=== PATIENT | male | born 1960 | race Caucasian/White ===

== ENCOUNTER 2023-05-10 07:42 | Outpatient (OUT) | payer MEDICARE, SELFPAY ==
--- NOTE | 2023-05-10 07:52 | ECG_ITS ---
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
--- NOTE | 2023-05-10 08:33 | PM.PRESUREVA ---
History of Present Illness History of Present Illness Chief complaint: bph Narrative: Patient presents for preadmission testing. The patient states he has had frequency with urination, incomplete bladder emptying, and nocturia years, symptoms are worsening. The patient states for the past three days he has had congestion and a dry cough. Denies Shortness of breath, fever, dysuria, hematuria, abdominal pain, nausea, vomiting, or any other complaints. Review of Systems ROS Narrative REVIEW OF SYSTEMS: Negative except as stated in HPI, ten or more systems reviewed. Constitutional: No fever , chills, weakness ENT: No sore throat or epistaxis Cardiovascular: No edema, chest pain, palpitations, or activity intolerance Respiratory: No shortness of breath or wheezing; Dry cough ?3 days Musculoskeletal: No joint pain or swelling Gastrointestinal: No abdominal pain, constipation, diarrhea, or vomiting Genitourinary: No dysuria or hematuria Neurological: No numbness, tingling, weakness, or headache Psychiatric: No mood changes PFSH PFSH Medical History (Updated 05/10/23 @ 08:37 by Courtney Almonte NP) Abnormal EKG (~2021) ?R94.31 - Abnormal electrocardiogram [ECG] [EKG] (ICD-10) Benign prostatic hyperplasia with urinary obstruction and other lower urinary tract symptoms ?N40.1 - Benign prostatic hyperplasia with lower urinary tract symptoms (ICD-10) ?N13.8 - Other obstructive and reflux uropathy (ICD-10) Elevated PSA ?R97.20 - Elevated prostate specific antigen [PSA] (ICD-10) BPH (benign prostatic hyperplasia) ?N40.0 - Benign prostatic hyperplasia without lower urinary tract symptoms (ICD-10) Heartburn ?R12 - Heartburn (ICD-10) Surgical History (Updated 05/10/23 @ 08:16 by Courtney Almonte NP) S/P cystoscopy ?Z98.890 - Other specified postprocedural states (ICD-10) Hx of prostate biopsy ?Z98.890 - Other specified postprocedural states (ICD-10) History of hernia repair ?Z98.890 - Other specified postprocedural states (ICD-10) ?Z87.19 - Personal history of other diseases of the digestive system (ICD-10) Family History (Updated 05/10/23 @ 08:16 by Courtney Almonte, ONCOLOGY PATIENT NAVIGATOR) Other Family history of hypertension Family history of lung cancer Social History (Updated 05/10/23 @ 08:12 by Courtney Almonte NP) Within the past year, how often did you have a drink containing alcohol: never Score interpretation: A score less than 4 is consistent with normal alcohol consumption. Smoking status: Never smoker Non-prescribed substance use: denies use Previous occupational history: Retired Highest level of school completed/degree received: high school graduate Meds Home Medications and Allergies Home Medications Medication Instructions Recorded Confirmed Type dutasteride 0.5 mg capsule 0.5 mg PO DAILY 05/10/23 05/10/23 History Allergies Allergy/AdvReac Type Severity Reaction Status Date / Time No Known Drug Allergies Allergy Verified 05/10/23 08:10 Exam Narrative Exam Narrative: Constitutional: Awake, alert, comfortable, well-appearing, nontoxic, interactive, vital signs as charted Head: Normocephalic, atraumatic Eyes: Conjunctiva and lids normal to inspection, pupils normal ENT: Tympanic membranes pearly arreola, nonerythematous, noninjected, naris patent, posterior oropharynx clear, oral mucosa moist Neck: Supple, normal appearance, normal range of motion, no meningeal signs, no lymphadenopathy Respiratory: No respiratory distress, breath sounds clear, Dry cough noted Cardiovascular: Regular rate and rhythm, strong and regular heart tones Abdomen: Nontender, normal bowel sounds, soft, no CVA tenderness Musculoskeletal: Normal gait, no swelling or edema Skin: No rashes or induration, no lesions, only visible skin inspected Neuro: No neurological deficits, normal sensation Psychiatric: Oriented ?3, normal affect Assessment and Plan Assessment and Plan (1) Benign prostatic hyperplasia with urinary obstruction and other lower urinary tract symptoms: (2) Elevated PSA: Plan Cystoscopy/transurethral resection of the prostate scheduled with Dr. Azul 05/24/2023.
[2023-05-10 08:46] LABS: Basophils Percent Auto 0.4 % (0.2-2.0); Eosinophils Absolute Auto 0.1 10^3/uL (0.0-0.7); Eosinophils Percent Auto 2.3 % (0.9-7.0); Hematocrit 44.4 % (42.0-54.0); Immature Granulocytes Abs Auto 0.01 10^3/uL (0.00-0.03); Immature Granulocytes Pct Auto 0.2 % (0.0-0.5); Lymphocytes Absolute Auto 1.3 10^3/uL (1.2-3.8); Lymphocytes Percent Auto 27.8 % (20.5-60.0); Mean Corpuscular HGB Conc 33.8 g/dL (29.9-35.2); Mean Corpuscular Volume 88.8 fL (80.0-94.0); Mean Platelet Volume 9.1 fL (9.5-13.5); Monocytes Absolute Auto 0.8 10^3/uL (0.3-0.8); Neutrophils Absolute Auto 2.5 10^3/uL (1.4-6.5); Neutrophils Percent Auto 53.3 % (43.0-75.0); Platelet Count 150 10^3/uL (150-450); Red Cell Distribution Width 12.2 % (11.0-15.0); White Blood Count 4.7 10^3/uL (4.0-11.0)
[2023-05-10 09:01] LABS: BUN Creatinine Ratio 14.1; Calcium 9.3 mg/dL (8.5-10.1); Chloride 105 mmol/L (98-107); Estimated GFR (African America >60 (>=60); Estimated GFR (Non-African Ame >60 (>=60); Glucose 130 mg/dL (74-106); Sodium 141 mmol/L (136-145)
[2023-05-10 09:13] LABS: SARS-CoV-2 Ag POSITIVE (NEGATIVE)
[2023-05-10 09:40] LABS: Partial Thromboplastin Time 27.9 sec (22.3-36.2); Prothrombin Time 9.8 sec (9.0-11.6)
[2023-05-10 09:59] LABS: INR <0.93
== END 2023-05-10 07:43 | disposition home or self-care (01) ==
PROVIDERS: PCP Family Medicine; Visit Provider Urology
DX: Z01.810 Encounter for preprocedural cardiovascular examination (principal); Z01.812 Encounter for preprocedural laboratory examination; Z01.818 Encounter for other preprocedural examination; N40.1 Benign prostatic hyperplasia with lower urinary tract symptoms; N13.8 Other obstructive and reflux uropathy; R97.20 Elevated prostate specific antigen [PSA]; Z20.822 Contact with and (suspected) exposure to COVID-19
CPT/HCPCS: 80048; 85025; 85610; 85730; 87811; 93005; G0463

== ENCOUNTER 2023-06-08 11:34 | Outpatient (OUT) | payer MEDICARE, SELFPAY ==
--- OUTSIDE RECORDS SUMMARY | 2023-06-08 11:37 | XMS_ITS | CCD ---
Author Name Unknown Address [address] [place] [address] Organization [facility] Care Team Providers Care Senior Quality Analyst Name Role Phone Nahid Junior Primary Care Physician VERNON, DR DEJESUS Primary Care Unavailable MADHURI ., HIRAL PALACIOS Consulting Unavailabl e BRIANNA, SHAIKH Godfrey Admitting Unavailable FAWBRITNI, SHAIKH Godfrey Attending Unavailable BRANDON, JT Consulting Unavailable FAWBRITNI, SHAIKH Godfrey Consulting Unavailable VERNON, DR DEJESUS Admitting Unavailable HOUSE, DR DEJESUS Attending Unavailable VERNON, DR DEJESUS Primary Care Unavailable VERNON, DR DEJESUS Consulting Unavailable MISC, DR JANE Admitting Unavailable MISC, DR JANE Attending Unavailable HOUSE, DR DEJESUS Primary Care Unavailable MISC, DR JANE Consulting Unavailable AZUL, Rolly Bautista Attending Unavailable AZUL, Rolly Bautista Attending Unavailable AZUL, Rolly Bautista Referring Unavailable AZUL, Rolly Bautista Admitting Unavailable AZUL, Rolly Bautista Attending Unavailable AZUL, Rolly Bautista Attending Unavailable AZUL, Rolly Bautista Attending Unavailable AZUL, Rolly Bautista Attending Unavailable Vernon, Nahid Mary Primary Care Physician [phone] Allergies Allergy Classification Reported Allergen(s) Allergy Type Date of Onset Reaction(s) Facility (1 source) No Known Medication Allergies; Translations: [No Known Medication Allergies] Propensity to adverse reactions (disorder) [facility] Repository Medications Current Medications Medication Drug Class(es) Dates Sig (Normalized) Sig (Original) aspirin 81 mg oral tablet (2 sources) Platelet Aggregation Inhibitor, Nonsteroidal Anti-inflammatory Drug Start: 03-05-2019 aspirin 81 mg oral tablet 81 mg = 1 tab(s), Oral, WedFri, Refills(s) 0 Start Date: 03/05/19 Status: Ordered dutasteride 0.5 mg oral capsule (3 sources) 5-alpha Reductase Inhibitor Start: 02-26-2023 take 1 capsule by mouth once daily dutasteride 0.5 mg Cap 0.5 mg = 1 cap(s), Oral, Daily, # 30 cap(s), Refills(s) 11, Pharmacy: [facility]/pharmacy #[id number], 170, cm, 02/26/23 13:09:00 EDT, Height/Length Dosing, 97.7, kg, 02/26/23 13:09:00 EDT, Weight Dosing Start Date: 02/26/23 Status: Ordered losartan potassium 25 mg oral tablet (1 source) Angiotensin 2 Receptor Maryann Start: 02-17-2022 take 1 tablet by mouth once daily losartan 25 mg Tab 25 mg = 1 tab(s), Oral, Daily, # 30 tab(s), Refills(s) 5, [id number], cm, 02/17/22 9:35:00 EDT, Height/Length Dosing, 96, kg, 02/17/22 9:35:00 EDT, Weight Dosing Start Date: 02/17/22 Status: Ordered meloxicam 15 mg oral tablet (2 sources) Nonsteroidal Anti-inflammatory Drug Start: 07-06-2020 take 1 tablet by mouth once daily meloxicam 15 mg oral tablet 15 mg = 1 tab(s), Oral, Daily, # 30 tab(s), Refills(s) 0 Start Date: 07/06/20 Status: Ordered tamsulosin hydrochloride 0.4 mg oral capsule (7 sources) alpha-Adrenergic Maryann Start: 11-15-2021 take 1 capsule by mouth once daily tamsulosin 0.4 mg Cap 0.4 mg = 1 cap(s), Oral, Daily, Refills(s) 0, Urinary discomfort Start Date: 11/15/21 Status: Ordered terazosin 5 mg oral capsule (2 sources) alpha-Adrenergic Maryann Start: 08-30-2021 take 1 capsule by mouth once daily at bedtime terazosin 5 mg Cap 5 mg = 1 cap(s), Oral, Once a day (at bedtime), # 30 cap(s), Refills(s) 1, Pharmacy: [facility]/pharmacy #[id number], 170, cm, 08/30/21 9:37:00 EDT, Height/Length Dosing, 101.9, kg, 08/30/21 9:37:00 EDT, Weight Dosing Start Date: 08/30/21 Status: Ordered Completed/Discontinued Medications Medication Drug Class(es) Dates Sig (Normalized) Sig (Original) cephalexin 500 mg oral capsule (1 source) Cephalosporin Antibacterial Start: 02-26-2023 End: 02-28-2023 take 1 tablet by mouth once daily Keflex 500 mg Cap 500 mg = 1 cap(s), Oral, Daily, take one tab day before procedure, take one tab day of procedure after procedure, X 2 day(s), # 2 cap(s), Refills(s) 0, Pharmacy: [facility]/pharmacy #[id number], 170, cm, 02/26/23 13:09:00 EDT, Height/Length Dosing, 97.7, kg, 02/26/23 13:09:00 EDT, Weight Dosing Start Date: 02/26/23 Stop Date: 02/28/23 Status: Ordered ciprofloxacin 500 mg oral tablet (2 sources) Quinolone Antimicrobial Start: 08-30-2021 take 1 tablet by mouth once daily Cipro 500 mg Tab 500 mg = 1 tab(s), Oral, Daily, take 1 day prior to procedure and 1 tab after procedure, # 2 tab(s), Refills(s) 0, Pharmacy: [facility]/pharmacy #[id number], 170, cm, 08/30/21 9:37:00 EDT, Height/Length Dosing, 101.9, kg, 08/30/21 9:37:00 EDT, Weight Dosing Start Date: 08/30/21 Status: Ordered Problems Active Problems Problem Classification Problem Date Documented Date Episodic/Chronic Essential hypertension (1 source) Essential hypertension; Translations: [Essential (primary) hypertension] Onset: 02-17-2022 Chronic Genitourinary symptoms and ill-defined conditions (20 sources) Nocturia; Translations: [Nocturia] Onset: 08-30-2021 Episodic Hyperplasia of prostate (20 sources) Benign prostatic hypertrophy with outflow obstruction; Translations: [Benign prostatic hyperplasia with lower urinary tract symptoms] Onset: 08-30-2021 Chronic Other diseases of kidney and ureters (2 sources) Urinary tract obstruction; Translations: [Other obstructive and reflux uropathy] Onset: 09-19-2021 Episodic Other male genital disorders (2 sources) Prostatic intraepithelial neoplasia; Translations: [Prostatic intraepithelial neoplasia] Onset: 08-30-2021 Episodic Other screening for suspected conditions (not mental disorders or infectious disease) (17 sources) Raised prostate specific antigen; Translations: [Elevated prostate specific antigen [PSA]] Onset: 08-30-2021 Episodic Unclassified (12 sources) Drug therapy finding 05-28-2019 Unclassified (12 sources) Prostatic intraepithelial neoplasia high grade 03-05-2019 Past or Other Problems Problem Classification Problem Date Documented Da te Episodic/Chronic Acute and unspecified renal failure (1 source) Acute kidney failure, unspecified; Translations: [ACUTE KIDNEY FAILURE UNSPECIFIED] Onset: 11-01-2021 Episodic Fluid and electrolyte disorders (1 source) Acidosis; Translations: [ACIDOSIS] Onset: 11-01-2021 Episodic Inflammatory conditions of male genital organs (2 sources) Abscess of prostate; Translations: [Inflammatory disease of prostate, unspecified] Onset: 11-01-2021 Episodic Septicemia (except in labor) (4 sources) Sepsis, unspecified organism; Translations: [Sepsis due to Escherichia coli [E. coli]] Onset: 10-22-2021 Episodic Urinary tract infections (1 source) Urinary tract infection, site not specified; Translations: [UTI SITE NOT SPECIFIED] Onset: 11-01-2021 Episodic Results Test Name Value Interpretation Reference Range Facility ECG 12-[facility] 05-11-2023 ECG 12-Lead [id number]#1.0 [facility] Lab Reports [id number]#1.0 0[facility] Consent for Procedure/Surger yon 03-21-2023 Consent for Procedure/Surgery [id number] 0TIFF [facility] Consent for Procedure/Surger yon 03-20-2023 Consent for Procedure/Surgery [id number] [facility] for Treatmenton Consent for Treatment [id number] [facility] IntraOperative Documentson 1 05-20-2022 IntraOperative Documents [id number] 0TIFF [facility] IntraOperative Documents [id number] 0TIFF [facility] Main OR Intraoperative Recor don 03-20-2023 Main OR Intraoperative Record IntraOp Document Type FTURO Summary Primary Physician: Rolly AZUL MD Finalized Date/Time: 03/20/23 14:41:00 Pt. Name: DAWN RODRIGUEZ/Sex: 1960 Male Med Rec #: [id number] Physician: Rolly AZUL MD Financial #: [id number] Pt. Type: O Room/Bed: / Admit/Disch: 03/20/23 12:40:30 - Institution: Case Times FTURO Entry 1 Patient Times In Room 03/20/23 14:25:00 Out Room 03/20/23 14:38:00 Procedure Times Start 03/20/23 14:30:00 Stop 03/20/23 14:33:00 Anesthesia Times Last Modified By: Danni Gallagher RN 03/20/23 14:40:49 Case Attendance FTURO Entry 1 Entry 2 Entry 3 Case Attendee Rolly AZUL MD [employer] PROFESSOR, Danni Gallagher RN, Danni Banuelos Role Performed Surgeon - Primary Scrub - Primary Marketing Officer - Primary Time In 03/20/23 14:25:00 03/20/23 14:25:00 03/20/23 14:25:00 Time Out 03/20/23 14:38:00 03/20/23 14:38:00 03/20/23 14:38:00 Procedure CYSTOSCOPY LOCAL(.) CYSTOSCOPY LOCAL(.) CYSTOSCOPY LOCAL(.) Comments Last Modified By: Aileen DELGADO, Danni Gallagher RN, Danni Rodriguez RN 03/20/23 14:40:50 03/20/23 14:40:50 03/20/23 14:40:50 Surgical Procedures FTURO Entry 1 Procedure Description Procedure CYSTOSCOPY LOCAL Modifiers . Surgeon Description CYSTOSCOPY LOCAL Primary Procedure Yes Primary Surgeon Rolly AZUL MD Start 03/20/23 14:30:00 Stop 03/20/23 14:33:00 Anesthesia Type Local Surgical Service Urology Wound Class 2 - Clean-Contaminated Last Modified By: Danni Gallagher RN 03/20/23 14:33:40 General Case Data FTURO Pre-Care Text: Classifies surgical wound, implements aseptic technique, initiates traffic control Entry 1 Case Information OR URO 1 FT Case Level None Wound Class 2 - Clean-Contaminated Specialty Urology Preop Diagnosis BPH WITH OBSTRUCTION, Postop Same As Preop Yes INCOMPLETE EMPTYING Postop Diagnosis BPH WITH OBSTRUCTION, Outcomes Met? Yes INCOMPLETE EMPTYING Last Modified By: Danni Gallagher RN 03/20/23 14:08:22 Post-Care Text: The patient is free from signs and symptoms of infection EU IntraOp - FTURO Pre-Care Text: Implements protective measures prior to operative or invasive procedure, confirms identity before the operative or invasive procedure, verifies operative procedure, surgical site, and laterality Entry 1 EU Perioperative Protocols Procedure(s) CYSTOSCOPY LOCAL(.) Patient Identity Birthday, ID Band Verified (select at Check, Patient least 2): Participation Consents / H and P HandP, Surgery/Procedure Operative Site N/A Verified Consent Marking Verified Surgical Site Yes Laterality Verified Yes Verified Procedure Verified Yes Correct Patient Yes Position Verified Availability Equipment, Medication Time Out Rolly AZUL MD, Verified (If Participants Danni Maldonado CST Applicable) Aileen Dejesus RN, Kimberly Y Time Out Complete 03/20/23 14:26:00 Allergies Reviewed? Yes Allergies Reviewed Self/Patient With Body Position Supine Prep Area PENIS Prep Agents Betadine Solution Skin. Condition Dry, Warm, Unable to Description UNABLE TO VISUALIZE DUE Visualize TO PATIENT PARTIALLY CLOTHED Additional None Specimens Collected Vitals - EU Blood Pressure 171/80 Pulse 65 bpm Respirations 20 br/min SPO2 96 % EBL 0 IandO - EU Total Intake 0 mL Total Output 0 mL Outcomes Met? Yes Last Modified By: Danni Gallagher RN 03/20/23 14:27:00 Post-Care Text: The patient is free from signs and symptoms of injury caused by extraneous objects Sign Out FTURO Entry 1 Before Patient Leaves OR Nurse verbally Yes Nurse verbally Yes confirms with the confirms with the team the name of team that the procedure(s) instrument, sponge, recorded and needle counts are correct (or N/A) Nurse verbally n/a Nurse verbally Yes confirms with the confirms with the team how the team whether there specimen is labeled are any equipment (including patient problems to be name), if applicable addressed Sign Out Complete 03/20/23 14:33:00 Last Modified By: Danni Gallagher RN 03/20/23 14:33:39 Case Comments Finalized By: Danni Gallagher RN Document Signatures Signed By: Danni Gallagher RN 03/20/23 14:41 [facility] Main OR Preoperative Recordo n 03-20-2023 Main OR Preoperative Record Holding Area Document Type FTURO Summary Primary Physician: Rolly AZUL MD Finalized Date/Time: 03/20/23 14:07:31 Pt. Name: DAWN RODRIGUEZ/Sex: 1960 Male Med Rec #: [id number] Physician: Rolly AZUL MD Financial #: [id number] Pt. Type: O Room/Bed: / Admit/Disch: 03/20/23 12:40:30 - Institution: Case Times Holding FTURO Pre-Care Text: Verifies consent for planned procedure, identifies individual values and wishes concerning care, includes family members in perioperative teaching Secures patient's records' belongings, and valuables, maintains patient's dignity and privacy, and maintains patient confidentiality Entry 1 In Holding 03/20/23 13:42:00 Outcomes Met? Yes Last Modified By: Ailin Luna LPN 03/20/23 13:42:12 Post-Care Text: The patient participates in decisions affecting his or her perioperative plan of care The patient's right to privacy is maintained Surgery Checklist FTURO Entry 1 Patient Birthday, ID Band Procedure History and Physical, Identification: Check, Patient Verification: Surgical Consent, With Participation Patient NPO after Midnight: n/a Date/Time: 03/20/23 13:42:00 Personal Items: Contact Lenses Personal Items contacts Comment: Limitations: up ad maco Complaints of Pain: No Skin Integrity Intact, [place], Warm, & Dry Vitals - EU Blood Pressure 171/80 Pulse 65 bpm Respirations 20 br/min SPO2 96 % RN Reviewed Yes Last Modified By: Danni Gallagher RN 03/20/23 14:07:30 General Comments: Temp 36.7 Finalized By: Danni Gallagher RN Document Signatures Signed By: Ailin Luna LPN 03/20/23 13:49 Ailin Luna LPN 03/20/23 13:49 Danni Gallagher RN 03/20/23 14:07 [facility] Operative Reporton Operative Report Patient: LEVAR RODRIGUEZ Age: 63 years Sex: Male : 1960 Associated Diagnoses: None Author: Rolly AZUL MD Procedure Operative Information Details: Date/ Time: 03/20/2023 14:38:00. Pre-Op Dx: BPH w/ LUTS - N40.1, Frequency - R35.0, Urgency - R39.15, Nocturia - R35.1, Incomplete Bladder Emptying - R39.14. Post-Op Dx: Same. Anesthesia Type: Local. Procedure: Local Cystoscopy. Complications: None. Risks/Benefits/Informe d Consent: Surgical risks, benefits, details of the procedure have been explained to the patient, Full informed consent has been obtained. Intraoperative Information Prepped: Patient is brought back to the endoscopy suite, Patient is placed in supine position, Patient prepped in the usual fashion with Betadine solution, 2% Xylocaine Jelly is placed per Urethra, After waiting several minutes the Cystoscope is introduced. The Urethra is: Normal. The Prostatic Urethra is: Obstructed, Median Lobe, Trilobar obstruction. Moderate friability., Median lobe protrudes into bladder some. The Bladder is: Trabeculated (Moderate (2), No bladder tumors.). The ureteral orifices: Show efflux of clear urine. Devices Implanted: None. Removal: Cystoscope is removed, The patient tolerated it well. Postoperative Information Discharge: Patient is discharged home with antibiotic coverage, Follow up arranged. He is obstructed urodynamically and endoscopically. He needs a TURP. He wishes to think about it at this time.. [facility] Comment on above: Result Comment: Elec tronically Signed By: Rolly AZUL MD\.br\Date and Time Signed: 03/20/23 14:40 EST Outpatient Surgery Discharge Instructionon 03-20-2023 Outpatient Surgery Discharge Instruction [id number] 0TIFF [facility] Lab Reportson 02-27-2023 Lab Reports [id number] 0TIFF [facility] Ambulatory Visit Summaryon 1 Ambulatory Visit Summary JENNIFERDAWN Michele :1960 Visit Date:02/26/2023 Ambulatory Visit Instructions Your Diagnosis BPH with obstruction/lower urinary tract symptoms Elevated PSA Other obstructive and reflux uropathy Your Care Team Attending Physician - Rolly AZUL MD Primary Care Physician - Nahid Junior DO Procedures Performed Cystoscopy (09/19/2021), Transrectal biopsy of prostate using ultrasound (US) guidance (02/19/2019), Umbilical hernia. Discharge Vitals Heart Rate (Peripheral) 89 Respiratory Rate 16 Blood Pressure 133/88 Height 170 cm Height 67 in Weight 97.7 kg Weight 214.94 lb BMI 33.81 What to do next You Need to Schedule the Following Appointments Follow Up with Rolly AZUL MD, LINDENL When: Comments: Sched Cysto and Bladder Function Test Where: [facility] [address] [place] [address]- Allergies No Known Medication Allergies Problems Ongoing - Any problem that you are currently receiving treatment for. Anticoagulated BPH with obstruction/lower urinary tract symptoms Elevated PSA High grade prostatic intraepithelial neoplasia Incomplete bladder emptying Nocturia Urinary urgency Urine frequency Weak urinary stream [employer] Benign Prostatic Hyperplasia Benign prostatic hyperplasia (BPH) is an enlarged prostate gland that is caused by the normal aging process. The prostate may get bigger as a man gets older. The condition is not caused by cancer. The prostate is a walnut-sized gland that is involved in the production of semen. It is located in front of the rectum and below the bladder. The bladder stores urine. The urethra carries stored urine out of the body. An enlarged prostate can press on the urethra. This can make it harder to pass urine. The buildup of urine in the bladder can cause infection. Back pressure and infection may progress to bladder damage and kidney (renal) failure. What are the causes? This condition is part of the normal aging process. However, not all men develop problems from this condition. If the prostate enlarges away from the urethra, urine flow will not be blocked. If it enlarges toward the urethra and compresses it, there will be problems passing urine. What increases the risk? This condition is more likely to develop in men older than 50 years. What are the signs or symptoms? Symptoms of this condition include: ? Getting up often during the night to urinate. ? Needing to urinate frequently during the day. ? Difficulty starting urine flow. ? Decrease in size and strength of your urine stream. ? Leaking (dribbling) after urinating. ? Inability to pass urine. This needs immediate treatment. ? Inability to completely empty your bladder. ? Pain when you pass urine. This is more common if there is also an infection. ? Urinary tract infection (UTI). How is this diagnosed? This condition is diagnosed based on your medical history, a physical exam, and your symptoms. Tests will also be done, such as: ? A post-void bladder scan. This measures any amount of urine that may remain in your bladder after you finish urinating. ? A digital rectal exam. In a rectal exam, your health care provider checks your prostate by putting a lubricated, gloved finger into your rectum to feel the back of your prostate gland. This exam detects the size of your gland and any abnormal lumps or growths. ? An exam of your urine (urinalysis). ? A prostate specific antigen (PSA) screening. This is a blood test used to screen for prostate cancer. ? An ultrasound. This test uses sound waves to electronically produce a picture of your prostate gland. Your health care provider may refer you to a specialist in kidney and prostate diseases (urologist). How is this treated? Once symptoms begin, your health care provider will monitor your condition (active surveillance or watchful waiting). Treatment for this condition will depend on the severity of your condition. Treatment may include: ? Observation and yearly exams. This may be the only treatment needed if your condition and symptoms are mild. ? Medicines to relieve your symptoms, including: ? Medicines to shrink the prostate. ? Medicines to relax the muscle of the prostate. ? Surgery in severe cases. Surgery may include: ? Prostatectomy. In this procedure, the prostate tissue is removed completely through an open incision or with a laparoscope or robotics. ? Transurethral resection of the prostate (TURP). In this procedure, a tool is inserted through the opening at the tip of the penis (urethra). It is used to cut away tissue of the inner core of the prostate. The pieces are removed through the same opening of the penis. This removes the blockage. ? Transurethral incision (TUIP). In this procedure, small cuts are made in the prostate. This lessens the prostate's pres (more content not included)... [facility] Patient Educationon 02-27-20 Patient Education Urology Benign Prostatic Hyperplasia Benign prostatic hyperplasia (BPH) is an enlarged prostate gland that is caused by the normal aging process. The prostate may get bigger as a man gets older. The condition is not caused by cancer. The prostate is a walnut-sized gland that is involved in the production of semen. It is located in front of the rectum and below the bladder. The bladder stores urine. The urethra carries stored urine out of the body. An enlarged prostate can press on the urethra. This can make it harder to pass urine. The buildup of urine in the bladder can cause infection. Back pressure and infection may progress to bladder damage and kidney (renal) failure. What are the causes? This condition is part of the normal aging process. However, not all men develop problems from this condition. If the prostate enlarges away from the urethra, urine flow will not be blocked. If it enlarges toward the urethra and compresses it, there will be problems passing urine. What increases the risk? This condition is more likely to develop in men older than 50 years. What are the signs or symptoms? Symptoms of this condition include: ? Getting up often during the night to urinate. ? Needing to urinate frequently during the day. ? Difficulty starting urine flow. ? Decrease in size and strength of your urine stream. ? Leaking (dribbling) after urinating. ? Inability to pass urine. This needs immediate treatment. ? Inability to completely empty your bladder. ? Pain when you pass urine. This is more common if there is also an infection. ? Urinary tract infection (UTI). How is this diagnosed? This condition is diagnosed based on your medical history, a physical exam, and your symptoms. Tests will also be done, such as: ? A post-void bladder scan. This measures any amount of urine that may remain in your bladder after you finish urinating. ? A digital rectal exam. In a rectal exam, your health care provider checks your prostate by putting a lubricated, gloved finger into your rectum to feel the back of your prostate gland. This exam detects the size of your gland and any abnormal lumps or growths. ? An exam of your urine (urinalysis). ? A prostate specific antigen (PSA) screening. This is a blood test used to screen for prostate cancer. ? An ultrasound. This test uses sound waves to electronically produce a picture of your prostate gland. Your health care provider may refer you to a specialist in kidney and prostate diseases (urologist). How is this treated? Once symptoms begin, your health care provider will monitor your condition (active surveillance or watchful waiting). Treatment for this condition will depend on the severity of your condition. Treatment may include: ? Observation and yearly exams. This may be the only treatment needed if your condition and symptoms are mild. ? Medicines to relieve your symptoms, including: ? Medicines to shrink the prostate. ? Medicines to relax the muscle of the prostate. ? Surgery in severe cases. Surgery may include: ? Prostatectomy. In this procedure, the prostate tissue is removed completely through an open incision or with a laparoscope or robotics. ? Transurethral resection of the prostate (TURP). In this procedure, a tool is inserted through the opening at the tip of the penis (urethra). It is used to cut away tissue of the inner core of the prostate. The pieces are removed through the same opening of the penis. This removes the blockage. ? Transurethral incision (TUIP). In this procedure, small cuts are made in the prostate. This lessens the prostate's pressure on the urethra. ? Transurethral microwave thermotherapy (TUMT). This procedure uses microwaves to create heat. The heat destroys and removes a small amount of prostate tissue. ? Transurethral needle ablation (TUNA). This procedure uses radio frequencies to destroy and remove a small amount of prostate tissue. ? Interstitial laser coagulation (ILC). This procedure uses a laser to destroy and remove a small amount of prostate tissue. ? Transurethral electrovaporization (TUVP). This procedure uses electrodes to destroy and remove a small amount of prostate tissue. ? Prostatic urethral lift. This procedure inserts an implant to push the lobes of the prostate away from the urethra. Follow these instructions at home: ? Take [id number]-[id number] and prescription medicines only as told by your health care provider. ? Monitor your symptoms for any changes. Contact your health care provider with any changes. ? Avoid drinking large amounts of liquid before going to bed or out in public. ? Avoid or reduce how much caffeine or alcohol you drink. ? Give yourself time when you urinate. ? Keep all follow-up visits. This is important. Contact a health care provider if: ? You have unexplained back pain. ? Your symptoms do not get better with treatment. ? You develop side effects from the medicine (more content not included)... Normal [facility] Office/Clinic Noteon 02-26-2023 Urology Office/Clinic Note Chief Complaint Follow up HPI Staff Former DLS pt. 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 Pt was then scheduled for Urolift. Urolift attempted 10/20/21. However procedure was terminated due to intolerance from pt. Pt then got an infection, sent to [facility] (No pest control technician Urologist in [place]) Pt was then scheduled for TURP. Abnormal EKG. Surgery was then cancelled, awaiting cardiac clearance. Pt [place] [facility] [place]. Here today for follow up. Last PSA 08/28/22- 2.85 Getting up 3-5x/night. [id number] in the morning with coffee intake. [id number] the rest of the day. Weak stream. Recently started dripping st the end of voiding. Has tried Tamsulosin & Terazosin in the past. Only slight improvement with each. Is still open to prostate procedure. History of Present Illness Tests reviewed: reviewed UA and PSA. I have reviewed the previous health record information and history for this patient from . I have reviewed and verified the staff HPI to be accurate for this encounter. There have been no associated fever, chills, flank pain, or blood in the urine. Denies any urinary infections since last encounter. Review of Systems PHQ Score Initial Depression Screen Score: 0 ROS - Provider Constitutional: denies weight loss, denies hot flashes. Eyes: denies eye problems. Gastrointestinal: denies nausea, denies vomiting. Cardiovascular: denies chest pain or angina. Integumentary: no dryness Musculoskeletal: denies musculoskeletal symptoms. ENMT: denies otolaryngeal symptoms. Respiratory: no shortness of breath. Heme/Lymph: denies easy bleeding tendency, denies easy bruising tendency. Psychiatric: no confusion, no anxiety. Genitourinary: See HPI. Physical Exam Vitals & Measurements HR: 89(Peripheral) RR: 16 BP: 133/88 HT: 67 in HT: 170 cm WT: 97.7 kg WT: 214.94 lb BMI: 33.81 General Appearance: alert, no distress, well nourished, well developed male. Assessment/Plan 1. BPH with obstruction/lower urinary tract symptoms (N40.1: Benign prostatic hyperplasia with lower urinary tract symptoms) S/p Cysto 09/19/21 Pt was then scheduled for Urolift. Urolift attempted 10/20/21. However procedure was terminated due to intolerance from pt. Pt then got an infection, sent to [facility] (No pest control technician Urologist in [place]) CT 10/21/21 showed no hydronephrosis, enlarged prostate gland. Pt was seen in [place] for infection after procedure was terminated. Pt took Cefdinir for 4 days for infection. Pt states he was admitted to [facility] because of an infection on 10/21/2021. Pt stayed one night at [facility] and then was sent to [facility] since we did not have a Urologist pest control technician. Pt states that he was having problems voiding at first but was eventually able to pass his urine on his own and did not need a cath. [place] took pt off Terazosin and put him on Flomax. Pt was then scheduled for TURP. Abnormal EKG. Surgery was then cancelled, awaiting cardiac clearance. Pt cleared by [facility] [place]. No UA given today. Getting up 3-5x/night, [id number] in the morning with coffee intake, [id number] the rest of the day. Weak stream. Feels like he is not emptying completely. Recently started dripping st the end of voiding. Has tried Tamsulosin & Terazosin in the past. Only slight improvement with each. Is still open to prostate procedure. Denies any infections or visible blood in his urine. Discussed prostate procedures and tests needed with pt. Pt will need to have a bladder function test and cysto done to determine which procedure is best for him. Discussed starting a med to help sxs. Pt states he would be willing to try this. Will schedule cysto w/Bladder Function Test. The risks and benefits for cystoscopy have been discussed. The risks include bleeding, infection, and irritation of the bladder and urinary channel, among others. The patient, after being informed of procedural details and after questions have been answered, wishes to proceed. Full informed consent has been obtained. Will order Local anesthesia. -Will start Dutasteride 0.5mg QD. Discussed the medication side effects, and the patient will monitor closely for these, as well as for symptom improvement. If severe side effects occur, the medication should be stopped and the office notified. -Will send Keflex 500mg to pharm on file. 2. 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 Most recent PSA done on 08/28/22 was 2.85. Previous PSA done 08/28/21 - 3.39. Pt has a hx of fluctuating PSA. Will continue to monitor. Follow-up With When Contact Information DANIELLA HURLEY, Rolly Bautista, [facility] [address], [place] [address]- Additional Instructions: Sched Cysto and Bladder Function Test Patient Education Benign Prostatic Hyperplasia I, Sheryl Temple , personally scribed for Dr. Azul on 02/26/2023 14: (more content not included)... Normal [facility] Comment on above: Result Comment: Elec tronically Signed By: Marina Gross\.br\Date and Time Signed: 02/26/23 14:18 EDT CBC AUTO DIFFon 08-28-2022 BASO # 0.0 103/ul Normal 0.0-0.1 [facility] Comment on above: Performed By: #### C BC #### [facility] [address] [address] [address] Yamini Gomez Basophils/100 WBC (Bld) 0.5 % Normal 0.2-2.0 [facility] Comment on above: Performed By: #### C BC #### [facility] [address] [place] [address] Dr. Yamini Gomez EO # 0.1 103/ul Normal 0.0-0.7 [facility] Comment on above: Performed By: #### C BC #### [facility] [address] [place] [address] Dr. Yamini Gomez Eosinophils/100 WBC (Bld) 2.1 % Normal 0.9-7.0 [facility] Comment on above: Performed By: #### C BC #### [facility] [address] [place] [address] Dr. Yamini Gomez Erythrocyte distribution width (RBC) [Ratio] 12.3 % Normal 11.0-15.0 [facility] Comment on above: Performed By: #### C BC #### [facility] [address] [place] [address] Dr. Yamini Gomez Hematocrit (Bld) [Volume fraction] 44.7 % Normal 42.0-54.0 [facility] Comment on above: Performed By: #### C BC #### [facility] [address] [place] [address] Dr. Yamini Gomez Hemoglobin (Bld) [Mass/Vol] 15.9 g/dL Normal 14.0-18.0 [facility] Comment on above: Performed By: #### C BC #### [facility] [address] [place] [address] Dr. Yamini Gomez IG # 0.01 10e3/ul Normal 0.00-0.03 [facility] Comment on above: Performed By: #### C BC #### [facility] [address] [place] [address] Dr. Yamini Gomez IG % 0.3 % Normal 0.0-0.5 [facility] Comment on above: Performed By: #### C BC #### [facility] [address] [place] [address] Dr. Yamini Gomez LYMPH # 1.5 103/ul Normal 1.2-3.8 [facility] Comment on above: Performed By: #### C BC #### [facility] [address] [place] [address] Dr. Yamini Gomez Lymphocytes/100 WBC (Bld) 38.5 % Normal 20.5-60.0 [facility] Comment on above: Performed By: #### C BC #### [facility] [address] [place] [address] Dr. Yamini Gomez MANUAL DIFF REQ NO Normal [facility] Comment on above: Performed By: #### C BC #### [facility] [address] [place] [address] Dr. Yamini Gomez MCH (RBC) [Entitic mass] 30.5 pg Normal 25.9-34.0 [facility] Comment on above: Performed By: #### C BC #### [facility] [address] [place] [address] Dr. Yamini Gomez MCHC (RBC) [Mass/Vol] 35.6 g/dL Critically high 29.9-35.2 [facility] Comment on above: Performed By: #### C BC #### [facility] [address] [place] [address] Dr. Yamini Gomez MCV (RBC) [Entitic vol] 85.8 fL Normal 80.0-94.0 [facility] Comment on above: Performed By: #### C BC #### [facility] [address] [place] [address] Dr. Yamini Gomez MONO # 0.4 103/ul Normal 0.3-0.8 [facility] Comment on above: Performed By: #### C BC #### [facility] [address] [place] [address] Dr. Yamini Gomez Monocytes/100 WBC (Bld) 9.8 % Normal 1.7-12.0 [facility] Comment on above: Performed By: #### C BC #### [facility] [address] [place] [address] Dr. Yamini Gomez NEUT # 1.9 103/ul Normal 1.4-6.5 [facility] Comment on above: Performed By: #### C BC #### [facility] [address] [address] [address] Yamini Gomez Neutrophils/100 WBC (Bld) 48.8 % Normal 43.0-75.0 [facility] Comment on above: Performed By: #### C BC #### [facility] [address] [address] [address] Yamini Gomez Platelet mean volume (Bld) [Entitic vol] 9.0 fL Critically low 9.5-13.5 [facility] Comment on above: Performed By: #### C BC #### [facility] [address] [address] [address] Yamini Gomez PLT 168 103/ul Normal 150-450 [facility] Comment on above: Performed By: #### C BC #### [facility] [address] [place] [address] Dr. Yamini Gomez RBC 5.21 106/ul Normal 4.70-6.10 [facility] Comment on above: Performed By: #### C BC #### [facility] [address] [address] [address] Yamini Gomez WBC 3.8 103/ul Critically low 4.0-11.0 [facility] Comment on above: Performed By: #### C BC #### [facility] [address] [place] [address] Dr. Yamini Gomez PROF 14(COMP METB)on 023 Albumin [Mass/Vol] 4.0 g/dL Normal 3.4-5.0 [facility] Comment on above: Performed By: #### T 4, TSH, CMP #### [facility] [address] [place] [address] Dr. Yamini Gomez Albumin/Globulin [Mass ratio] 1.0 {ratio} Normal [facility] Comment on above: Performed By: #### T 4, TSH, CMP #### [facility] [address] [place] [address] Dr. Yamini Gomez ALP [Catalytic activity/Vol] 69 U/L Normal 46-116 [facility] Comment on above: Performed By: #### T 4, TSH, CMP #### [facility] [address] [address] [address] Yamini Gomez ALT [Catalytic activity/Vol] 57 U/L Normal 16-63 [facility] Comment on above: Performed By: #### T 4, TSH, CMP #### [facility] [address] [address] [address] Yamini Gomez Anion gap [Moles/Vol] 10.0 mmol/L Normal [facility] Comment on above: Performed By: #### T 4, TSH, CMP #### [facility] [address] [place] [address] Dr. Yamini Gomez AST [Catalytic activity/Vol] 26 U/L Normal 15-37 [facility] Comment on above: Performed By: #### T 4, TSH, CMP #### [facility] [address] [place] [address] Dr. Yamini Gomez Bilirubin [Mass/Vol] 1.0 mg/dL Normal 0.2-1.0 [facility] Comment on above: Performed By: #### T 4, TSH, CMP #### [facility] [address] [place] [address] Dr. Yamini Gomez Calcium [Mass/Vol] 9.4 mg/dL Normal 8.5-10.1 [facility] Comment on above: Performed By: #### T 4, TSH, CMP #### [facility] [address] [place] [address] Dr. Yamini Gomez Chloride [Moles/Vol] 106 mmol/L Normal 98-107 [facility] Comment on above: Performed By: #### T 4, TSH, CMP #### [facility] [address] [place] [address] Dr. Yamini Gomez CO2 [Moles/Vol] 28.5 mmol/L Normal 21.0-32.0 [facility] Comment on above: Performed By: #### T 4, TSH, CMP #### [facility] [address] [place] [address] Dr. Yamini Gomez Creatinine [Mass/Vol] 1.06 mg/dL Normal 0.70-1.30 [facility] Comment on above: Performed By: #### T 4, TSH, CMP #### [facility] [address] [address] [address] Yamini Gomez EGFR-AF ALGERIAN >60 Normal >=60 [facility] Comment on above: Performed By: #### T 4, TSH, CMP #### [facility] [address] [address] [address] Yamini Gomez EGFR-NON AF ALGERIAN >60 Normal >=60 [facility] Comment on above: Performed By: #### T 4, TSH, CMP #### [facility] [address] [address] [address] Yamini Gomez Globulin (S) [Mass/Vol] 4.0 g/dL Normal [facility] Comment on above: Performed By: #### T 4, TSH, CMP #### [facility] [address] [address] [address] Yamini Gomez Glucose [Mass/Vol] 119 mg/dL Critically high 74-106 [facility] Comment on above: Performed By: #### T 4, TSH, CMP #### [facility] [address] [address] [address] Yamini Gomez Potassium [Moles/Vol] 4.5 mmol/L Normal 3.5-5.1 [facility] Comment on above: Performed By: #### T 4, TSH, CMP #### [facility] [address] [address] [address] Yamini Gomez Protein [Mass/Vol] 8.0 g/dL Normal 6.4-8.2 [facility] Comment on above: Performed By: #### T 4, TSH, CMP #### [facility] [address] [address] [address] Yamini Gomez Sodium [Moles/Vol] 140 mmol/L Normal 136-145 [facility] Comment on above: Performed By: #### T 4, TSH, CMP #### [facility] [address] [address] [address] Yamini Gomez Urea nitrogen [Mass/Vol] 14.0 mg/dL Normal 7.0-18.0 [facility] Comment on above: Performed By: #### T 4, TSH, CMP #### [facility] [address] [place] [address] Dr. Yamini Gomez Urea nitrogen/Creatinine [Mass ratio] 13.2 mg/mg Normal [facility] Comment on above: Performed By: #### T 4, TSH, CMP #### [facility] [address] [place] [address] Dr. Yamini Gomez T4on 08-28-2022 T4 [Mass/Vol] 7.60 ug/dL Normal 4.50-12.10 [facility] Comment on above: Performed By: #### T 4, TSH, CMP #### [facility] [address] [place] [address] Dr. Yamini Gomez TSHon 08-28-2022 TSH 4.413 uIU/mL Critically high 0.358-3.740 [facility] Comment on above: Performed By: #### T 4, TSH, CMP #### [facility] [address] [place] [address] Dr. Yamini Gomez PROF CHEM 8 (BAS METB)on Anion gap [Moles/Vol] 10.5 mmol/L Normal [facility] Comment on above: Performed By: #### C MP #### [facility] [address] [place] [address] Dr. Yamini Gomez Calcium [Mass/Vol] 9.4 mg/dL Normal 8.5-10.1 [facility] Comment on above: Performed By: #### C MP #### [facility] [address] [place] [address] Dr. Yamini Gomez Chloride [Moles/Vol] 104 mmol/L Normal 98-107 [facility] Comment on above: Performed By: #### C MP #### [facility] [address] [place] [address] Dr. Yamini Gomez CO2 [Moles/Vol] 28.4 mmol/L Normal 21.0-32.0 [facility] Comment on above: Performed By: #### C MP #### [facility] [address] [address] [address] Yamini Gomez Creatinine [Mass/Vol] 1.03 mg/dL Normal 0.70-1.30 [facility] Comment on above: Performed By: #### C MP #### [facility] [address] [address] [address] Yamini Gomez EGFR-AF ALGERIAN >60 Normal >=60 [facility] Comment on above: Performed By: #### C MP #### [facility] [address] [place] [address] Dr. Yamini Gomez EGFR-NON AF ALGERIAN >60 Normal >=60 [facility] Comment on above: Performed By: #### C MP #### [facility] [address] [place] [address] Dr. Yamini Gomez Glucose [Mass/Vol] 112 mg/dL Critically high 74-106 [facility] Comment on above: Performed By: #### C MP #### [facility] [address] [address] [address] Yamini Gomez Potassium [Moles/Vol] 3.9 mmol/L Normal 3.5-5.1 [facility] Comment on above: Performed By: #### C MP #### [facility] [address] [place] [address] Dr. Yamini Gomez Sodium [Moles/Vol] 139 mmol/L Normal 136-145 [facility] Comment on above: Performed By: #### C MP #### [facility] [address] [place] [address] Dr. Yamini Gomez Urea nitrogen [Mass/Vol] 17.0 mg/dL Normal 7.0-18.0 [facility] Comment on above: Performed By: #### C MP #### [facility] [address] [place] [address] Dr. Yamini Gomez Urea nitrogen/Creatinine [Mass ratio] 16.5 mg/mg Normal [facility] Comment on above: Performed By: #### C MP #### [facility] [address] [place] [address] Dr. Yamini Gomez CHEMISTRYOrdered By: SYSTEM SYSTEM on 11-24-2021 Anion gap [Moles/Vol] 12 mmol/L Normal 6 - 16 mEq/L [facility] Calcium [Mass/Vol] 9.4 mg/dL Normal 8.9 - 11. 1 mg/dL [facility] Chloride [Moles/Vol] 105 mmol/L Normal 101 - 1 11 mmol/L [facility] CO2 [Moles/Vol] 25 mmol/L Normal 21 - 31 mmol/L [facility] Creatinine [Mass/Vol] 1.0 mg/dL Normal 0.5 - 1.3 mg/dL [facility] GFR/1.73 sq M.predicted among blacks MDRD (S/P/Bld) [Vol rate/Area] mL/min/1.73 m2 Normal >=59mL/min/1 .73 m2 [facility] Chem S GFR/1.73 sq M.predicted among non-blacks MDRD (S/P/Bld) [Vol rate/Area] mL/min/1.73 m2 Normal >=59mL/min/1 .73 m2 [facility] Chem S Glucose [Mass/Vol] 101 mg/dL Normal 55 - 199 mg/dL [facility] Potassium [Moles/Vol] 4.0 mmol/L Normal 3.5 - 5.3 mmol/L [facility] Remisol Sodium [Moles/Vol] 138 mmol/L Normal 135 - 145 mmol/L [facility] Urea nitrogen [Mass/Vol] 20 mg/dL Normal 5 - 21 mg/dL [facility] Urea nitrogen/Creatinine [Mass ratio] 20 mg/mg Normal 10 - 20 [facility] Remisol COAGULATIONOrdered By: Silvia Jones on 11-24-2021 aPTT Coag (PPP) [Time] 31.8 s Normal 25.1 - 36.5 second(s) [facility] Auto Coag INR Coag (PPP) [Relative time] 1.0 {INR} Invalid Interpretation Code [facility] Auto Coag PT Coag (PPP) [Time] 11.9 s Normal 10.2 - 12.9 second(s) [facility] Auto Coag HEMATOLOGYOrdered By: SYSTEM SYSTEM on 11-24-2021 Basophils/100 WBC (Bld) 0.5 % Normal 0.0 - 2.0 % [facility] HemeAutoSS Basophils/Leukocytes Auto (Bld) [Pure # fraction] 0.0 E9/L Normal 0.0 - 0.2 E9/L [facility] HemeAutoSS Eosinophils/100 WBC (Bld) 2.3 % Normal 0.0 - 8.0 % [facility] HemeAutoSS Eosinophils/Leukocyte s Auto (Bld) [Pure # fraction] 0.1 E9/L Normal 0.0 - 0.5 E9/L [facility] HemeAutoSS Lymphocytes/100 WBC (Bld) 35.2 % Normal 14.0 - 50.0 % [facility] HemeAutoSS Lymphocytes/Leukocyte s Auto (Bld) [Pure # fraction] 1.5 E9/L Normal 1.0 - 4.0 E9/L [facility] HemeAutoSS Monocytes/100 WBC (Bld) 8.6 % Normal 4.0 - 14.0 % [facility] HemeAutoSS Monocytes/Leukocytes Auto (Bld) [Pure # fraction] 0.4 E9/L Normal 0.2 - 1.0 E9/L [facility] HemeAutoSS Neutrophils/100 WBC (Bld) 53.4 % Normal 36.0 - 75.0 % [facility] HemeAutoSS Neutrophils/Leukocyte s Auto (Bld) [Pure # fraction] 2.3 E9/L Normal 2.0 - 7.5 E9/L [facility] HemeAutoSS HEMATOLOGYOrdered By: Aileen Jerez on 11-24-2021 Erythrocyte distribution width (RBC) [Ratio] 13.2 % Normal 10.9 - 14.2 % [facility]eAutoSS Hematocrit (Bld) [Volume fraction] 43.6 % Normal 37.7 - 49.0 % [facility]eAutoSS Hemoglobin (Bld) [Mass/Vol] 14.9 g/dL Normal 13.5 - 17.5 gm/dL [facility] MCH (RBC) [Entitic mass] 29.6 pg Normal 27.0 - 34.0 pg [facility]eAuto[facility] MCHC (RBC) [Mass/Vol] 34.1 g/dL Normal 31.4 - 36.0 gm/dL [facility]eAutoSS MCV (RBC) [Entitic vol] 86.6 fL Normal 80.0 - 100.0 fL [facility]eAutoSS Platelet mean volume (Bld) [Entitic vol] 7.7 fL Normal 6.4 - 10.8 fL [facility]eAutoSS Platelets (Bld) [#/Vol] 156.0 E9/L Normal 150.0 - 500.0 E9/L [facility]eAuto[facility] RBC (Bld) [#/Vol] 5.0 E12/L Normal 4.3 - 5.9 E12/L [facility] WBC corrected for nucl RBC Auto (Bld) [#/Vol] 4.3 E9/L Normal 4.0 - 11.0 E9/L [facility] URINALYSISOrdered By: Silvia lyles on 11-24-2021 Bilirubin Ql (U) Negative (11/24/21 2:50 PM) Normal Negative [facility] UA Auto SS Clarity (U) Clear (11/24/21 2:50 PM) Normal Clear [facility] UA Auto SS Color (U) Yellow (11/24/21 2:50 PM) Normal Yellow [facility] UA Auto SS Epithelial cells.squamous LM.HPF (Urine sed) [#/Area] 0-2 /HPF Normal 0-2/HPF [facility] UA Aut o SS Glucose Test strip (U) [Mass/Vol] Negative (11/24/21 2:50 PM) Normal Negative [facility] UA Auto SS Hemoglobin Ql (U) Negative (11/24/21 2:50 PM) Normal Negative [facility] UA Auto SS Ketones (U) [Mass/Vol] Negative (11/24/21 2:50 PM) Normal Negative [facility] UA Auto SS [place].plasma/Lith[place] m.RBC (Bld) [Mass ratio] 0-3 /HPF Normal 0-3/HPF [facility] UA Auto SS Nitrite Ql (U) Negative (11/24/21 2:50 PM) Normal Negative [facility] UA Auto SS pH (U) 6.0 *NA* (11/24/21 2:50 PM) Invalid Interpretation Code 5.0 - 9.0 [facility] UA Auto SS Protein (U) [Mass/Vol] Negative (11/24/21 2:50 PM) Normal Negative [facility] UA Auto SS Specific gravity (U) [Rel density] 1.020 *NA* (11/24/21 2:50 PM) Invalid Interpretation Code 1.005 - 1.030 [facility] UA Auto SS UA Spec Desc Clean Catch (11/24/21 2:50 PM) Normal [facility] UA Auto SS Urobilinogen Qn (U) [id number] {Erendira'U}/dL Normal 0.0 - 1.0 EU/dL [facility] UA Auto SS WBC Auto Ql (U) Negative (11/24/21 2:50 PM) Normal Negative [facility] UA Auto SS WBC LM.HPF (Urine sed) [#/Area] 0-5 /HPF Normal 0-5/HPF [facility] UA Auto SS CULTURE URINEon 10-24-2021 CULTURE URINE Isolate 1 Escherichia coli >100,000 cfu/ml of ORGANISM 1 Escherichia coli ANTIBIOTIC M.I.C RX STATUS Ampicillin >=32 R F Ampicillin/Sulbactam >=32 R F Piperacillin/Tazobacta m <=4 S F Cefazolin <=4 S F Ceftazidime <=1 S F Ceftriaxone <=1 S F Ertapenem <=0.5 S F Imipenem <=0.25 S F Amikacin <=2 S F Gentamicin <=1 S F Tobramycin <=1 S F Ciprofloxacin >=4 R F Levofloxacin >=8 R F Nitrofurantoin <=16 S F Trimethoprim/Sulfameth oxazole <=20 S F Normal [facility] Comment on above: Performed By: #### C MP #### [facility] [address] [place] [address] Dr. Yamini Gomez CBC AUTO DIFFon 10-22-2021 BASO # 0.0 103/ul Normal 0.0-0.1 [facility] Comment on above: Performed By: #### C BC #### [facility] [address] [place] [address] Dr. Yamini Gomez Basophils/100 WBC (Bld) 0.1 % Critically low 0.2-2.0 [facility] Comment on above: Performed By: #### C BC #### [facility] [address] [place] [address] Dr. Yamini Gomez EO # 0.0 103/ul Normal 0.0-0.7 [facility] Comment on above: Performed By: #### C BC #### [facility] [address] [place] [address] Dr. Yamini Gomez Eosinophils/100 WBC (Bld) 0.0 % Critically low 0.9-7.0 [facility] Comment on above: Performed By: #### C BC #### [facility] [address] [place] [address] Dr. Yamini Gomez Erythrocyte distribution width (RBC) [Ratio] 12.3 % Normal 11.0-15.0 [facility] Comment on above: Performed By: #### C BC #### [facility] [address] [place] [address] Dr. Yamini Gomez Hematocrit (Bld) [Volume fraction] 43.7 % Normal 42.0-54.0 [facility] Comment on above: Performed By: #### C BC #### [facility] [address] [place] [address] Dr. Yamini Gomez Hemoglobin (Bld) [Mass/Vol] 14.8 g/dL Normal 14.0-18.0 [facility] Comment on above: Performed By: #### C BC #### [facility] [address] [place] [address] Dr. Yamini Gomez IG # 0.06 10e3/ul Critically high 0.00-0.03 [facility] Comment on above: Performed By: #### C BC #### [facility] [address] [place] [address] Dr. Yamini Gomez IG % 0.4 % Normal 0.0-0.5 [facility] Comment on above: Performed By: #### C BC #### [facility] [address] [place] [address] Dr. Yamini Gomez LYMPH # 0.9 103/ul Critically low 1.2-3.8 [facility] Comment on above: Performed By: #### C BC #### [facility] [address] [place] [address] Dr. Yamini Gomez Lymphocytes/100 WBC (Bld) 5.7 % Critically low 20.5-60.0 [facility] Comment on above: Performed By: #### C BC #### [facility] [address] [place] [address] Dr. Yamini Gomez MANUAL DIFF REQ NO Normal [facility] Comment on above: Performed By: #### C BC #### [facility] [address] [address] [address] Yamini Gomez MCH (RBC) [Entitic mass] 29.8 pg Normal 25.9-34.0 [facility] Comment on above: Performed By: #### C BC #### [facility] [address] [address] [address] Yamini Gomez MCHC (RBC) [Mass/Vol] 33.9 g/dL Normal 29.9-35.2 [facility] Comment on above: Performed By: #### C BC #### [facility] [address] [address] [address] Yamini Gomez MCV (RBC) [Entitic vol] 88.1 fL Normal 80.0-94.0 [facility] Comment on above: Performed By: #### C BC #### [facility] [address] [place] [address] Dr. Yamini Gomez MONO # 1.1 103/ul Critically high 0.3-0.8 [facility] Comment on above: Performed By: #### C BC #### [facility] [address] [address] [address] Yamini Gomez Monocytes/100 WBC (Bld) 6.9 % Normal 1.7-12.0 [facility] Comment on above: Performed By: #### C BC #### [facility] [address] [address] [address] Yamini Gomez NEUT # 13.8 103/ul Critically high 1.4-6.5 [facility] Comment on above: Performed By: #### C BC #### [facility] [address] [address] [address] Yamini Gomez Neutrophils/100 WBC (Bld) 86.9 % Critically high 43.0-75.0 [facility] Comment on above: Performed By: #### C BC #### [facility] [address] [place] [address] Dr. Yamini Gomez Platelet mean volume (Bld) [Entitic vol] 9.3 fL Critically low 9.5-13.5 [facility] Comment on above: Performed By: #### C BC #### [facility] [address] [place], [place] [address] Dr. Yamini Gomez PLT 150 103/ul Normal 150-450 [facility] Comment on above: Performed By: #### C BC #### [facility] [address] [place], [place] [address] Dr. Yamini Gomez RBC 4.96 106/ul Normal 4.70-6.10 [facility] Comment on above: Performed By: #### C BC #### [facility] [address] [place], [place] [address] Dr. Yamini Gomez WBC 15.9 103/ul Critically high 4.0-11.0 [facility] Comment on above: Performed By: #### C BC #### [facility] [address] [place] [id number] ABD/PELV W CONon 10-23-19 CT ABD/PELV W CON EXAM: CT ABD/PELV W CON REASON FOR EXAM: Male, 61 years, GENERALIZED ABDOMINAL PAIN. TECHNIQUE: Computed tomography of the abdomen and pelvis is performed in the axial projection from the lung bases to the pubic symphysis. Sagittal and coronal reconstructed images are performed. Dose reduction techniques were achieved by using automated exposure control and/or adjustment of mA and/or KVP according to patient size and/or use of iterative reconstruction technique. A total of 100 mL Omnipaque 300 IV contrast was given. Study was performed without oral contrast. COMPARISON: None. FINDINGS: Lung bases: The lung bases are clear. There is no pleural effusion. The visualized portions of the heart are unremarkable. Liver: There are multiple small low-attenuation regions within the liver, the largest in the left lobe measuring 2.6 cm. These likely represent cysts. Gallbladder: The gallbladder is normal. Spleen: The spleen is normal. Pancreas: The pancreas is normal. Adrenal glands: The adrenal glands are normal bilaterally. Right kidney: The kidney is normal in size. There is no renal calculus or hydronephrosis. Left kidney: The kidney is normal in size. There is no renal calculus or hydronephrosis. Stomach: The stomach is normal. Small bowel: The small bowel is normal. Large bowel: The colon is normal. Appendix: The appendix is visualized, and is normal. Aorta: There are mild atherosclerotic calcifications of the abdominal aorta. IVC: The IVC is normal. Retroperitoneum: Normal retroperitoneum. Bladder: The bladder is minimally distended at the time of scanning. Pelvic organs: The prostate gland is enlarged and heterogeneous. There is a low-attenuation region noted posteriorly measuring approximately 1.4 x 0.9 cm. Abdominal wall: Normal abdominal wall. Osseous structures: Normal bony structures. IMPRESSION: Enlarged heterogeneous prostate gland. Oval low-attenuation region posteriorly within the prostate gland may represent postoperative changes. Developing abscess is not excluded. Please clinically correlate with urinalysis. The urinary bladder is nearly empty at the time of scanning. No bowel obstruction or acute renal pathology. Electronically authenticated by: JT TAYLOR Date: 2021-10-21 22:05 Normal [facility] Covid-19 PCR ([facility])on 10-12 SARS-CoV-2 (COVID-19) RNA DAVID+probe Ql (Unsp spec) Not detected Normal NOT DETECTED [facility] Comment on above: Result Comment: When diagnostic testing is negative, the possibility of a false negative should be considered in the context of a patient's recent exposures and the presence of clinical signs and symptoms consistent with SARS-CoV-2. This test is not yet approved or cleared by the [place] FDA. When there are no FDA-approved or cleared tests available, and other criteria are met, FDA can make tests available under an emergency access mechanism called an Emergency Use Authorization (EUA). The EUA for this test is supported by the [place] of Health and Human Service's declaration that circumstances exist to justify the emergency use of in vitro diagnostics for the detection and/or diagnosis of the virus that causes COVID-19. This EUA will remain in effect for the duration of the COVID-19 declaration justifying emergency of IVDs, unless it is terminated or revoked by the FDA (after which the test may no longer be used). Performed By: #### [facility] #### [facility] [address] [place] [address] Dr. Yamini Gomez LACTATE/LACTIC ACIDon 2021 Lactate [Moles/Vol] 1.4 mmol/L Normal 0.4-1.9 [facility] Comment on above: Performed By: #### L ACT #### [facility] [address] [address] [address] Yamini Gomez PROF CHEM 8 (BAS METB)on Anion gap [Moles/Vol] 13.0 mmol/L Normal [facility] Comment on above: Performed By: #### B MP #### [facility] [address] [address] [address] Yamini Gomez Calcium [Mass/Vol] 8.6 mg/dL Normal 8.5-10.1 [facility] Comment on above: Performed By: #### B MP #### [facility] [address] [place] [address] Dr. Yamini Gomez Chloride [Moles/Vol] 105 mmol/L Normal 98-107 [facility] Comment on above: Performed By: #### B MP #### [facility] [address] [place] [address] Dr. Yamini Gomez CO2 [Moles/Vol] 23.7 mmol/L Normal 21.0-32.0 [facility] Comment on above: Performed By: #### B MP #### [facility] [address] [place] [address] Dr. Yamini Gomez Creatinine [Mass/Vol] 1.09 mg/dL Normal 0.70-1.30 [facility] Comment on above: Performed By: #### B MP #### [facility] [address] [place] [address] Dr. Yamini Gomez EGFR-AF ALGERIAN >60 Normal >=60 [facility] Comment on above: Performed By: #### B MP #### [facility] [address] [address] [address] Yamini Gomez EGFR-NON AF ALGERIAN >60 Normal >=60 [facility] Comment on above: Performed By: #### B MP #### [facility] [address] [place] [address] Dr. Yamini Gomez Glucose [Mass/Vol] 140 mg/dL Critically high 74-106 [facility] Comment on above: Performed By: #### B MP #### [facility] [address] [address] [address] Yamini Gomez Potassium [Moles/Vol] 3.7 mmol/L Normal 3.5-5.1 [facility] Comment on above: Performed By: #### B MP #### [facility] [address] [place] [address] Dr. Yamini Gomez Sodium [Moles/Vol] 138 mmol/L Normal 136-145 [facility] Comment on above: Performed By: #### B MP #### [facility] [address] [place] [address] Dr. Yamini Gomez Urea nitrogen [Mass/Vol] 12.0 mg/dL Normal 7.0-18.0 [facility] Comment on above: Performed By: #### B MP #### [facility] [address] [place] [address] Dr. Yamini Gomez Urea nitrogen/Creatinine [Mass ratio] 11.0 mg/mg Normal [facility] Comment on above: Performed By: #### B MP #### [facility] [address] [place] [address] Dr. Yamini Gomez CBC AUTO DIFFon 10-21-2021 BASO # 0.0 103/ul Normal 0.0-0.1 [facility] Comment on above: Performed By: #### C MP #### [facility] [address] [place] [address] Dr. Yamini Gomez Basophils/100 WBC (Bld) 0.2 % Normal 0.2-2.0 [facility] Comment on above: Performed By: #### C MP #### [facility] [address] [place] [address] Dr. Yamini Gomez EO # 0.0 103/ul Normal 0.0-0.7 [facility] Comment on above: Performed By: #### C MP #### [facility] [address] [place] [address] Dr. Yamini Gomez Eosinophils/100 WBC (Bld) 0.3 % Critically low 0.9-7.0 [facility] Comment on above: Performed By: #### C MP #### [facility] [address] [address] [address] Yamini Gomez Erythrocyte distribution width (RBC) [Ratio] 12.0 % Normal 11.0-15.0 [facility] Comment on above: Performed By: #### C MP #### [facility] [address] [address] [address] Yamini Gomez Hematocrit (Bld) [Volume fraction] 46.3 % Normal 42.0-54.0 [facility] Comment on above: Performed By: #### C MP #### [facility] [address] [address] [address] Yamini Gomez Hemoglobin (Bld) [Mass/Vol] 16.0 g/dL Normal 14.0-18.0 [facility] Comment on above: Performed By: #### C MP #### [facility] [address] [place] [address] Dr. Yamini Gomez IG # 0.21 10e3/ul Critically high 0.00-0.03 [facility] Comment on above: Performed By: #### C MP #### [facility] [address] [address] [address] Yamini Gomez IG % 2.0 % Critically high 0.0-0.5 [facility] Comment on above: Performed By: #### C MP #### [facility] [address] [place] [address] Dr. Yamini Gomez LYMPH # 0.7 103/ul Critically low 1.2-3.8 [facility] Comment on above: Performed By: #### C MP #### [facility] [address] [address] [address] Yamini Gomez Lymphocytes/100 WBC (Bld) 6.7 % Critically low 20.5-60.0 [facility] Comment on above: Performed By: #### C MP #### [facility] [address] [place] [address] Dr. Yamini Gomez MANUAL DIFF REQ NO Normal [facility] Comment on above: Performed By: #### C MP #### [facility] [address] [address] [address] Yamini Gomez MCH (RBC) [Entitic mass] 30.1 pg Normal 25.9-34.0 [facility] Comment on above: Performed By: #### C MP #### [facility] [address] [address] [address] Yamini Gomez MCHC (RBC) [Mass/Vol] 34.6 g/dL Normal 29.9-35.2 [facility] Comment on above: Performed By: #### C MP #### [facility] [address] [address] [address] Yamini Gomez MCV (RBC) [Entitic vol] 87.0 fL Normal 80.0-94.0 [facility] Comment on above: Performed By: #### C MP #### [facility] [address] [place] [address] Dr. Yamini Gomez MONO # 0.2 103/ul Critically low 0.3-0.8 [facility] Comment on above: Performed By: #### C MP #### [facility] [address] [place] [address] Dr. Yamini Gomez Monocytes/100 WBC (Bld) 1.7 % Normal 1.7-12.0 [facility] Comment on above: Performed By: #### C MP #### [facility] [address] [place] [address] Dr. Yamini Gomez NEUT # 9.5 103/ul Critically high 1.4-6.5 [facility] Comment on above: Performed By: #### C MP #### [facility] [address] [place] [address] Dr. Yamini Gomez Neutrophils/100 WBC (Bld) 89.1 % Critically high 43.0-75.0 [facility] Comment on above: Performed By: #### C MP #### [facility] [address] [place] [address] Dr. Yamini Gomez Platelet mean volume (Bld) [Entitic vol] 9.3 fL Critically low 9.5-13.5 [facility] Comment on above: Performed By: #### C MP #### [facility] [address] [place] [address] Dr. Yamini Gomez PLT 149 103/ul Critically low 150-450 [facility] Comment on above: Performed By: #### C MP #### [facility] [address] [place] [address] Dr. Yamini Gomez RBC 5.32 106/ul Normal 4.70-6.10 [facility] Comment on above: Performed By: #### C MP #### [facility] [address] [place] [address] Dr. Yamini Gomez WBC 10.6 103/ul Normal 4.0-11.0 [facility] Comment on above: Performed By: #### C MP #### [facility] [address] [place] [address] Dr. Yamini Gomez CULTURE BLOODon 10-21-2021 Microscopic examination of blood, culture Culture Observations: No growth at 5 days. Normal [facility] Comment on above: Performed By: #### C MP #### [facility] [address] [place] [address] Dr. Yamini Gomez Microscopic examination of blood, culture Culture Observations: No growth at 5 days. Normal [facility] Comment on above: Performed By: #### C MP #### [facility] [address] [place] [address] Dr. Yamini Gomez ER URINE PROFILEon 2 Bilirubin Ql (U) Negative Normal NEGATIVE [facility] Comment on above: Performed By: #### U MICRO, ERUR #### [facility] [address] [place] [address] Dr. Yamini Gomez Clarity (U) CLEAR Normal CLEAR [facility] Comment on above: Performed By: #### U MICRO, ERUR #### [facility] [address] [place] [address] Dr. Yamini Gomez Color (U) LT. YELLOW Normal YELLOW [facility] Comment on above: Performed By: #### U MICRO, ERUR #### [facility] [address] [place] [address] Dr. Yamini RESENDIZ A micrscopic examination will be performed if indicated. Normal [facility] Comment on above: Performed By: #### U MICRO, ERUR #### [facility] [address] [address] [address] Yamini Gomez Glucose Ql (U) Negative Normal NEGATIVE The [facility] Comment on above: Performed By: #### U MICRO, ERUR #### [facility] [address] [address] [address] Yamini Gomez Hemoglobin Ql (U) MODERATE Abnormal NEGATIVE [facility] Comment on above: Performed By: #### U MICRO, ERUR #### [facility] [address] [address] [address] Yamini Gomez Ketones Ql (U) Negative Normal NEGATIVE The [facility] Comment on above: Performed By: #### U MICRO, ERUR #### [facility] [address] [place] [address] Dr. Yamini Gomez LEUKOCYTES MODERATE Abnormal NEGATIVE [facility] Comment on above: Performed By: #### U MICRO, ERUR #### [facility] [address] [place] [address] Dr. Yamini Gomez Nitrite Ql (U) Negative Normal NEGATIVE The [facility] Comment on above: Performed By: #### U MICRO, ERUR #### [facility] [address] [place] [address] Dr. Yamini Gomez pH (U) 7.0 [pH] Normal 5-9 [facility] Comment on above: Performed By: #### U MICRO, ERUR #### [facility] [address] [address] [address] Yamini Gomez SPEC GRAVITY 1.010 Normal 1.005-<=1.02 5 [facility] Comment on above: Performed By: #### U MICRO, ERUR #### [facility] [address] [place] [address] Dr. Yamini Gomez UA PROTEIN Negative Normal NEGATIVE/ TRACE [facility] Comment on above: Performed By: #### U MICRO, ERUR #### [facility] [address] [address] [address] Yamini Gomez UR MICRO IND INDICATED Normal [facility] Comment on above: Performed By: #### U MICRO, ERUR #### [facility] [address] [place] [address] Dr. Yamini Gomez Urobilinogen Qn (U) 0.2 {Erendira'U}/dL Normal 0.2 - 1. 0 [facility] Comment on above: Performed By: #### U MICRO, ERUR #### [facility] [address] [place] [address] Dr. Yamini Gomez LACTATE/LACTIC ACIDon 2021 Lactate [Moles/Vol] 2.9 mmol/L Critically high 0.4-1.9 [facility] Comment on above: Performed By: #### C MP #### [facility] [address] [place] [address] Dr. Yamini Gomez PROF 14(COMP METB)on 022 Albumin [Mass/Vol] 4.1 g/dL Normal 3.4-5.0 [facility] Comment on above: Performed By: #### C MP #### [facility] [address] [place] [address] Dr. Yamini Gomez Albumin/Globulin [Mass ratio] 1.1 {ratio} Normal [facility] Comment on above: Performed By: #### C MP #### [facility] [address] [place] [address] Dr. Yamini Gomez ALP [Catalytic activity/Vol] 77 U/L Normal 46-116 [facility] Comment on above: Performed By: #### C MP #### [facility] [address] [place] [address] Dr. Yamini Gomez ALT [Catalytic activity/Vol] 54 U/L Normal 16-63 [facility] Comment on above: Performed By: #### C MP #### [facility] [address] [place] [address] Dr. Yamini Gomez Anion gap [Moles/Vol] 16.5 mmol/L Normal [facility] Comment on above: Performed By: #### C MP #### [facility] [address] [address] [address] Yamini Gomez AST [Catalytic activity/Vol] 28 U/L Normal 15-37 [facility] Comment on above: Performed By: #### C MP #### [facility] [address] [address] [address] Yamini Gomez Bilirubin [Mass/Vol] 1.2 mg/dL Critically high 0.2-1.0 [facility] Comment on above: Performed By: #### C MP #### [facility] [address] [address] [address] Yamini Gomez Calcium [Mass/Vol] 9.0 mg/dL Normal 8.5-10.1 [facility] Comment on above: Performed By: #### C MP #### [facility] [address] [address] [address] Yamini Gomez Chloride [Moles/Vol] 101 mmol/L Normal 98-107 [facility] Comment on above: Performed By: #### C MP #### [facility] [address] [address] [address] Yamini Gomez CO2 [Moles/Vol] 21.5 mmol/L Normal 21.0-32.0 [facility] Comment on above: Performed By: #### C MP #### [facility] [address] [address] [address] Yamini Gomez Creatinine [Mass/Vol] 1.31 mg/dL Critically high 0.70-1.30 [facility] Comment on above: Performed By: #### C MP #### [facility] [facility] [address] [address] [address] Yamini Gomez EGFR-AF ALGERIAN >60 Normal >=60 [facility] Comment on above: Performed By: #### C MP #### [facility] [address] [address] [address] Yamini Gomez EGFR-NON AF ALGERIAN 55 mL/min/1.73m2 Critically low >=60 [facility] Comment on above: Performed By: #### C MP #### [facility] [address] [address] [address] Yamini Gomez Globulin (S) [Mass/Vol] 3.7 g/dL Normal [facility] Comment on above: Performed By: #### C MP #### [facility] [address] [place] [address] Dr. Yamini Gomez Glucose [Mass/Vol] 161 mg/dL Critically high 74-106 T [facility] Comment on above: Performed By: #### C MP #### [facility] [address] [place] [address] Dr. Yamini Gomez Potassium [Moles/Vol] 4.0 mmol/L Normal 3.5-5.1 [facility] Comment on above: Performed By: #### C MP #### [facility] [address] [place] [address] Dr. Yamini Gomez Protein [Mass/Vol] 7.8 g/dL Normal 6.4-8.2 [facility] Comment on above: Performed By: #### C MP #### [facility] [address] [place] [address] Dr. Yamini Gomez Sodium [Moles/Vol] 135 mmol/L Critically low 136-145 Th [facility] Comment on above: Performed By: #### C MP #### [facility] [address] [place] [address] Dr. Yamini Gomez Urea nitrogen [Mass/Vol] 14.0 mg/dL Normal 7.0-18.0 [facility] Comment on above: Performed By: #### C MP #### [facility] [address] [place] [address] Dr. Yamini Gomez Urea nitrogen/Creatinine [Mass ratio] 10.7 mg/mg Normal [facility] Comment on above: Performed By: #### C MP #### [facility] [address] [place] [address] Dr. Yamini Gomez URINE MICROSCOPIC ONLYon BACTERIA TRACE Abnormal NONE SEEN [facility] Comment on above: Performed By: #### C MP #### [facility] [address] [place] [address] Dr. Yamini Gomez Bacteria identified Cx Nom (U) INDICATED Normal [facility] Comment on above: Performed By: #### C MP #### [facility] [address] [place] [address] Dr. Yamini Gomez CAST NONE SEEN Normal NONE SEEN [facility] Comment on above: Performed By: #### C MP #### [facility] [address] [place] [address] Dr. Yamini Gomez Crystals LM Nom (Urine sed) NONE SEEN Normal NONE SEEN [facility] Comment on above: Performed By: #### C MP #### [facility] [address] [place] [address] Dr. Yamini Gomez Epithelial cells LM Ql (Urine sed) NONE SEEN Normal NONE SEEN /RARE [facility] Comment on above: Performed By: #### C MP #### [facility] [address] [place] [address] Dr. Yamini Gomez MUCOUS NONE SEEN Normal NONE SEEN [facility] Comment on above: Performed By: #### C MP #### [facility] [address] [place] [address] Dr. Yamini Gomez RBC 0-2 Normal 0-2 [facility] Comment on above: Performed By: #### C MP #### [facility] [address] [place] [address] Dr. Yamini Gomez WBC 50-75 Abnormal NONE SEEN [facility] Comment on above: Performed By: #### C MP #### [facility] [address] [place] [address] Dr. Yamini Gomez Vital Signs Date Time Vital Sign Value Performing Clinician Cassidy nelson 05-29-2023 15:08-0500 Blood Pressure Location Brennan Gillis [facility] 05-29-2023 15:08-0500 Diastolic blood pressure 94 mm[Hg] Brennan Gillis [facility] 05-29-2023 15:08-0500 Heart rate 65 /min Brennan Gillis [facility] 05-29-2023 15:08-0500 SaO2% (BldA) [Mass fraction] 96 % Brennan Gillis [facility] 05-29-2023 15:08-0500 Systolic blood pressure 162 mm[Hg] Brennan Gillis [facility] 05-29-2023 15:00-0500 Diastolic blood pressure 88 mm[Hg] Brennan Gillis [facility] 05-29-2023 15:00-0500 Mean blood pressure 102 mm[Hg] Brennan Gillis [facility] 05-29-2023 15:00-0500 Systolic blood pressure 130 mm[Hg] Brennan Gillis [facility] 02-26-2023 13:07-0400 Blood Pressure Location Rolly AZUL [facility] 02-26-2023 13:07-0400 Diastolic blood pressure 88 mm[Hg] Rolly AZUL [facility] 02-26-2023 13:07-0400 Heart rate 89 /min Rolly AZUL [facility] 02-26-2023 13:07-0400 Respiratory rate 16 /min Rolly AZUL [facility] 02-26-2023 13:07-0400 Systolic blood pressure 133 mm[Hg] Rolly AZUL [facility] 02-17-2022 09:34-0400 Blood Pressure Location Shirley WESLEY [facility] 02-17-2022 09:34-0400 Diastolic blood pressure 76 mm[Hg] Shirley WESLEY [facility] 02-17-2022 09:34-0400 Heart rate 53 /min Shirley WESLEY [facility] 02-17-2022 09:34-0400 Respiratory rate 18 /min Shirley WESLEY [facility] 02-17-2022 09:34-0400 SaO2% (BldA) [Mass fraction] 100 % Shirley WESLEY [facility] 02-17-2022 09:34-0400 Systolic blood pressure 140 mm[Hg] Shirley WESLEY [facility] 12-28-2021 13:50-0400 Diastolic blood pressure 85 mm[Hg] Brennan Christofferson [facility] 12-28-2021 13:50-0400 Mean blood pressure 105 mm[Hg] Brennan Christofferson [facility] 12-28-2021 13:50-0400 Systolic blood pressure 146 mm[Hg] Brennan Christofferson [facility] 12-28-2021 13:31-0400 Blood Pressure Location Brennan Christofferson [facility] 12-28-2021 13:31-0400 Diastolic blood pressure 88 mm[Hg] Brennan Christofferson [facility] 12-28-2021 13:31-0400 Heart rate 60 /min Brennan Christofferson [facility] 12-28-2021 13:31-0400 SaO2% (BldA) [Mass fraction] 98 % Brennan Christofferson [facility] 12-28-2021 13:31-0400 Systolic blood pressure 152 mm[Hg] Brennan Christofferson [facility] 11-24-2021 14:52-0400 Diastolic blood pressure 89 mm[Hg] Lauro Eubanks Jr. [facility] 11-24-2021 14:52-0400 Heart rate 54 /min Lauro Eubanks Jr. [facility] 11-24-2021 14:52-0400 Mean blood pressure 109 mm[Hg] Laurokirti Eubanks Jr. [facility] 11-24-2021 14:52-0400 Systolic blood pressure 150 mm[Hg] Lauro Eubanks Jr. [facility] 11-24-2021 14:51-0400 Diastolic blood pressure 76 mm[Hg] Lauro Eubanks Jr. [facility] 11-24-2021 14:51-0400 Heart rate 55 /min Lauro Eubanks Jr. [facility] 11-24-2021 14:51-0400 Mean blood pressure 97 mm[Hg] Lauro Eubanks Jr. [facility] 11-24-2021 14:51-0400 Systolic blood pressure 140 mm[Hg] Lauro Eubanks Jr. [facility] 11-24-2021 14:29-0400 Blood Pressure Location Lauro Eubanks Jr. [facility] 11-24-2021 14:29-0400 Body temperature 98.24 [degF] Lauro Eubanks Jr. [facility] 11-24-2021 14:29-0400 Diastolic blood pressure 85 mm[Hg] Lauro Eubanks Jr. [facility] 11-24-2021 14:29-0400 Heart rate 65 /min Lauro Eubanks Jr. [facility] 11-24-2021 14:29-0400 Mean blood pressure 111 mm[Hg] Lauro Eubanks Jr. [facility] 11-24-2021 14:29-0400 Systolic blood pressure 162 mm[Hg] Lauro Eubanks Jr. [facility] 11-24-2021 14:28-0400 Blood Pressure Location Lauro Eubanks Jr. [facility] 11-24-2021 14:28-0400 BP/Pulse Patient Position Lauro Eubanks Jr. [facility] 11-24-2021 14:28-0400 Respiratory rate 18 /min Lauro Eubanks Jr. [facility] 11-24-2021 14:28-0400 SaO2% (BldA) [Mass fraction] 97 % Lauro Eubanks Jr. [facility] 11-15-2021 10:26-0400 Diastolic blood pressure 81 mm[Hg] Lauro Eubanks Jr. [facility] 11-15-2021 10:26-0400 Mean blood pressure 94 mm[Hg] Lauro Eubanks Jr. [facility] 11-15-2021 10:26-0400 Systolic blood pressure 119 mm[Hg] Lauro Eubanks Jr. [facility] 11-15-2021 10:14-0400 Blood Pressure Location Lauro Eubanks Jr. [facility] 11-15-2021 10:14-0400 Diastolic blood pressure 90 mm[Hg] Lauro Eubanks Jr. [facility] 11-15-2021 10:14-0400 Heart rate 59 /min Lauro Eubanks Jr. [facility] 11-15-2021 10:14-0400 Systolic blood pressure 147 mm[Hg] Lauro Eubanks Jr. [facility] 09-19-2021 12:59-0400 Blood Pressure Location Lauro Eubanks Jr. [facility] 09-19-2021 12:59-0400 Diastolic blood pressure 100 mm[Hg] Lauro Eubanks Jr. [facility] 09-19-2021 12:59-0400 Heart rate 64 /min Lauro Eubanks Jr. [facility] 09-19-2021 12:59-0400 Systolic blood pressure 151 mm[Hg] Lauro Eubanks Jr. [facility] 08-30-2021 09:19-0400 Blood Pressure Location Lauro Eubanks Jr. [facility] 08-30-2021 09:19-0400 Diastolic blood pressure 86 mm[Hg] Lauro Eubanks Jr. [facility] 08-30-2021 09:19-0400 Heart rate 55 /min Lauro Eubanks Jr. [facility] 08-30-2021 09:19-0400 Respiratory rate 16 /min Lauro Eubanks Jr. [facility] 08-30-2021 09:19-0400 Systolic blood pressure 144 mm[Hg] Lauro Eubanks Jr. [facility] Encounters Encounter Date Encounter Type Care Provider Facility Start: 07-09-2023 ambulatory Rolly AZUL [facility] Start: 06-25-2023 ambulatory Rolly R AZUL Facili ty:[facility] [place] Start: 06-21-2023 ambulatory Rollyalfonso AZUL Facili ty:[id number] Start: 05-29-2023 End: 05-29-2023 Patient encounter procedure Brennan Gillis [facility] Start: 05-28-2023 ambulatory Rollyalfonso AZUL Facili ty:[facility] Start: 03-20-2023 End: 03-21-2023 ambulatory Rolly R AZUL [place] [place]: 03-20-2023 End: 03-20-2023 Patient encounter procedure Rolly R DANIELLA [facility] Start: 02-26-2023 End: 02-27-2023 ambulatory Rolly R AZUL Facility:[facility] Start: 02-26-2023 End: 02-26-2023 Patient encounter procedure Rolly R AZUL [facility] Start: 08-31-2022 Encounter for genera l adult medical examination without abnormal findings DR NAHID JUNIOR [facility] Start: 08-28-2022 End: 08-29-[address] NAHID JUNIOR Facility: Start: 08-28-2022 End: 08-29-2022 Encounter for general adult medical examination without abnormal findings DR NAHID JUNIOR Facility:[facility] Start: 03-08-2022 End: 03-09-[address] DOCTOR HENDRICKS Facility:[facility] Start: 02-17-2022 End: 02-17-2022 Patient encounter procedure Shirley WESLEY [facility] Start: 02-17-2022 End: 02-17-2022 Preprocedural examination done Shirley WESLEY [facility] Start: 02-08-2022 End: 02-08-2022 Patient encounter procedure Brennan Gillis [facility] Start: 01-18-2022 End: 01-18-2022 Patient encounter procedure Brennan Gillis [facility] Start: 12-28-2021 End: 12-28-2021 Patient encounter procedure Brennan Gillis [facility] Start: 11-24-2021 ambulatory Facility:[id number] Start: 11-24-2021 End: 11-24-2021 Patient encounter procedure Lauro Eubanks Jr. [facility] Start: 11-17-2021 End: 12-09-2021 Pre-admission assessment Lauro Eubanks Jr. [facility] Start: 11-15-2021 End: 11-15-2021 Patient encounter procedure Lauro Eubanks Jr. [facility] Start: 10-22-2021 End: 10-22-2021 Evaluation and management of inpatient DR NAHID JUNIOR Facility:[facility] Start: 09-19-2021 End: 09-19-2021 Patient encounter procedure Lauro Eubanks Jr. [facility] Start: 08-30-2021 End: 08-30-2021 Patient encounter procedure Lauro Eubanks Jr. [facility] Procedures Date Procedure Procedure Detail Performing Clinician Start: 08-28-[address] MERA JUNIOR Comment on above: Performed By: #### C MP #### [facility] [address] [place] [address] Dr. Yamini Gomez Start: 09-19-2021 Cystoscopy Lauro price Jr. Start: 02-19-2019 Transrectal biopsy o f prostate using ultrasound guidance Lauro Eubanks Jr. Umbilical hernia (disorder) Lauro Eubanks Jr. Immunizations Immunization Date Immunization Notes Care Provider Fa [facility] 02-13-2023 influenza virus vaccine, unspecified formulation Rolly AZUL [facility] 12-18-2022 zoster vaccine recombinant Rolly AZUL [facility] 03-08-2022 influenza virus vaccine, unspecified formulation Rolly AZUL [facility] 03-08-2022 SARS-CoV-2 mRNA (tozinameran 5y-11y) vaccine Rolly AZUL [facility] 03-04-2021 influenza virus vaccine, unspecified formulation Rolly AZUL [facility] 03-04-2021 SARS-CoV-2 (COVID-19 ) mRNA BNT-162b2 vax Rolly AZUL [facility] Comment on above: Result Comment: 2022: [id number] 02-11-2021 SARS-CoV-2 (COVID-19 ) mRNA BNT-162b2 vax Lauro Eubanks Jr. [facility] 07-16-2020 SARS-CoV-2 (COVID-19 ) mRNA BNT-162b2 vax Rolly AZUL [facility] 06-25-2020 SARS-CoV-2 (COVID-19 ) mRNA BNT-162b2 vax Rolly AZUL [facility] 06-14-2020 SARS-CoV-2 (COVID-19 ) mRNA BNT-162b2 vax Lauro Eubanks Jr. [facility] 06-14-2020 SARS-CoV-2 (COVID-19 ) mRNA-1273 vaccine Lauro Eubanks Jr. [facility] 05-14-2020 SARS-CoV-2 (COVID-19 ) mRNA BNT-162b2 vax Lauro Eubanks Jr. [facility] 02-15-2020 influenza virus vaccine, unspecified formulation Rolly AZUL [facility] 01-13-2020 influenza virus vaccine, unspecified formulation Lauro Eubanks Jr. [facility] 03-12-2019 influenza virus vaccine, unspecified formulation Rolly AZUL [facility] 02-06-2018 influenza virus vaccine, unspecified formulation Rolly AZUL [facility] 03-30-2017 influenza virus vaccine, unspecified formulation Rolly AZUL [facility] 03-12-2015 influenza virus vaccine, unspecified formulation Rolly AZUL [facility] 12-29-2011 tetanus toxoid, redu briseyda diphtheria toxoid, and acellular pertussis vaccine, adsorbed Rollyalfonso AZUL [facility] 07-08-2000 Hep A, unspecified formulation Rolly AZUL [facility] 10-25-1999 Hep A, unspecified formulation Rolly AZUL [facility] Payers Date Payer Category Payer Medicare [id number] 2022 Unknown [id number] 1961 Unknown [id number] 1961 Unknown [id number] 1958 Unknown [id number] 1958 Unknown [id number] 2.16.84 [id number] 1958 Unknown [id number] 2.16.84 [id number] 1958 Unknown [id number] 2.16.84 [id number] 1958 Unknown [id number] 2.16.8 [id number] 1958 Unknown [id number] 2.16.8 [id number] 1958 Unknown [id number] 2.16.8 [id number] 1958 Unknown [id number] 2.16.8 [id number] 1958 Unknown [id number] 2.16.8 [id number] Private Health Insurance [id number] Social History Date Type Detail Facility Start: 08-30-2021 End: 02-26-2023 Tobacco smoking status Never smoked tobacco (finding) [facility] Sex Assigned At Male [facility] Tobacco smoking status Never [facility] Functional Status Date Assessment Result Facility 05-29-2023 Functional Status No [facility] 03-20-2023 Functional Status N/A [facility] 02-26-2023 Functional Status N/A [facility] 02-17-2022 Functional Status N/A [facility] 12-28-2021 Functional Status No [facility] 11-24-2021 Functional Status No [facility] 11-15-2021 Functional Status N/A [facility] Clinical Notes 08-30-2021 to 03-20-2023 RadiologyLaboratoryLaboratory Note Date & Type Note Facility 03-20-2023 Hospital Discharge instructions Patient Education 03/20/2023 14:50:39 Transurethral Resection of the Prostate Transurethral Resection of the Prostate Transurethral resection of the prostate (TURP) is the removal, or resection, of part of the prostate tissue. This procedure is done to treat an enlarged prostate gland (benign prostatic hyperplasia). The goal of TURP is to remove enough prostate tissue to allow for a normal flow of urine. The procedure will allow you to empty your bladder more completely when you urinate so that you can urinate less often. In a transurethral resection, a thin telescope with a light, a camera, and an electric cutting edge (resectoscope) is passed through the urethra and into the prostate. The opening of the urethra is at the end of the penis. Tell a health care provider about: Any allergies you have. All medicines you are taking, including vitamins, herbs, eye drops, creams, and bcdg-ath-ubxxdmr medicines. Any problems you or family members have had with anesthetic medicines. Any bleeding problems you have. Any surgeries you have had. Any medical conditions you have. Any prostate infections you have had. What are the risks? Generally, this is a safe procedure. However, problems may occur, including: Infection. Bleeding. Allergic reactions to medicines. Blood in the urine (hematuria). Damage to nearby structures or organs. Other problems may occur, but they are rare. They include: Dry ejaculation, or having no semen come out during orgasm. Erectile dysfunction, or being unable to have or keep an erection. Scarring that leads to narrowing of the urethra. This narrowing may block the flow of urine. Inability to control when you urinate (incontinence). Deep vein thrombosis. This is a blood clot that can develop in your leg. TURP syndrome. This can happen when you lose too much sodium during or after the procedure. Some signs and symptoms of this condition include: ?Weakness. ?Headaches. ?Nausea or vomiting. ?Muscle cramping. What happens before the procedure? When to stop eating and drinking Follow instructions from your health care provider about what you may eat and drink before your procedure. These may include: 8 hours before your procedure ?Stop eating most foods. Do not eat meat, fried foods, or fatty foods. ?Eat only light foods, such as toast or crackers. ?All liquids are okay except energy drinks and alcohol. 6 hours before your procedure ?Stop eating. ?Drink only clear liquids, such as water, clear fruit juice, black coffee, plain tea, and sports drinks. ?Do not drink energy drinks or alcohol. 2 hours before your procedure ?Stop drinking all liquids. ?You may be allowed to take medicines with small sips of water. If you do not follow your health care provider's instructions, your procedure may be delayed or canceled. Medicines Ask your health care provider about: Changing or stopping your regular medicines. This is especially important if you are taking diabetes medicines or blood thinners. Taking medicines such as aspirin and ibuprofen. These medicines can thin your blood. Do not take these medicines unless your health care provider tells you to take them. Taking vmdq-qpy-vnwyxsl medicines, vitamins, herbs, and supplements. Surgery safety Ask your health care provider what steps will be taken to help prevent infection. These steps may include: Removing hair at the surgery site. Washing skin with a germ-killing soap. Taking antibiotic medicine. General instructions Do not use any products that contain nicotine or tobacco for at least 4 weeks before the procedure. These products include cigarettes, chewing tobacco, and vaping devices, such as e-cigarettes. If you need help quitting, ask your health care provider. If you will be going home right after the procedure, plan to have a responsible adult: ?Take you home from the hospital or clinic. You will not be allowed to drive. ?Care for you for the time you are told. What happens during the procedure? An IV will be inserted into one of your veins. You will be given one or more of the following: ?A medicine to help you relax (sedative). ?A medicine to make you fall asleep (general anesthetic). ?A medicine that is injected into your spine to numb the area below and slightly above the injection site (spinal anesthetic). Your legs will be placed in foot rests (stirrups) so that your legs are apart and your knees are bent. The resectoscope will be passed through your urethra to your prostate. Parts of your prostate will be resected using the cutting edge of the resectoscope. Fluid will be passed to rinse out the cut tissues (irrigation). The resectoscope will be removed. A small, thin tube (catheter) will be passed through your urethra and into your bladder. The catheter will drain urine into a bag outside of your body. The procedure may vary among health care providers and hospitals. What happens after the procedure? Your blood pressure, heart rate, breathing rate, and blood oxygen level will be monitored until you leave the hospital or clinic. You will be given fluids through the IV. The IV will be removed when you start eating and drinking normally. You may have some pain. Pain medicine will be available to help you. You will have a catheter draining your urine. ?You may have blood in your urine. Your catheter may be kept in until your urine is clear. ?Your urinary drainage will be monitored. If necessary, your bladder may be rinsed out (irrigated) through your catheter. You will be encouraged to walk around as soon as possible. You may have to wear compression stockings. These stockings help to prevent blood clots and reduce swelling in your legs. If you were given a sedative during the procedure, it can affect you for several hours. Do not drive or operate machinery until your health care provider says that it is safe. Summary Transurethral resection of the prostate (TURP) is the removal (resection) of part of the prostate tissue. The goal of this procedure is to remove enough prostate tissue to allow for a normal flow of urine. Follow instructions from your health care provider about taking medicines and about eating and drinking before the procedure. This information is not intended to replace advice given to you by your health care provider. Make sure you discuss any questions you have with your health care provider. Document Revised: 01/24/2022 Document Reviewed: 01/24/2022 [employer] Patient Education 2022 [employer]. 03/20/2023 14:37:26 EU - Cystoscopy Discharge Instructions (CUSTOM) Cystoscopy Voiding after the procedure: there may be some pain, burning, urgency, frequency and blood tinged urine following the procedure. These symptoms usually resolve within 2-5 days. Drink the amount of fluid it takes to keep the urine pink to yellow or clear in color. Drinking enough water and fluids will help to ease any discomfort after your procedure. If you are having problems that seem out of the ordinary, please call. If unable to contact your physician and you feel it is an emergency, go to the nearest emergency room or call 911 Diet you may resume your normal diet. Activity you may resume your normal activities Call if you have a fever over 100 degrees. Follow Up Care 02/26/2023 14:26:25 With:Rolly AZUL Address: [facility] [address] [place] [address]- Business (1) When: Unknown Comments:Office will call to schedule follow up [facility] 03-20-2023 Note Cystoscopy ? Voiding after the procedure: there may be some pain, burning, urgency, frequency and blood tinged urine following the procedure. These symptoms usually resolve within 2-5 days. Drink the amount of fluid it takes to keep the urine pink to yellow or clear in color. Drinking enough water and fluids will help to ease any discomfort after your procedure. ? If you are having problems that seem out of the ordinary, please call. ? If unable to contact your physician and you feel it is an emergency, go to the nearest emergency room or call 911 ? Diet ? you may resume your normal diet. ? Activity ? you may resume your normal activities ? Call if you have a fever over 100 degrees. Urology Transurethral Resection of the Prostate Transurethral resection of the prostate (TURP) is the removal, or resection, of part of the prostate tissue. This procedure is done to treat an enlarged prostate gland (benign prostatic hyperplasia). The goal of TURP is to remove enough prostate tissue to allow for a normal flow of urine. The procedure will allow you to empty your bladder more completely when you urinate so that you can urinate less often. In a transurethral resection, a thin telescope with a light, a camera, and an electric cutting edge (resectoscope) is passed through the urethra and into the prostate. The opening of the urethra is at the end of the penis. Tell a health care provider about: ? Any allergies you have. ? All medicines you are taking, including vitamins, herbs, eye drops, creams, and gvxq-olw-ktiujjo medicines. ? Any problems you or family members have had with anesthetic medicines. ? Any bleeding problems you have. ? Any surgeries you have had. ? Any medical conditions you have. ? Any prostate infections you have had. What are the risks? Generally, this is a safe procedure. However, problems may occur, including: ? Infection. ? Bleeding. ? Allergic reactions to medicines. ? Blood in the urine (hematuria). ? Damage to nearby structures or organs. Other problems may occur, but they are rare. They include: ? Dry ejaculation, or having no semen come out during orgasm. ? Erectile dysfunction, or being unable to have or keep an erection. ? Scarring that leads to narrowing of the urethra. This narrowing may block the flow of urine. ? Inability to control when you urinate (incontinence). ? Deep vein thrombosis. This is a blood clot that can develop in your leg. ? TURP syndrome. This can happen when you lose too much sodium during or after the procedure. Some signs and symptoms of this condition include: ? Weakness. ? Headaches. ? Nausea or vomiting. ? Muscle cramping. What happens before the procedure? When to stop eating and drinking Follow instructions from your health care provider about what you may eat and drink before your procedure. These may include: ? 8 hours before your procedure ? Stop eating most foods. Do not eat meat, fried foods, or fatty foods. ? Eat only light foods, such as toast or crackers. ? All liquids are okay except energy drinks and alcohol. ? 6 hours before your procedure ? Stop eating. ? Drink only clear liquids, such as water, clear fruit juice, black coffee, plain tea, and sports drinks. ? Do not drink energy drinks or alcohol. ? 2 hours before your procedure ? Stop drinking all liquids. ? You may be allowed to take medicines with small sips of water. If you do not follow your health care provider's instructions, your procedure may be delayed or canceled. Medicines Ask your health care provider about: ? Changing or stopping your regular medicines. This is especially important if you are taking diabetes medicines or blood thinners. ? Taking medicines such as aspirin and ibuprofen. These medicines can thin your blood. Do not take these medicines unless your health care provider tells you to take them. ? Taking xcay-ypp-vsqtzmn medicines, vitamins, herbs, and supplements. Surgery safety Ask your health care provider what steps will be taken to help prevent infection. These steps may include: ? Removing hair at the surgery site. ? Washing skin with a germ-killing soap. ? Taking antibiotic medicine. General instructions ? Do not use any products that contain nicotine or tobacco for at least 4 weeks before the procedure. These products include cigarettes, chewing tobacco, and vaping devices, such as e-cigarettes. If you need help quitting, ask your health care provider. ? If you will be going home right after the procedure, plan to have a responsible adult: ? Take you home from the hospital or clinic. You will not be allowed to drive. ? Care for you for the time you are told. What happens during the procedure? ? An IV will be inserted into one of your veins. ? You will be given one or more of the following: ? A medicine to help you relax (sedative). ? A medicine to make you fall asleep (general anesthetic) (more content not included)... [facility] 03-20-2023 Note [id number] [facility] 02-26-2023 Hospital Discharge instructions Patient Education 02/26/2023 14:05:52 Benign Prostatic Hyperplasia Benign Prostatic Hyperplasia Benign prostatic hyperplasia (BPH) is an enlarged prostate gland that is caused by the normal aging process. The prostate may get bigger as a man gets older. The condition is not caused by cancer. The prostate is a walnut-sized gland that is involved in the production of semen. It is located in front of the rectum and below the bladder. The bladder stores urine. The urethra carries stored urine out of the body. An enlarged prostate can press on the urethra. This can make it harder to pass urine. The buildup of urine in the bladder can cause infection. Back pressure and infection may progress to bladder damage and kidney (renal) failure. What are the causes? This condition is part of the normal aging process. However, not all men develop problems from this condition. If the prostate enlarges away from the urethra, urine flow will not be blocked. If it enlarges toward the urethra and compresses it, there will be problems passing urine. What increases the risk? This condition is more likely to develop in men older than 50 years. What are the signs or symptoms? Symptoms of this condition include: Getting up often during the night to urinate. Needing to urinate frequently during the day. Difficulty starting urine flow. Decrease in size and strength of your urine stream. Leaking (dribbling) after urinating. Inability to pass urine. This needs immediate treatment. Inability to completely empty your bladder. Pain when you pass urine. This is more common if there is also an infection. Urinary tract infection (UTI). How is this diagnosed? This condition is diagnosed based on your medical history, a physical exam, and your symptoms. Tests will also be done, such as: A post-void bladder scan. This measures any amount of urine that may remain in your bladder after you finish urinating. A digital rectal exam. In a rectal exam, your health care provider checks your prostate by putting a lubricated, gloved finger into your rectum to feel the back of your prostate gland. This exam detects the size of your gland and any abnormal lumps or growths. An exam of your urine (urinalysis). A prostate specific antigen (PSA) screening. This is a blood test used to screen for prostate cancer. An ultrasound. This test uses sound waves to electronically produce a picture of your prostate gland. Your health care provider may refer you to a specialist in kidney and prostate diseases (urologist). How is this treated? Once symptoms begin, your health care provider will monitor your condition (active surveillance or watchful waiting). Treatment for this condition will depend on the severity of your condition. Treatment may include: Observation and yearly exams. This may be the only treatment needed if your condition and symptoms are mild. Medicines to relieve your symptoms, including: ?Medicines to shrink the prostate. ?Medicines to relax the muscle of the prostate. Surgery in severe cases. Surgery may include: ?Prostatectomy. In this procedure, the prostate tissue is removed completely through an open incision or with a laparoscope or robotics. ?Transurethral resection of the prostate (TURP). In this procedure, a tool is inserted through the opening at the tip of the penis (urethra). It is used to cut away tissue of the inner core of the prostate. The pieces are removed through the same opening of the penis. This removes the blockage. ?Transurethral incision (TUIP). In this procedure, small cuts are made in the prostate. This lessens the prostate's pressure on the urethra. ?Transurethral microwave thermotherapy (TUMT). This procedure uses microwaves to create heat. The heat destroys and removes a small amount of prostate tissue. ?Transurethral needle ablation (TUNA). This procedure uses radio frequencies to destroy and remove a small amount of prostate tissue. ?Interstitial laser coagulation (ILC). This procedure uses a laser to destroy and remove a small amount of prostate tissue. ?Transurethral electrovaporization (TUVP). This procedure uses electrodes to destroy and remove a small amount of prostate tissue. ?Prostatic urethral lift. This procedure inserts an implant to push the lobes of the prostate away from the urethra. Follow these instructions at home: Take pkgw-bgq-uqlewsx and prescription medicines only as told by your health care provider. Monitor your symptoms for any changes. Contact your health care provider with any changes. Avoid drinking large amounts of liquid before going to bed or out in public. Avoid or reduce how much caffeine or alcohol you drink. Give yourself time when you urinate. Keep all follow-up visits. This is important. Contact a health care provider if: You have unexplained back pain. Your symptoms do not get better with treatment. You develop side effects from the medicine you are taking. Your urine becomes very dark or has a bad smell. Your lower abdomen becomes distended and you have trouble passing urine. Get help right away if: You have a fever or chills. You suddenly cannot urinate. You feel light-headed or very dizzy, or you faint. There are large amounts of blood or clots in your urine. Your urinary problems become hard to manage. You develop moderate to severe low back or flank pain. The flank is the side of your body between the ribs and the hip. These symptoms may be an emergency. Get help right away. Call 911. Do not wait to see if the symptoms will go away. Do not drive yourself to the hospital. Summary Benign prostatic hyperplasia (BPH) is an enlarged prostate that is caused by the normal aging process. It is not caused by cancer. An enlarged prostate can press on the urethra. This can make it hard to pass urine. This condition is more likely to develop in men older than 50 years. Get help right away if you suddenly cannot urinate. This information is not intended to replace advice given to you by your health care provider. Make sure you discuss any questions you have with your health care provider. Document Revised: 11/16/2021 Document Reviewed: 11/16/2021 [employer] Patient Education 2022 [employer]. Follow Up Care 12/18/2022 10:51:11 With:DANIELLA HURLEY, Rolly Bautista, URL Address: [facility] [address] [place] [address]- When: Unknown Comments:Sched Cysto and Bladder Function Test [facility] 02-16-2022 Hospital Discharge instructions Follow Up Care 02/16/2022 11:04:35 With:Elis HURLEY, Brennan Moreno Address: [address] [place] [phone] When: only if needed [facility] 11-15-2021 Hospital Discharge instructions Patient Education 11/15/2021 11:26:08 Transurethral Resection of the Prostate Transurethral Resection of the Prostate Transurethral resection of the prostate (TURP) is the removal (resection) of part of the gland that produces semen (prostate gland). This procedure is done to treat benign prostatic hyperplasia (BPH). BPH is an abnormal, noncancerous (benign) increase in the number of cells that make up the prostate tissue. BPH causes the prostate to get bigger. The enlarged prostate can push against or block the tube that drains urine from the bladder out of the body (urethra). BPH can affect normal urine flow by causing bladder infections, difficulty controlling bladder function, and difficulty emptying the bladder. The goal of TURP is to remove enough prostate tissue to allow for a normal flow of urine. The procedure will allow you to empty your bladder more completely when you urinate so that you can urinate less often. In a transurethral resection, a thin telescope with a light, a tiny camera, and an electric cutting edge (resectoscope) is passed through the urethra and into the prostate. The opening of the urethra is at the end of the penis. Tell a health care provider about: Any allergies you have. All medicines you are taking, including vitamins, herbs, eye drops, creams, and qhyi-eps-okryhte medicines. Any problems you or family members have had with anesthetic medicines. Any blood disorders you have. Any surgeries you have had. Any medical conditions you have. Any prostate infections you have had. What are the risks? Generally, this is a safe procedure. However, problems may occur, including: Infection. Bleeding. Allergic reactions to medicines. Damage to other structures or organs, such as: ?The urethra. ?The bladder. ?Muscles that surround the prostate. Difficulty getting an erection. Inability to control when you urinate (incontinence). Scarring, which may cause problems with urine flow. What happens before the procedure? Medicines Ask your health care provider about: Changing or stopping your regular medicines. This is especially important if you are taking diabetes medicines or blood thinners. Taking medicines such as aspirin and ibuprofen. These medicines can thin your blood. Do not take these medicines unless your health care provider tells you to take them. Taking lczr-pmz-rumruhk medicines, vitamins, herbs, and supplements. Eating and drinking Follow instructions from your health care provider about eating and drinking, which may include: 8 hours before the procedure stop eating heavy meals or foods, such as meat, fried foods, or fatty foods. 6 hours before the procedure stop eating light meals or foods, such as toast or cereal. 6 hours before the procedure stop drinking milk or drinks that contain milk. 2 hours before the procedure stop drinking clear liquids. Staying hydrated Follow instructions from your health care provider about hydration, which may include: Up to 2 hours before the procedure you may continue to drink clear liquids, such as water, clear fruit juice, black coffee, and plain tea. General instructions You may have a physical exam. You may have a blood or urine sample taken. Ask your health care provider what steps will be taken to help prevent infection. These may include: ?Washing skin with a germ-killing soap. ?Taking antibiotic medicine. Plan to have someone take you home from the hospital or clinic. You may not be able to drive for up to 10 days after your procedure. Plan to have a responsible adult care for you for at least 24 hours after you leave the hospital or clinic. This is important. What happens during the procedure? An IV will be inserted into one of your veins. You will be given one or more of the following: ?A medicine to help you relax (sedative). ?A medicine to make you fall asleep (general anesthetic). ?A medicine that is injected into your spine to numb the area below and slightly above the injection site (spinal anesthetic). Your legs will be placed in foot rests (stirrups) so that your legs are apart and your knees are bent. The resectoscope will be passed through your urethra to your prostate. Parts of your prostate will be resected using the cutting edge of the resectoscope. The resectoscope will be removed. A small, thin tube (catheter) will be passed through your urethra and into your bladder. The catheter will drain urine into a bag outside of your body. ?Fluid may be passed through the catheter to keep the catheter open. The procedure may vary among health care providers and hospitals. What happens after the procedure? Your blood pressure, heart rate, breathing rate, and blood oxygen level will be monitored until you leave the hospital or clinic. You may continue to receive fluids and medicines through an IV. You may have some pain. Pain medicine will be available to help you. You will have a catheter draining your urine. ?You may have blood in your urine. Your catheter may be kept in until your urine is clear. ?Your urinary drainage will be monitored. If necessary, your bladder may be rinsed out (irrigated) through your catheter. You will be encouraged to walk around as soon as possible. You may have to wear compression stockings. These stockings help prevent blood clots and reduce swelling in your legs. Do not drive for 24 hours if you were given a sedative during your procedure. Summary Transurethral resection of the prostate (TURP) is the removal (resection) of part of the gland that produces semen (prostate gland). The goal of this procedure is to remove enough prostate tissue to allow for a normal flow of urine. Follow instructions from your health care provider about taking medicines and about eating and drinking before the procedure. This information is not intended to replace advice given to you by your health care provider. Make sure you discuss any questions you have with your health care provider. Document Released: 04/30/2006 Document Revised: 08/20/2019 Document Reviewed: 01/29/2019 [employer] Patient Education 2020 [employer] Follow Up Care 10/20/2021 08:45:04 With:Raimundo Ortiz MD, Lauro Madison, URO Address: [facility] [address] [place] [address]- [phone] When: Unknown [facility] 09-19-2021 Hospital Discharge instructions Patient Education 09/19/2021 13:24:12 Benign Prostatic Hyperplasia Benign Prostatic Hyperplasia Benign prostatic hyperplasia (BPH) is an enlarged prostate gland that is caused by the normal aging process and not by cancer. The prostate is a walnut-sized gland that is involved in the production of semen. It is located in front of the rectum and below the bladder. The bladder stores urine and the urethra is the tube that carries the urine out of the body. The prostate may get bigger as a man gets older. An enlarged prostate can press on the urethra. This can make it harder to pass urine. The build-up of urine in the bladder can cause infection. Back pressure and infection may progress to bladder damage and kidney (renal) failure. What are the causes? This condition is part of a normal aging process. However, not all men develop problems from this condition. If the prostate enlarges away from the urethra, urine flow will not be blocked. If it enlarges toward the urethra and compresses it, there will be problems passing urine. What increases the risk? This condition is more likely to develop in men over the age of 50 years. What are the signs or symptoms? Symptoms of this condition include: Getting up often during the night to urinate. Needing to urinate frequently during the day. Difficulty starting urine flow. Decrease in size and strength of your urine stream. Leaking (dribbling) after urinating. Inability to pass urine. This needs immediate treatment. Inability to completely empty your bladder. Pain when you pass urine. This is more common if there is also an infection. Urinary tract infection (UTI). How is this diagnosed? This condition is diagnosed based on your medical history, a physical exam, and your symptoms. Tests will also be done, such as: A post-void bladder scan. This measures any amount of urine that may remain in your bladder after you finish urinating. A digital rectal exam. In a rectal exam, your health care provider checks your prostate by putting a lubricated, gloved finger into your rectum to feel the back of your prostate gland. This exam detects the size of your gland and any abnormal lumps or growths. An exam of your urine (urinalysis). A prostate specific antigen (PSA) screening. This is a blood test used to screen for prostate cancer. An ultrasound. This test uses sound waves to electronically produce a picture of your prostate gland. Your health care provider may refer you to a specialist in kidney and prostate diseases (urologist). How is this treated? Once symptoms begin, your health care provider will monitor your condition (active surveillance or watchful waiting). Treatment for this condition will depend on the severity of your condition. Treatment may include: Observation and yearly exams. This may be the only treatment needed if your condition and symptoms are mild. Medicines to relieve your symptoms, including: ?Medicines to shrink the prostate. ?Medicines to relax the muscle of the prostate. Surgery in severe cases. Surgery may include: ?Prostatectomy. In this procedure, the prostate tissue is removed completely through an open incision or with a laparoscope or robotics. ?Transurethral resection of the prostate (TURP). In this procedure, a tool is inserted through the opening at the tip of the penis (urethra). It is used to cut away tissue of the inner core of the prostate. The pieces are removed through the same opening of the penis. This removes the blockage. ?Transurethral incision (TUIP). In this procedure, small cuts are made in the prostate. This lessens the prostate's pressure on the urethra. ?Transurethral microwave thermotherapy (TUMT). This procedure uses microwaves to create heat. The heat destroys and removes a small amount of prostate tissue. ?Transurethral needle ablation (TUNA). This procedure uses radio frequencies to destroy and remove a small amount of prostate tissue. ?Interstitial laser coagulation (ILC). This procedure uses a laser to destroy and remove a small amount of prostate tissue. ?Transurethral electrovaporization (TUVP). This procedure uses electrodes to destroy and remove a small amount of prostate tissue. ?Prostatic urethral lift. This procedure inserts an implant to push the lobes of the prostate away from the urethra. Follow these instructions at home: Take fiml-jmg-kyncxvs and prescription medicines only as told by your health care provider. Monitor your symptoms for any changes. Contact your health care provider with any changes. Avoid drinking large amounts of liquid before going to bed or out in public. Avoid or reduce how much caffeine or alcohol you drink. Give yourself time when you urinate. Keep all follow-up visits as told by your health care provider. This is important. Contact a health care provider if: You have unexplained back pain. Your symptoms do not get better with treatment. You develop side effects from the medicine you are taking. Your urine becomes very dark or has a bad smell. Your lower abdomen becomes distended and you have trouble passing your urine. Get help right away if: You have a fever or chills. You suddenly cannot urinate. You feel lightheaded, or very dizzy, or you faint. There are large amounts of blood or clots in the urine. Your urinary problems become hard to manage. You develop moderate to severe low back or flank pain. The flank is the side of your body between the ribs and the hip. These symptoms may represent a serious problem that is an emergency. Do not wait to see if the symptoms will go away. Get medical help right away. Call your local emergency services (911 in the [place] Do not drive yourself to the hospital. Summary Benign prostatic hyperplasia (BPH) is an enlarged prostate that is caused by the normal aging process and not by cancer. An enlarged prostate can press on the urethra. This can make it hard to pass urine. This condition is part of a normal aging process and is more likely to develop in men over the age of 50 years. Get help right away if you suddenly cannot urinate. This information is not intended to replace advice given to you by your health care provider. Make sure you discuss any questions you have with your health care provider. Document Released: 04/30/2006 Document Revised: 03/25/2019 Document Reviewed: 06/04/2017 [employer] Patient Education 2020 [employer]. Follow Up Care 08/30/2021 15:35:27 With:Raimundo Ortiz MD, Lauro Madison, URO Address: [facility] [address], [place] [address]- When: Unknown Comments:will follow up after a urolift [facility] 08-30-2021 Hospital Discharge instructions Patient Education 08/30/2021 10:14:22 Transurethral Resection of the Prostate Transurethral Resection of the Prostate Transurethral resection of the prostate (TURP) is the removal (resection) of part of the gland that produces semen (prostate gland). This procedure is done to treat benign prostatic hyperplasia (BPH). BPH is an abnormal, noncancerous (benign) increase in the number of cells that make up the prostate tissue. BPH causes the prostate to get bigger. The enlarged prostate can push against or block the tube that drains urine from the bladder out of the body (urethra). BPH can affect normal urine flow by causing bladder infections, difficulty controlling bladder function, and difficulty emptying the bladder. The goal of TURP is to remove enough prostate tissue to allow for a normal flow of urine. The procedure will allow you to empty your bladder more completely when you urinate so that you can urinate less often. In a transurethral resection, a thin telescope with a light, a tiny camera, and an electric cutting edge (resectoscope) is passed through the urethra and into the prostate. The opening of the urethra is at the end of the penis. Tell a health care provider about: Any allergies you have. All medicines you are taking, including vitamins, herbs, eye drops, creams, and miwn-dop-gocuvft medicines. Any problems you or family members have had with anesthetic medicines. Any blood disorders you have. Any surgeries you have had. Any medical conditions you have. Any prostate infections you have had. What are the risks? Generally, this is a safe procedure. However, problems may occur, including: Infection. Bleeding. Allergic reactions to medicines. Damage to other structures or organs, such as: ?The urethra. ?The bladder. ?Muscles that surround the prostate. Difficulty getting an erection. Inability to control when you urinate (incontinence). Scarring, which may cause problems with urine flow. What happens before the procedure? Medicines Ask your health care provider about: Changing or stopping your regular medicines. This is especially important if you are taking diabetes medicines or blood thinners. Taking medicines such as aspirin and ibuprofen. These medicines can thin your blood. Do not take these medicines unless your health care provider tells you to take them. Taking zijg-hgy-azkqdvp medicines, vitamins, herbs, and supplements. Eating and drinking Follow instructions from your health care provider about eating and drinking, which may include: 8 hours before the procedure stop eating heavy meals or foods, such as meat, fried foods, or fatty foods. 6 hours before the procedure stop eating light meals or foods, such as toast or cereal. 6 hours before the procedure stop drinking milk or drinks that contain milk. 2 hours before the procedure stop drinking clear liquids. Staying hydrated Follow instructions from your health care provider about hydration, which may include: Up to 2 hours before the procedure you may continue to drink clear liquids, such as water, clear fruit juice, black coffee, and plain tea. General instructions You may have a physical exam. You may have a blood or urine sample taken. Ask your health care provider what steps will be taken to help prevent infection. These may include: ?Washing skin with a germ-killing soap. ?Taking antibiotic medicine. Plan to have someone take you home from the hospital or clinic. You may not be able to drive for up to 10 days after your procedure. Plan to have a responsible adult care for you for at least 24 hours after you leave the hospital or clinic. This is important. What happens during the procedure? An IV will be inserted into one of your veins. You will be given one or more of the following: ?A medicine to help you relax (sedative). ?A medicine to make you fall asleep (general anesthetic). ?A medicine that is injected into your spine to numb the area below and slightly above the injection site (spinal anesthetic). Your legs will be placed in foot rests (stirrups) so that your legs are apart and your knees are bent. The resectoscope will be passed through your urethra to your prostate. Parts of your prostate will be resected using the cutting edge of the resectoscope. The resectoscope will be removed. A small, thin tube (catheter) will be passed through your urethra and into your bladder. The catheter will drain urine into a bag outside of your body. ?Fluid may be passed through the catheter to keep the catheter open. The procedure may vary among health care providers and hospitals. What happens after the procedure? Your blood pressure, heart rate, breathing rate, and blood oxygen level will be monitored until you leave the hospital or clinic. You may continue to receive fluids and medicines through an IV. You may have some pain. Pain medicine will be available to help you. You will have a catheter draining your urine. ?You may have blood in your urine. Your catheter may be kept in until your urine is clear. ?Your urinary drainage will be monitored. If necessary, your bladder may be rinsed out (irrigated) through your catheter. You will be encouraged to walk around as soon as possible. You may have to wear compression stockings. These stockings help prevent blood clots and reduce swelling in your legs. Do not drive for 24 hours if you were given a sedative during your procedure. Summary Transurethral resection of the prostate (TURP) is the removal (resection) of part of the gland that produces semen (prostate gland). The goal of this procedure is to remove enough prostate tissue to allow for a normal flow of urine. Follow instructions from your health care provider about taking medicines and about eating and drinking before the procedure. This information is not intended to replace advice given to you by your health care provider. Make sure you discuss any questions you have with your health care provider. Document Released: 04/30/2006 Document Revised: 08/20/2019 Document Reviewed: 01/29/2019 [employer] Patient Education 2020 [employer]. Follow Up Care 07/27/2020 10:36:44 With:Raimundo Ortiz MD, Lauro Madison, URO Address: [facility] [address] , [place] [address]- [phone] When: Unknown [facility] Evaluation + Plan note Future Appointments Appointment Date:09/19/2021 01:15:00 PM Scheduled Provider:Lauro Eubanks Jr., MD Location:[facility] Appointment Type:URO Procedure 15 min [facility] Evaluation + Plan note Future Appointments Appointment Date:12/08/2021 09:00:00 AM Scheduled Provider: Location:[facility] Appointment Type:Surgery FT [facility] Evaluation + Plan note Future Appointments Appointment Date:12/15/2021 01:30:00 PM Scheduled Provider:Brennan Gillis MD [facility]ment Type:Cardiology New Patient (FT) [facility] Evaluation + Plan note Future Appointments Appointment Date:02/08/2022 08:00:00 AM Scheduled Provider: [facility] Appointment Type:NM Myocard Spect Multi Rest/Stress-Res Appointment Date:02/08/2022 09:00:00 AM Scheduled Provider: [facility] Appointment Type:NM Myocard Spect Multi Rest/Stress - R Appointment Date:02/08/2022 09:30:00 AM Scheduled Provider: [facility] Appointment Type:NM Myocard Spect Multi Rest/Stress-Str Appointment Date:02/08/2022 10:30:00 AM Scheduled Provider: [facility] Appointment Type:NM Myocar Spect Multi Rest/Stress - St Future Scheduled TestsNM Myocardial Spect Rest/Stress 1 Day 02/08/22 [facility] Evaluation + Plan note Future Scheduled TestsBasic Metabolic Panel 03/03/22 [facility] Evaluation + Plan note Future Appointments Appointment Date:03/13/2023 01:15:00 PM Scheduled Provider: Location:[facility] Services Appointment Type:Urology CALL PAT FT Appointment Date:03/20/2023 01:00:00 PM Scheduled Provider: Location:[facility] Appointment Type:Urology FT Appointment Date:03/20/2023 02:15:00 PM Scheduled Provider: Location:[facility] Appointment Type:Urology FT Future Scheduled TestsBasic Metabolic Panel 03/03/22 [facility] Evaluation + Plan note Future Appointments Appointment Date:05/28/2023 09:00:00 AM Scheduled Provider: Location:[facility] Appointment Type:URO Nurse Visit Appointment Date:06/11/2023 09:15:00 AM Scheduled Provider:Rolly AZUL MD Location:[facility] Appointment Type:URO Office Visit [facility] Evaluation + Plan note Future Appointments Appointment Date:06/25/2023 09:00:00 AM Scheduled Provider: Location:[facility] Appointment Type:URO Nurse Visit Appointment Date:07/09/2023 09:30:00 AM Scheduled Provider:Rolly AZUL MD Location:[facility] Appointment Type:URO Office Visit [facility] Hospital course Narrative No data available for this section [facility] Hospital Discharge instructions No data available for this section [facility] Progress note No data available for this section [facility] Summary Purpose Family History No Family History Records FoundNo Family History Records Found No data available for this section No data available for this section No Family History Records Found No data available for this section Advance Directives No Advanced Directives Records FoundNo Advanced Directives Records FoundNo Advanced Directives Records Found Additional Source Comments Care Team (unrecognized sect ion and content) Personnel Name: Vernon Nahid Tyra Address: [address] [place] [address] Personnel Name: Nahid Junior DO Address: [address] [place] [id number] Personnel Name: Nahid Junior DO Address: [address] [place] [id number] Personnel Name: Vernon TURK Nahid Tyra Address: [address] [place] [id number] Personnel Name: Nahid Junior DO Address: [address] [place] [address] Personnel Name: Nahid Junior DO Address: [address] Personnel Name: Nahid Junior DO Address: Address: [address] [place] [address] Personnel Name: Nahid Junior DO Address: Address: [address] [place] [address] Personnel Name: Nahid Junior DO Address: Address: [address] [place] [address] Personnel Name: Nahid Junior DO Address: Address: [address] [place] [address] (unrecognized sect ion and content) No Status Records FoundNo Status Records FoundNo Status Records Found INFORMATION SOURCE (unrecogn ized section and content) DATE CREATED AUTHOR 02/22/2022 [facility] DATE CREATED AUTHOR AUTHOR'S ORGANIZ ATION 09/07/2022 Samuel Ornelas [facility] DATE CREATED AUTHOR AUTHOR'S ORGANIZ ATION 05/12/2023 [facility] FOR RECORDS PERTAINING TO PATIENTS WHO ARE OR HAVE BEEN ENROLLED IN A CHEMICAL DEPENDENCY/SUBSTANCEABUSE PROGRAM, SOME INFORMATION MAY BE OMITTED. This clinical summary was aggregated from multiple sources. Caution should be exercised in using it in the provision of clinical care. This summary normalizes information from multiple sources, and as a consequence, information in this document may materially change the coding, format and clinical context of patient data. In addition, data may be omitted in some cases. CLINICAL DECISIONS SHOULD BE BASED ON THE PRIMARY CLINICAL RECORDS. [facility] [employer] [facility]. provides no warranty or guarantee of the accuracy or completeness of information in this document.
== END 2023-06-08 11:35 | disposition home or self-care (01) ==
LOC: PST 11:34
PROVIDERS: PCP Family Medicine; Visit Provider Urology
DX: Z01.818 Encounter for other preprocedural examination (principal); N20.1 Calculus of ureter; R97.20 Elevated prostate specific antigen [PSA]; I25.2 Old myocardial infarction; I10 Essential (primary) hypertension; Z79.01 Long term (current) use of anticoagulants

== ENCOUNTER 2023-06-21 11:48 | Day surgery (SDC) | payer MEDICARE, SELFPAY ==
[2023-05-10 08:30] VITALS: BP 152/89; PULSE 59; RESP 18; TEMP 36.2; O2SAT 96; BMI 34.6
--- NOTE | 2023-06-08 11:26 | PC.NURSE ---
06/08/23- Reviewed plan of care and procedure with patient via telephone. All questions answered and patient verbalized a understanding. Patient denied any symptoms of COVID.
[2023-06-21] VITALS (10 sets, daily range): BP systolic 110–182; BP diastolic 71–80; PULSE 49–67; RESP 11–20; TEMP 36.1–36.6; O2SAT 93–99; BMI 33.6
--- OUTSIDE RECORDS SUMMARY | 2023-06-21 11:53 | XMS_ITS | CCD ---
Author Name Unknown Address [address] [place] [address] Organization [facility] Care Team Providers Care Municipal Engineer Name Role Phone Nahid Junior Primary Care Physician [phone] VERNON, DR DEJESUS Primary Care Unavailable MADHURI [...] Attending Unavailable AZUL, Rolly Bautista Attending Unavailable AUZL, Rolly Bautista Attending Unavailable Vernon, Nahid Mary Primary Care Physician Allergies Allergy Classification Reported Allergen(s) Allergy Type Date of Onset Reaction(s) Facility (1 source) No Known Medication Allergies; Translations: [No Known Medication Allergies] Propensity to adverse reactions (disorder) [facility] Repository Medications Current Medications Medication Drug Class(es) [...] Daily, # 30 cap(s), Refills(s) 11, Pharmacy: [facility]/pharmacy #[id number], 170, cm, 02/26/23 13:09:00 EDT, Height/Length Dosing, 97.7, kg, 02/26/23 13:09:00 EDT, Weight Dosing Start Date: 02/26/23 Status: Ordered losartan potassium 25 mg oral tablet (1 source) Angiotensin 2 Receptor Maryann Start: 02-17-2022 take 1 tablet by mouth once daily losartan 25 mg Tab 25 mg = 1 tab(s), Oral, Daily, # 30 tab(s), Refills(s) 5, [id number], cm, 02/17/22 9:35:00 EDT, Height/Length [...] bedtime), # 30 cap(s), Refills(s) 1, Pharmacy: [facility]/pharmacy #[id number], 170, cm, 08/30/21 9:37:00 EDT, [...] day(s), # 2 cap(s), Refills(s) 0, Pharmacy: [facility]/pharmacy #[id number], 170, cm, 02/26/23 13:09:00 EDT, [...] procedure, # 2 tab(s), Refills(s) 0, Pharmacy: [facility]/pharmacy #[id number], 170, cm, 08/30/21 9:37:00 EDT, [...] Range Facility ECG 12-Leadon 05-11-2023 ECG 12-Lead [id number]#1.0 [facility]23 Lab Reports [id number]#1.0 0[facility] Consent for Procedure/Surger yon 03-21-2023 Consent for Procedure/Surgery [id number]#1.0 0[facility]FF [facility] Consent for Procedure/Surger yon 03-20-2023 Consent for Procedure/Surgery [id number]#1.0 [facility] for Treatment[facility] Consent for Treatment [id number]#1.0 [facility] IntraOperative Documentson 1 05-20-2022 IntraOperative Documents [id number] 0TIFF Normal [facility] IntraOperative Documents [id number]#1.0 0TIFF Normal [facility] Main OR Intraoperative Recor don 03-20-2023 Main OR Intraoperative Record IntraOp Document Type FTURO Summary Primary Physician: Rolly AZUL MD Finalized Date/Time: 03/20/23 14:41:00 Pt. Name: DAWN RODRIGUEZ/Sex: 1960 Male Med Rec #: [id number] Physician: Rolly AZUL MD Financial #: [id number] Pt. Type: O Room/Bed: / Admit/Disch: 03/20/23 12:40:30 - Institution: Case Times FTURO Entry 1 Patient Times In Room 03/20/23 14:25:00 Out Room 03/20/23 14:38:00 Procedure Times Start 03/20/23 14:30:00 Stop 03/20/23 14:33:00 Anesthesia Times Last Modified By: Danni Gallagher RN 03/20/23 14:40:49 Case Attendance FTURO Entry 1 Entry 2 Entry 3 Case Attendee Rolly AZUL MD ROLL FORGER, Danni Gallagher RN, Danni Banuelos Role Performed Surgeon - Primary Scrub - Primary Agricultural Produce Washer - Primary Time In 03/20/23 14:25:00 03/20/23 [...] By: Danni Gallagher RN 03/20/23 14:41 Normal [facility] Main OR Preoperative Recordo n 03-20-2023 Main OR Preoperative Record Holding Area Document Type FTURO Summary Primary Physician: Rolly AZUL MD Finalized Date/Time: 03/20/23 14:07:31 Pt. Name: DAWN RODRIGUEZ/Sex: 1960 Male Med Rec #: [id number] Physician: Rolly AZUL MD Financial #: [id number] Pt. Type: O Room/Bed: / Admit/Disch: 03/20/23 [...] Complaints of Pain: No Skin Integrity Intact, [place], Warm, & Dry Vitals - EU Blood Pressure 171/80 Pulse 65 bpm Respirations 20 br/min SPO2 96 % RN Reviewed Yes Last Modified By: Danni Gallagher RN 03/20/23 14:07:30 General Comments: Temp 36.7 Finalized By: Danni Gallagher RN Document Signatures Signed By: Ailin Luna LPN 03/20/23 13:49 Ailin Luna LPN 03/20/23 13:49 Danni Gallagher RN 03/20/23 14:07 Normal [facility] Operative Reporton Operative Report Patient: LEVAR RODRIGUEZ [...] think about it at this time.. Normal [facility] Comment on above: Result Comment: Elec tronically Signed By: Rolly AZUL MD\.br\Date and Time Signed: 03/20/23 14:40 EST Outpatient Surgery Discharge Instructionon 03-20-2023 Outpatient Surgery Discharge Instruction [id number]#1.0 0TIFF Normal [facility] Lab Reportson 02-27-2023 Lab Reports [id number]#1.0 0TIFF Normal [facility] Ambulatory Visit Summaryon 1 Ambulatory Visit Summary [...] Where: [facility] [address] [place] [address]- Allergies No Known Medication Allergies Problems Ongoing [...] prostate's pres (more content not included)... Normal [facility] Patient Educationon 02-27-20 Patient Education Urology Benign [...] Follow these instructions at home: ? Take [id number] and prescription medicines only as told by [...] the medicine (more content not included)... Normal [facility] Urology Office/Clinic Noteon 02-26-2023 Urology Office/Clinic Note Chief Complaint Follow up HPI Staff Former DLS pt. 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 Pt was then scheduled for Urolift. Urolift attempted 10/20/21. However procedure was terminated due to intolerance from pt. Pt then got an infection, sent to [facility] (No bulk station operator Urologist in [place]) Pt was then scheduled for TURP. Abnormal EKG. Surgery was then cancelled, awaiting cardiac clearance. Pt cleared by [facility] Cardiac 02/17/22. Here today for follow up. Last PSA 08/28/22- 2.85 Getting up 3-5x/night. [id number] in the morning with coffee intake. [id number] the rest of the day. Weak stream. [...] Pt then got an infection, sent to [facility] (No bulk station operator Urologist in [place]) CT 10/21/21 showed no hydronephrosis, enlarged prostate gland. Pt was seen in [place] for infection after procedure was terminated. Pt took Cefdinir for 4 days for infection. Pt states he was admitted to [facility] because of an infection on 10/21/2021. Pt stayed one night at [facility] and then was sent to [facility] since we did not have a Urologist bulk station operator. Pt states that he was having problems voiding at first but was eventually able to pass his urine on his own and did not need a cath. [place] took pt off Terazosin and put him on Flomax. Pt was then scheduled for TURP. Abnormal EKG. Surgery was then cancelled, awaiting cardiac clearance. Pt cleared by [facility] Cardiac 02/17/22. No UA given today. Getting up 3-5x/night, [id number] in the morning with coffee intake, [id number] the rest of the day. Weak stream. [...] [facility] [address] [place] [address]- Additional Instructions: Sched Cysto and Bladder Function Test Patient Education Benign Prostatic Hyperplasia I, Sheryl Temple , personally scribed for Dr. Azul on 02/26/2023 14: (more content not included)... Normal [facility] Comment on above: Result Comment: Elec tronically Signed By: Marina Gross\.br\Date and Time Signed: 02/26/23 14:18 EDT CBC AUTO DIFFon 08-28-2022 BASO # 0.0 103/ul Normal 0.0-0.1 [facility] Comment on above: Performed By: #### C BC #### [facility] [address] [address] [address] Yamini Gomez Basophils/100 WBC (Bld) 0.5 % Normal 0.2-2.0 [facility] Comment on above: Performed By: #### C BC #### [facility] [address] [place] [address] Dr. Yamini Gomez EO # 0.1 103/ul Normal 0.0-0.7 [facility] Comment on above: Performed By: #### C BC #### [facility] [address] [place] [address] Dr. Yamini Gomez Eosinophils/100 WBC (Bld) 2.1 % Normal 0.9-7.0 [facility] Comment on above: Performed By: #### C BC #### [facility] [address] [place] [address] Dr. Yamini Gomez Erythrocyte distribution width (RBC) [Ratio] 12.3 % Normal 11.0-15.0 [facility] Comment on above: Performed By: #### C BC #### [facility] [address] [place] [address] Dr. Yamini Gomez Hematocrit (Bld) [Volume fraction] 44.7 % Normal 42.0-54.0 [facility] Comment on above: Performed By: #### C BC #### [facility] [address] [place] [address] Dr. Yamini Gomez Hemoglobin (Bld) [Mass/Vol] 15.9 g/dL Normal 14.0-18.0 [facility] Comment on above: Performed By: #### C BC #### [facility] [address] [place] [address] Dr. Yamini Gomez IG # 0.01 10e3/ul Normal 0.00-0.03 [facility] Comment on above: Performed By: #### C BC #### [facility] [address] [place] [address] Dr. Yamini Gomez IG % 0.3 % Normal 0.0-0.5 [facility] Comment on above: Performed By: #### C BC #### [facility] [address] [place] [address] Dr. Yamini Gomez LYMPH # 1.5 103/ul Normal 1.2-3.8 [facility] Comment on above: Performed By: #### C BC #### [facility] [address] [place] [address] Dr. Yamini Gomez Lymphocytes/100 WBC (Bld) 38.5 % Normal 20.5-60.0 [facility] Comment on above: Performed By: #### C BC #### [facility] [address] [place] [address] Dr. Yamini Gomez MANUAL DIFF REQ NO Normal [facility] Comment on above: Performed By: #### C BC #### [facility] [address] [place] [address] Dr. Yamini Gomez MCH (RBC) [Entitic mass] 30.5 pg Normal 25.9-34.0 [facility] Comment on above: Performed By: #### C BC #### [facility] [address] [place] [address] Dr. Yamini Gomez MCHC (RBC) [Mass/Vol] 35.6 g/dL Critically high 29.9-35.2 [facility] Comment on above: Performed By: #### C BC #### [facility] [address] [place] [address] Dr. Yamini Gomez MCV (RBC) [Entitic vol] 85.8 fL Normal 80.0-94.0 [facility] Comment on above: Performed By: #### C BC #### [facility] [address] [place] [address] Dr. Yamini Gomez MONO # 0.4 103/ul Normal 0.3-0.8 [facility] Comment on above: Performed By: #### C BC #### [facility] [address] [place] [address] Dr. Yamini Gomez Monocytes/100 WBC (Bld) 9.8 % Normal 1.7-12.0 [facility] Comment on above: Performed By: #### C BC #### [facility] [address] [place] [address] Dr. Yamini Gomez NEUT # 1.9 103/ul Normal 1.4-6.5 [facility] Comment on above: Performed By: #### C BC #### [facility] [address] [address] [address] Yamini Gomez Neutrophils/100 WBC (Bld) 48.8 % Normal 43.0-75.0 [facility] Comment on above: Performed By: #### C BC #### [facility] [address] [address] [address] Yamini Gomez Platelet mean volume (Bld) [Entitic vol] 9.0 fL Critically low 9.5-13.5 [facility] Comment on above: Performed By: #### C BC #### [facility] [address] [address] [address] Yamini Gomez PLT 168 103/ul Normal 150-450 [facility] Comment on above: Performed By: #### C BC #### [facility] [address] [place] [address] Dr. Yamini Gomez RBC 5.21 106/ul Normal 4.70-6.10 [facility] Comment on above: Performed By: #### C BC #### [facility] [address] [address] [address] Yamini Gomez WBC 3.8 103/ul Critically low 4.0-11.0 [facility] Comment on above: Performed By: #### C BC #### [facility] [address] [place] [address] Dr. Yamini Gomez PROF 14(COMP METB)on 023 Albumin [Mass/Vol] 4.0 g/dL Normal 3.4-5.0 [facility] Comment on above: Performed By: #### T 4, TSH, CMP #### [facility] [address] [place] [address] Dr. Yamini Gomez Albumin/Globulin [Mass ratio] 1.0 {ratio} Normal [facility] Comment on above: Performed By: #### T 4, TSH, CMP #### [facility] [address] [place] [address] Dr. Yamini Gomez ALP [Catalytic activity/Vol] 69 U/L Normal 46-116 [facility] Comment on above: Performed By: #### T 4, TSH, CMP #### [facility] [address] [address] [address] Yamini Gomez ALT [Catalytic activity/Vol] 57 U/L Normal 16-63 [facility] Comment on above: Performed By: #### T 4, TSH, CMP #### [facility] [address] [address] [address] Yamini Gomez Anion gap [Moles/Vol] 10.0 mmol/L Normal [facility] Comment on above: Performed By: #### T 4, TSH, CMP #### [facility] [address] [place] [address] Dr. Yamini Gomez AST [Catalytic activity/Vol] 26 U/L Normal 15-37 [facility] Comment on above: Performed By: #### T 4, TSH, CMP #### [facility] [address] [place] [address] Dr. Yamini Gomez Bilirubin [Mass/Vol] 1.0 mg/dL Normal 0.2-1.0 [facility] Comment on above: Performed By: #### T 4, TSH, CMP #### [facility] [address] [place] [address] Dr. Yamini Gomez Calcium [Mass/Vol] 9.4 mg/dL Normal 8.5-10.1 [facility] Comment on above: Performed By: #### T 4, TSH, CMP #### [facility] [address] [place] [address] Dr. Yamini Gomez Chloride [Moles/Vol] 106 mmol/L Normal 98-107 [facility] Comment on above: Performed By: #### T 4, TSH, CMP #### [facility] [address] [place] [address] Dr. Yamini Gomez CO2 [Moles/Vol] 28.5 mmol/L Normal 21.0-32.0 [facility] Comment on above: Performed By: #### T 4, TSH, CMP #### [facility] [address] [place] [address] Dr. Yamini Gomez Creatinine [Mass/Vol] 1.06 mg/dL Normal 0.70-1.30 [facility] Comment on above: Performed By: #### T 4, TSH, CMP #### [facility] [address] [address] [address] Yamini Gomez EGFR-AF PERUVIAN >60 Normal >=60 [facility] Comment on above: Performed By: #### T 4, TSH, CMP #### [facility] [address] [address] [address] Yamini Gomez EGFR-NON AF PERUVIAN >60 Normal >=60 [facility] Comment on above: Performed By: #### T 4, TSH, CMP #### [facility] [address] [address] [address] Yamini Gomez Globulin (S) [Mass/Vol] 4.0 g/dL Normal [facility] Comment on above: Performed By: #### T 4, TSH, CMP #### [facility] [address] [address] [address] Yamini Gomez Glucose [Mass/Vol] 119 mg/dL Critically high 74-106 [facility] Comment on above: Performed By: #### T 4, TSH, CMP #### [facility] [address] [address] [address] Yamini Gomez Potassium [Moles/Vol] 4.5 mmol/L Normal 3.5-5.1 [facility] Comment on above: Performed By: #### T 4, TSH, CMP #### [facility] [address] [address] [address] Yamini Gomez Protein [Mass/Vol] 8.0 g/dL Normal 6.4-8.2 [facility] Comment on above: Performed By: #### T 4, TSH, CMP #### [facility] [address] [address] [address] Yamini Gomez Sodium [Moles/Vol] 140 mmol/L Normal 136-145 [facility] Comment on above: Performed By: #### T 4, TSH, CMP #### [facility] [address] [address] [address] Yamini Gomez Urea nitrogen [Mass/Vol] 14.0 mg/dL Normal 7.0-18.0 [facility] Comment on above: Performed By: #### T 4, TSH, CMP #### [facility] [address] [place] [address] Dr. Yamini Gomez Urea nitrogen/Creatinine [Mass ratio] 13.2 mg/mg Normal [facility] Comment on above: Performed By: #### T 4, TSH, CMP #### [facility] [address] [place] [address] Dr. Yamini Gomez T4on 08-28-2022 T4 [Mass/Vol] 7.60 ug/dL Normal 4.50-12.[address] [facility] Comment on above: Performed By: #### T 4, TSH, CMP #### [facility] [address] [place] [address] Dr. Yamini Gomez TSHon 08-28-2022 TSH 4.413 uIU/mL Critically high 0.358-3.740 [facility] Comment on above: Performed By: #### T 4, TSH, CMP #### [facility] [address] [place] [address] Dr. Yamini Gomez PROF CHEM 8 (BAS METB)on Anion gap [Moles/Vol] 10.5 mmol/L Normal [facility] Comment on above: Performed By: #### C MP #### [facility] [address] [place] [address] Dr. Yamini Gomez Calcium [Mass/Vol] 9.4 mg/dL Normal 8.5-10.1 [facility] Comment on above: Performed By: #### C MP #### [facility] [address] [place] [address] Dr. Yamini Gomez Chloride [Moles/Vol] 104 mmol/L Normal 98-107 [facility] Comment on above: Performed By: #### C MP #### [facility] [address] [place] [address] Dr. Yamini Gomez CO2 [Moles/Vol] 28.4 mmol/L Normal 21.0-32.0 [facility] Comment on above: Performed By: #### C MP #### [facility] [address] [address] [address] Yamini Gomez Creatinine [Mass/Vol] 1.03 mg/dL Normal 0.70-1.30 [facility] Comment on above: Performed By: #### C MP #### [facility] [address] [address] [address] Yamini Gomez EGFR-AF PERUVIAN >60 Normal >=60 [facility] Comment on above: Performed By: #### C MP #### [facility] [address] [place] [address] Dr. Yamini Gomez EGFR-NON AF PERUVIAN >60 Normal >=60 [facility] Comment on above: Performed By: #### C MP #### [facility] [address] [place] [address] Dr. Yamini Gomez Glucose [Mass/Vol] 112 mg/dL Critically high 74-106 [facility] Comment on above: Performed By: #### C MP #### [facility] [address] [address] [address] Yamini Gomez Potassium [Moles/Vol] 3.9 mmol/L Normal 3.5-5.1 [facility] Comment on above: Performed By: #### C MP #### [facility] [address] [place] [address] Dr. Yamini Gomez Sodium [Moles/Vol] 139 mmol/L Normal 136-145 [facility] Comment on above: Performed By: #### C MP #### [facility] [address] [place] [address] Dr. Yamini Gomez Urea nitrogen [Mass/Vol] 17.0 mg/dL Normal 7.0-18.0 [facility] Comment on above: Performed By: #### C MP #### [facility] [address] [place] [address] Dr. Yamini Gomez Urea nitrogen/Creatinine [Mass ratio] 16.5 mg/mg Normal [facility] Comment on above: Performed By: #### C MP #### [facility] [address] [place] [address] Dr. Yamini Gomez CHEMISTRYOrdered By: SYSTEM SYSTEM [...] rate/Area] mL/min/1.73 m2 Normal >=59mL/min/1 .73 m2 [facility] Chem S Glucose [Mass/Vol] 101 mg/dL Normal [...] PM) Normal Negative [facility] UA Auto SS [place].plasma/Lithiu m.RBC (Bld) [Mass ratio] 0-3 /HPF Normal [...] [facility] UA Auto SS Urobilinogen Qn (U) 0.8080259 {Erendira'U}/dL Normal 0.0 - 1.0 EU/dL [facility] UA Auto SS WBC Auto Ql (U) Negative (11/24/21 2:50 PM) Normal Negative [facility] UA Auto SS WBC LM.HPF (Urine sed) [#/Area] 0-5 /HPF Normal 0-5/HPF [facility] UA Auto SS CULTURE URINEon 10-24-2021 CULTURE [...] Trimethoprim/Sulfameth oxazole <=20 S F Normal [facility] Comment on above: Performed By: #### C MP #### [facility] [address] [place] [address] Dr. Yamini Gomez CBC AUTO DIFFon 10-22-2021 BASO # 0.0 103/ul Normal 0.0-0.1 [facility] Comment on above: Performed By: #### C BC #### [facility] [address] [place] [address] Dr. Yamini Gomez Basophils/100 WBC (Bld) 0.1 % Critically low 0.2-2.0 [facility] Comment on above: Performed By: #### C BC #### [facility] [address] [place] [address] Dr. Yamini Gomez EO # 0.0 103/ul Normal 0.0-0.7 [facility] Comment on above: Performed By: #### C BC #### [facility] [address] [place] [address] Dr. Yamini Gomez Eosinophils/100 WBC (Bld) 0.0 % Critically low 0.9-7.0 [facility] Comment on above: Performed By: #### C BC #### [facility] [address] [place] [address] Dr. Yamini Gomez Erythrocyte distribution width (RBC) [Ratio] 12.3 % Normal 11.0-15.0 [facility] Comment on above: Performed By: #### C BC #### [facility] [address] [place] [address] Dr. Yamini Gomez Hematocrit (Bld) [Volume fraction] 43.7 % Normal 42.0-54.0 [facility] Comment on above: Performed By: #### C BC #### [facility] [address] [place] [address] Dr. Yamini Gomez Hemoglobin (Bld) [Mass/Vol] 14.8 g/dL Normal 14.0-18.0 [facility] Comment on above: Performed By: #### C BC #### [facility] [address] [place] [address] Dr. Yamini Gomez IG # 0.06 10e3/ul Critically high 0.00-0.03 [facility] Comment on above: Performed By: #### C BC #### [facility] [address] [place] [address] Dr. Yamini Gomez IG % 0.4 % Normal 0.0-0.5 [facility] Comment on above: Performed By: #### C BC #### [facility] [address] [place] [address] Dr. Yamini Gomez LYMPH # 0.9 103/ul Critically low 1.2-3.8 [facility] Comment on above: Performed By: #### C BC #### [facility] [address] [place] [address] Dr. Yamini Gomez Lymphocytes/100 WBC (Bld) 5.7 % Critically low 20.5-60.0 [facility] Comment on above: Performed By: #### C BC #### [facility] [address] [place] [address] Dr. Yamini Gomez MANUAL DIFF REQ NO Normal [facility] Comment on above: Performed By: #### C BC #### [facility] [address] [address] [address] Yamini Gomez MCH (RBC) [Entitic mass] 29.8 pg Normal 25.9-34.0 [facility] Comment on above: Performed By: #### C BC #### [facility] [address] [address] [address] Yamini Gomez MCHC (RBC) [Mass/Vol] 33.9 g/dL Normal 29.9-35.2 [facility] Comment on above: Performed By: #### C BC #### [facility] [address] [address] [address] Yamini Gomez MCV (RBC) [Entitic vol] 88.1 fL Normal 80.0-94.0 [facility] Comment on above: Performed By: #### C BC #### [facility] [address] [place] [address] Dr. Yamini Gomez MONO # 1.1 103/ul Critically high 0.3-0.8 [facility] Comment on above: Performed By: #### C BC #### [facility] [address] [address] [address] Yamini Gomez Monocytes/100 WBC (Bld) 6.9 % Normal 1.7-12.0 [facility] Comment on above: Performed By: #### C BC #### [facility] [address] [address] [address] Yamini Gomez NEUT # 13.8 103/ul Critically high 1.4-6.5 [facility] Comment on above: Performed By: #### C BC #### [facility] [address] [address] [address] Yamini Goemz Neutrophils/100 WBC (Bld) 86.9 % Critically high 43.0-75.0 [facility] Comment on above: Performed By: #### C BC #### [facility] [address] [place] [address] Dr. Yamini Gomez Platelet mean volume (Bld) [Entitic vol] 9.3 fL Critically low 9.5-13.5 [facility] Comment on above: Performed By: #### C BC #### [facility] [address] [place], [place] [address] Dr. Yamini Gomez PLT 150 103/ul Normal 150-450 [facility] Comment on above: Performed By: #### C BC #### [facility] [address] [place], [place] [address] Dr. Yamini Gomez RBC 4.96 106/ul Normal 4.70-6.10 [facility] Comment on above: Performed By: #### C BC #### [facility] [address] [place], [place] [address] Dr. Yamini Gomez WBC 15.9 103/ul Critically high 4.0-11.0 [facility] Comment on above: Performed By: #### C BC #### [facility] [address] [place] [id number] ABD/PELV W CONon [...] JT TAYLOR Date: 2021-10-21 22:05 Normal [facility] Covid-19 PCR ([facility])on 10-12 SARS-CoV-2 (COVID-19) RNA DAVID+probe Ql (Unsp spec) Not detected Normal NOT DETECTED [facility] Comment on above: Result Comment: [...] for this test is supported by the [place] of Health and Human Service's declaration that [...] longer be used). Performed By: #### [facility] #### [facility] [address] [place] [address] Dr. Yamini Gomez LACTATE/LACTIC ACIDon 2021 Lactate [Moles/Vol] 1.4 mmol/L Normal 0.4-1.9 [facility] Comment on above: Performed By: #### L ACT #### [facility] [address] [address] [address] Yamini Gomez PROF CHEM 8 (BAS METB)on Anion gap [Moles/Vol] 13.0 mmol/L Normal [facility] Comment on above: Performed By: #### B MP #### [facility] [address] [address] [address] Yamini Gomez Calcium [Mass/Vol] 8.6 mg/dL Normal 8.5-10.1 [facility] Comment on above: Performed By: #### B MP #### [facility] [address] [place] [address] Dr. Yamini Gomez Chloride [Moles/Vol] 105 mmol/L Normal 98-107 [facility] Comment on above: Performed By: #### B MP #### [facility] [address] [place] [address] Dr. Yamini Gomez CO2 [Moles/Vol] 23.7 mmol/L Normal 21.0-32.0 [facility] Comment on above: Performed By: #### B MP #### [facility] [address] [place] [address] Dr. Yamini Gomez Creatinine [Mass/Vol] 1.09 mg/dL Normal 0.70-1.30 [facility] Comment on above: Performed By: #### B MP #### [facility] [address] [place] [address] Dr. Yamini Gomez EGFR-AF PERUVIAN >60 Normal >=60 [facility] Comment on above: Performed By: #### B MP #### [facility] [address] [address] [address] Yamini Gomez EGFR-NON AF PERUVIAN >60 Normal >=60 [facility] Comment on above: Performed By: #### B MP #### [facility] [address] [place] [address] Dr. Yamini Gomez Glucose [Mass/Vol] 140 mg/dL Critically high 74-106 [facility] Comment on above: Performed By: #### B MP #### [facility] [address] [address] [address] Yamini Gomez Potassium [Moles/Vol] 3.7 mmol/L Normal 3.5-5.1 [facility] Comment on above: Performed By: #### B MP #### [facility] [address] [place] [address] Dr. Yamini Gomez Sodium [Moles/Vol] 138 mmol/L Normal 136-145 [facility] Comment on above: Performed By: #### B MP #### [facility] [address] [place] [address] Dr. Yamini Gomez Urea nitrogen [Mass/Vol] 12.0 mg/dL Normal 7.0-18.0 [facility] Comment on above: Performed By: #### B MP #### [facility] [address] [place] [address] Dr. Yamini Gomez Urea nitrogen/Creatinine [Mass ratio] 11.0 mg/mg Normal [facility] Comment on above: Performed By: #### B MP #### [facility] [address] [place] [address] Dr. Yamini Gomez CBC AUTO DIFFon 10-21-2021 BASO # 0.0 103/ul Normal 0.0-0.1 [facility] Comment on above: Performed By: #### C MP #### [facility] [address] [place] [address] Dr. Yamini Gomez Basophils/100 WBC (Bld) 0.2 % Normal 0.2-2.0 [facility] Comment on above: Performed By: #### C MP #### [facility] [address] [place] [address] Dr. Yamini Gomez EO # 0.0 103/ul Normal 0.0-0.7 [facility] Comment on above: Performed By: #### C MP #### [facility] [address] [place] [address] Dr. Yamini Gomez Eosinophils/100 WBC (Bld) 0.3 % Critically low 0.9-7.0 [facility] Comment on above: Performed By: #### C MP #### [facility] [address] [address] [address] Yamini Gomez Erythrocyte distribution width (RBC) [Ratio] 12.0 % Normal 11.0-15.0 [facility] Comment on above: Performed By: #### C MP #### [facility] [address] [address] [address] Yamini Gomez Hematocrit (Bld) [Volume fraction] 46.3 % Normal 42.0-54.0 [facility] Comment on above: Performed By: #### C MP #### [facility] [address] [address] [address] Yamini Gomez Hemoglobin (Bld) [Mass/Vol] 16.0 g/dL Normal 14.0-18.0 [facility] Comment on above: Performed By: #### C MP #### [facility] [address] [place] [address] Dr. Yamini Gomez IG # 0.21 10e3/ul Critically high 0.00-0.03 [facility] Comment on above: Performed By: #### C MP #### [facility] [address] [address] [address] Yamini Gomez IG % 2.0 % Critically high 0.0-0.5 [facility] Comment on above: Performed By: #### C MP #### [facility] [address] [place] [address] Dr. Yamini Gomez LYMPH # 0.7 103/ul Critically low 1.2-3.8 [facility] Comment on above: Performed By: #### C MP #### [facility] [address] [address] [address] Yamini Gomez Lymphocytes/100 WBC (Bld) 6.7 % Critically low 20.5-60.0 [facility] Comment on above: Performed By: #### C MP #### [facility] [address] [place] [address] Dr. Yamini Gomez MANUAL DIFF REQ NO Normal [facility] Comment on above: Performed By: #### C MP #### [facility] [address] [address] [address] Yamini Gomez MCH (RBC) [Entitic mass] 30.1 pg Normal 25.9-34.0 [facility] Comment on above: Performed By: #### C MP #### [facility] [address] [address] [address] Yamini Gomez MCHC (RBC) [Mass/Vol] 34.6 g/dL Normal 29.9-35.2 [facility] Comment on above: Performed By: #### C MP #### [facility] [address] [address] [address] Yamini Gomez MCV (RBC) [Entitic vol] 87.0 fL Normal 80.0-94.0 [facility] Comment on above: Performed By: #### C MP #### [facility] [address] [place] [address] Dr. Yamini Gomez MONO # 0.2 103/ul Critically low 0.3-0.8 [facility] Comment on above: Performed By: #### C MP #### [facility] [address] [place] [address] Dr. Yamini Gomez Monocytes/100 WBC (Bld) 1.7 % Normal 1.7-12.0 [facility] Comment on above: Performed By: #### C MP #### [facility] [address] [place] [address] Dr. Yamini Gomez NEUT # 9.5 103/ul Critically high 1.4-6.5 [facility] Comment on above: Performed By: #### C MP #### [facility] [address] [place] [address] Dr. Yamini Gomez Neutrophils/100 WBC (Bld) 89.1 % Critically high 43.0-75.0 [facility] Comment on above: Performed By: #### C MP #### [facility] [address] [place] [address] Dr. Yamini Gomez Platelet mean volume (Bld) [Entitic vol] 9.3 fL Critically low 9.5-13.5 [facility] Comment on above: Performed By: #### C MP #### [facility] [address] [place] [address] Dr. Yamini Gomez PLT 149 103/ul Critically low 150-450 [facility] Comment on above: Performed By: #### C MP #### [facility] [address] [place] [address] Dr. Yamini Gomez RBC 5.32 106/ul Normal 4.70-6.10 [facility] Comment on above: Performed By: #### C MP #### [facility] [address] [place] [address] Dr. Yamini Gomez WBC 10.6 103/ul Normal 4.0-11.0 [facility] Comment on above: Performed By: #### C MP #### [facility] [address] [place] [address] Dr. Yamini Gomez CULTURE BLOODon 10-21-2021 Microscopic examination of blood, culture Culture Observations: No growth at 5 days. Normal [facility] Comment on above: Performed By: #### C MP #### [facility] [address] [place] [address] Dr. Yamini Gomez Microscopic examination of blood, culture Culture Observations: No growth at 5 days. Normal [facility] Comment on above: Performed By: #### C MP #### [facility] [address] [place] [address] Dr. Yamini Gomez ER URINE PROFILEon 2 Bilirubin Ql (U) Negative Normal NEGATIVE [facility] Comment on above: Performed By: #### U MICRO, ERUR #### [facility] [address] [place] [address] Dr. Yamini Gomez Clarity (U) CLEAR Normal CLEAR [facility] Comment on above: Performed By: #### U MICRO, ERUR #### [facility] [address] [place] [address] Dr. Yamini Gomez Color (U) LT. YELLOW Normal YELLOW [facility] Comment on above: Performed By: #### U MICRO, ERUR #### [facility] [address] [place] [address] Dr. Yamini RESENDIZ A micrscopic examination will be performed if indicated. Normal [facility] Comment on above: Performed By: #### U MICRO, ERUR #### [facility] [address] [address] [address] Yamini Gomez Glucose Ql (U) Negative Normal NEGATIVE [facility] Comment on above: Performed By: #### U MICRO, ERUR #### [facility] [address] [address] [address] Yamini Gomez Hemoglobin Ql (U) MODERATE Abnormal NEGATIVE [facility] Comment on above: Performed By: #### U MICRO, ERUR #### [facility] [address] [address] [address] Yamini Gomez Ketones Ql (U) Negative Normal NEGATIVE [facility] Comment on above: Performed By: #### U MICRO, ERUR #### [facility] [address] [place] [address] Dr. Yamini Gomez LEUKOCYTES MODERATE Abnormal NEGATIVE [facility] Comment on above: Performed By: #### U MICRO, ERUR #### [facility] [address] [place] [address] Dr. Yamini Gomez Nitrite Ql (U) Negative Normal NEGATIVE [facility] Comment on above: Performed By: #### U MICRO, ERUR #### [facility] [address] [place] [address] Dr. Yamini Gomez pH (U) 7.0 [pH] Normal 5-9 [facility] Comment on above: Performed By: #### U MICRO, ERUR #### [facility] [address] [address] [address] Yamini Gomez SPEC GRAVITY 1.010 Normal 1.005-<=1.02 5 [facility] Comment on above: Performed By: #### U MICRO, ERUR #### [facility] [address] [place] [address] Dr. Yamini Gomez UA PROTEIN Negative Normal NEGATIVE/ TRACE [facility] Comment on above: Performed By: #### U MICRO, ERUR #### [facility] [address] [address] [address] Yamini Gomez UR MICRO IND INDICATED Normal [facility] Comment on above: Performed By: #### U MICRO, ERUR #### [facility] [address] [place] [address] Dr. Yamini Gomez Urobilinogen Qn (U) 0.2 {Erendira'U}/dL Normal 0.2 - 1. 0 [facility] Comment on above: Performed By: #### U MICRO, ERUR #### [facility] [address] [place] [address] Dr. Yamini Gomez LACTATE/LACTIC ACIDon 2021 Lactate [Moles/Vol] 2.9 mmol/L Critically high 0.4-1.9 [facility] Comment on above: Performed By: #### C MP #### [facility] [address] [place] [address] Dr. Yamini Gomez PROF 14(COMP METB)on 022 Albumin [Mass/Vol] 4.1 g/dL Normal 3.4-5.0 [facility] Comment on above: Performed By: #### C MP #### [facility] [address] [place] [address] Dr. Yamini Gomez Albumin/Globulin [Mass ratio] 1.1 {ratio} Normal [facility] Comment on above: Performed By: #### C MP #### [facility] [address] [place] [address] Dr. Yamini Gomez ALP [Catalytic activity/Vol] 77 U/L Normal 46-116 [facility] Comment on above: Performed By: #### C MP #### [facility] [address] [place] [address] Dr. Yamini Gomez ALT [Catalytic activity/Vol] 54 U/L Normal 16-63 [facility] Comment on above: Performed By: #### C MP #### [facility] [address] [place] [address] Dr. Yamini Gomez Anion gap [Moles/Vol] 16.5 mmol/L Normal [facility] Comment on above: Performed By: #### C MP #### [facility] [address] [address] [address] Yamini Gomez AST [Catalytic activity/Vol] 28 U/L Normal 15-37 [facility] Comment on above: Performed By: #### C MP #### [facility] [address] [address] [address] Yamini Gomez Bilirubin [Mass/Vol] 1.2 mg/dL Critically high 0.2-1.0 [facility] Comment on above: Performed By: #### C MP #### [facility] [address] [address] [address] Yamini Gomez Calcium [Mass/Vol] 9.0 mg/dL Normal 8.5-10.1 [facility] Comment on above: Performed By: #### C MP #### [facility] [address] [address] [address] Yamini Gomez Chloride [Moles/Vol] 101 mmol/L Normal 98-107 [facility] Comment on above: Performed By: #### C MP #### [facility] [address] [address] [address] Yamini Gomez CO2 [Moles/Vol] 21.5 mmol/L Normal 21.0-32.0 [facility] Comment on above: Performed By: #### C MP #### [facility] [address] [address] [address] Yamini Gomez Creatinine [Mass/Vol] 1.31 mg/dL Critically high 0.70-1.30 [facility] Comment on above: Performed By: #### C MP #### [facility] [address] [address] [address] Yamini Gomez EGFR-AF PERUVIAN >60 Normal >=60 [facility] Comment on above: Performed By: #### C MP #### [facility] [address] [address] [address] Yamini Gomez EGFR-NON AF PERUVIAN 55 mL/min/1.73m2 Critically low >=60 [facility] Comment on above: Performed By: #### C MP #### [facility] [address] [address] [address] Yamini Gomez Globulin (S) [Mass/Vol] 3.7 g/dL Normal [facility] Comment on above: Performed By: #### C MP #### [facility] [address] [place] [address] Dr. Yamini Gomez Glucose [Mass/Vol] 161 mg/dL Critically high 74-106 [facility] Comment on above: Performed By: #### C MP #### [facility] [address] [place] [address] Dr. Yamini Gomez Potassium [Moles/Vol] 4.0 mmol/L Normal 3.5-5.1 [facility] Comment on above: Performed By: #### C MP #### [facility] [address] [place] [address] Dr. Yamini Gomez Protein [Mass/Vol] 7.8 g/dL Normal 6.4-8.2 [facility] Comment on above: Performed By: #### C MP #### [facility] [address] [place] [address] Dr. Yamini Gomez Sodium [Moles/Vol] 135 mmol/L Critically low 136-145 [facility] Comment on above: Performed By: #### C MP #### [facility] [address] [place] [address] Dr. Yamini Gomez Urea nitrogen [Mass/Vol] 14.0 mg/dL Normal 7.0-18.0 [facility] Comment on above: Performed By: #### C MP #### [facility] [address] [place] [address] Dr. Yamini Gomez Urea nitrogen/Creatinine [Mass ratio] 10.7 mg/mg Normal [facility] Comment on above: Performed By: #### C MP #### [facility] [address] [place] [address] Dr. Yamini Gomez URINE MICROSCOPIC ONLYon BACTERIA TRACE Abnormal NONE SEEN [facility] Comment on above: Performed By: #### C MP #### [facility] [address] [place] [address] Dr. Yamini Gomez Bacteria identified Cx Nom (U) INDICATED Normal [facility] Comment on above: Performed By: #### C MP #### [facility] [address] [place] [address] Dr. Yamini Gomez CAST NONE SEEN Normal NONE SEEN [facility] Comment on above: Performed By: #### C MP #### [facility] [address] [place] [address] Dr. Yamini Gomez Crystals LM Nom (Urine sed) NONE SEEN Normal NONE SEEN [facility] Comment on above: Performed By: #### C MP #### [facility] [address] [place] [address] Dr. Yamini Gomez Epithelial cells LM Ql (Urine sed) NONE SEEN Normal NONE SEEN /RARE [facility] Comment on above: Performed By: #### C MP #### [facility] [address] [place] [address] Dr. Yamini Gomez MUCOUS NONE SEEN Normal NONE SEEN [facility] Comment on above: Performed By: #### C MP #### [facility] [address] [place] [address] Dr. Yamini Gomez RBC 0-2 Normal 0-2 [facility] Comment on above: Performed By: #### C MP #### [facility] [address] [place] [address] Dr. Yamini Gomez WBC 50-75 Abnormal NONE SEEN [facility] Comment on above: Performed By: #### C MP #### [facility] [address] [place] [address] Dr. Yamini Gomez Vital Signs Date Time Vital Sign Value Performing Clinician Cassidy nelson 05-29-2023 15:08-0500 Blood Pressure Location Brennan Gillis [facility] 05-29-2023 15:08-0500 Diastolic blood pressure 94 mm[Hg] Brennan Gillis [facility] 05-29-2023 15:08-0500 Heart rate 65 /min Brennan Gillis [facility] 05-29-2023 15:08-0500 SaO2% (BldA) [Mass fraction] 96 % Brennan Gillis [facility] 05-29-2023 15:08-0500 Systolic blood pressure 162 mm[Hg] Brennan Gillis [facility] 05-29-2023 15:00-0500 Diastolic blood pressure 88 mm[Hg] rBennan Gillis [facility] 05-29-2023 15:00-0500 Mean blood pressure 102 mm[Hg] Brennan Gillis [facility] 05-29-2023 15:00-0500 Systolic blood pressure 130 mm[Hg] Brennan Gillis [facility] 02-26-2023 13:07-0400 Blood Pressure Location Rolly AZUL [facility] 02-26-2023 13:07-0400 Diastolic blood pressure 88 mm[Hg] Rolly AZUL [facility] 02-26-2023 13:07-0400 Heart rate 89 /min Rolly AZUL [facility] 02-26-2023 13:07-0400 Respiratory rate 16 /min Rolly AZUL [facility] 02-26-2023 13:07-0400 Systolic blood pressure 133 mm[Hg] Rolly AZUL [facility] 02-17-2022 09:34-0400 Blood Pressure Location Shirley WESLEY [facility] 02-17-2022 09:34-0400 Diastolic blood pressure 76 mm[Hg] Shirley WESLEY [facility] 02-17-2022 09:34-0400 Heart rate 53 /min Shirley WESLEY [facility] 02-17-2022 09:34-0400 Respiratory rate 18 /min Shirley WESLEY [facility] 02-17-2022 09:34-0400 SaO2% (BldA) [Mass fraction] 100 % Shirley WESLEY [facility] 02-17-2022 09:34-0400 Systolic blood pressure 140 mm[Hg] Shirley WESLEY [facility] 12-28-2021 13:50-0400 Diastolic blood pressure 85 mm[Hg] Brennan Christofferson [facility] 12-28-2021 13:50-0400 Mean blood pressure 105 mm[Hg] Brennan Christofferson [facility] 12-28-2021 13:50-0400 Systolic blood pressure 146 mm[Hg] Brennan Christofferson [facility] 12-28-2021 13:31-0400 Blood Pressure Location Brennan Christofferson [facility] 12-28-2021 13:31-0400 Diastolic blood pressure 88 mm[Hg] Brennan Christofferson [facility] 12-28-2021 13:31-0400 Heart rate 60 /min Brennan Christofferson [facility] 12-28-2021 13:31-0400 SaO2% (BldA) [Mass fraction] 98 % Brennan Christofferson [facility] 12-28-2021 13:31-0400 Systolic blood pressure 152 mm[Hg] Brennan Christofferson [facility] 11-24-2021 14:52-0400 Diastolic blood pressure 89 mm[Hg] Lauro Eubanks Jr. [facility] 11-24-2021 14:52-0400 Heart rate 54 /min Lauro Eubanks Jr. [facility] 11-24-2021 14:52-0400 Mean blood pressure 109 mm[Hg] Laurokirti Eubanks Jr. [facility] 11-24-2021 14:52-0400 Systolic blood pressure 150 mm[Hg] Lauro Eubanks Jr. [facility] 11-24-2021 14:51-0400 Diastolic blood pressure 76 mm[Hg] Lauro Eubanks Jr. [facility] 11-24-2021 14:51-0400 Heart rate 55 /min Lauro Eubanks Jr. [facility] 11-24-2021 14:51-0400 Mean blood pressure 97 mm[Hg] Lauro Eubanks Jr. [facility] 11-24-2021 14:51-0400 Systolic blood pressure 140 mm[Hg] Lauro Eubanks Jr. [facility] 11-24-2021 14:29-0400 Blood Pressure Location Lauro Eubanks Jr. [facility] 11-24-2021 14:29-0400 Body temperature 98.24 [degF] Lauro Eubanks Jr. [facility] 11-24-2021 14:29-0400 Diastolic blood pressure 85 mm[Hg] Lauro Eubanks Jr. [facility] 11-24-2021 14:29-0400 Heart rate 65 /min Lauro Eubanks Jr. [facility] 11-24-2021 14:29-0400 Mean blood pressure 111 mm[Hg] Lauro Eubanks Jr. [facility] 11-24-2021 14:29-0400 Systolic blood pressure 162 mm[Hg] Lauro Eubanks Jr. [facility] 11-24-2021 14:28-0400 Blood Pressure Location Lauro Eubanks Jr. [facility] 11-24-2021 14:28-0400 BP/Pulse Patient Position Lauro Eubanks Jr. [facility] 11-24-2021 14:28-0400 Respiratory rate 18 /min Lauro Eubanks Jr. [facility] 11-24-2021 14:28-0400 SaO2% (BldA) [Mass fraction] 97 % Lauro Eubanks Jr. [facility] 11-15-2021 10:26-0400 Diastolic blood pressure 81 mm[Hg] Lauro Eubanks Jr. [facility] 11-15-2021 10:26-0400 Mean blood pressure 94 mm[Hg] Lauro Eubanks Jr. [facility] 11-15-2021 10:26-0400 Systolic blood pressure 119 mm[Hg] Lauro Eubanks Jr. [facility] 11-15-2021 10:14-0400 Blood Pressure Location Lauro Eubanks Jr. [facility] 11-15-2021 10:14-0400 Diastolic blood pressure 90 mm[Hg] Lauro Eubanks Jr. [facility] 11-15-2021 10:14-0400 Heart rate 59 /min Lauro Eubanks Jr. [facility] 11-15-2021 10:14-0400 Systolic blood pressure 147 mm[Hg] Lauro Eubanks Jr. [facility] 09-19-2021 12:59-0400 Blood Pressure Location Lauro Eubanks Jr. [facility] 09-19-2021 12:59-0400 Diastolic blood pressure 100 mm[Hg] Lauro Eubanks Jr. [facility] 09-19-2021 12:59-0400 Heart rate 64 /min Lauro Eubanks Jr. [facility] 09-19-2021 12:59-0400 Systolic blood pressure 151 mm[Hg] Lauro Eubanks Jr. [facility] 08-30-2021 09:19-0400 Blood Pressure Location Lauro Eubanks Jr. [facility] 08-30-2021 09:19-0400 Diastolic blood pressure 86 mm[Hg] Lauro Eubanks Jr. [facility] 08-30-2021 09:19-0400 Heart rate 55 /min Lauro Eubanks Jr. [facility] 08-30-2021 09:19-0400 Respiratory rate 16 /min Lauro Eubanks Jr. [facility] 08-30-2021 09:19-0400 Systolic blood pressure 144 mm[Hg] Lauro Eubanks Jr. [facility] Encounters Encounter Date Encounter Type Care Provider Facility Start: 07-09-2023 ambulatory Rolly AZUL Facili ty:[facility] [place] Start: 06-25-2023 ambulatory Rolly R AZUL Facili ty:[facility] [place] Start: 06-21-2023 ambulatory Rollyalfonso AZUL Facili ty:[id number] Start: 05-29-2023 End: 05-29-2023 Patient encounter procedure Brennan Gillis [facility] Start: 05-28-2023 ambulatory Rollyalfonso AZUL Facili ty:[facility] [place] Start: 03-20-2023 End: 03-21-2023 ambulatory Rolly R AZUL Facility:[facility] Start: 03-20-2023 End: 03-20-2023 Patient encounter procedure Rolly R DANIELLA [facility] Start: 02-26-2023 End: 02-27-2023 ambulatory Rolly R AZUL Facility:[facility] Start: 02-26-2023 End: 02-26-2023 Patient encounter procedure Rolly R AZUL [facility] Start: 08-31-2022 Encounter for genera l adult medical examination without abnormal findings DR NAHID JUNIOR [facility] Start: 08-28-2022 End: 08-29-[address] NAHID JUNIOR Facility: Start: 08-28-2022 End: 08-29-2022 Encounter for general adult medical examination without abnormal findings DR NAHID JUNIOR Facility:[facility] Start: 03-08-2022 End: 03-09-[address] DOCTOR HENDIRCKS Facility:[facility] Start: 02-17-2022 End: 02-17-2022 Patient encounter procedure Shirley WESLEY [facility] Start: 02-17-2022 End: 02-17-2022 Preprocedural examination done Shirley WESLEY [facility] Start: 02-08-2022 End: 02-08-2022 Patient encounter procedure Brennan Gillis [facility] Start: 01-18-2022 End: 01-18-2022 Patient encounter procedure Brennan Gillis [facility] Start: 12-28-2021 End: 12-28-2021 Patient encounter procedure Brennan Gillis [facility] Start: 11-24-2021 ambulatory Facility:[id number] Start: 11-24-2021 End: 11-24-2021 Patient encounter procedure Lauro Eubanks Jr. [facility] Start: 11-17-2021 End: 12-09-2021 Pre-admission assessment Lauro Eubanks Jr. [facility] Start: 11-15-2021 End: 11-15-2021 Patient encounter procedure Lauro Eubanks Jr. [facility] Start: 10-22-2021 End: 10-22-2021 Evaluation and management of inpatient DR NAHID JUNIOR Facility:[facility] Start: 09-19-2021 End: 09-19-2021 Patient encounter procedure Lauro Eubanks Jr. [facility] Start: 08-30-2021 End: 08-30-2021 Patient encounter procedure Lauro Eubanks Jr. [facility] Procedures Date Procedure Procedure Detail Performing Clinician Start: 08-28-[address] MREA JUNIOR Comment on above: Performed By: #### C MP #### [facility] [address] [place] [address] Dr. Yamini Gomez Start: 09-19-2021 Cystoscopy Lauro price Jr. Start: 02-19-2019 Transrectal biopsy o f prostate using ultrasound guidance Lauro Eubanks Jr. Umbilical hernia (disorder) Lauro Eubanks Jr. Immunizations Immunization Date Immunization Notes Care Provider [facility] 02-13-2023 influenza virus vaccine, unspecified formulation Rolly AZUL [facility] 12-18-2022 zoster vaccine recombinant Rolly AZUL [facility] 03-08-2022 influenza virus vaccine, unspecified formulation Rolly AZUL [facility] 03-08-2022 SARS-CoV-2 mRNA (tozinameran 5y-11y) vaccine Rolly AZUL [facility] 03-04-2021 influenza virus vaccine, unspecified formulation Rolly AZUL [facility] 03-04-2021 SARS-CoV-2 (COVID-19 ) mRNA BNT-162b2 vax Rolly AZUL [facility] Comment on above: Result Comment: 2022: [id number] 02-11-2021 SARS-CoV-2 (COVID-19 ) mRNA BNT-162b2 vax Lauro Eubanks Jr. [facility] 07-16-2020 SARS-CoV-2 (COVID-19 ) mRNA BNT-162b2 vax Rolly AZUL [facility] 06-25-2020 SARS-CoV-2 (COVID-19 ) mRNA BNT-162b2 vax Rolly AZUL [facility] 06-14-2020 SARS-CoV-2 (COVID-19 ) mRNA BNT-162b2 vax Lauro Eubanks Jr. [facility] 06-14-2020 SARS-CoV-2 (COVID-19 ) mRNA-1273 vaccine Lauro Eubanks Jr. [facility] 05-14-2020 SARS-CoV-2 (COVID-19 ) mRNA BNT-162b2 vax Lauro Eubanks Jr. [facility] 02-15-2020 influenza virus vaccine, unspecified formulation Rolly AZUL [facility] 01-13-2020 influenza virus vaccine, unspecified formulation Lauro Eubanks Jr. [facility] 03-12-2019 influenza virus vaccine, unspecified formulation Rolly AZUL [facility] 02-06-2018 influenza virus vaccine, unspecified formulation Rolly AZUL [facility] 03-30-2017 influenza virus vaccine, unspecified formulation Rolly AZUL [facility] 03-12-2015 influenza virus vaccine, unspecified formulation Rolly AZUL [facility] 12-29-2011 tetanus toxoid, redu briseyda diphtheria toxoid, and acellular pertussis vaccine, adsorbed Rollyalfonso AZUL [facility] 07-08-2000 Hep A, unspecified formulation Rolly AZUL [facility] 10-25-1999 Hep A, unspecified formulation Rolly AZUL [facility] Payers Date Payer Category Payer Medicare [id number] 2022 Unknown [id number] 1961 Unknown [id number] 1961 Unknown [id number] 1960 Unknown [id number] 2.16. [id number] 1958 Unknown [id number] 2.16.84 [id number] 1958 Unknown [id number] 2.16.84 [id number] 1958 Unknown [id number] 2.16.84 [id number] 1958 Unknown [id number] 2.16.8 [id number] 1958 Unknown [id number] 2.16.8 [id number] 1958 Unknown [id number] 2.16.8 [id number] 1958 Unknown [id number] 2.16.8 [id number] 1958 Unknown [id number] 2.16.8 [id number] Private Health Insurance [id number] Social History Date Type Detail Facility Start: 08-30-2021 End: 02-26-2023 Tobacco smoking status Never smoked tobacco (finding) [facility] [employer] Sex Assigned At Male [facility] Tobacco smoking status Never [facility] Functional Status Date Assessment Result Facility 05-29-2023 Functional Status No [facility] 03-20-2023 Functional Status N/A [facility] 02-26-2023 Functional Status N/A [facility] 02-17-2022 Functional Status N/A [facility] 12-28-2021 Functional Status No [facility] 11-24-2021 Functional Status No [facility] 11-15-2021 Functional Status N/A [facility] [employer] Clinical Notes 08-30-2021 to 03-20-2023 RadiologyLaboratoryLaboratory Note [...] including vitamins, herbs, eye drops, creams, and hyfb-svv-eggtzad medicines. Any problems you or family members [...] provider tells you to take them. Taking iobr-eqx-rnlyjqw medicines, vitamins, herbs, and supplements. Surgery safety [...] provider. Document Revised: 01/24/2022 Document Reviewed: 01/24/2022 [employer] Patient Education 2022 [employer]. 03/20/2023 14:37:26 [facility] - Cystoscopy Discharge Instructions [...] Address: [facility] [address] [place] [address]- Business (1) When: Unknown Comments:Office will call to schedule follow up [facility] 03-20-2023 Note Cystoscopy ? Voiding after [...] including vitamins, herbs, eye drops, creams, and lsjv-krz-twmthrw medicines. ? Any problems you or family [...] tells you to take them. ? Taking vois-tnk-drzqzll medicines, vitamins, herbs, and supplements. Surgery safety [...] asleep (general anesthetic) (more content not included)... [facility] 03-20-2023 Note [id number] [facility] 02-26-2023 Hospital Discharge instructions Patient Education 02/26/2023 [...] urethra. Follow these instructions at home: Take ksxd-ibg-pmmxsnn and prescription medicines only as told by [...] provider. Document Revised: 11/16/2021 Document Reviewed: 11/16/2021 [employer] Patient Education 2022 [employer]fly. Follow Up Care 12/18/2022 10:51:11 With:DANIELLA HURLEY, Rolly Bautista, URL Address: [facility] [address] , [place] [address]- When: Unknown Comments:Sched Cysto and Bladder Function Test [facility] 02-16-2022 Hospital Discharge instructions Follow Up Care 02/16/2022 11:04:35 With:Elis HURLEY, Brennan Moreno Address: [address] [place] [address]- When: only if needed [facility] 11-15-2021 Hospital Discharge instructions Patient Education [...] including vitamins, herbs, eye drops, creams, and lxyq-gvz-hlogvjj medicines. Any problems you or family members [...] provider tells you to take them. Taking tqhy-kwy-weeucnb medicines, vitamins, herbs, and supplements. Eating and [...] 04/30/2006 Document Revised: 08/20/2019 Document Reviewed: 01/29/2019 [employer] Patient Education 2020 [employer] Follow Up Care 10/20/2021 08:45:04 With:Raimundo Ortiz MD, Lauro Madison, URO Address: [facility] [address] [place] [address]- [phone] When: Unknown [facility] 09-19-2021 Hospital Discharge instructions Patient Education [...] urethra. Follow these instructions at home: Take tcyq-ueo-csdlgih and prescription medicines only as told by [...] 04/30/2006 Document Revised: 03/25/2019 Document Reviewed: 06/04/2017 [employer] Patient Education 2020 Surfly. Follow Up Care 08/30/2021 15:35:27 With:Raimundo Ortiz MD, Lauro Madison, URO Address: [facility] [address], [place] [address]- When: Unknown Comments:will follow up after a urolift [facility] 08-30-2021 Hospital Discharge instructions Patient Education [...] including vitamins, herbs, eye drops, creams, and qbok-bvc-ltreyta medicines. Any problems you or family members [...] provider tells you to take them. Taking hjnm-acr-tawyjdr medicines, vitamins, herbs, and supplements. Eating and [...] 04/30/2006 Document Revised: 08/20/2019 Document Reviewed: 01/29/2019 [employer] Patient Education 2020 Surfly. Follow Up Care 07/27/2020 10:36:44 With:Raimundo Ortiz MD, Lauro Madison, URO Address: [facility] [address] , [place] [address]- [phone] When: Unknown [facility] Evaluation + Plan note Future Appointments Appointment Date:09/19/2021 01:15:00 PM Scheduled Provider:Lauro Eubanks Jr., MD Location:[facility] Appointment Type:URO Procedure 15 min [facility] Evaluation + Plan note Future Appointments Appointment Date:12/08/2021 09:00:00 AM Scheduled Provider: Location:[facility] Appointment Type:Surgery FT [facility] Evaluation + Plan note Future Appointments Appointment Date:12/15/2021 01:30:00 PM Scheduled Provider:[facility]iology New Patient (FT) [facility] Evaluation + Plan note Future Appointments Appointment Date:02/08/2022 08:00:00 AM Scheduled Provider: [facility] Type:NM Myocard Spect Multi Rest/Stress-Res Appointment Date:02/08/2022 09:00:00 AM Scheduled Provider: [facility] Appointment Type:NM Myocard Spect Multi Rest/Stress - R Appointment Date:02/08/2022 09:30:00 AM Scheduled Provider: [facility] Appointment Type:NM Myocard Spect Multi Rest/Stress-Str Appointment Date:02/08/2022 10:30:00 AM Scheduled Provider: [facility] Appointment Type:NM Myocar Spect Multi Rest/Stress - St Future Scheduled TestsNM Myocardial Spect Rest/Stress 1 Day 02/08/22 [facility] Evaluation + Plan note Future Scheduled TestsBasic Metabolic Panel 03/03/22 [facility] Evaluation + Plan note Future Appointments Appointment Date:03/13/2023 01:15:00 PM Scheduled Provider: Location:[facility] Appointment Type:Urology CALL PAT FT Appointment Date:03/20/2023 01:00:00 PM Scheduled Provider: Location:[facility] Appointment Type:Urology FT Appointment Date:03/20/2023 02:15:00 PM Scheduled Provider: Location:[facility] Appointment Type:Urology FT Future Scheduled TestsBasic Metabolic Panel 03/03/22 [facility] Evaluation + Plan note Future Appointments Appointment Date:05/28/2023 09:00:00 AM Scheduled Provider: Location:[facility] Appointment Type:URO Nurse Visit Appointment Date:06/11/2023 09:15:00 AM Scheduled Provider:Rolly AZUL MD Location:[facility] Appointment Type:URO Office Visit [facility] Evaluation + Plan note Future Appointments Appointment Date:06/25/2023 09:00:00 AM Scheduled Provider: Location:[facility] Appointment Type:URO Nurse Visit Appointment Date:07/09/2023 09:30:00 AM Scheduled Provider:Rolly AZUL MD Location:[facility] Appointment Type:URO Office Visit [facility] Hospital course Narrative No data available for this section [facility] Hospital Discharge instructions No data available for this section [facility] Progress note No data available for this section [facility] Summary Purpose Family History No Family [...] content) Personnel Name: Vernon Nahid Tyra Address: [address] [place] [address] Personnel Name: Nahid Junior DO Address: [address] [place] [id number] Personnel Name: Nahid Junior DO Address: [address] [place] [id number] Personnel Name: Vernon TURK Nahid Tyra Address: [address] [place] [id number] Personnel Name: Nahid Junior DO Address: [address] [place] [address] Personnel Name: Nahid Junior DO Address: [address] Personnel Name: Nahid Junior DO Address: Address: [address] [place] [address] Personnel Name: Nahid Junior DO Address: Address: [address] [place] [address] Personnel Name: Nahid Junior DO Address: Address: [address] [place] [address] Personnel Name: Nahid Junior DO Address: Address: [address] [place] [address] (unrecognized sect ion and content) No Status Records FoundNo Status Records FoundNo Status Records Found INFORMATION SOURCE (unrecogn ized section and content) DATE CREATED AUTHOR 02/22/2022 [facility] [place] DATE CREATED AUTHOR AUTHOR'S ORGANIZ ATION 09/07/2022 [facility] DATE CREATED AUTHOR AUTHOR'S ORGANIZ ATION 05/12/2023 [facility] FOR RECORDS PERTAINING TO PATIENTS WHO ARE [...] BE BASED ON THE PRIMARY CLINICAL RECORDS. [facility] [employer] [facility]. provides no warranty or guarantee of the accuracy or completeness of information in this document.
[2023-06-21] MEDS: LACTATED RINGER'S SOLUTION 1,000 ML 50 ML IV (12:20)
[2023-06-21] MEDS: LEVOFLOXACIN IN DEXTROSE 5 % 500 MG/100 ML PIGGYBACK 100 MG IV (15:25)
--- NOTE | 2023-06-21 17:09 | PM.URSON ---
Urology Surgery Operative Note Operative Note Procedure Date: 06/21/23 Time Out Performed: yes Pre-op Diagnosis: BPH with LUTS refractory to medications Post-op Diagnosis: same as pre-op Procedures performed: 1. Cystoscopy. 2. Urethral dilation with Isra sounds to 28 Bangladeshi. 3. Transurethral resection of the prostate. Anesthesia: GETA Primary Surgeon: Rolly Azul Complications: None Estimated blood loss (mL): 20 Findings: Trilobar obstruction of the prostate. Friable prostate. Specimens: Prostate tissue Drains: 22 Bangladeshi three-way coud? Lentz catheter to the bladder and traction and CBI Indications for Procedures: This gentleman has a long history of bladder outlet obstructive symptoms. He was unable to tolerate the UroLift under local. He has been on alpha blockers and he is currently on dutasteride but he is still very symptomatic. He is endoscopically obstructed in a trilobar fashion. Urodynamically he is obstructed with very high pressure and low flow. He is strongly desirous for TURP. He has signed an informed consent after all risks were explained. Some of these include bleeding, infection, anesthesia, retrograde ejaculation, urinary incontinence both temporary and permanent, erectile dysfunction, possible need for further Procedures: And persistent difficulty with urination to name a few. Detailed description of Procedure: The patient was brought to the operating room and placed on the operating room table in the supine position. SCDs were placed on the lower extremities and turned on and functioning during the entire case. Timeout was done by all parties in the room. We all agreed upon the patient's identification and the planned procedures for this patient. Genn. anesthesia was then administered. The patient was then repositioned into the modified dorsal lithotomy position. All pressure points were satisfactorily padded. Genitalia were sterilely prepped and draped in usual fashion. I started by attempting to pass a 26 Bangladeshi Olympus resectoscope with a standard bipolar loop electrode but was unable due to urethral meatal stenosis. I had to use Isra sounds and dilated him from 24 Bangladeshi up to 28 Bangladeshi. I then was able to pass the resectoscope into the bladder. The ureteral orifices were identified and marked with the loop electrode. I then started on the high median lobe and uniformly resected this down to the bladder neck level. I then resected posteriorly from the bladder neck to the Veru. I then resected the left lateral lobe from the bladder neck to the Veru. The right lateral lobe and the anterior tissue were then similarly taken down. Purulence was expressed from the right lateral lobe. The apex was then opened up. There were tightly coapting apical lobes protruding distal to the Veru. The bladder neck was opened up at the 5 and 7:00 positions. The Ilich evacuator was used to get all the prostate chips out of the bladder and these were sent for permanent sections. The resection bed was fulgurated with the loop electrode. Upon completion, with the scope at the apex, the prostatic urethra and bladder neck were now wide open. There was no bleeding and there were no chips remaining in the bladder. The scope was then removed. I then placed a 22 Bangladeshi three-way coud? Lentz catheter in the bladder. This was manually irrigated with a Janna syringe verifying accurate placement. 30 cc of fluid was placed in the balloon. It was then taped to traction and CBI was started. It irrigated to clear to pink color. The anesthetic was then reversed. He was then transferred to a [facility] and wheeled to PACU in stable condition.
[2023-06-21] MEDS: SOLIFENACIN SUCCINATE 10 MG TABLET PO (17:32)
[2023-06-21] MEDS: PHENAZOPYRIDINE 100 MG TABLET 200 MG PO (17:33)
[2023-06-21] MEDS: 0.9 % SODIUM CHLORIDE 1,000 ML 80 ML IV (18:12)
[2023-06-21] MEDS: SODIUM CHLORIDE IRRIG SOLUTION 3,000 ML 3000 ML IRR ×3 (18:35→22:17)
[2023-06-21] MEDS: CEFAZOLIN SODIUM/DEXTROSE,ISO 1 GM/50 ML IV.SOLN IV (20:42)
--- NOTE | 2023-06-21 23:16 | PC.NURSE ---
light watermelon color
[2023-06-22] MEDS: CEFAZOLIN SODIUM/DEXTROSE,ISO 1 GM/50 ML IV.SOLN IV (01:06)
[2023-06-22] MEDS: SODIUM CHLORIDE IRRIG SOLUTION 3,000 ML 3000 ML IRR ×3 (01:10→04:15)
[2023-06-22 04:00] VITALS: BP 155/89; PULSE 63; RESP 18; TEMP 36.7; O2SAT 93
[2023-06-22 07:23] VITALS: BP 149/80; PULSE 80; RESP 20; TEMP 36.6; O2SAT 95
[2023-06-22] MEDS: DUTASTERIDE 0.5 MG CAPSULE PO (09:10)
[2023-06-22] MEDS: SOLIFENACIN SUCCINATE 10 MG TABLET PO (09:10)
== END 2023-06-22 09:38 | disposition home or self-care (01) ==
LOC: SURGOUT 17:05 → MS 18:00
PROVIDERS: PCP Family Medicine; Visit Provider Urology
PROC: (CPT 52601; principal; 2023-06-21 13:10)
DX: N40.1 Benign prostatic hyperplasia with lower urinary tract symptoms (principal); N13.8 Other obstructive and reflux uropathy; N35.919 Unspecified urethral stricture, male, unspecified site; R35.0 Frequency of micturition; R33.9 Retention of urine, unspecified; R35.1 Nocturia; Z79.899 Other long term (current) drug therapy; Z98.890 Other specified postprocedural states
CPT/HCPCS: 52601; 53605; 36415; 88305; J0131; J0330; J0690; J2001; J2405; J2704; J2710; J3010

== ENCOUNTER 2023-11-01 08:54 | Outpatient (OUT) | payer MEDICARE, SELFPAY ==
--- NOTE | 2023-11-01 09:09 | CT_ITS ---
The [address] [address] Patient Name: DAWN RODRIGUEZ MRN: [id number] date: 1960 Sex: M Assigned Patient Location: LAB Current Patient Location: Accession/Order Number: [id number] Exam Date: 11/01/2023 10:18 Report Date: 11/02/2023 04:20 At the request of: CHIP CAMARA Procedure: CT pelvis w con EXAMINATION: CT pelvis w con HISTORY: Abnormal Ultrasound, Lesion ; left groin mass COMPARISON: Ultrasound extremity nonvascular 10/15/2023, CT abdomen pelvis 10/21/2021 TECHNIQUE: Axial, Coronal, and Sagittal images were obtained without and/or with IV contrast as indicated by examination type. Dose reduction techniques were achieved by using automated exposure control and/or adjustment of mA and/or kV according to patient size and/or use of iterative reconstruction technique FINDINGS: BOWEL: No abnormality of the visible bowl. LYMPH NODES: No adenopathy. URINARY BLADDER: No visible focal wall thickening, lesion, or calculus. PELVIC ORGANS: No visible mass. Pelvic organs appropriate for patient age. ANTERIOR WALL: Small fat filled right inguinal hernia without strangulation. BONES: No bone lesion or fracture. OTHER: Irregular soft tissue structure within the subcutaneous fat of the medial left groin region, 3.6 x 3.4 x 1.8 cm. This corresponds to the overlying skin surface marker localizing the patient's palpable lump. CT/CT pelvis w con IMPRESSION: 1. Nonspecific soft tissue mass versus abnormal lymph node(s) within medial left groin subcutaneous fat corresponding to patient's palpable lump. Given the history of enlarging lump ultrasound-guided soft tissue sampling should be considered. 2. No abnormal intrapelvic lymphadenopathy or mass. 3. Small fat filled RIGHT inguinal hernia without strangulation. Electronically authenticated by: JOSHUA MCDERMOTT Date: 11/02/2023 04:20
--- OUTSIDE RECORDS SUMMARY | 2023-11-01 09:10 | XMS_ITS | CCD ---
Author Organization [facility] Care Team Providers Care Gore Seamer Name Role Phone Nahid Junior Primary Care Physician [phone] VERNON, DR DEJESUS Primary Care Unavailable MADHURI ., HIRAL PALACIOS Consulting Unavaildeniz e SHAIKH Godfrey REED Admitting Unavailable CLIFF REEDIKGodfrey Donahue Attending Unavailable JT TAYLOR Consulting Unavailable SHAIKH Godfrey REED Consulting Unavailable VERNON, DR DEJESUS Admitting Unavailable VERNON, DR DEJESUS Attending Unavailable VERNON, DR DEJESUS Primary Care Unavailable VERNON, DR DEJESUS Consulting Unavailable [facility], DR JANE Admitting Unavailable [facility], DR JANE Attending Unavailable HOLDEN, DR DEJESUS Primary Care Unavailable [facility], DR JANE Consulting Unavailable Nahid Junior Primary Care Physician [phone] NHAID JUNIOR Primary Care Physician Cesar Calles Primary Care Physician Rolly AZUL Attending Unavailable Rolly AZUL Attending Unavailable NONE, XXXX Referring Unavailable Brennan Gillis Attending Unavaila Rolly Victoria Attending Unavailable Rolly AZUL Referring Unavailable Rolly AZUL Admitting Unavailable MD Cesar Calles Admitting Unavailable MD Cesar Calles Attending Unavailable MD Cesar Calles Referring Unavailable Rolly AZUL Attending Unavailable MD Cesar Calles Attending Unavailable MD Cesar Calles Attending Unavailable Rolly AZUL Attending Unavailable Rolly AZUL Attending Unavailable Rolly AZUL Attending Unavailable Allergies Allergy Classification Reported Allergen(s) Allergy Type Date of Onset Reaction(s) Facility (1 source) No Known Medication Allergies; Translations: [No Known Medication Allergies] Propensity to adverse reactions (disorder) [facility] Repository Medications Current Medications Medication Drug Class(es) Dates Sig (Normalized) Sig (Original) aspirin 81 mg oral tablet (2 sources) Platelet Aggregation Inhibitor, Nonsteroidal Anti-inflammatory Drug Start: 03-05-2019 aspirin 81 mg oral tablet 81 mg = 1 tab(s), Oral, WedFri, Refills(s) 0 Start Date: 03/05/19 Status: Ordered dutasteride 0.5 mg oral capsule (5 sources) 5-alpha Reductase Inhibitor Start: 02-26-2023 take 1 capsule by mouth once daily dutasteride 0.5 mg Cap 0.5 mg = 1 cap(s), Oral, Daily, # 30 cap(s), Refills(s) 11, Pharmacy: [facility]/pharmacy #[id number], 170, cm, 02/26/23 13:09:00 EDT, Height/Length Dosing, 97.7, kg, 02/26/23 13:09:00 EDT, Weight Dosing Start Date: 02/26/23 Status: Ordered losartan potassium 50 mg oral tablet (2 sources) Angiotensin 2 Receptor Maryann Start: 10-02-2023 take 1 tablet by mouth once daily losartan 50 mg Tab 50 mg = 1 tab(s), Oral, Daily, # 90 tab(s), Refills(s) 0, Pharmacy: [facility]/pharmacy #[id number], 170, cm, 10/02/23 8:33:00 EDT, Height/Length Dosing, 101, kg, 10/02/23 8:33:00 EDT, Weight Dosing Start Date: 10/02/23 Status: Ordered Start: 02-17-2022 take 1 tablet by linda once daily losartan 25 mg Tab 25 mg = 1 tab(s), Oral, Daily, # 30 tab(s), Refills(s) 5, Pharmacy: [facility]/pharmacy #[id number], 170, cm, 02/17/22 9:35:00 EDT, Height/Length [...] bedtime), # 30 cap(s), Refills(s) 1, Pharmacy: [facility]/pharmacy #[id number], 170, cm, 08/30/21 9:37:00 EDT, Height/Length [...] day(s), # 2 cap(s), Refills(s) 0, Pharmacy: [facility]/pharmacy #[id number], 170, cm, 02/26/23 13:09:00 EDT, Height/Length [...] procedure, # 2 tab(s), Refills(s) 0, Pharmacy: [facility]/pharmacy #[id number], 170, cm, 08/30/21 9:37:00 EDT, Height/Length Dosing, 101.9, kg, 08/30/21 9:37:00 EDT, Weight Dosing Start Date: 08/30/21 Status: Ordered Problems Active Problems Problem Classification Problem Date Documented Date Episodic/Chronic Essential hypertension (2 sources) Essential hypertension; Translations: [Essential (primary) hypertension] Onset: 02-17-2022 Chronic Genitourinary symptoms and ill-defined conditions (20 sources) Nocturia; Translations: [Nocturia] Onset: 08-30-2021 Episodic Hyperplasia of prostate (20 sources) Benign prostatic hypertrophy with outflow obstruction; Translations: [Benign prostatic hyperplasia with lower urinary tract symptoms] Onset: 08-30-2021 Chronic Lymphadenitis (1 source) Inguinal lymphadenopathy 10-02-2023 Episodic Other diseases of kidney and ureters (2 sources) Urinary tract obstruction; Translations: [Other obstructive and reflux uropathy] Onset: 09-19-2021 Episodic Other male genital disorders (2 sources) Prostatic intraepithelial neoplasia; Translations: [Prostatic intraepithelial neoplasia] Onset: 08-30-2021 Episodic Other nutritional; endocrine; and metabolic disorders (1 source) Body mass index 30+ - obesity 10-02-2023 Chronic Other nutritional; endocrine; and metabolic disorders (1 source) Morbid obesity 10-02-2023 Chronic Other screening for suspected conditions (not mental disorders or infectious disease) (19 sources) Raised prostate specific antigen; Translations: [Elevated prostate specific antigen [PSA]] Onset: 08-30-2021 Episodic Other upper respiratory disease (1 source) Seasonal allergy 10-02-2023 Chronic Unclassified (14 sources) Drug therapy finding 05-28-2019 Unclassified (14 sources) Prostatic intraepithelial neoplasia high grade 03-05-2019 [...] Results Test Name Value Interpretation Reference Range Facil ity US Extremity Non-Vascular Li mited Lefton 10-18-2023 US Extremity Non-Vascular Limited Left Exam Date/Time: 10/15/2023 13:24 EDT Reason for Exam: [id number];Lymph Node Report IMPRESSION: NONSPECIFIC REPORTED BY 4.5 X 1 20 CM LESION WITHIN THE LEFT INGUINAL SOFT TISSUES MAY REPRESENT AN ENLARGED LYMPH NODE OR SOFT TISSUE MASS. CT OF THE PELVIS WITH CONTRAST IS RECOMMENDED TO FURTHER EVALUATE. EXAMINATION: US Extremity Non-Vascular Limited Left HISTORY: Lymph node COMPARISON: None available TECHNIQUE: Ultrasound evaluation was performed of the soft tissues of the left inguinal region FINDINGS: There is a heterogenous ovoid structure measuring approximately 3.8 x 4.5 x 1.2 cm with internal blood flow located within left inguinal soft tissues that is nonspecific. Inferior to this structure there is a second ovoid structure demonstrating echogenicity similar to that of fat that measures approximately 2.5 x 1.4 x 0.7 cm that most likely represents a lipoma. Ordering Provider: Cesar Calles FINAL REPORT Dictated: 10/18/2023 12:32 pm Romeo Reynolds DO Signed (Electronic Signature): 10/18/2023 12:32 pm Signed by: Romeo Reynolds DO Transcribed by: JOSSELINE Technologist: SABINO [facility] Consent for Treatmenton Consent for Treatment [id number] .00TIFF [facility] Transfer Inon 10-11-2023 Transfer In [id number]. 00TIFF [facility] Ambulatory Visit Summaryon 0 10-02-2023 Ambulatory Visit Summary DAWN ROCK :1960 Visit Date:10/02/2023 Ambulatory Visit Instructions Your Diagnosis Elevated PSA HTN (hypertension) LAD (lymphadenopathy), inguinal BMI 34.0-34.9,adult Morbidly obese Your Care Team Attending Physician - Cesar Calles MD Primary Care Physician - Ross MD, Cesar E. This Is Your Medications List dutasteride (dutasteride 0.5 mg Cap) Procedures Performed Cystourethroscopy with dilation of urethral stricture (06/21/2023), TURP - Transurethral resection of prostate (06/21/2023), Cystoscopy (03/20/2023), Cystoscopy (09/19/2021), Transrectal biopsy of prostate using ultrasound (US) guidance (02/19/2019), Colonoscopy, Umbilical hernia. Discharge Vitals Heart Rate (Peripheral) 61 Blood Pressure 170/100 Height 67 in Height 170.0 cm Weight 222.2 lb Weight 101.0 kg BMI 34.95 What to do next Scheduled Follow-Up Appointments Sunday 9:30 AM EDT With: Where: [facility] Invalid Interpretation Code [address] [place] [address]- \.br\ Sunday 9:45 AM EDT \.br\ With: DANIELLA HURLEY, Rolly Bautista\.br\ Where: [facility] Family Medicine Office/Clini c Noteon 10-02-2023 Family Medicine Office/Clinic Note Chief Complaint establish care HPI Staff Dawn is a 63 year old male presenting to establish care Establish Care: History: BPH, Any previous diagnosis: BPH History of seeing any specialist: Dr. Azul When was your last doctors visit: Last Aptil Last provider: [facility] Any recent labs: last August [facility] Health Maintenance UTD: Colonoscopy: yes, most recent was Cologuard 2 years ago per patient. PSA: yes by Dr. Azul Acute: Current issues/complaints: Swollen lymph node left groin-2 years. Was not evaluated previously. no pain. History of Present Illness Here to establish care - Had a turp years ago - Urolift years ago - Sees urology for these things - Has an enlarged lymph node in the groin. Was check by Dr. Junior. - Has grown. Dr. Junior did not have an issue with it. - Bp has been elevated - Retired from [employer]. Review of Systems PHQ Score Initial Depression Screen Score: 0 SCORE Physical Exam Vitals & Measurements HR: 61(Peripheral) BP: 170/100 SpO2: 97% HT: 67 in HT: 170.0 cm WT: 101.0 kg WT: 222.2 lb BMI: 34.95 General: alert, no acute distress ENMT: oral mucosa moist, Cardiovascular: regular rate and rhythm, normal peripheral perfusion Respiratory: Lungs CTA, respirations non labored Extremities: no deformity, no trauma, 2 cm lymph node on the L groin. NTTP. Neurological: oriented x 4, LOC appropriate for age, CN II-XII intact, motor strength equal & normal bilaterally, speech normal Abdomen: Soft, Nontender, Non-distended, + BS Assessment/Plan 1. Elevated PSA (R97.20: Elevated prostate specific antigen [PSA]) - Sees Urology for this. - Will monitor with them. - Follow up is set for the next two months Ordered: Body Mass Index (BMI) documented 3008F Current tobacco non-user 1036F Depression Screening Negative 3352F Influenza immunization status assessed 1030F Medication list documented in medical record 1159F Patient screen for fall risk: no falls in last year or 1 fall with no injury in last year 1101F 2. HTN (hypertension) (I10: Essential (primary) hypertension) - Bps have gone up and down for years. - Will start low dose losartan to help. - Follow up in 1 month 3. LAD (lymphadenopathy), inguinal (R59.0: Localized enlarged lymph nodes) - U/S of the area 4. BMI 34.0-34.9,adult (Z68.34: Body mass index [BMI] 34.0-34.9, adult) - BMI education uploaded to the portal. 5. Morbidly obese (E66.01: Morbid (severe) obesity due to excess calories) - Diet and exercise advised. Orders: losartan, 50 mg = 1 tab(s), Oral, Daily, # 90 tab(s), Refills(s) 0, Pharmacy: [facility]/pharmacy #[id number], 170, cm, 10/02/23 8:33:00 EDT, Height/Length Dosing, 101, kg, 10/02/23 8:33:00 EDT, Weight Dosing Follow-up No qualifying data available Patient Education BMI for Adults Problem List/Past Medical History Ongoing Anticoagulated BMI 34.0-34.9,adult BPH with obstruction/lower urinary tract symptoms Elevated PSA High grade prostatic intraepithelial neoplasia HTN (hypertension) Incomplete bladder emptying LAD (lymphadenopathy), inguinal Morbidly obese Nocturia Seasonal allergies Urinary urgency Urine frequency Weak urinary stream Historical No qualifying data Procedure/Surgical History Cystourethroscopy with dilation of urethral stricture (06/21/2023), TURP - Transurethral resection of prostate (06/21/2023), Cystoscopy (03/20/2023), Cystoscopy (09/19/2021), Transrectal biopsy of prostate using ultrasound (US) guidance (02/19/2019), Colonoscopy, Umbilical hernia. Medications dutasteride 0.5 mg Cap, 0.5 mg= 1 cap(s), Oral, Daily, 11 refills losartan 50 mg Tab, 50 mg= 1 tab(s), Oral, Daily Allergies No Known Medication Allergies Social History Alcohol - Denies Alcohol Use, 03/05/2019 Substance Abuse - Denies Substance Abuse, 10/02/2023 Tobacco - Denies Tobacco Use, 03/05/2019 Never (less than 100 in lifetime) Tobacco Use:. Never Smokeless Tobacco Use:. Household tobacco concerns: No. Yes, 10/02/2023 Family History Dementia: Mother. Immunizations Vaccine Date Status Comments zoster vaccine, inactivated 02/26/2023 Recorded influenza virus vaccine, inactivated 02/13/2023 Recorded zoster vaccine, inactivated 12/18/2022 Recorded influenza virus vaccine, inactivated 03/08/2022 Recorded SARS-CoV-2 mRNA (tozinameran 5y-11y) vac 03/08/2022 Recorded influenza virus vaccine, inactivated 03/04/2021 Recorded SARS-CoV-2 (COVID-19) mRNA BNT-162b2 vax 03/04/2021 Recorded 2023-02-26: [id number] SARS-CoV-2 (COVID-19) mRNA BNT-162b2 vax 02/2021 Recorded SARS-CoV-2 (COVID-19) mRNA BNT-162b2 vax 07/16/2020 Recorded SARS-CoV-2 (COVID-19) mRNA BNT-162b2 vax 06/25/2020 Recorded SARS-CoV-2 (COVID-19) mRNA BNT-162b2 vax 06/2020 Recorded SARS-CoV-2 (COVID-19) mRNA-1273 vaccine 06/2020 Recorded SARS-CoV-2 (COVID-19) mRNA BNT-162b2 vax 05/2020 Recorded influenza virus vaccine, inactivated 02/15/2020 Recorded influenza virus vac (more content not included)... Normal [facility] Comment on above: Result Comment: Elec tronically Signed By: Stevan HURLEY, Cesar Gallego.br\Date and Time Signed: 10/02/23 09:13 EDT Formson 10-02-2023 Forms [id number] 1.00TIFF Normal [facility] Patient Educationon 10-02-19 Patient Education Nutrition BMI for Adults What is BMI? Body mass index (BMI) is a number that is calculated from a person's weight and height. BMI can help estimate how much of a person's weight is composed of fat. BMI does not measure body fat directly. Rather, it is an alternative to procedures that directly measure body fat, which can be difficult and expensive. BMI can help identify people who may be at higher risk for certain medical problems. What are BMI measurements used for? BMI is used as a screening tool to identify possible weight problems. It helps determine whether a person is obese, overweight, a healthy weight, or underweight. BMI is useful for: ? Identifying a weight problem that may be related to a medical condition or may increase the risk for medical problems. ? Promoting changes, such as changes in diet and exercise, to help reach a healthy weight. BMI screening can be repeated to see if these changes are working. How is BMI calculated? BMI involves measuring your weight in relation to your height. Both height and weight are measured, and the BMI is calculated from those numbers. This can be done either in [place] or metric measurements. Note that charts and online BMI calculators are available to help you find your BMI quickly and easily without having to do these calculations yourself. To calculate your BMI in [place] measurements: 1. Measure your weight in pounds (lb). 2. Multiply the number of pounds by 703. ? For example, for a person who weighs 180 lb, multiply that number by 703, which equals 126,540. 3. Measure your height in inches. Then multiply that number by itself to get a measurement called inches squared. ? For example, for a person who is 70 inches tall, the inches squared measurement is 70 inches x 70 inches, which equals 4,900 inches squared. 4. Divide the total from step 2 (number of lb x 703) by the total from step 3 (inches squared): 126,540 ? 4,900 = 25.8. This is your BMI. To calculate your BMI in metric measurements: 1. Measure your weight in kilograms (kg). 2. Measure your height in meters (m). Then multiply that number by itself to get a measurement called meters squared. ? For example, for a person who is 1.75 m tall, the meters squared measurement is 1.75 m x 1.75 m, which is equal to 3.1 meters squared. 3. Divide the number of kilograms (your weight) by the meters squared number. In this example: 70 ? 3.1 = 22.6. This is your BMI. What do the results mean? BMI charts are used to identify whether you are underweight, normal weight, overweight, or obese. The following guidelines will be used: ? Underweight: BMI less than 18.5. ? Normal weight: BMI between 18.5 and 24.9. ? Overweight: BMI between 25 and 29.9. ? Obese: BMI of 30 or above. Keep these notes in mind: ? Weight includes both fat and muscle, so someone with a muscular build, such as an athlete, may have a BMI that is higher than 24.9. In cases like these, BMI is not an accurate measure of body fat. ? To determine if excess body fat is the cause of a BMI of 25 or higher, further assessments may need to be done by a health care provider. ? BMI is usually interpreted in the same way for men and women. Where to find more information For more information about BMI, including tools to quickly calculate your BMI, go to these websites: ? Centers for Disease Control and Prevention: www.cdc.gov ? [place] [employer]: www.heart.org ? National Heart, Lung, and Blood [place]: www.nhlbi.nih.gov Summary ? Body mass index (BMI) is a number that is calculated from a person's weight and height. ? BMI may help estimate how much of a person's weight is composed of fat. BMI can help identify those who may be at higher risk for certain medical problems. ? BMI can be measured using [place] measurements or metric measurements. ? BMI charts are used to identify whether you are underweight, normal weight, overweight, or obese. This information is not intended to replace advice given to you by your health care provider. Make sure you discuss any questions you have with your health care provider. Document Revised: 01/21/2020 Document Reviewed: 11/28/2019 [employer] Patient Education ? 2022 edulio. [facility] Auth for Release of Medical Recordson 09-24-2023 Auth for Release of Medical Records [id number]. 00TIFF [facility] Ambulatory Visit Summaryon 0 07-09-2023 Ambulatory Visit Summary DAWN ROCK :1960 Visit Date:07/09/2023 Ambulatory Visit Instructions Your Diagnosis BPH with obstruction/lower urinary tract symptoms Elevated PSA Your Care Team Attending Physician - Rolly AZUL MD Primary Care Physician - NAHID JUNIOR DO This Is Your Medications List dutasteride (dutasteride 0.5 mg Cap) Procedures Performed Cystourethroscopy with dilation of urethral stricture (06/21/2023), TURP - Transurethral resection of prostate (06/21/2023), Cystoscopy (03/20/2023), Cystoscopy (09/19/2021), Transrectal biopsy of prostate using ultrasound (US) guidance (02/19/2019), Umbilical hernia. Discharge Vitals Height 170 cm Height 67 in Weight 97.7 kg Weight 214.94 lb BMI 33.81 What to do next You Need to Schedule the Following Appointments Follow Up with DANIELLA HURLEY, Rolly Bautista, URL When: Comments: 3 mos w/ UA Where: [facility] [address] , [place] [address]- [phone] Medications What How Much When Instructions Unchanged dutasteride (dutasteride 0.5 mg Cap) 1 Capsules By Mouth Every day Allergies No Known Medication Allergies Problems Ongoing - Any problem that you are currently receiving treatment for. Anticoagulated BPH with obstruction/lower urinary tract symptoms Elevated PSA High grade prostatic intraepithelial neoplasia Incomplete bladder emptying Nocturia Urinary urgency Urine frequency Weak urinary stream Patient Survey You may receive a survey via text or e-mail asking about your office visit. Please share your experience with us by completing your survey. We appreciate your feedback and thank you for choosing us for your care. Education Materials Transurethral Resection of the Prostate, Care After The following information offers guidance on how to care for yourself after your procedure. Your health care provider may also give you more specific instructions. If you have problems or questions, contact your health care provider. What can I expect after the procedure? After the procedure, it is common to have: ? Mild pain in your lower abdomen. ? Soreness or mild discomfort in your penis or when you urinate. This is from having the catheter inserted during the procedure. ? A sudden urge to urinate (urgency). ? A need to urinate often. ? A small amount of blood in your urine. You may notice some small blood clots in your urine. These are normal. Follow these instructions at home: Medicines ? Take nkzz-tnj-cycxsiu and prescription medicines only as told by your health care provider. ? If you were prescribed an antibiotic medicine, take it as told by your health care provider. Do not stop taking the antibiotic even if you start to feel better. Activity ? Rest as told by your health care provider. ? Avoid sitting for a long time without moving. Get up to take short walks every 1?2 hours. This is important to improve blood flow and breathing. Ask for help if you feel weak or unsteady. You may increase your physical activity gradually as you start to feel better. ? Do not drive or operate machinery until your health care provider says that it is safe. ? Do not ride in a car for long periods of time, or as told by your health care provider. ? Avoid intense physical activity for as long as told by your health care provider. ? Do not lift anything that is heavier than 10 lb (4.5 kg), or the limit that you are told, until your health care provider says that it is safe. ? Do not have sex until your health care provider approves. ? Return to your normal activities as told by your health care provider. Ask your health care provider what activities are safe for you. Preventing constipation You may need to take these actions to prevent or treat constipation: ? Drink enough fluid to keep your urine pale yellow. ? Take xtsy-omx-auuvolq or prescription medicines. ? Eat foods that are high in fiber, such as beans, whole grains, and fresh fruits and vegetables. ? Limit foods that are high in fat and processed sugars, such as fried or sweet foods. General instructions ? Do not strain when you have a bowel movement. Straining may lead to bleeding from the prostate. This may cause blood clots and trouble urinating. ? Do not use any products that contain nicotine or tobacco. These products include cigarettes, chewing tobacco, and vaping devices, such as e-cigarettes. If you need help quitting, ask your health care provider. ? If you go home with a tube draining your urine (urinary catheter), care for the catheter as told by your health care provider. ? Wear compression stockings as told by your health care provider. These stockings help to prevent blood clots and reduce swelling in your legs. ? Keep all follow-up visits. This is important. Contact a health care provider if: ? You have signs of (more content not included)... Normal [facility] Patient Educationon 07-09-19 Patient Education Urology Transurethral Resection of the Prostate, Care After The following information offers guidance on how to care for yourself after your procedure. Your health care provider may also give you more specific instructions. If you have problems or questions, contact your health care provider. What can I expect after the procedure? After the procedure, it is common to have: ? Mild pain in your lower abdomen. ? Soreness or mild discomfort in your penis or when you urinate. This is from having the catheter inserted during the procedure. ? A sudden urge to urinate (urgency). ? A need to urinate often. ? A small amount of blood in your urine. You may notice some small blood clots in your urine. These are normal. Follow these instructions at home: Medicines ? Take leyh-adn-gogdhlq and prescription medicines only as told by your health care provider. ? If you were prescribed an antibiotic medicine, take it as told by your health care provider. Do not stop taking the antibiotic even if you start to feel better. Activity ? Rest as told by your health care provider. ? Avoid sitting for a long time without moving. Get up to take short walks every 1?2 hours. This is important to improve blood flow and breathing. Ask for help if you feel weak or unsteady. You may increase your physical activity gradually as you start to feel better. ? Do not drive or operate machinery until your health care provider says that it is safe. ? Do not ride in a car for long periods of time, or as told by your health care provider. ? Avoid intense physical activity for as long as told by your health care provider. ? Do not lift anything that is heavier than 10 lb (4.5 kg), or the limit that you are told, until your health care provider says that it is safe. ? Do not have sex until your health care provider approves. ? Return to your normal activities as told by your health care provider. Ask your health care provider what activities are safe for you. Preventing constipation You may need to take these actions to prevent or treat constipation: ? Drink enough fluid to keep your urine pale yellow. ? Take htiu-kxd-syroesz or prescription medicines. ? Eat foods that are high in fiber, such as beans, whole grains, and fresh fruits and vegetables. ? Limit foods that are high in fat and processed sugars, such as fried or sweet foods. General instructions ? Do not strain when you have a bowel movement. Straining may lead to bleeding from the prostate. This may cause blood clots and trouble urinating. ? Do not use any products that contain nicotine or tobacco. These products include cigarettes, chewing tobacco, and vaping devices, such as e-cigarettes. If you need help quitting, ask your health care provider. ? If you go home with a tube draining your urine (urinary catheter), care for the catheter as told by your health care provider. ? Wear compression stockings as told by your health care provider. These stockings help to prevent blood clots and reduce swelling in your legs. ? Keep all follow-up visits. This is important. Contact a health care provider if: ? You have signs of infection, such as: ? Fever or chills. ? Urine that smells very bad. ? Swelling around your urethra that is getting worse. ? Swelling in your penis or testicles. ? You have difficulty urinating. ? You have pain that gets worse or does not improve with medicine. ? You have blood in your urine that does not go away after 1 week of resting and drinking more fluids. ? You have trouble having a bowel movement. ? You have trouble having or keeping an erection. ? No semen comes out during orgasm (dry ejaculation). ? You have a urinary catheter in place, and you have: ? Spasms or pain. ? Problems with your catheter or your catheter is blocked. Get help right away if: ? You are unable to urinate. ? You are having more blood clots in your urine instead of fewer. ? You have: ? Large blood clots. ? A lot of blood in your urine. ? Pain in your back or lower abdomen. ? You have difficulty breathing or shortness of breath. ? You develop swelling or pain in your leg. These symptoms may be an emergency. Get help right away. Call 911. ? Do not wait to see if the symptoms will go away. ? Do not drive yourself to the hospital. Summary ? After the procedure, it is common to have a small amount of blood in your urine. ? Follow restrictions about lifting and sexual activity as told by your health care provider. Ask what activities are safe for you. ? Keep all follow-up visits. This is important. This information is not intended to replace advice given to you by your health care provider. Make sure you discuss any questions you have with your health care provider. Document Revised: 01/24/2022 Document Reviewed: 01/24/2022 [employer] Patient Education ? 2022 edulio. Benign Prostatic Hyperpla (more content not included)... Normal [facility] Urology Office/Clinic Noteon 07-09-2023 Urology Office/Clinic Note Chief Complaint S/P TURP HPI Staff F/u to review pathology from TURP 06/21/23. Also S/P Cysto & Uro's 03/20/23 Dx: BPH with urinary obstruction and elevated PSA. *Dutasteride 0.5mg QD- pt wondering if he needs to continue medication Did have visible blood in urine the first couple days post op. Last noticed this morning. Mild pain and burning when voiding, is gradually improving. Frequency and urgency have improved. Now getting up 2-3x/night (vs 3-5x prior to procedure) Stronger stream since procedure. History of Present Illness Tests reviewed: reviewed path report I have reviewed the previous health record information and history for this patient from Dr. Azul. I have reviewed and verified the staff HPI to be accurate for this encounter. Review of Systems PHQ Score Initial Depression Screen Score: 0 SCORE ROS - Provider Constitutional: denies weight loss, denies hot flashes. Eyes: denies eye problems. Gastrointestinal: denies nausea, denies vomiting. Cardiovascular: denies chest pain or angina. Integumentary: no dryness Musculoskeletal: denies musculoskeletal symptoms. ENMT: denies otolaryngeal symptoms. Respiratory: no shortness of breath. Heme/Lymph: denies easy bleeding tendency, denies easy bruising tendency. Psychiatric: no confusion, no anxiety. Genitourinary: See HPI. Physical Exam Vitals & Measurements HT: 67 in HT: 170 cm WT: 97.7 kg WT: 214.94 lb BMI: 33.81 General Appearance: alert, no distress, well nourished, well developed male. Genitourinary: normal scrotum, normal testes, normal urethra, normal epididymis, normal vas deferens/spermatic cord. Flank Pain: none. Bladder: nonpalpable. Assessment/Plan 1. BPH with obstruction/lower urinary tract symptoms (N40.1: Benign prostatic hyperplasia with lower urinary tract symptoms) S/p Cysto 09/19/21 Pt was then scheduled for Urolift. Urolift attempted 10/20/21. However procedure was terminated due to intolerance from pt. Pt then got an infection, sent to [facility] (No application integrator Urologist in [place]) CT 10/21/21 showed no hydronephrosis, enlarged prostate gland. Pt was seen in [place] for infection after procedure was terminated. Pt took Cefdinir for 4 days for infection. Pt states he was admitted to [facility] because of an infection on 10/21/2021. Pt stayed one night at [facility] and then was sent to [facility] since we did not have a Urologist application integrator. Pt states that he was having problems voiding at first but was eventually able to pass his urine on his own and did not need a cath. [place] took pt off Terazosin and put him on Flomax. Pt was then scheduled for TURP. Abnormal EKG. Surgery was then cancelled, awaiting cardiac clearance. Pt cleared by [facility] 02/17[place]. [1] Has tried Tamsulosin & Terazosin in the past. Only slight improvement with each. Started on Dutasteride 0.5mg qd at prior OV. S/p Cysto/Urodynamics 03/20/23. S/p TURP 06/21/23. 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 Has some blood in his urine still but continues improving since procedure. Also has improvement in burning with urination and flow. No longer having as much urgency. Advised pt urinary sxs will continue improve over the next few months and he should continue to monitor sxs. The pathology report was reviewed with the patient in detail today. There is no evidence of malignancy and no further evaluation of the tissue removed is planned. All questions were answered and the report discussed in terms that the patient could understand. -Cont Dutasteride daily -Increase fluid intake -Restart normal ADLs but limit if experiencing blood in his urine -F/u in 3 mos w/ UA 2. 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 PSA 08/28/21 - 3.3 08/28/22 - 2.85 Pt has a hx of fluctuating PSA. Will continue to monitor. Follow-up With When Contact Information DANIELLA HURLEY, Rolly Bautista, URL [facility] [address], [place] [address]- [phone] Additional Instructions: 3 mos w/ UA Patient Education Transurethral Resection of the Prostate, Care After Benign Prostatic Hyperplasia Neema Batista, personally scribed for Dr. Azul on 07/09/2023 10:51:57. . Documentation recorded by the scribe, Neema Acuna, accurately reflects the services(s) I performed and decisions made by me. Authenticated by Dr. Azul on 07/09/2023 10:53:50. Problem List/Past Medical History Ongoing Anticoagulated BPH with obstruction/lower urinary tract symptoms Elevated PSA High grade prostatic intraepithelial neoplasia Incomplete bladder emptying Nocturia Urinary urgency Urine frequency Weak urinary stream Historical No qualifying data Procedure/Surgical History Cystourethroscopy with dilation of urethral stricture (06/21/2023), TURP - Transurethral resection of prostate (06/21/2023), Cystoscopy (03/20/2023), Cystos (more content not included)... Normal [facility] Comment on above: Result Comment: Elec tronically Signed By: Rolly AZUL MD.br\Date and Time Signed: 07/09/23 10:53 EST\.br\Electronically Co-Signed By: Neema Acuna.br\Date and Time Co-Signed: 07/09/23 10:52 EST Pathology Noteon 06-28-2023 Pathology Note [id number] .00TIFF Normal [facility] Pathology Noteon 06-26-2023 Pathology Note [id number] .00TIFF Normal [facility] Operative Reporton Operative Report [id number] .00TIFF Normal [facility] Heart and Vascular Office/Cl inic Noteon 06-05-2023 Heart and Vascular Office/Clinic Note Chief Complaint Cardiac Clearance History of Present Illness Dawn Rock is a 63-year-old male who presents today for a cardiac clearance. He was previously seen for a UroLift procedure; however, it was delayed due to an infection. Subsequently, Dr. Eubanks, the attending physician, suffered a stroke, leading to a change in doctors. He has been trying to get his prostate fixed for 4 years; however, he had delayed addressing it. He mentions occasional chest pressure, specifically when lying down, resembling a finger press. He wants to undergo surgery. He experiences frequent nighttime urination, difficulty falling asleep, and late-night eating. He underwent a treadmill stress test, which was normal. He continues to use the treadmill for 30 minutes per day and lifts weights daily. 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 Review of Systems PHQ Score Initial Depression Screen Score: 0 SCORE Review of Systems Constitutional: no fever, no sweats, no weakness Skin: no rash, no lesions, no bruising/petechiae ENMT: no sore throat, no congestion, no hoarseness Respiratory: no shortness of breath, no cough, no orthopnea, no wheezing Cardiovascular: no chest pain, no palpitations, no edema Gastrointestinal: no nausea, no vomiting, no diarrhea, no GI bleeding Genitourinary: no anuria/oliguria no hematuria Musculoskeletal: no back pain, no trauma, positive for chest pressure that described as finger press. Neurologic: no headache, no dizziness, no numbness, no weakness Psychiatric: no sleeping problems, no irritability, no anxiety/depression. Heme/Lymph: no bleeding tendency, no bruising tendency Allergy/Immunologic: no recurrent infections, no impaired immunity Additional ROS info: Except as noted in the above Review of Systems and in the History of Present Illness all other systems have been reviewed and are negative or noncontributory Physical Exam Vitals & Measurements HR: 65(Peripheral) BP: 162/94 SpO2: 96% HT: 67 in HT: 170 cm WT: 100.5 kg WT: 221.1 lb BMI: 34.78 General: alert, no acute distress Skin: warm, dry intact Head: atraumatic, normocephalic Neck: trachea midline, no JVD, no bruit Eye: normal conjunctiva, sclera clear ENMT: oral mucosa moist Cardiovascular: regular rate and rhythm, no murmur, normal peripheral perfusion Respiratory: lungs CTA, respirations non labored Chest wall: no deformity. Gastrointestinal: soft, non-distended, no tenderness, no guarding. Back: no tenderness, normal ROM, normal alignment. Extremities: no edema, no deformity, no trauma Neurological: oriented x 4, LOC appropriate for age, sensation equal & normal bilaterally, speech normal Psychiatric: cooperative, affect appropriate for age, normal judgement, normal psychiatric thoughts. Assessment/Plan 1. Preoperative clearance. Patient is acceptable for upcoming surgery without further cardiac testing. The patient is doing well. ATTESTATION: Portions of this record may have been created with voice recognition artificial intelligence software, specifically [employer] and or [employer]. Substitutions may have occurred with voice recognition and artificial intelligence software.. Documentation services were performed after patient or guardian consented to allow [employer] to record this visit. JAZ security incident response specialist and provider reviewed before signing. JAZ: Young Varghese. Follow-up No qualifying data available Problem List/Past Medical History Ongoing Anticoagulated BPH with obstruction/lower urinary tract symptoms Elevated PSA High grade prostatic intraepithelial neoplasia Incomplete bladder emptying Nocturia Urinary urgency Urine frequency Weak urinary stream Historical No qualifying data Procedure/Surgical History Cystoscopy (09/19/2021), Transrectal biopsy of prostate using ultrasound (US) guidance (02/19/2019), Umbilical hernia. Medications dutasteride 0.5 mg Cap, 0.5 mg= 1 cap(s), Oral, Daily, 11 refills Allergies No Known Medication Allergies Social History Alcohol - Denies Alcohol Use, 03/05/2019 Tobacco - Denies Tobacco Use, 03/05/2019 Never (less than 100 in lifetime) Tobacco Use:. Never Smokeless Tobacco Use:. Household tobacco concerns: No. Yes, 02/26/2023 Family History Dementia: Mother. Immunizations Vaccine Date Status Comments influenza virus vaccine, inactivated 02/13/2023 Recorded zoster vaccine, inactivated 12/18/2022 Recorded influenza virus vaccine, inactivated 03/08/2022 Recorded SARS-CoV-2 mRNA (tozinameran 5y-11y) vac 03/08/2022 Recorded influenza virus vaccine, inactivated 03/04/2021 Recorded SARS-CoV-2 (COVID-19) mRNA BNT-162b2 vax 03/04/2021 Recorded 2023-02-26: TPV60 SARS-CoV-2 (COVID-19) mRNA BNT-162b2 vax 02/2021 Recorded SARS-CoV-2 (COVID-19) mRNA BNT-162b2 vax 07/16/2020 Recorded SARS-CoV-2 (COVID-19) mRNA BNT-162b2 vax 06/25/2020 Recorded SARS-CoV-2 (COVID-19) mRNA BNT-162b2 v (more content not included)... Normal [facility] Comment on above: Result Comment: Elec tronically Signed By: Brennan Gillis MD\.br\Date and Time Signed: 06/05/23 11:55 EST\.br\Electronically Co-Signed By: Young Varghese\.br\Date and Time Co-Signed: 05/30/23 10:34 EST Ambulatory Visit Summaryon 0 05-29-2023 Ambulatory Visit Summary DAWN ROCK :1960 Visit Date:05/29/2023 Ambulatory Visit Instructions Your Care Team Attending Physician - Brennan Gillis MD Primary Care Physician - Nahid Junior DO Referring Physician - NONE, XXXX This Is Your Medications List dutasteride (dutasteride 0.5 mg Cap) Procedures Performed Cystoscopy (09/19/2021), Transrectal biopsy of prostate using ultrasound (US) guidance (02/19/2019), Umbilical hernia. What to do next Scheduled Follow-Up Appointments Sunday 9:00 AM EST With: Where: [facility] Ceasar Gardner [address] [place] [address] [place] [address]- \.br\ Medications\.br\ What How Much When Instructions\.br\ Unchanged dutasteride (dutasteride 0.5 mg Cap) 1 Capsules By Mouth Every day\.br\ Allergies\.br\ No Known Medication Allergies\.br\ Problems\.br\ Ongoing - Any problem that you are currently receiving treatment for.\.br\ Anticoagulated\.b r\ BPH with obstruction/lower urinary tract symptoms\.br\ Elevated PSA\.br\ High grade prostatic intraepithelial neoplasia\.br\ Incomplete bladder emptying\.br\ Nocturia\.br\ Urinary urgency\.br\ Urine frequency\.br\ Weak urinary stream\.br\ Patient Survey\.br\ You may receive a survey via text or e-mail asking about your office visit. Please share your experience with us by completing your survey. We appreciate your feedback and thank you for choosing us for your care.\.br\ \.br\ [facility] Consent for Treatmenton 05-14 Consent for Treatment [id number] .00TIFF [facility] Formson 05-29-2023 Forms cardiac risk clearance, copy given to patient. [id number] .00TIFF [facility] Physician Orderon 05-29-2023 Physician Order [id number]#1 .00TIFF [facility] ECG 12-Leadon 05-11-2023 ECG 12-Lead [id number]#1 .00TIFF [facility] Lab Reportson 05-10-2023 Lab Reports [id number]#1 .00TIFF Normal [facility] Consent for Procedure/Surger yon 03-21-2023 Consent for Procedure/Surgery [id number] .00TIFF Normal [facility] Consent for Procedure/Surger yon 03-20-2023 Consent for Procedure/Surgery [id number] .00TIFF Normal [facility] Consent for Treatmenton Consent for Treatment [id number] .00TIFF Normal [facility] IntraOperative Documentson 1 05-20-2022 IntraOperative Documents [id number] .00TIFF [facility] IntraOperative Documents [id number] .00TIFF Normal [facility] Main OR Intraoperative Recor don 03-20-2023 Main OR Intraoperative Record IntraOp Document Type FTURO Summary Primary Physician: Rolly AZUL MD Finalized Date/Time: 03/20/23 14:41:00 Pt. Name: DAWN ROCK/Sex: 1960 Male Med Rec #: [id number] Physician: Rolly AZUL MD Financial #: [id number] Pt. Type: O Room/Bed: / Admit/Disch: 03/20/23 12:40:30 - Institution: Case Times FTURO Entry 1 Patient Times In Room 03/20/23 14:25:00 Out Room 03/20/23 14:38:00 Procedure Times Start 03/20/23 14:30:00 Stop 03/20/23 14:33:00 Anesthesia Times Last Modified By: Aileen DELGADO, Danni Banuelos 03/20/23 14:40:49 Case Attendance FTURO Entry 1 Entry 2 Entry 3 Case Attendee DANIELLA HURLEY, Rolly R Maldonado Danni LAKE RN, Kimberly Y Role Performed Surgeon - Primary Scrub - Primary Roller Coaster Operator - Primary Time In 03/20/23 14:25:00 03/20/23 14:25:00 03/20/23 14:25:00 Time Out 03/20/23 14:38:00 03/20/23 14:38:00 03/20/23 14:38:00 Procedure CYSTOSCOPY LOCAL(.) CYSTOSCOPY LOCAL(.) CYSTOSCOPY LOCAL(.) Comments Last Modified By: Danni Gallagher RN, RN, Danni Rodriguez RN 03/20/23 14:40:50 03/20/23 [...] AZUL MD, Verified (If Participants Danni Maldonado CST) Aileen Dejesus RN, Kimberly Y Time Out [...] By: Danni Gallagher RN 03/20/23 14:41 Normal [facility] Main OR Preoperative Recordo n 03-20-2023 Main OR Preoperative Record Holding Area Document Type FTURO Summary Primary Physician: Rolly AZUL MD Finalized Date/Time: 03/20/23 14:07:31 Pt. Name: DAWN ROCK/Sex: 1960 Male Med Rec #: [id number] Physician: Rolly AZUL MD Financial #: [id number] Pt. Type: O Room/Bed: / Admit/Disch: 03/20/23 [...] Complaints of Pain: No Skin Integrity Intact, [place], Warm, & Dry Vitals - EU Blood Pressure 171/80 Pulse 65 bpm Respirations 20 br/min SPO2 96 % RN Reviewed Yes Last Modified By: Danni Gallagher RN 03/20/23 14:07:30 General Comments: Temp 36.7 Finalized By: Danni Gallagher RN Document Signatures Signed By: Ailin Luna LPN 03/20/23 13:49 Ailin Luna LPN 03/20/23 13:49 Danni Gallagher RN 03/20/23 14:07 Normal [facility] Operative Reporton 3 Operative Report Patient: DAWN ROCK Age: 63 years Sex: Male : 1960 Associated Diagnoses: None Author: Rolly AZUL MD Procedure Operative Information Details: Date/ Time: 03/20/2023 14:38:00. Pre-Op Dx: BPH w/ LUTS - N40.1, Frequency - R35.0, Urgency - R39.15, Nocturia - R35.1, Incomplete Bladder Emptying - R39.14. Post-Op Dx: Same. Anesthesia Type: Local. Procedure: Local Cystoscopy. Complications: None. Risks/Benefits/Inform ed Consent: Surgical risks, benefits, details of the [...] to think about it at this time.. [facility] Comment on above: Result Comment: Elec tronically Signed By: DANIELLA HURLEY, Rolly Bautista\.br\Date and Time Signed: 03/20/23 14:40 EST Outpatient Surgery Discharge Instructionon 03-20-2023 Outpatient Surgery Discharge Instruction [id number] .00TIFF [facility] Ambulatory Visit Summaryon 1 Ambulatory Visit Summary DAWN ROCK :1960 Visit Date:02/26/2023 Ambulatory Visit Instructions Your [...] Appointments Follow Up with Rolly AZUL MD, URL When: Comments: Sched Cysto and Bladder Function Test Where: [facility] [address] [place] [address]- Allergies No Known Medication Allergies Problems Ongoing [...] prostate's pres (more content not included)... Normal [facility] Patient Educationon 02-27-20 23 Patient Education Urology Benign Prostatic Hyperplasia Benign [...] Follow these instructions at home: ? Take iwxr-csm-gflekjc and prescription medicines only as told by [...] the medicine (more content not included)... 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 Pt was then scheduled for Urolift. Urolift attempted 10/20/21. However procedure was terminated due to intolerance from pt. Pt then got an infection, sent to [facility] (No application integrator Urologist in [place]) Pt was then scheduled for TURP. Abnormal EKG. Surgery was then cancelled, awaiting cardiac clearance. Pt cleared by [facility] 02/17[place]. Here today for follow up. Last PSA 08/28/22- 2.85 Getting up 3-5x/night. [id number] in the morning with coffee intake. [id number] the rest of the day. Weak stream. [...] Pt then got an infection, sent to [facility] (No application integrator Urologist in [place]) CT 10/21/21 showed no hydronephrosis, enlarged prostate gland. Pt was seen in [place] for infection after procedure was terminated. Pt took Cefdinir for 4 days for infection. Pt states he was admitted to [facility] because of an infection on 10/21/2021. Pt stayed one night at [facility] and then was sent to [facility] since we did not have a Urologist application integrator. Pt states that he was having problems voiding at first but was eventually able to pass his urine on his own and did not need a cath. [place] took pt off Terazosin and put him on Flomax. Pt was then scheduled for TURP. Abnormal EKG. Surgery was then cancelled, awaiting cardiac clearance. Pt cleared by [facility] 02/17/22. No UA given today. Getting up 3-5x/night, [id number] in the morning with coffee intake, [id number] the rest of the day. Weak stream. [...] URL [facility] [address], [place] [address]- Additional Instructions: Sched Cysto and Bladder Function Test Patient Education Benign Prostatic Hyperplasia I, Sheryl Temple , personally scribed for Dr. Azul on 02/26/2023 14: (more content not included)... Normal [facility] Comment on above: Result Comment: Elec tronically Signed By: Marina Gross\Date and Time Signed: 02/26/23 14:18 EDT CBC AUTO DIFFon 08-28-2022 BASO # 0.0 103/ul Normal 0.0-0.1 [facility] Comment on above: Performed By: #### C BC #### [facility] [address] [address] [address] Yamini Gomez Basophils/100 WBC (Bld) 0.5 % Normal 0.2-2.0 [facility] Comment on above: Performed By: #### C BC #### [facility] [address] [address] [address] Yamini Gomez EO # 0.1 103/ul Normal 0.0-0.7 [facility] Comment on above: Performed By: #### C BC #### [facility] [address] [address] [address] Yamini Gomez Eosinophils/100 WBC (Bld) 2.1 % Normal 0.9-7.0 [facility] Comment on above: Performed By: #### C BC #### [facility] [address] [address] [address] Yamini Gomez Erythrocyte distribution width (RBC) [Ratio] 12.3 % Normal 11.0-15.0 [facility] Comment on above: Performed By: #### C BC #### [facility] [address] [address] [address] Yamini Gomez Hematocrit (Bld) [Volume fraction] 44.7 % Normal 42.0-54.0 [facility] [facility] Comment on above: Performed By: #### C BC #### [facility] [address] [address] [address] Yamini Gomez Hemoglobin (Bld) [Mass/Vol] 15.9 g/dL Normal 14.0-18.0 [facility] Comment on above: Performed By: #### C BC #### [facility] [address] [address] [address] Yamini Gomez IG # 0.01 10e3/ul Normal 0.00-0.03 [facility] Comment on above: Performed By: #### C BC #### [facility] [address] [place] [address] Dr. Yamini Gomez IG % 0.3 % Normal 0.0-0.5 [facility] Comment on above: Performed By: #### C BC #### [facility] [address] [place] [address] Dr. Yamini Gomez LYMPH # 1.5 103/ul Normal 1.2-3.8 [facility] Comment on above: Performed By: #### C BC #### [facility] [address] [place] [address] Dr. Yamini Gomez Lymphocytes/100 WBC (Bld) 38.5 % Normal 20.5-60.0 [facility] Comment on above: Performed By: #### C BC #### [facility] [address] [place] [address] Dr. Yamini Gomez MANUAL DIFF REQ NO Normal [facility] Comment on above: Performed By: #### C BC #### [facility] [address] [place] [address] Dr. Yamini Gomez MCH (RBC) [Entitic mass] 30.5 pg Normal 25.9-34.0 [facility] Comment on above: Performed By: #### C BC #### [facility] [address] [place] [address] Dr. Yamini Gomez MCHC (RBC) [Mass/Vol] 35.6 g/dL Critically high 29.9-35.2 [facility] Comment on above: Performed By: #### C BC #### [facility] [address] [place] [address] Dr. Yamini Gomez MCV (RBC) [Entitic vol] 85.8 fL Normal 80.0-94.0 [facility] Comment on above: Performed By: #### C BC #### [facility] [address] [place] [address] Dr. Yamini Gomez MONO # 0.4 103/ul Normal 0.3-0.8 [facility] Comment on above: Performed By: #### C BC #### [facility] [address] [place] [address] Dr. Yamini Gomez Monocytes/100 WBC (Bld) 9.8 % Normal 1.7-12.0 [facility] Comment on above: Performed By: #### C BC #### [facility] [address] [place] [address] Dr. Yamini Gomez NEUT # 1.9 103/ul Normal 1.4-6.5 [facility] Comment on above: Performed By: #### C BC #### [facility] [address] [place] [address] Dr. Yamini Gomez Neutrophils/100 WBC (Bld) 48.8 % Normal 43.0-75.0 [facility] Comment on above: Performed By: #### C BC #### [facility] [address] [place] [address] Dr. Yamini Gomez Platelet mean volume (Bld) [Entitic vol] 9.0 fL Critically low 9.5-13.5 [facility] Comment on above: Performed By: #### C BC #### [facility] [address] [place] [address] Dr. Yamini Gomez PLT 168 103/ul Normal 150-450 [facility] Comment on above: Performed By: #### C BC #### [facility] [address] [place] [address] Dr. Yamini Gomez RBC 5.21 106/ul Normal 4.70-6.10 [facility] Comment on above: Performed By: #### C BC #### [facility] [address] [place] [address] Dr. Yamini Gomez WBC 3.8 103/ul Critically low 4.0-11.0 [facility] Comment on above: Performed By: #### C BC #### [facility] [address] [place] [address] Dr. Yamini Gomez PROF 14(COMP METB)on 023 Albumin [Mass/Vol] 4.0 g/dL Normal 3.4-5.0 [facility] Comment on above: Performed By: #### T 4, TSH, CMP #### [facility] [address] [address] [address] Yamnii Gomez Albumin/Globulin [Mass ratio] 1.0 {ratio} Normal [facility] Comment on above: Performed By: #### T 4, TSH, CMP #### [facility] [address] [address] [address] Yamini Gomez ALP [Catalytic activity/Vol] 69 U/L Normal 46-116 [facility] Comment on above: Performed By: #### T 4, TSH, CMP #### [facility] [address] [address] [address] Yamini Gomez ALT [Catalytic activity/Vol] 57 U/L Normal 16-63 [facility] Comment on above: Performed By: #### T 4, TSH, CMP #### [facility] [address] [address] [address] Yamini Gomez Anion gap [Moles/Vol] 10.0 mmol/L Normal [facility] Comment on above: Performed By: #### T 4, TSH, CMP #### [facility] [address] [address] [address] Yamini Gomez AST [Catalytic activity/Vol] 26 U/L Normal 15-37 [facility] Comment on above: Performed By: #### T 4, TSH, CMP #### [facility] [address] [address] [address] Yamini Gomez Bilirubin [Mass/Vol] 1.0 mg/dL Normal 0.2-1.0 [facility] Comment on above: Performed By: #### T 4, TSH, CMP #### [facility] [address] [address] [address] Yamini Gomez Calcium [Mass/Vol] 9.4 mg/dL Normal 8.5-10.1 [facility] Comment on above: Performed By: #### T 4, TSH, CMP #### [facility] [address] [address] [address] Yamini Gomez Chloride [Moles/Vol] 106 mmol/L Normal 98-107 [facility] Comment on above: Performed By: #### T 4, TSH, CMP #### [facility] [address] [address] [address] Yamini Gomez CO2 [Moles/Vol] 28.5 mmol/L Normal 21.0-32.0 [facility] Comment on above: Performed By: #### T 4, TSH, CMP #### [facility] [address] [address] [address] Yamini Gomez Creatinine [Mass/Vol] 1.06 mg/dL Normal 0.70-1.30 [facility] Comment on above: Performed By: #### T 4, TSH, CMP #### [facility] [address] [address] [address] Yamini Gomez EGFR-AF BAHAMIAN >60 Normal >=60 [facility] Comment on above: Performed By: #### T 4, TSH, CMP #### [facility] [address] [place] [address] Dr. Yamini Gomez EGFR-NON AF BAHAMIAN >60 Normal >=60 [facility] Comment on above: Performed By: #### T 4, TSH, CMP #### [facility] [address] [address] [address] Yamini Gomez Globulin (S) [Mass/Vol] 4.0 g/dL Normal [facility] Comment on above: Performed By: #### T 4, TSH, CMP #### [facility] [address] [address] [address] Yamini Gomez Glucose [Mass/Vol] 119 mg/dL Critically high 74-106 [facility] Comment on above: Performed By: #### T 4, TSH, CMP #### [facility] [address] [address] [address] Yamini Gomez Potassium [Moles/Vol] 4.5 mmol/L Normal 3.5-5.1 [facility] Comment on above: Performed By: #### T 4, TSH, CMP #### [facility] [address] [address] [address] Yamini Gomez Protein [Mass/Vol] 8.0 g/dL Normal 6.4-8.2 [facility] Comment on above: Performed By: #### T 4, TSH, CMP #### [facility] [address] [place] [address] Dr. Yamini Gomez Sodium [Moles/Vol] 140 mmol/L Normal 136-145 [facility] Comment on above: Performed By: #### T 4, TSH, CMP #### [facility] [address] [place] [address] Dr. Yamini Gomez Urea nitrogen [Mass/Vol] 14.0 mg/dL Normal 7.0-18.0 [facility] Comment on above: Performed By: #### T 4, TSH, CMP #### [facility] [address] [place] [address] Dr. Yamini Gomez Urea nitrogen/Creatinine [Mass ratio] 13.2 mg/mg Normal [facility] Comment on above: Performed By: #### T 4, TSH, CMP #### [facility] [address] [place] [address] Dr. Yamini Gomez T4on 08-28-2022 T4 [Mass/Vol] 7.60 ug/dL Normal 4.50-12.10 [facility] Comment on above: Performed By: #### T 4, TSH, CMP #### [facility] [address] [place] [address] Dr. Yamini Gomez TSHon 08-28-2022 TSH 4.413 uIU/mL Critically high 0.358-3.740 [facility] Comment on above: Performed By: #### T 4, TSH, CMP #### [facility] [address] [place] [address] Dr. Yamini Gomez PROF CHEM 8 (BAS METB)on Anion gap [Moles/Vol] 10.5 mmol/L Normal [facility] Comment on above: Performed By: #### C MP #### [facility] [address] [place] [address] Dr. Yamini Gomez Calcium [Mass/Vol] 9.4 mg/dL Normal 8.5-10.1 [facility] Comment on above: Performed By: #### C MP #### [facility] [address] [address] [address] Yamini Gomez Chloride [Moles/Vol] 104 mmol/L Normal 98-107 [facility] Comment on above: Performed By: #### C MP #### [facility] [address] [address] [address] Yamini Gomez CO2 [Moles/Vol] 28.4 mmol/L Normal 21.0-32.0 [facility] Comment on above: Performed By: #### C MP #### [facility] [address] [address] [address] Yaimni Gomez Creatinine [Mass/Vol] 1.03 mg/dL Normal 0.70-1.30 [facility] Comment on above: Performed By: #### C MP #### [facility] [address] [place] [address] Dr. Yamini Gomez EGFR-AF BAHAMIAN >60 Normal >=60 [facility] Comment on above: Performed By: #### C MP #### [facility] [address] [place] [address] Dr. Yamini Gomez EGFR-NON AF BAHAMIAN >60 Normal >=60 [facility] Comment on above: Performed By: #### C MP #### [facility] [address] [address] [address] Yamini Gomez Glucose [Mass/Vol] 112 mg/dL Critically high 74-106 [facility] Comment on above: Performed By: #### C MP #### [facility] [address] [address] [address] Yamini Gomez Potassium [Moles/Vol] 3.9 mmol/L Normal 3.5-5.1 [facility] Comment on above: Performed By: #### C MP #### [facility] [address] [place] [address] Dr. Yamini Gomez Sodium [Moles/Vol] 139 mmol/L Normal 136-145 [facility] Comment on above: Performed By: #### C MP #### [facility] [address] [address] [address] Yamini Gomez Urea nitrogen [Mass/Vol] 17.0 mg/dL Normal 7.0-18.0 [facility] Comment on above: Performed By: #### C MP #### [facility] [address] [address] [address] Yamini Gomez Urea nitrogen/Creatinine [Mass ratio] 16.5 mg/mg Normal [facility] Comment on above: Performed By: #### C MP #### [facility] [address] [address] [address] Yamini Gomez CHEMISTRYOrdered By: SYSTEM SYSTEM on 11-24-2021 Anion gap [Moles/Vol] 12 mmol/L Normal 6 - 16 mEq/L [facility] Calcium [Mass/Vol] 9.4 mg/dL Normal 8.9 - 11.1 mg/dL [facility] Chloride [Moles/Vol] 105 mmol/L Normal 101 - 111 mmol/ L [facility] CO2 [Moles/Vol] 25 mmol/L Normal 21 - 31 mmol/L [facility] Creatinine [Mass/Vol] 1.0 mg/dL Normal 0.5 - 1.3 mg/dL [facility] Remisol GFR/1.73 sq M.predicted among blacks MDRD (S/P/Bld) [Vol rate/Area] mL/min/1.73 m2 Normal >=59mL/min/1.73 m2 [facility] Chem S GFR/1.73 sq M.predicted among non-blacks MDRD (S/P/Bld) [Vol rate/Area] mL/min/1.73 m2 Normal >=59mL/min/1.73 m2 [facility] Chem S Glucose [Mass/Vol] 101 mg/dL Normal 55 - 199 mg/dL [facility] Potassium [Moles/Vol] 4.0 mmol/L Normal 3.5 - 5.3 mmol/L [facility] Sodium [Moles/Vol] 138 mmol/L Normal 135 - 145 mmol/L [facility] Urea nitrogen [Mass/Vol] 20 mg/dL Normal 5 - 21 mg/dL [facility] Urea nitrogen/Creatinine [Mass ratio] 20 mg/mg Normal 10 - 20 [facility] COAGULATIONOrdered By: Silvia Jones on 11-24-2021 [...] Normal 0.0 - 8.0 % [facility] HemeAutoSS Eosinophils/Leukocyt es Auto (Bld) [Pure # fraction] 0.1 E9/L Normal 0.0 - 0.5 E9/L [facility]eAuto[facility] Lymphocytes/100 WBC (Bld) 35.2 % Normal 14.0 - 50.0 % [facility]eAutoSS Lymphocytes/Leukocyt es Auto (Bld) [Pure # fraction] 1.5 E9/L Normal 1.0 - 4.0 E9/L [facility]eAutoSS Monocytes/100 WBC (Bld) 8.6 % Normal 4.0 - 14.0 % [facility]eAutoSS Monocytes/Leukocytes Auto (Bld) [Pure # fraction] 0.4 E9/L Normal 0.2 - 1.0 E9/L [facility] Neutrophils/100 WBC (Bld) 53.4 % Normal 36.0 - 75.0 % [facility]eAuto[facility] Neutrophils/Leukocyt es Auto (Bld) [Pure # fraction] 2.3 E9/L [...] 5.0 E12/L Normal 4.3 - 5.9 E12/L [facility]eAutoSS WBC corrected for nucl RBC Auto [...] [#/Area] 0-2 /HPF Normal 0-2/HPF [facility] UA Auto SS Glucose Test strip (U) [Mass/Vol] Negative (11/24/21 2:50 PM) Normal Negative [facility] UA Auto SS Hemoglobin Ql (U) Negative (11/24/21 2:50 PM) Normal Negative [facility] UA Auto SS Ketones (U) [Mass/Vol] Negative (11/24/21 2:50 PM) Normal Negative [facility] UA Auto SS [place].plasma/[place] um.RBC (Bld) [Mass ratio] 0-3 /HPF Normal 0-3/HPF [facility] UA Auto SS Nitrite Ql (U) Negative (11/24/21 2:50 PM) Normal Negative [facility] UA Auto SS pH (U) 6.0 *NA* (11/24/21 2:50 PM) Invalid Interpretation Code 5.0 - 9.0 [facility]A Auto SS Protein (U) [Mass/Vol] Negative (11/24/21 2:50 PM) Normal Negative [facility] Auto SS Specific gravity (U) [Rel density] 1.020 *NA* (11/24/21 2:50 PM) Invalid Interpretation Code 1.005 - 1.030 [facility] UA Auto SS UA Spec Desc Clean Catch (11/24/21 2:50 PM) Normal [facility] UA Auto SS Urobilinogen Qn (U) [id number] {Erendira'U}/dL Normal 0.0 - 1.0 EU/dL [facility] Auto SS WBC Auto Ql (U) Negative (11/24/21 2:50 PM) Normal Negative [facility] UA Auto SS WBC LM.HPF (Urine sed) [#/Area] 0-5 /HPF Normal 0-5/HPF [facility] UA Auto SS CULTURE URINEon 10-24-2021 CULTURE URINE Isolate 1 Escherichia coli >100,000 cfu/ml of ORGANISM 1 Escherichia coli ANTIBIOTIC M.I.C RX STATUS Ampicillin >=32 R F Ampicillin/Sulbactam >=32 R F Piperacillin/Tazobact am <=4 S F Cefazolin <=4 S F Ceftazidime <=1 S F Ceftriaxone <=1 S F Ertapenem <=0.5 S F Imipenem <=0.25 S F Amikacin <=2 S F Gentamicin <=1 S F Tobramycin <=1 S F Ciprofloxacin >=4 R F Levofloxacin >=8 R F Nitrofurantoin <=16 S F Trimethoprim/Sulfamet hoxazole <=20 S F Normal [facility] Comment on above: Performed By: #### C MP #### [facility] [address] [place] [address] Dr. Yamini Gomez CBC AUTO DIFFon 10-22-2021 BASO # 0.0 103/ul Normal 0.0-0.1 [facility] Comment on above: Performed By: #### C BC #### [facility] [address] [place] [address] Dr. Yamini Gomez Basophils/100 WBC (Bld) 0.1 % Critically low 0.2-2.0 [facility] Comment on above: Performed By: #### C BC #### [facility] [address] [address] [address] Yamini Gomez EO # 0.0 103/ul Normal 0.0-0.7 [facility] Comment on above: Performed By: #### C BC #### [facility] [address] [place] [address] Dr. Yamini Gomez Eosinophils/100 WBC (Bld) 0.0 % Critically low 0.9-7.0 [facility] Comment on above: Performed By: #### C BC #### [facility] [address] [place] [address] Dr. Yamini Gomez Erythrocyte distribution width (RBC) [Ratio] 12.3 % Normal 11.0-15.0 [facility] Comment on above: Performed By: #### C BC #### [facility] [address] [place] [address] Dr. Yamini Gomez Hematocrit (Bld) [Volume fraction] 43.7 % Normal 42.0-54.0 [facility] Comment on above: Performed By: #### C BC #### [facility] [address] [place] [address] Dr. Yamini Gomez Hemoglobin (Bld) [Mass/Vol] 14.8 g/dL Normal 14.0-18.0 [facility] Comment on above: Performed By: #### C BC #### [facility] [address] [place] [address] Dr. Yamini Gomez IG # 0.06 10e3/ul Critically high 0.00-0.03 [facility] Comment on above: Performed By: #### C BC #### [facility] [address] [place] [address] Dr. Yamini Gomez IG % 0.4 % Normal 0.0-0.5 [facility] Comment on above: Performed By: #### C BC #### [facility] [address] [place] [address] Dr. Yamini Gomez LYMPH # 0.9 103/ul Critically low 1.2-3.8 [facility] Comment on above: Performed By: #### C BC #### [facility] [address] [place] [address] Dr. Yamini Gomez Lymphocytes/100 WBC (Bld) 5.7 % Critically low 20.5-60.0 [facility] Comment on above: Performed By: #### C BC #### [facility] [address] [place] [address] Dr. Yamini Gomez MANUAL DIFF REQ NO Normal [facility] Comment on above: Performed By: #### C BC #### [facility] [address] [place] [address] Dr. Yamini Gomez MCH (RBC) [Entitic mass] 29.8 pg Normal 25.9-34.0 [facility] Comment on above: Performed By: #### C BC #### [facility] [address] [place] [address] Dr. Yamini Gomez MCHC (RBC) [Mass/Vol] 33.9 g/dL Normal 29.9-35.2 [facility] Comment on above: Performed By: #### C BC #### [facility] [address] [place] [address] Dr. Yamini Gomez MCV (RBC) [Entitic vol] 88.1 fL Normal 80.0-94.0 [facility] Comment on above: Performed By: #### C BC #### [facility] [address] [place] [address] Dr. Yamini Gomez MONO # 1.1 103/ul Critically high 0.3-0.8 [facility] Comment on above: Performed By: #### C BC #### [facility] [address] [place] [address] Dr. Yamini Gomez Monocytes/100 WBC (Bld) 6.9 % Normal 1.7-12.0 [facility] Comment on above: Performed By: #### C BC #### [facility] [address] [place] [address] Dr. Yamini Gomez NEUT # 13.8 103/ul Critically high 1.4-6.5 [facility] Comment on above: Performed By: #### C BC #### [facility] [address] [place] [address] Dr. Yamini Gomez Neutrophils/100 WBC (Bld) 86.9 % Critically high 43.0-75.0 [facility] Comment on above: Performed By: #### C BC #### [facility] [address] [place] [address] Dr. Yamini Gomez Platelet mean volume (Bld) [Entitic vol] 9.3 fL Critically low 9.5-13.5 [facility] Comment on above: Performed By: #### C BC #### [facility] [address] [place] [address] Dr. Yamini Gomez PLT 150 103/ul Normal 150-450 [facility] Comment on above: Performed By: #### C BC #### [facility] [address] [place] [address] Dr. Yamini Gomez RBC 4.96 106/ul Normal 4.70-6.10 [facility] Comment on above: Performed By: #### C BC #### [facility] [address] [place] [address] Dr. Yamini Gomez WBC 15.9 103/ul Critically high 4.0-11.0 [facility] Comment on above: Performed By: #### C BC #### [facility] [address] [place] [address] ABD/PELV W CONon [...] JT TAYLOR Date: 2021-10-21 22:05 Normal [facility] Covid-19 PCR (CVDTB)on 10-12 SARS-CoV-2 (COVID-19) RNA DAVID+probe Ql (Unsp spec) Not detected Normal NOT DETECTED [facility] Comment on above: Result Comment: When [...] for this test is supported by the [place] of Health and Human Service's declaration that [...] longer be used). Performed By: #### C VDTB #### [facility] [address] [place] [address] Dr. Yamini Gomez LACTATE/LACTIC ACIDon 2021 Lactate [Moles/Vol] 1.4 mmol/L Normal 0.4-1.9 [facility] Comment on above: Performed By: #### L ACT #### [facility] [address] [place] [address] Dr. Yamini Gomez PROF CHEM 8 (BAS METB)on Anion gap [Moles/Vol] 13.0 mmol/L Normal [facility] Comment on above: Performed By: #### B MP #### [facility] [address] [place] [address] Dr. Yamini Gomez Calcium [Mass/Vol] 8.6 mg/dL Normal 8.5-10.1 [facility] Comment on above: Performed By: #### B MP #### [facility] [address] [place] [address] Dr. Yamini Gomez Chloride [Moles/Vol] 105 mmol/L Normal 98-107 [facility] Comment on above: Performed By: #### B MP #### [facility] [address] [place] [address] Dr. Yamini Gomez CO2 [Moles/Vol] 23.7 mmol/L Normal 21.0-32.0 [facility] Comment on above: Performed By: #### B MP #### [facility] [address] [place] [address] Dr. Yamini Gomez Creatinine [Mass/Vol] 1.09 mg/dL Normal 0.70-1.30 [facility] Comment on above: Performed By: #### B MP #### [facility] [address] [place] [address] Dr. Yamini Gomez EGFR-AF BAHAMIAN >60 Normal >=60 [facility] Comment on above: Performed By: #### B MP #### [facility] [address] [place] [address] Dr. Yamini Gomez EGFR-NON AF BAHAMIAN >60 Normal >=60 [facility] Comment on above: Performed By: #### B MP #### [facility] [address] [address] [address] Yamini Gomez Glucose [Mass/Vol] 140 mg/dL Critically high 74-106 T [facility] Comment on above: Performed By: #### B MP #### [facility] [address] [place] [address] Dr. Yamini Gomez Potassium [Moles/Vol] 3.7 mmol/L Normal 3.5-5.1 [facility] Comment on above: Performed By: #### B MP #### [facility] [address] [place] [address] Dr. Yamini Gomez Sodium [Moles/Vol] 138 mmol/L Normal 136-145 [facility] Comment on above: Performed By: #### B MP #### [facility] [address] [place] [address] Dr. Yamini Gomez Urea nitrogen [Mass/Vol] 12.0 mg/dL Normal 7.0-18.0 [facility] Comment on above: Performed By: #### B MP #### [facility] [address] [place] [address] Dr. Yamini Gomez Urea nitrogen/Creatinine [Mass ratio] 11.0 mg/mg Normal [facility] Comment on above: Performed By: #### B MP #### [facility] [address] [place] [address] Dr. Yamini Gomez CBC AUTO DIFFon 10-21-2021 BASO # 0.0 103/ul Normal 0.0-0.1 [facility] Comment on above: Performed By: #### C MP #### [facility] [address] [place] [address] Dr. Yamini Gomez Basophils/100 WBC (Bld) 0.2 % Normal 0.2-2.0 [facility] Comment on above: Performed By: #### C MP #### [facility] [address] [address] [address] Yamini Gomez EO # 0.0 103/ul Normal 0.0-0.7 [facility] Comment on above: Performed By: #### C MP #### [facility] [address] [place] [address] Dr. Yamini Gomez Eosinophils/100 WBC (Bld) 0.3 % Critically low 0.9-7.0 [facility] Comment on above: Performed By: #### C MP #### [facility] [address] [place] [address] Dr. Yamini Gomez Erythrocyte distribution width (RBC) [Ratio] 12.0 % Normal 11.0-15.0 [facility] Comment on above: Performed By: #### C MP #### [facility] [address] [place] [address] Dr. Yamini Gomez Hematocrit (Bld) [Volume fraction] 46.3 % Normal 42.0-54.0 [facility] Comment on above: Performed By: #### C MP #### [facility] [address] [place] [address] Dr. Yamini Gomez Hemoglobin (Bld) [Mass/Vol] 16.0 g/dL Normal 14.0-18.0 [facility] Comment on above: Performed By: #### C MP #### [facility] [address] [place] [address] Dr. Yamini Gomez IG # 0.21 10e3/ul Critically high 0.00-0.03 [facility] Comment on above: Performed By: #### C MP #### [facility] [address] [place] [address] Dr. Yamini Gomez IG % 2.0 % Critically high 0.0-0.5 [facility] Comment on above: Performed By: #### C MP #### [facility] [address] [place] [address] Dr. Yamini Gomez LYMPH # 0.7 103/ul Critically low 1.2-3.8 [facility] Comment on above: Performed By: #### C MP #### [facility] [address] [place] [address] Dr. Yamini Gomez Lymphocytes/100 WBC (Bld) 6.7 % Critically low 20.5-60.0 [facility] Comment on above: Performed By: #### C MP #### [facility] [address] [place] [address] Dr. Yamini Gomez MANUAL DIFF REQ NO Normal [facility] Comment on above: Performed By: #### C MP #### [facility] [address] [place] [address] Dr. Yamini Gomez MCH (RBC) [Entitic mass] 30.1 pg Normal 25.9-34.0 [facility] Comment on above: Performed By: #### C MP #### [facility] [address] [place] [address] Dr. Yamini Gomez MCHC (RBC) [Mass/Vol] 34.6 g/dL Normal 29.9-35.2 [facility] Comment on above: Performed By: #### C MP #### [facility] [address] [place] [address] Dr. Yamini Gomez MCV (RBC) [Entitic vol] 87.0 fL Normal 80.0-94.0 [facility] Comment on above: Performed By: #### C MP #### [facility] [address] [place] [address] Dr. Yamini Gomez MONO # 0.2 103/ul Critically low 0.3-0.8 [facility] Comment on above: Performed By: #### C MP #### [facility] [address] [place] [address] Dr. Yamini Gomez Monocytes/100 WBC (Bld) 1.7 % Normal 1.7-12.0 [facility] Comment on above: Performed By: #### C MP #### [facility] [address] [place] [address] Dr. Yamini Gomez NEUT # 9.5 103/ul Critically high 1.4-6.5 [facility] Comment on above: Performed By: #### C MP #### [facility] [address] [place] [address] Dr. Yamini Gomez Neutrophils/100 WBC (Bld) 89.1 % Critically high 43.0-75.0 [facility] Comment on above: Performed By: #### C MP #### [facility] [address] [place] [address] Dr. Yamini Gomez Platelet mean volume (Bld) [Entitic vol] 9.3 fL Critically low 9.5-13.5 [facility] Comment on above: Performed By: #### C MP #### [facility] [address] [place] [address] Dr. Yamini Gomez PLT 149 103/ul Critically low 150-450 [facility] Comment on above: Performed By: #### C MP #### [facility] [address] [place] [address] Dr. Yamini Gomez RBC 5.32 106/ul Normal 4.70-6.10 [facility] Comment on above: Performed By: #### C MP #### [facility] [address] [place] [address] Dr. Yamini Gomez WBC 10.6 103/ul Normal 4.0-11.0 [facility] Comment on above: Performed By: #### C MP #### [facility] [address] [place] [address] Dr. Yamini Gomez CULTURE BLOODon 10-21-2021 Microscopic examination of blood, culture Culture Observations: No growth at 5 days. Normal [facility] Comment on above: Performed By: #### C MP #### [facility] [address] [place] [address] Dr. Yamini Gomez Microscopic examination of blood, culture Culture Observations: No growth at 5 days. Normal [facility] Comment on above: Performed By: #### C MP #### [facility] [address] [place] [address] Dr. Yamini Gomez ER URINE PROFILEon 2 Bilirubin Ql (U) Negative Normal NEGATIVE [facility] Comment on above: Performed By: #### U MICRO, ERUR #### [facility] [address] [place] [address] Dr. Yamini Gomez Clarity (U) CLEAR Normal CLEAR [facility] Comment on above: Performed By: #### U MICRO, ERUR #### [facility] [address] [address] [address] Yamini Gomez Color (U) LT. YELLOW Normal YELLOW [facility] Comment on above: Performed By: #### U MICRO, ERUR #### [facility] [address] [place] [address] Dr. Yamini BALLAHD A micrscopic examination will be performed if indicated. Normal [facility] Comment on above: Performed By: #### U MICRO, ERUR #### [facility] [address] [place] [address] Dr. Yamini Gomez Glucose Ql (U) Negative Normal NEGATIVE [facility] Comment on above: Performed By: #### U MICRO, ERUR #### [facility] [address] [place] [address] Dr. Yamini Gomez Hemoglobin Ql (U) MODERATE Abnormal NEGATIVE [facility] Comment on above: Performed By: #### U MICRO, ERUR #### [facility] [address] [place] [address] Dr. Yamini Gomez Ketones Ql (U) Negative Normal NEGATIVE [facility] Comment on above: Performed By: #### U MICRO, ERUR #### [facility] [address] [place] [address] Dr. Yamini Gomez LEUKOCYTES MODERATE Abnormal NEGATIVE [facility] Comment on above: Performed By: #### U MICRO, ERUR #### [facility] [address] [place] [address] Dr. Yamini Gomez Nitrite Ql (U) Negative Normal NEGATIVE [facility] Comment on above: Performed By: #### U MICRO, ERUR #### [facility] [address] [place] [address] Dr. Yamini Gomez pH (U) 7.0 [pH] Normal 5-9 [facility] Comment on above: Performed By: #### U MICRO, ERUR #### [facility] [address] [place] [address] Dr. Yamini Gomez SPEC GRAVITY 1.010 Normal 1.005-<=1.025 [facility] Comment on above: Performed By: #### U MICRO, ERUR #### [facility] [address] [place] [address] Dr. Yamini Gomez UA PROTEIN Negative Normal NEGATIVE/ TRACE [facility] Comment on above: Performed By: #### U MICRO, ERUR #### [facility] [address] [place] [address] Dr. Yamini Gomez UR MICRO IND INDICATED Normal [facility] Comment on above: Performed By: #### U MICRO, ERUR #### [facility] [address] [place] [address] Dr. Yamini Gomez Urobilinogen Qn (U) 0.2 {Erendira'U}/dL Normal 0.2 - 1. 0 [facility] Comment on above: Performed By: #### U MICRO, ERUR #### [facility] [address] [place] [address] Dr. Yamini Gomez LACTATE/LACTIC ACIDon 2021 Lactate [Moles/Vol] 2.9 mmol/L Critically high 0.4-1.9 [facility] Comment on above: Performed By: #### C MP #### [facility] [address] [place] [address] Dr. Yamini Gomez PROF 14(COMP METB)on 022 Albumin [Mass/Vol] 4.1 g/dL Normal 3.4-5.0 [facility] Comment on above: Performed By: #### C MP #### [facility] [address] [place] [address] Dr. Yamini Gomez Albumin/Globulin [Mass ratio] 1.1 {ratio} Normal [facility] Comment on above: Performed By: #### C MP #### [facility] [address] [place] [address] Dr. Yamini Gomez ALP [Catalytic activity/Vol] 77 U/L Normal 46-116 [facility] Comment on above: Performed By: #### C MP #### [facility] [address] [place] [address] Dr. Yamini Gomez ALT [Catalytic activity/Vol] 54 U/L Normal 16-63 [facility] Comment on above: Performed By: #### C MP #### [facility] [address] [place] [address] Dr. Yamini Gomez Anion gap [Moles/Vol] 16.5 mmol/L Normal [facility] Comment on above: Performed By: #### C MP #### [facility] [address] [place] [address] Dr. Yamini Gomez AST [Catalytic activity/Vol] 28 U/L Normal 15-37 [facility] Comment on above: Performed By: #### C MP #### [facility] [address] [place] [address] Dr. Yamini Gomez Bilirubin [Mass/Vol] 1.2 mg/dL Critically high 0.2-1.0 [facility] Comment on above: Performed By: #### C MP #### [facility] [address] [place] [address] Dr. Yamini Gomez Calcium [Mass/Vol] 9.0 mg/dL Normal 8.5-10.1 [facility] Comment on above: Performed By: #### C MP #### [facility] [address] [place] [address] Dr. Yamini Gomez Chloride [Moles/Vol] 101 mmol/L Normal 98-107 [facility] Comment on above: Performed By: #### C MP #### [facility] [address] [place] [address] Dr. Yamini Gomez CO2 [Moles/Vol] 21.5 mmol/L Normal 21.0-32.0 [facility] Comment on above: Performed By: #### C MP #### [facility] [address] [place] [address] Dr. Yamini Gomez Creatinine [Mass/Vol] 1.31 mg/dL Critically high 0.70-1.30 [facility] Comment on above: Performed By: #### C MP #### [facility] [address] [place] [address] Dr. Yamini Gomez EGFR-AF BAHAMIAN >60 Normal >=60 [facility] Comment on above: Performed By: #### C MP #### [facility] [address] [address] [address] Yamini Gomez EGFR-NON AF BAHAMIAN 55 mL/min/1.73m2 Critically low >=60 [facility] Comment on above: Performed By: #### C MP #### [facility] [address] [address] [address] Yamini Gomez Globulin (S) [Mass/Vol] 3.7 g/dL Normal [facility] Comment on above: Performed By: #### C MP #### [facility] [address] [address] [address] Yamini Gomez Glucose [Mass/Vol] 161 mg/dL Critically high 74-106 T [facility] Comment on above: Performed By: #### C MP #### [facility] [address] [address] [address] Yamini Gomez Potassium [Moles/Vol] 4.0 mmol/L Normal 3.5-5.1 [facility] Comment on above: Performed By: #### C MP #### [facility] [address] [address] [address] Yamini Gomez Protein [Mass/Vol] 7.8 g/dL Normal 6.4-8.2 [facility] Comment on above: Performed By: #### C MP #### [facility] [address] [address] [address] Yamini Gomez Sodium [Moles/Vol] 135 mmol/L Critically low 136-145 Th [facility] Comment on above: Performed By: #### C MP #### [facility] [address] [address] [address] Yamini Gomez Urea nitrogen [Mass/Vol] 14.0 mg/dL Normal 7.0-18.0 [facility] Comment on above: Performed By: #### C MP #### [facility] [address] [address] [address] Yamini Gomez Urea nitrogen/Creatinine [Mass ratio] 10.7 mg/mg Normal [facility] Comment on above: Performed By: #### C MP #### [facility] [address] [place] [address] Dr. Yamini Gomez URINE MICROSCOPIC ONLYon BACTERIA TRACE Abnormal NONE SEEN [facility] Comment on above: Performed By: #### C MP #### [facility] [address] [place] [address] Dr. Yamini Gomez Bacteria identified Cx Nom (U) INDICATED Normal [facility] Comment on above: Performed By: #### C MP #### [facility] [address] [place] [address] Dr. Yamini Gomez CAST NONE SEEN Normal NONE SEEN [facility] Comment on above: Performed By: #### C MP #### [facility] [address] [place] [address] Dr. Yamini Gomez Crystals LM Nom (Urine sed) NONE SEEN Normal NONE SEEN [facility] Comment on above: Performed By: #### C MP #### [facility] [address] [place] [address] Dr. Yamini Gomez Epithelial cells LM Ql (Urine sed) NONE SEEN Normal NONE SEEN /RARE [facility] Comment on above: Performed By: #### C MP #### [facility] [address] [place] [address] Dr. Yamini Gomez MUCOUS NONE SEEN Normal NONE SEEN [facility] Comment on above: Performed By: #### C MP #### [facility] [address] [place] [address] Dr. Yamini Gomez RBC 0-2 Normal 0-2 [facility] Comment on above: Performed By: #### C MP #### [facility] [address] [place] [address] Dr. Yamini Gomez WBC 50-75 Abnormal NONE SEEN [facility] Comment on above: Performed By: #### C MP #### [facility] [address] [place] [address] Dr. Yamini Gomez Vital Signs Date Time Vital Sign Value Performing Clinician Cassidy nelson 05-29-2023 15:08-0500 Blood Pressure Location Brennan Elis [facility] 05-29-2023 15:08-0500 Diastolic blood pressure 94 mm[Hg] Brennan Gaonagladis [facility] 05-29-2023 15:08-0500 Heart rate 65 /min Brennan Abbeyerson [facility] 05-29-2023 15:08-0500 SaO2% (BldA) [Mass fraction] 96 % Brennan Abbeycarlos [facility] 05-29-2023 15:08-0500 Systolic blood pressure 162 mm[Hg] Brennan Jimenezofferson [facility] 05-29-2023 15:00-0500 Diastolic blood pressure 88 mm[Hg] Brennan Gaonamonicaerson [facility] 05-29-2023 15:00-0500 Mean blood pressure 102 mm[Hg] Brennan Gaonaoffcarlos [facility] 05-29-2023 15:00-0500 Systolic blood pressure 130 mm[Hg] Brennan Gaonagladis [facility] 02-26-2023 13:07-0400 Blood Pressure Location Rolly AZUL [facility] 02-26-2023 13:07-0400 Diastolic blood pressure 88 mm[Hg] Rolly AZUL [facility] 02-26-2023 13:07-0400 Heart rate 89 /min Rolly AZUL [facility] 02-26-2023 13:07-0400 Respiratory rate 16 /min Rolly AZUL [facility] 02-26-2023 13:07-0400 Systolic blood pressure 133 mm[Hg] Rolly AZUL [facility] 02-17-2022 09:34-0400 Blood Pressure Location Shirleyalex WESLEY [facility] 02-17-2022 09:34-0400 Diastolic blood pressure 76 mm[Hg] Shirleyalex WESLEY [facility] 02-17-2022 09:34-0400 Heart rate 53 /min Shirleyalex WESLEY [facility] 02-17-2022 09:34-0400 Respiratory rate 18 /min Shirleyalex WESLEY [facility] 02-17-2022 09:34-0400 SaO2% (BldA) [Mass fraction] 100 % Shirleyalex WESLEY [facility] 02-17-2022 09:34-0400 Systolic blood pressure 140 mm[Hg] Shirleyalex WESLEY [facility] 12-28-2021 13:50-0400 Diastolic blood pressure 85 mm[Hg] Brennan Christofferson [facility] 12-28-2021 13:50-0400 Mean blood pressure 105 mm[Hg] Brennan Christofferson [facility] 12-28-2021 13:50-0400 Systolic blood pressure 146 mm[Hg] Brennan Christofferson [facility] 12-28-2021 13:31-0400 Blood Pressure Location Brennan Christofferson [facility] 12-28-2021 13:31-0400 Diastolic blood pressure 88 mm[Hg] Brennan Christofferson [facility] 12-28-2021 13:31-0400 Heart rate 60 /min Brennan Christofferson [facility] 12-28-2021 13:31-0400 SaO2% (BldA) [Mass fraction] 98 % Brennan Christofferson [facility] 12-28-2021 13:31-0400 Systolic blood pressure 152 mm[Hg] Brennan Gillis [facility] 11-24-2021 14:52-0400 Diastolic blood pressure 89 mm[Hg] Lauro Eubanks Jr. [facility] 11-24-2021 14:52-0400 Heart rate 54 /min Lauro Eubanks Jr. [facility] 11-24-2021 14:52-0400 Mean blood pressure 109 mm[Hg] Lauro Eubanks Jr. [facility] 11-24-2021 14:52-0400 Systolic blood pressure 150 mm[Hg] Lauro Eubanks Jr. [facility] 11-24-2021 14:51-0400 Diastolic blood pressure 76 mm[Hg] Lauro Eubanks Jr. [facility] 11-24-2021 14:51-0400 Heart rate 55 /min Lauro Eubanks Jr. [facility] 11-24-2021 14:51-0400 Mean blood pressure 97 mm[Hg] Lauro Eubanks Jr. [facility] 11-24-2021 14:51-0400 Systolic blood pressure 140 mm[Hg] Lauro Eubanks Jr. [facility] 11-24-2021 14:29-0400 Blood Pressure Location Lauro Eubanks Jr. [facility] 11-24-2021 14:29-0400 Body temperature 98.24 [degF] Lauro Eubanks Jr. [facility] 11-24-2021 14:29-0400 Diastolic blood pressure 85 mm[Hg] Lauro Eubanks Jr. [facility] 11-24-2021 14:29-0400 Heart rate 65 /min Lauro Eubanks Jr. [facility] 11-24-2021 14:29-0400 Mean blood pressure 111 mm[Hg] Lauro Eubanks Jr. [facility] 11-24-2021 14:29-0400 Systolic blood pressure 162 mm[Hg] Lauro Eubanks Jr. [facility] 11-24-2021 14:28-0400 Blood Pressure Location Lauro Eubanks Jr. [facility] 11-24-2021 14:28-0400 BP/Pulse Patient Position Lauro Eubanks Jr. [facility] 11-24-2021 14:28-0400 Respiratory rate 18 /min Lauro Eubanks Jr. [facility] 11-24-2021 14:28-0400 SaO2% (BldA) [Mass fraction] 97 % Lauro Eubanks Jr. [facility] 11-15-2021 10:26-0400 Diastolic blood pressure 81 mm[Hg] Lauro Eubanks Jr. [facility] 11-15-2021 10:26-0400 Mean blood pressure 94 mm[Hg] Lauro Eubanks Jr. [facility] 11-15-2021 10:26-0400 Systolic blood pressure 119 mm[Hg] Lauro Eubanks Jr. [facility] 11-15-2021 10:14-0400 Blood Pressure Location Lauro Eubanks Jr. [facility] 11-15-2021 10:14-0400 Diastolic blood pressure 90 mm[Hg] Lauro Eubanks Jr. [facility] 11-15-2021 10:14-0400 Heart rate 59 /min Lauro Eubanks Jr. [facility] 11-15-2021 10:14-0400 Systolic blood pressure 147 mm[Hg] Lauro Eubanks Jr. [facility] 09-19-2021 12:59-0400 Blood Pressure Location Lauro Eubanks Jr. [facility] 09-19-2021 12:59-0400 Diastolic blood pressure 100 mm[Hg] Lauro Eubanks Jr. [facility] 09-19-2021 12:59-0400 Heart rate 64 /min Lauro Eubanks Jr. [facility] 09-19-2021 12:59-0400 Systolic blood pressure 151 mm[Hg] Lauro Eubanks Jr. [facility] 08-30-2021 09:19-0400 Blood Pressure Location Lauro Eubanks Jr. [facility] 08-30-2021 09:19-0400 Diastolic blood pressure 86 mm[Hg] Lauro Eubanks Jr. [facility] 08-30-2021 09:19-0400 Heart rate 55 /min Laurokirti Eubanks Jr. [facility] 08-30-2021 09:19-0400 Respiratory rate 16 /min Lauro Raimundo Will. [facility] 08-30-2021 09:19-0400 Systolic blood pressure 144 mm[Hg] Laurokirti Eubanks Jr. [facility] Encounters Encounter Date Encounter Type Care Provider Facility Start: 10-15-2023 End: 10-15-2023 ambulatory MD Cesar Calles [place] Start: 10-15-2023 End: 10-15-2023 Patient encounter procedure Cesar Calles [facility] Start: 10-02-2023 End: 10-02-2023 ambulatory MD Cesar Calles Facility:[facility] Start: 09-24-2023 ambulatory Rolly AZUL Facility :[facility] Start: 07-09-2023 End: 07-09-2023 ambulatory Rolly AZUL Facility: [facility] Start: 06-25-2023 End: 06-25-2023 ambulatory Rolly AZUL Facility:[facility] Start: 06-25-2023 End: 06-25-2023 Patient encounter procedure Rolly AZUL [facility] Start: 06-21-2023 End: 06-21-2023 ambulatory Rolly AZUL Facility:[id number] Start: 05-29-2023 End: 05-29-2023 ambulatory XXXX NONE [place] Start: 05-29-2023 End: 05-29-2023 Patient encounter procedure Brennan Gillis [facility] Start: 05-28-2023 ambulatory Rolly R AZUL Facili ty:[facility] Start: 03-20-2023 End: 03-20-2023 ambulatory Rolly AZUL [place] Start: 03-20-2023 End: 03-20-2023 Patient encounter procedure Rolly AZUL [facility] Start: 02-26-2023 End: 02-26-2023 ambulatory Rolly AZUL Facility:[facility] Start: 02-26-2023 End: 02-26-2023 Patient encounter procedure Rolly Michele AZUL [facility] Start: 08-31-2022 Encounter for genera l adult medical examination without abnormal findings DR NAHID JUNIOR [facility] Start: 08-28-2022 End: 08-29-[address] NAHID JUNIOR Facility:[facility] Start: 08-28-2022 End: 08-29-2022 Encounter for general adult medical examination without abnormal findings DR NAHID JUNIOR Facility:[facility] Start: 03-08-2022 End: 03-09-[address] DOCTOR HENDRICKS Facility:[facility] Start: 02-17-2022 End: 02-17-2022 Patient encounter procedure Shirley WESLEY [facility] Start: 02-17-2022 End: 02-17-2022 Preprocedural examination done Shirley WESLEY [facility] Start: 02-08-2022 End: 02-08-2022 Patient encounter procedure Brennan Gillis [facility] Start: 01-18-2022 End: 01-18-2022 Patient encounter procedure Brennan Gillis [facility] Start: 12-28-2021 End: 12-28-2021 Patient encounter procedure Brennan Gillis [facility] Start: 11-24-2021 ambulatory Facility:[id number] Start: 11-24-2021 End: 11-24-2021 Patient encounter procedure Lauro Eubanks Jr. [facility] Start: 11-17-2021 End: 12-09-2021 Pre-admission assessment Lauro Eubanks Jr. [facility] Start: 11-15-2021 End: 11-15-2021 Patient encounter procedure Lauro Eubanks Jr. [facility] Start: 10-22-2021 End: 10-22-2021 Evaluation and management of inpatient DR NAHID JUNIOR Facility: Start: 09-19-2021 End: 09-19-2021 Patient encounter procedure Lauro Eubanks Jr. [facility] Start: 08-30-2021 End: 08-30-2021 Patient encounter procedure Lauro Eubanks Jr. [facility] Procedures Date Procedure Procedure Detail Performing Clinician Start: 06-21-2023 Cystourethroscopy wi th dilation of urethral stricture Cesar Calles Start: 06-21-2023 Transurethral prostatectomy Cesar Calles Start: 03-20-2023 Transurethral cystoscopy Cesar Calles Start: 08-28-[address] MERA JUNIOR Comment on above: Performed By: #### C MP #### [facility] [address] [address] [address] Yamini Gomez Start: 09-19-2021 Cystoscopy Lauro price Jr. Start: 02-19-2019 Transrectal biopsy o f prostate using ultrasound guidance Lauro Eubanks Jr. Colonoscopy Cesar Stevan Umbilical hernia (disorder) Lauro Eubanks Jr. Plan of Treatment Date Care Activity Detail Author Start: 11-12-2023 ambulatory Ambulatory Facility:[facility] Start: 11-05-2023 ambulatory Ambulatory Facility:[facility] Immunizations Immunization Date Immunization Notes Care Provider [facility] 02-26-2023 zoster vaccine recombinant Cesar Stevan [facility] 02-13-2023 influenza virus vaccine, unspecified formulation Rolly AZUL [facility] 12-18-2022 zoster vaccine recombinant Rolly AZUL [facility] 03-08-2022 influenza virus vaccine, unspecified formulation Rolly AZUL [facility] 03-08-2022 SARS-CoV-2 mRNA (tozinameran 5y-11y) vaccine Rolly AZUL [facility] 03-04-2021 influenza virus vaccine, unspecified formulation Rolly AZUL [facility] 03-04-2021 SARS-CoV-2 (COVID-19 ) mRNA BNT-162b2 vax Rolly AZUL [facility] Comment on above: Result Comment: 2022: [id number] 02-11-2021 SARS-CoV-2 (COVID-19 ) mRNA BNT-162b2 vax Lauro Eubanks Jr. [facility] 07-16-2020 SARS-CoV-2 (COVID-19 ) mRNA BNT-162b2 vax Rolly AZUL [facility] 06-25-2020 SARS-CoV-2 (COVID-19 ) mRNA BNT-162b2 vax Rolly AZUL [facility] 06-14-2020 SARS-CoV-2 (COVID-19 ) mRNA BNT-162b2 vax Lauro Eubanks Jr. [facility] 06-14-2020 SARS-CoV-2 (COVID-19 ) mRNA-1273 vaccine Lauro Eubanks Jr. [facility] 05-14-2020 SARS-CoV-2 (COVID-19 ) mRNA BNT-162b2 vax Lauro Eubanks Jr. [facility] 02-15-2020 influenza virus vaccine, unspecified formulation Rolly AZUL [facility] 01-13-2020 influenza virus vaccine, unspecified formulation Lauro Eubanks Jr. [facility] 03-12-2019 influenza virus vaccine, unspecified formulation Rolly AZUL [facility] 02-06-2018 influenza virus vaccine, unspecified formulation Rolly AZUL [facility] 03-30-2017 influenza virus vaccine, unspecified formulation Rolly AZUL [facility] 03-12-2015 influenza virus vaccine, unspecified formulation Rolly AZUL [facility] 12-29-2011 tetanus toxoid, redu briseyda diphtheria toxoid, and acellular pertussis vaccine, adsorbed Rollyalfonso AZUL [facility] 07-08-2000 Hep A, unspecified formulation Rolly AZUL [facility] 10-25-1999 Hep A, unspecified formulation Rolly AZUL [facility] Payers Date Payer Category Payer Medicare [id number] 2022 Medicare [id number] 2022 Unknown [id number] 1959 Unknown [id number] 1961 Unknown [id number] 1960 Unknown [id number] 2.16. [id number] 1958 Unknown [id number] 2.16.84 0.1.061976.3.579.2.593 1958 Unknown [id number] 2.16.84 0.1.271593.3.579.2.593 1958 Unknown [id number] 2.16.84 0.1.944417.3.579.2.593 1958 Unknown [id number] 2.16.8 40.1.656433.3.579.2.727 1958 Unknown [id number] 2.16.8 40.1.930834.3.579.2.727 1958 Unknown [id number] 2.16.8 40.1.494942.3.579.2.727 1958 Unknown [id number] 2.16.8 40.1.914491.3.579.2.727 1958 Unknown [id number] 2.16.8 40.1.390648.3.579.2.727 1958 Unknown [id number] 2.16.8 40.1.405188.3.579.2.727 1958 Unknown [id number] 2.16.8 40.1.901608.3.579.2.727 1958 Unknown [id number] 2.16.8 40.1.560147.3.579.2.727 1958 Unknown [id number] 2.16.8 40.1.830376.3.579.2.727 1958 Unknown [id number] 2.16.8 40.1.671994.3.579.2.727 1958 Unknown [id number] 2.16.8 40.1.044931.3.579.2.727 Private Health Insurance [id number] Social History Date Type Detail Facility Start: 08-30-2021 End: 10-02-2023 Tobacco smoking status Never smoked tobacco (finding) [facility] Sex Assigned At Male [facility] Tobacco smoking status Never [facility] Functional Status Date Assessment Result Facility 05-29-2023 Functional Status No [facility] 03-20-2023 Functional Status N/A [facility] 02-26-2023 Functional Status N/A [facility] 02-17-2022 Functional Status N/A [facility] 12-28-2021 Functional Status No [facility] 11-24-2021 Functional Status No [facility] 11-15-2021 Functional Status N/A [facility] Clinical Notes 08-30-2021 to 03-20-2023 RadiologyLaboratoryLaboratory Note [...] including vitamins, herbs, eye drops, creams, and hvuy-afh-ncxoykq medicines. Any problems you or family members [...] provider tells you to take them. Taking zufz-qqq-mizeqhn medicines, vitamins, herbs, and supplements. Surgery safety [...] provider. Document Revised: 01/24/2022 Document Reviewed: 01/24/2022 [employer] Patient Education 2022 [email or web address]. 03/20/2023 14:37:26 [facility] - Cystoscopy Discharge Instructions [...] With:Rolly AZUL Address: [facility] [address] [place] [address]- Business (1) When: Unknown Comments:Office will call to schedule follow up [facility] 03-20-2023 Note Cystoscopy ? Voiding after the [...] including vitamins, herbs, eye drops, creams, and dtho-duz-mhcjnxk medicines. ? Any problems you or family [...] tells you to take them. ? Taking icmo-ekp-wekndkv medicines, vitamins, herbs, and supplements. Surgery safety [...] asleep (general anesthetic) (more content not included)... [facility] 03-20-2023 Note [id number] [facility] 02-26-2023 Hospital Discharge instructions Patient Education [...] urethra. Follow these instructions at home: Take iwtp-ctw-gjuicfo and prescription medicines only as told by [...] provider. Document Revised: 11/16/2021 Document Reviewed: 11/16/2021 [employer] Patient Education 2022 [email or web address]. Follow Up Care 12/18/2022 10:51:11 With:DANIELLA HURLEY, Rolly Bautista, CASPER Address: [facility] [address] [place] [address]- When: Unknown Comments:Sched Cysto and Bladder Function Test [facility] 02-16-2022 Hospital Discharge instructions Follow Up Care 02/16/2022 11:04:35 With:Elis HURLEY, Brennan Moreno Address: [address] [place] [address] [place] [address]- When: only if needed [facility] 11-15-2021 Hospital Discharge instructions Patient Education 11/15/2021 [...] including vitamins, herbs, eye drops, creams, and dgxc-skv-xxzwzkb medicines. Any problems you or family members [...] provider tells you to take them. Taking rfww-jba-dawhdtg medicines, vitamins, herbs, and supplements. Eating and [...] 04/30/2006 Document Revised: 08/20/2019 Document Reviewed: 01/29/2019 [employer] Patient Education 2020 [email or web address]. Follow Up Care 10/20/2021 08:45:04 With:Raimundo Ortiz MD, Lauro Madison, URO Address: [facility] [address] [place] [address]- [phone] When: Unknown [facility] 09-19-2021 Hospital Discharge instructions Patient Education 09/19/2021 [...] urethra. Follow these instructions at home: Take oqmk-tmg-yikcwyl and prescription medicines only as told by [...] 04/30/2006 Document Revised: 03/25/2019 Document Reviewed: 06/04/2017 [employer] Patient Education 2019 [email or web address]. Follow Up Care 08/30/2021 15:35:27 With:Raimundo Ortiz MD, Lauro Madison, URO Address: [facility] [address] [place] [address]- When: Unknown Comments:will follow up after a urolift [facility] 08-30-2021 Hospital Discharge instructions Patient Education 08/30/2021 [...] including vitamins, herbs, eye drops, creams, and rozj-nlo-absbgxv medicines. Any problems you or family members [...] provider tells you to take them. Taking zhat-lvv-hvcyjfv medicines, vitamins, herbs, and supplements. Eating and [...] 04/30/2006 Document Revised: 08/20/2019 Document Reviewed: 01/29/2019 [employer] Patient Education 2020 [email or web address]. Follow Up Care 07/27/2020 10:36:44 With:Raimundo Ortiz MD, Lauro Madison, URO Address: [facility] [address], [facility] [place] [address]- [phone] When: Unknown [facility] Evaluation + Plan note Future Appointments Appointment Date:09/19/2021 01:15:00 PM Scheduled Provider:Lauro Eubanks Jr., MD Location:[facility] Appointment Type:URO Procedure 15 min [facility] Evaluation + Plan note Future Appointments Appointment Date:12/08/2021 09:00:00 AM Scheduled Provider: Location:[facility] Surgical Services Appointment Type:Surgery FT [facility] Evaluation + Plan note Future Appointments Appointment Date:12/15/2021 01:30:00 PM Scheduled Provider:[facility]ren[facility] Gillis [facility]Cardiology New Patient (FT) [facility] Evaluation + Plan note Future Appointments Appointment Date:02/08/2022 08:00:00 AM Scheduled Provider: [facility] App[facility] Type:NM Myocard Spect Multi Rest/Stress-Res Appointment Date:02/08/2022 09:00:00 AM Scheduled Provider: [facility] Appointment Type:NM Myocard Spect Multi Rest/Stress - R Appointment Date:02/08/2022 09:30:00 AM Scheduled Provider: [facility] Appointment Type:NM Myocard Spect Multi Rest/Stress-Str Appointment Date:02/08/2022 10:30:00 AM Scheduled Provider: [facility] Appointment Type:NM Myocar Spect Multi Rest/Stress - St Future Scheduled TestsNM Myocardial Spect Rest/Stress 1 Day 02/08/22 [facility] Evaluation + Plan note Future Scheduled TestsBasic Metabolic Panel 03/03/22 [facility] Evaluation + Plan note Future Appointments Appointment Date:03/13/2023 01:15:00 PM Scheduled Provider: Location:[facility] Urology Surgical Services Appointment Type:Urology CALL PAT FT Appointment Date:03/20/2023 01:00:00 PM Scheduled Provider: Location:[facility] Surgical Services Appointment Type:Urology FT Appointment Date:03/20/2023 02:15:00 PM Scheduled Provider: Location:[facility] Surgical Services Appointment Type:Urology FT Future Scheduled TestsBasic Metabolic Panel 03/03/22 [facility] Evaluation + Plan note Future Appointments Appointment Date:05/28/2023 09:00:00 AM Scheduled Provider: [facility] Type:URO Nurse Visit Appointment Date:06/11/2023 09:15:00 AM Scheduled Provider:Rolly AZUL MD [facility] Type:URO Office Visit [facility] Evaluation + Plan note Future Appointments Appointment Date:06/25/2023 09:00:00 AM Scheduled Provider: Location:[facility] Appointment Type:URO Nurse Visit Appointment Date:07/09/2023 09:30:00 AM Scheduled Provider:Rolly AZUL MD [facility] Type:URO Office Visit [facility] Evaluation + Plan note Future Appointments Appointment Date:07/09/2023 09:30:00 AM Scheduled Provider:Rolly AZUL MD Location:[facility] Appointment Type:URO Office Visit [facility] Evaluation + Plan note Future Appointments Appointment Date:11/05/2023 09:30:00 AM Scheduled Provider: Location:[facility] Appointment Type:FM Medicare Wellness Welcome Appointment Date:11/05/2023 10:30:00 AM Scheduled Provider:Cesar Calles MD Location:[facility] [place] Appointment Type:FM Open Appointment Date:11/12/2023 09:45:00 AM Scheduled Provider:Rolly AZUL MD Location[facility] [place] Appointment Type:URO Office Visit [facility] Hospital course Narrative No data available for this section [facility] Hospital Discharge instructions No data available for this section [facility] Progress note No data available for this section [facility] Summary Purpose Family History No Family History Records FoundNo Family History Records Found No data available for this section No data available for this section No data available for this section No data available for this section No data available for this section No Family History Records Found Advance Directives No Advanced Directives Records FoundNo Advanced Directives Records FoundNo Advanced Directives Records Found Additional Source Comments Care Team (unrecognized sect ion and content) Personnel Name: Nahid Junior DO Address: [address] [place] [address] Personnel Name: Vernon TURK Nahid Tyra Address: [address] [place] [address] Personnel Name: Vernon TURK Nahid Tyra Address: [address] [place] [address] Personnel Name: Nahid Junior DO Address: [address] [place] [address] Personnel Name: Vernon TURK Nahid Tyra Address: [address] [place] [address] Personnel Name: Nahid Junior DO Address: [address] [place] [address] Personnel Name: Nahid Junior DO Address: Address: [address] [place] [address] Personnel Name: Nahid Junior DO Address: Address: [address] [place] [address] Personnel Name: Nahid Junior DO Address: Address: [address] [place] [address] Personnel Name: Nahid Junior DO Address: Address: [address] [place] [address]- [place] Personnel Name: NAHID JUNIOR DO Address: Address: [address] [place] [address]- Personnel Name: Cesar Calles MD Address: Address: [address] [place] [address]- [place] (unrecognized sect ion and content) No Status Records FoundNo Status Records FoundNo Status Records Found INFORMATION SOURCE (unrecogn ized section and content) DATE CREATED AUTHOR 02/22/2022 [facility] DATE CREATED AUTHOR AUTHOR'S ORGANIZ ATION 09/07/2022 [facility] DATE CREATED AUTHOR AUTHOR'S ORGANIZ ATION 10/29/2023 [facility] FOR RECORDS PERTAINING TO PATIENTS WHO [...] BE BASED ON THE PRIMARY CLINICAL RECORDS. [facility] [employer] provides no warranty or guarantee of the accuracy or completeness of information in this document.
[2023-11-01 09:13] LABS: Estimated GFR (African America >60 (>=60); Estimated GFR (Non-African Ame >60 (>=60)
== END 2023-11-01 08:55 | disposition home or self-care (01) ==
LOC: LAB 08:54
PROVIDERS: PCP Family Medicine; Visit Provider Family Medicine
DX: R22.42 Localized swelling, mass and lump, left lower limb (principal)
CPT/HCPCS: 36415; 72193; 82565; Q9967

== ENCOUNTER 2023-12-05 08:57 | Outpatient (OUT) | payer MEDICARE, SELFPAY ==
--- NOTE | 2023-12-05 09:01 | ECG_ITS ---
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
--- OUTSIDE RECORDS SUMMARY | 2023-12-05 09:19 | XMS_ITS | CCD ---
Author Organization [facility] Care Team Providers Care Museum Registrar Name Role Phone Nahid Junior Primary Care Physician [phone] VERNON, DR DEJESUS Primary Care Unavailable MADHURI ., HIRAL PALACIOS Consulting Unavailabl e SHAIKH Godfrey REED Admitting Unavailable CLIFF REEDIKGodfrey Donahue Attending Unavailable JT TAYLOR Consulting Unavailable FASHAIKH Godfrey DUVAL Consulting Unavailable VERNON, DR DEJESUS Admitting Unavailable AKRON, DR DEJESUS Attending Unavailable AKRON, DR DEJESUS Primary Care Unavailable AKRON, DR DEJESUS Consulting Unavailable [facility] DR JANE Admitting Unavailable [facility] [place] DR JANE Attending Unavailable AKRON, DR DEJESUS Primary Care Unavailable [facility] [place], DR JANE Consulting Unavailable Nahid Junior Primary Care Physician [phone] NAHID JUNIOR Primary Care Physician Cesar Calles Primary Care Physician Rolly AZUL Attending Unavailable AZUL, Rolly Bautista Attending Unavailable AZUL, Rolly Bautista Admitting Unavailable AZUL, Rolly Bautista Attending Unavailable AZUL, Rolly Bautista Referring Unavailable AZUL, Rolly Bautista Attending Unavailable AZUL, Rolly Bautista Attending Unavailable AZUL, Rolly Bautista Attending Unavailable NONE, XXXX Referring Unavailable Brennan Gillis Attending Unavaila ble Cesar Calles Attending Unavailable Cesar Calles Attending Unavailable Cesar Calles Referring Unavailable Cesar Calles Admitting Unavailable Cesar Calles Attending Unavailable Cesar Calles Admitting Unavailable Rolly AZUL Attending Unavailable Cesar Calles Attending Unavailable Cesar Calles Attending Unavailable Cesar Calles Attending Unavailable Cesar Calles Attending Unavailable Rolly AZUL Attending Unavailable NILL, Norbert Bautista Attending Unavailable Cesar Calles Referring Unavailable Allergies Allergy Classification Reported Allergen(s) Allergy Type Date of Onset Reaction(s) Facility (1 source) No Known Medication Allergies; Translations: [No Known Medication Allergies] Propensity to adverse reactions (disorder) [facility] Repository Medications Current Medications Medication Drug Class(es) Dates Sig (Normalized) Sig (Original) aspirin 81 mg oral tablet (2 sources) Platelet Aggregation Inhibitor, Nonsteroidal Anti-inflammatory Drug Start: 03-05-2019 aspirin 81 mg oral tablet 81 mg = 1 tab(s), Oral, WedFri, Refills(s) 0 Start Date: 03/05/19 Status: Ordered dutasteride 0.5 mg oral capsule (8 sources) 5-alpha Reductase Inhibitor Start: 02-26-2023 take 1 capsule by mouth once daily dutasteride 0.5 mg Cap 0.5 mg = 1 cap(s), Oral, Daily, # 30 cap(s), Refills(s) 11, Pharmacy: [facility]/pharmacy #[id number], 170, cm, 02/26/23 13:09:00 EDT, Height/Length Dosing, 97.7, kg, 02/26/23 13:09:00 EDT, Weight Dosing Start Date: 02/26/23 Status: Ordered losartan potassium 100 mg oral tablet (5 sources) Angiotensin 2 Receptor Maryann Start: 11-05-2023 take 1 tablet by mouth once daily losartan 100 mg Tab 100 mg = 1 tab(s), Oral, Daily, # 90 tab(s), Refills(s) 0, Pharmacy: [facility]/pharmacy #[id number], 170, cm, 11/05/23 10:34:00 EDT, Height/Length Dosing, 100, kg, 11/05/23 10:34:00 EDT, Weight Dosing Start Date: 11/05/23 Status: Ordered Start: 10-02-2023 take 1 tablet by linda th once daily losartan 50 mg Tab 50 mg = 1 tab(s), Oral, Daily, # 90 tab(s), Refills(s) 0, Pharmacy: [facility]/pharmacy #[id number], 170, cm, 10/02/23 8:33:00 EDT, Height/Length Dosing, 101, kg, 10/02/23 8:33:00 EDT, Weight Dosing Start Date: 10/02/23 Status: Ordered Start: 02-17-2022 take 1 tablet by linda th once daily losartan 25 mg Tab 25 mg = 1 tab(s), Oral, Daily, # 30 tab(s), Refills(s) 5, Pharmacy: [facility]/pharmacy #[id number], 170, cm, 02/17/22 9:35:00 EDT, Height/Length [...] bedtime), # 30 cap(s), Refills(s) 1, Pharmacy: [facility]/pharmacy #[id number], 170, cm, 08/30/21 9:37:00 EDT, Height/Length [...] day(s), # 2 cap(s), Refills(s) 0, Pharmacy: [facility]/pharmacy #[id number], 170, cm, 02/26/23 13:09:00 EDT, Height/Length [...] procedure, # 2 tab(s), Refills(s) 0, Pharmacy: [facility]/pharmacy #[id number], 170, cm, 08/30/21 9:37:00 EDT, Height/Length Dosing, 101.9, kg, 08/30/21 9:37:00 EDT, Weight Dosing Start Date: 08/30/21 Status: Ordered Problems Active Problems Problem Classification Problem Date Documented Date Episodic/Chronic Essential hypertension (5 sources) Essential hypertension; Translations: [Essential (primary) hypertension] Onset: 02-17-2022 Chronic Genitourinary symptoms and ill-defined conditions (20 sources) Nocturia; Translations: [Nocturia] Onset: 08-30-2021 Episodic Hyperplasia of prostate (20 sources) Benign prostatic hypertrophy with outflow obstruction; Translations: [Benign prostatic hyperplasia with lower urinary tract symptoms] Onset: 08-30-2021 Chronic Lymphadenitis (5 sources) Inguinal lymphadenopathy; Translations: [Localized enlarged lymph nodes] Onset: 11-12-2023 10-02-2023 Episodic Other diseases of kidney and ureters (2 sources) Urinary tract obstruction; Translations: [Other obstructive and reflux uropathy] Onset: 09-19-2021 Episodic Other male genital disorders (2 sources) Prostatic intraepithelial neoplasia; Translations: [Prostatic intraepithelial neoplasia] Onset: 08-30-2021 Episodic Other nutritional; endocrine; and metabolic disorders (4 sources) Body mass index 30+ - obesity 10-02-2023 Chronic Other nutritional; endocrine; and metabolic disorders (2 sources) Morbid obesity 10-02-2023 Chronic Other nutritional; endocrine; and metabolic disorders (2 sources) Obesity caused by energy imbalance 11-13-2023 Chronic Other screening for suspected conditions (not mental disorders or infectious disease) (20 sources) Raised prostate specific antigen; Translations: [Elevated prostate specific antigen [PSA]] Onset: 08-30-2021 Episodic Other skin disorders (3 sources) Mass of subcutaneous tissue of left lower limb; Translations: [Localized swelling, mass and lump, left lower limb] Onset: 11-13-2023 Episodic Other upper respiratory disease (4 sources) Seasonal allergy 10-02-2023 Chronic Unclassified (14 sources) Drug therapy finding 05-28-2019 Unclassified (17 sources) Prostatic intraepithelial neoplasia high grade 03-05-2019 [...] Name Value Interpretation Reference Range Facil ity CHEMISTRYOrdered By: SYSTEM SYSTEM on 12-03-2023 Albumin [Mass/Vol] 4.3 g/dL Normal 3.3 - 5.0 gm/dL R emisol Chem Albumin/Globulin [Mass ratio] 1.4 {ratio} Normal 1.1 - 2.2 Remisol Chem ALP [Catalytic activity/Vol] 60 [iU]/d Normal 21 - 98 Int._Unit/L Remisol Chem ALT No additional P-5'-P [Catalytic activity/Vol] 36 [iU]/d Normal 6 - 46 Int._Unit/L Remisol Chem Anion gap [Moles/Vol] 10 mmol/L Normal 6 - 16 mEq/L Remisol Chem AST [Catalytic activity/Vol] 24 [iU]/d Normal 5 - 43 Int._Unit/L Remisol Chem Bilirubin [Mass/Vol] 1.1 mg/dL Normal 0.0 - 1.1 mg/dL Remisol Chem Calcium [Mass/Vol] 9.8 mg/dL Normal 8.9 - 11.1 mg/dL Remisol Chem Chloride [Moles/Vol] 106 mmol/L Normal 101 - 111 mmol/ L Remisol Chem Cholesterol [Mass/Vol] 228 mg/dL High 120 - 200 mg/dL Remisol Chem Cholesterol in HDL [Mass/Vol] 34 mg/dL Invalid Interpretation Code Remisol Chem Comment on above: Result Comment: '>= 60 LOW RISK' '<= 40 HIGH RISK' Cholesterol in LDL [Mass/Vol] 163 mg/dL High <=129mg/dL Remisol Chem Cholesterol in VLDL [Mass/Vol] 32 mg/dL Normal 7 - 40 mg/dL Remisol Chem CO2 [Moles/Vol] 26 mmol/L Normal 21 - 31 mmol/L Remis ol Chem Creatinine [Mass/Vol] 1.0 mg/dL Normal 0.5 - 1.3 mg/dL Remisol Chem eGFR 83 mL/min/1.73 m2 Normal >=59mL/min /1.73 m2 Remisol Chem Globulin (S) [Mass/Vol] 3.0 g/dL Normal 1.4 - 4.0 gm/dL Remisol Chem Glucose [Mass/Vol] 126 mg/dL Normal 55 - 199 mg/dL Re misol Chem Potassium [Moles/Vol] 4.2 mmol/L Normal 3.5 - 5.3 mmol/L Remisol Chem Prostate specific Ag [Mass/Vol] 1.1 ng/mL Normal 0.1 - 3.5 ng/mL Remisol Chem Comment on above: Interpretive Data: T he concentration of PSA determined by different manufacturers can vary due to differences in assay methods and reagent specificity. Values obtained from different assay methods cannot be used interchangeably. The methodology used for this result was chemiluminescence using [employer]s Access Hybritech PSA reagent. Protein [Mass/Vol] 7.3 g/dL Normal 6.0 - 7.8 gm/dL R emisol Chem Sodium [Moles/Vol] 138 mmol/L Normal 135 - 145 mmol/L Remisol Chem Triglyceride [Mass/Vol] 160 mg/dL High <=149mg/dL Remisol Chem Urea nitrogen [Mass/Vol] 16 mg/dL Normal 5 - 21 mg/dL Remisol Chem Urea nitrogen/Creatinine [Mass ratio] 16 mg/mg Normal 10 - 20 Remisol Chem Family Medicine Office/Clini c Noteon 12-02-2023 Family Medicine Office/Clinic Note Family Medicine Office/Clinic Note Chief Complaint Welcome to Medicare Visit HPI Staff Dawn is a 63 year old male presenting for brief visit after initial AMW exam BP elevated recheck BP: 152/100 History of Present Illness Covid-19, MERS, Ebola Screen *Contact With Person With Highly Contagious Disease Like Ebola/MERS/COVID-19 AND Have One or More of the Symptoms Below : No *Travel to a Country With Wide-Spread Ebola/MERS/COVID-19 in the Past 21 Days AND Have One or More of the Symptoms Below : No Patient Reported Covid-19 Testing : No *Verify Droplet, Contact Precautions for Ebola (Reference for CDC) : N/A *Verify Airborne, Droplet Precautions for MERS/COVID-19 : N/A Jeana Houser LPN 11/05/2023 9:35 EDT Medicare/Medicaid Summary Chief Complaint : Welcome to Medicare Visit Systolic Blood Pressure : 172 mmHg (HI) Diastolic Blood Pressure : 110 mmHg (HI) Blood Pressure Location : Left arm Blood Pressure Position : Sitting O2 Sat Resting/Exertion Alpha : Resting Peripheral Pulse Rate : 65 bpm Respiratory Rate : 16 br/min SpO2 : 95 % Pain Present : No actual or suspected pain Jeana Houser LPN 11/05/2023 10:32 EDT Patient Counseled : Nutrition, Physical activity, Elevated BMI Height/Length Measured : 170 cm(Converted to: 5 ft 7 in, 66.93 in) Weight Measured : 100 kg(Converted to: 220 lb 7 Ounces, 220.462 lb) Body Mass Index Measured : 34.6 kg/m2 Height in Inches : 67 in Weight in Pounds : 220 lb Jeana Houser LPN 11/05/2023 9:35 EDT Hearing and Vision Screening FT FT Whisper Test Comments : No deficits noted. Vision Screen Comments : Wears corrective lenses, goes to [facility] for eye exams. Jeana Houser LPN 11/05/2023 9:35 EDT Advance Directive FT Advance Directive : Yes Type of Advance Directive : Living will, Medical durable power of banking attorney Patient Wishes to Receive Further Information on Advance Directives : No Organ Donation Consent : Yes Jeana Houser LPN - 11/05/2023 9:35 EDT Procedures / Surgeries FT - Procedure History (As Of: 11/05/2023 10:34:32 EDT) Anesthesia Minutes: 0 ; Procedure Name: Umbilical hernia ; Procedure Minutes: 0 ; Last Reviewed Dt/Tm: 11/05/2023 09:42:28 EDT Procedure Dt/Tm: 02/19/2019 ; Provider: Krishna Ma MD; Anesthesia Minutes: 0 ; Procedure Name: Transrectal biopsy of prostate using ultrasound (US) guidance ; Procedure Minutes: 0 ; Last Reviewed Dt/Tm: 11/05/2023 09:42:28 EDT Procedure Dt/Tm: 09/19/2021 ; Provider: Lauro Eubanks Jr., MD; Anesthesia Minutes: 0 ; Procedure Name: Cystoscopy ; Procedure Minutes: 0 ; Last Reviewed Dt/Tm: 11/05/2023 09:42:28 EDT Procedure Dt/Tm: 06/21/2023 ; Provider: Rolly AZUL MD; Anesthesia Minutes: 0 ; Procedure Name: Cystourethroscopy with dilation of urethral stricture ; Procedure Minutes: 0 ; Last Reviewed Dt/Tm: 11/05/2023 09:42:28 EDT Procedure Dt/Tm: 03/20/2023 ; Provider: Rolly AZUL MD; Anesthesia Minutes: 0 ; Procedure Name: Cystoscopy ; Procedure Minutes: 0 ; Last Reviewed Dt/Tm: 11/05/2023 09:42:28 EDT Procedure Dt/Tm: 06/21/2023 ; Provider: Rolly AZUL MD; Anesthesia Minutes: 0 ; Procedure Name: TURP - Transurethral resection of prostate ; Procedure Minutes: 0 ; Last Reviewed Dt/Tm: 11/05/2023 09:42:28 EDT Anesthesia Minutes: 0 ; Procedure Name: Colonoscopy ; Procedure Minutes: 0 ; Last Reviewed Dt/Tm: 11/05/2023 09:42:28 EDT Family History Family History (As Of: 11/05/2023 10:34:32 EDT) Father: Relation: Father ; Gender: Male ; Negative History Mother: Relation: Mother ; Gender: Female ; Nomenclature: Dementia ; Value: Positive Medicare/Medicaid Social History FT Social History (As Of: 11/05/2023 10:34:32 EDT) Alcohol: Low Risk Current, 1-2 times per month, 1 drinks/episode average. 2.00 drinks/episode maximum. Alcohol use interferes with work or home: No. Drinks more than intended: No. Others hurt by drinking: No. Ready to change: No. Household alcohol concerns: No. Comments: 11/05/2023 9:43 - Jeana Houser LPN: Patient states he drinks alcohol monthly or less, 1-2 drinks per episode. (Last Updated: 11/05/2023 09:43:37 EDT by Jeana Houser LPN) Tobacco: Denies Tobacco Use Never (less than 100 in lifetime) Tobacco Use:. Never Smokeless Tobacco Use:. Household tobacco concerns: No. Yes (Last Updated: 10/02/2023 08:31:10 EDT by Cecy Isidro) Substance Abuse: Denies Substance Abuse (Last Updated: 10/02/2023 08:31:13 EDT by Cecy Isidro ) Health Risk Assessment FT HRA little interest or pleasure? : No HRA down, depressed, or hopeless? : No Hazards in your house? : No Fall Risk Past Year : No Worried About Falling : No Use a Cane or Walker? : No Someone Helps You in the Morning : No Fallen or felt dizzy standing up? : No Assistance with personal care? : No Trouble taking meds correctly? : No HRA Pain Present : No Able to walk without help? : Yes Ability to shop w/out help : Yes (more content not included)... Normal [facility] Comment on above: Result Comment: Elec tronically Signed By: Cesar Calles MD\.br\Date and Time Signed: 12/02/23 13:17 EDT\.br\Electronically Co-Signed By: Jeana Houser LPN\.br\Date and Time Co-Signed: 11/05/23 10:53 EDT Ambulatory Visit Summaryon 0 11-13-2023 Ambulatory Visit Summary Ambulatory Visit Summary DAWN ROCK :1960 Visit Date:11/13/2023 Ambulatory Visit Instructions Your Care Team Attending Physician - Norbert AGUDELO MD Primary Care Physician - Cesar Calles MD Referring Physician - Cesar Calles MD This Is Your Medications List dutasteride (dutasteride 0.5 mg Cap) losartan (losartan 100 mg Tab) Procedures Performed Cystourethroscopy with dilation of urethral stricture (06/21/2023), TURP - Transurethral resection of prostate (06/21/2023), Cystoscopy (03/20/2023), Cystoscopy (09/19/2021), Transrectal biopsy of prostate using ultrasound (US) guidance (02/19/2019), Colonoscopy, Umbilical hernia. Discharge Vitals Heart Rate (Peripheral) 60 Respiratory Rate 16 Blood Pressure 163/98 Height 170 cm Height 67 in Weight 98.8 kg Weight 217.36 lb BMI 34.19 What to do next Scheduled Follow-Up Appointments Sunday 8:20 AM EDT With: Where: [facility] [place] Invalid Interpretation Code [address] [place] [address]- \.br\ Sunday 9:45 AM EST \.br\ With: DANIELLA HURLEY, Rolly Bautista\.br\ Where: [facility] Urology Office/Clinic Noteon 11-12-2023 Urology Office/Clinic Note Urology Office/Clinic Note Chief Complaint BPH and elevated PSA HPI Staff Pt is here for 4 month F/U with UA/ CT pelvis w con @ [facility] 10/14/23 Previous DX; BPH, Elevated PSA Current PSA- 08/28/22 2.85 Pt was scheduled for Urolift. Urolift attempted 10/20/21. However procedure was terminated due to intolerance from pt. Pt then got an infection, sent to [facility] Has tried Tamsulosin & Terazosin in the past. Only slight improvement with each. 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 Dysuria: no Incomplete bladder emptying: no Hematuria: no Frequency: no Urgency: no Nocturia: 2x Stream: good steady strong Leaking: only if he holds it too long Post void dripping: yes Wearing pads/ Depends: no Urge incontinence: no Stress incontinence: no Incontinence without Sensory Awareness: no Abdominal pain: no Flank pain: no Sexual complaints: no History of Present Illness Tests reviewed: reviewed UA, CT scan I have reviewed the previous health record [...] See HPI. Physical Exam Vitals & Measurements T: 37 ?C(Temporal Artery) HR: 79(Peripheral) RR: 16 BP: 138/87 HT: 67 in HT: 170 cm WT: 97 kg WT: 213.4 lb BMI: 33.56 General Appearance: alert, no distress, well nourished, well developed male. Assessment/Plan 1. BPH with obstruction/lower urinary tract symptoms (N40.1: Benign prostatic hyperplasia with lower urinary tract symptoms) S/p Cysto 09/19/21 Pt was then scheduled for Urolift. Urolift attempted 10/20/21. However procedure was terminated due to intolerance from pt. 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 Pt was seen in [place] for infection after procedure was terminated. Pt took Cefdinir for 4 days for infection. Pt states he was admitted to [facility] because of an infection on 10/21/2021. Pt stayed one night at [facility] and then was sent to [facility] since we did not have a Urologist supervisor [employer]. Pt states that he was having problems voiding at first but was eventually able to pass his urine on his own and did not need a cath. [place] took pt off Terazosin and put him on Flomax. Pt was then scheduled for TURP. Abnormal EKG. Surgery was then cancelled, awaiting cardiac clearance. Pt cleared by [facility] [place]17/22. [1] Tried Tamsulosin & Terazosin in the past. Only slight improvement with each. S/p Cysto/Urodynamics 03/20/23. S/p TURP 06/21/23. 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 UA today negative for blood and infection. Taking Dutasteride 0.5mg qd. Has good stream to start but slows towards the end. Gets up 1-2x/night to void, ongoing since childhood. -Cont Dutasteride wo changes. Pt to call for refills. -Cont sx monitoring 2. Elevated PSA (R97.20: Elevated prostate specific antigen [PSA]) PSA 08/28/21 - 3.3 08/28/22 - 2.85 TRUS/bx 02/19/19 - HGPIN x2. Hx of fluctuating PSA. Dr. Calles has order in for PSA, states he is getting this done soon. -Cont PSA monitoring w/ PCP 3. LAD (lymphadenopathy), inguinal (R59.0: Localized enlarged lymph nodes) US Extremity Non-Vascular Left 10/15/23 [facility] - Heterogenous ovoid structure measuring 3.8 x 4.5 x 1.2 cm with internal blood flow located in L inguinal soft tissue that is nonspecific. CT Pelvis w con 11/01/23 [facility] - Small fat filled R inguinal hernia wo strangulation. Irregular soft tissue mass vs abnormal lymph node(s) within medial L groin region, 3.6 x 3.4 x 1.8 cm, corresponds to overlying skin surface marker localizing the pt's palpable lump. States he has an appt tomorrow to discuss next steps for this. Follow-up With When Contact Information DANIELLA HURLEY, Rolly Bautista, URL [facility] [address] , [place] [address]- [phone] Additional Instructions: 6 mos (PCP checks PSA) Patient Education Benign Prostatic Hyperplasia I, Neema Acuna, personally scribed for Dr. Azul on 11/12/2023 10:42:24. . Documentation recorded by the scribe, Neema Acuna, accurately reflects the services(s) I performed and decisions made by me. Authenticated by Dr. Azul on 11/12/2023 10:48:41. Problem List/Past Me (more content not included)... Normal [facility] Comment on above: Result Comment: Elec tronically Signed By: Rolly AZUL MD\.br\Date and Time Signed: 11/12/23 10:48 EDT\.br\Electronically Co-Signed By: Neema Acuna\.br\Date and Time Co-Signed: 11/12/23 10:44 EDT Ambulatory Visit Summaryon 0 11-05-2023 Ambulatory Visit Summary Ambulatory Visit Summary DAWN ROCK :1960 Visit Date:11/05/2023 Ambulatory Visit Instructions Your Diagnosis Annual visit for general adult medical examination with abnormal findings HTN (hypertension) BPH with obstruction/lower urinary tract symptoms Screening for ischemic heart disease Prostate cancer screening Encounter for hepatitis C screening test for low risk patient Nonsmoker BMI 34.0-34.9,adult Class 1 obesity due to excess calories in adult LAD (lymphadenopathy), inguinal Your Care Team Attending Physician - Cesar Calles MD Primary Care Physician - Cesar Calles MD This Is Your Medications List losartan (losartan 100 mg Tab) Contact prescribing physician if questions or concerns dutasteride (dutasteride 0.5 mg Cap) Procedures Performed Cystourethroscopy with dilation of urethral stricture (06/21/2023), TURP - Transurethral resection of prostate (06/21/2023), Cystoscopy (03/20/2023), Cystoscopy (09/19/2021), Transrectal biopsy of prostate using ultrasound (US) guidance (02/19/2019), Colonoscopy, Umbilical hernia. Discharge Vitals Heart Rate (Peripheral) 65 Respiratory Rate 16 Blood Pressure 172/110 Height 170 cm Height 67 in Weight 100 kg Weight 220 lb BMI 34.6 What to do next Scheduled Follow-Up Appointments Sunday 9:45 AM EDT With: Rolly AZUL MD Where: [facility] Invalid Interpretation Code [address] [place] [address]- \.br\ Sunday 10:15 AM EDT \.br\ With: Cesar Calles MD\.br\ Where: [facility] Patient Educationon 11-05-19 Patient Education Infectious Disease Hepatitis C Testing Why am I having this test? Hepatitis C testing is done to check for a liver infection caused by the hepatitis C virus (HCV). A person may have one or more hepatitis C tests done to: ? Help the health care provider diagnose HCV infection. This is if a person has possible signs of infection or has been exposed to HCV. ? Find the cause of long-term (chronic) liver disease or abnormal liver function test results. ? See if a person has had hepatitis C in the past. Hepatitis C is usually diagnosed with three blood tests: ? Anti-HCV test, also called the HCV antibody test. ? HCV RNA test. ? HCV genotype test. If a person is diagnosed with a current (active) HCV infection, he or she may have another test done to help monitor the condition during treatment. This test is called the quantitative HCV RNA test. What is being tested? Each HCV test measures the amounts of different substances in your blood. ? The anti-HCV test checks for proteins that your body makes to fight HCV (antibodies). If you have antibodies to HCV, it means you have been infected with hepatitis C. It does not necessarily mean that you have an active infection. ? The HCV RNA test checks for genetic material from HCV. This test is done if your HCV antibody test is positive and your health care provider wants to find out if you have an active infection. ? The HCV genotype test. This test identifies the type (genotype) of virus you have. ? The quantitative HCV RNA test measures the amount of virus in your blood (viral load). What kind of sample is taken? A blood sample is required for HCV tests. It is usually collected by inserting a needle into a vein in the arm. How are the results reported? ? Anti-HCV test results are reported as either positive or negative for HCV antibodies. ? HCV RNA test results are reported as either positive or negative for HCV genetic material. ? HCV genotype test results are reported as which genotype of the virus you have. Genotypes are numbered 1 through 6. ? Quantitative HCV RNA test results are reported as a number that indicates your viral load. This is given as international units of virus per milliliter of blood (IU/mL). ? A result of 800,000 IU/mL or greater is considered a high viral load. ? A result of less than 800,000 IU/mL is considered a low viral load. Sometimes, results from the anti-HCV test or the HCV RNA test may report that: ? HCV antibodies or genetic material are present when they are not present (false-positive result). ? HCV antibodies or genetic material are not present when they are present (false-negative result). What do the results mean? For the anti-HCV test: ? A negative result may mean that you have not been infected with HCV. You may need to have this test done again to confirm this result. ? A positive result may mean that you have an active HCV infection, or that you have been infected with HCV in the past. An HCV infection may not cause any symptoms, and your body may get rid of the virus without treatment. For the HCV RNA test: ? A negative result means that you do not have an active HCV infection. ? A positive result means that you have an active HCV infection. For the HCV genotype test, knowing the specific genotype you have will help your health care provider recommend the treatment that will work best for you. The quantitative HCV RNA test gives your health care provider an idea of how well your treatment is working. ? If your viral load is high, you may need different treatment. ? If your viral load is low, your treatment may be working effectively. ? You may have this test repeated to continue to monitor your treatment. Talk with your health care provider about what your results mean. Questions to ask your health care provider Ask your health care provider, or the department that is doing the test: ? When will my results be ready? ? How will I get my results? ? What are my treatment options? ? What other tests do I need? ? What are my next steps? Summary ? Hepatitis C testing is done to check for a liver infection caused by the hepatitis C virus (HCV). ? Hepatitis C is usually diagnosed with three blood tests and monitored with one test. ? A blood sample is required for these tests. It is usually collected by inserting a needle into a vein in the arm. ? Your test results for both the anti-HCV test and the HCV RNA test will be reported as either positive or negative. This information is not intended to replace advice given to you by your health care provider. Make sure you discuss any questions you have with your health care provider. Document Revised: 03/17/2021 Document Reviewed: 03/17/2021 Elsevier Patient Education ? 2022 [employer] Nutrition Healthy Eating Following a healthy eating pattern may help you to achieve and maintain a healthy body weight, reduce the risk of chronic diseas (more content not included)... Normal [facility] RAD - CT Reporton 11-05-2023 RAD - CT Report [id number]#1. 00TIFF Normal [facility] Screenson 11-05-2023 Screens [id number]#1. 00TIFF [facility] Lab Reportson 11-01-2023 Lab Reports [id number]. 00TIFF Normal [facility] US Extremity Non-Vascular Li mited Lefton 10-18-2023 [...] Reynolds DO Transcribed by: JOSSELINE Technologist: SABINO [facility] Consent for Treatmenton Consent for Treatment [id number]#1 .00TIFF Normal [facility] Transfer Inon 10-11-2023 Transfer In [id number]#1. 00TIFF Normal [facility] Ambulatory Visit Summaryon 0 10-02-2023 Ambulatory Visit Summary ERASMODAWN LOZADA :1960 Visit Date:10/02/2023 Ambulatory Visit Instructions Your Diagnosis Elevated PSA HTN (hypertension) LAD (lymphadenopathy), inguinal BMI 34.0-34.9,adult Morbidly obese Your Care Team Attending Physician - Cesar Calles MD Primary Care Physician - Cesar Calles MD This Is Your Medications List dutasteride (dutasteride [...] Appointments Sunday 9:30 AM EDT With: Where: [facility] Invalid Interpretation Code [address] [place] [address]- \.br\ Sunday 9:45 AM EDT \.br\ With: Rolly AZUL MD\.br\ Where: [facility] Family Medicine Office/Clini c Noteon 10-02-2023 Family Medicine Office/Clinic Note Chief Complaint establish care HPI Staff Dawn is a 63 year old male presenting to establish care Establish Care: History: BPH, Any previous diagnosis: BPH History of seeing any specialist: Dr. Azul When was your last doctors visit: Last Aptil Last provider: [place] Any recent labs: last August [facility] Health Maintenance UTD: Colonoscopy: yes, most [...] in the groin. Was check by Dr. uJnior. - Has grown. Dr. Junior did not have an issue with it. - Bp has been elevated - Retired from [employer] Review of Systems PHQ Score Initial Depression [...] Daily, # 90 tab(s), Refills(s) 0, Pharmacy: [facility]/pharmacy #[id number], 170, cm, 10/02/23 8:33:00 EDT, Height/Length [...] influenza virus vac (more content not included)... [facility] Comment on above: Result Comment: Elec tronically Signed By: Stevan HURLEY, Cesar Gallego.br\Date and Time Signed: 10/02/23 09:13 EDT Formson 10-02-2023 Forms [id number]# 1.00TIFF [facility] Patient Educationon 10-02-19 24 Patient Education Nutrition BMI for Adults What [...] numbers. This can be done either in [place] or metric measurements. Note that charts and online BMI calculators are available to help you find your BMI quickly and easily without having to do these calculations yourself. To calculate your BMI in [place] measurements: 1. Measure your weight in [...] for Disease Control and Prevention: www.cdc.gov ? [place] Heart Association: www.heart.org ? National Heart, Lung, and Blood Aquilla: www.nhlbi.nih.gov Summary ? Body mass index (BMI) is a number that is calculated from a person's weight and height. ? BMI may help estimate how much of a person's weight is composed of fat. BMI can help identify those who may be at higher risk for certain medical problems. ? BMI can be measured using [place] measurements or metric measurements. ? BMI charts are used to identify whether you are underweight, normal weight, overweight, or obese. This information is not intended to replace advice given to you by your health care provider. Make sure you discuss any questions you have with your health care provider. Document Revised: 01/21/2020 Document Reviewed: 11/28/2019 [employer] Patient Education ? 2022 [employer]. [facility] Auth for Release of Medical Recordson 09-24-2023 Auth for Release of Medical Records [id number]#1. 00TIFF [facility] Ambulatory Visit Summaryon 0 07-09-2023 Ambulatory Visit Summary DAWN ROCK :1960 Visit Date:07/09/2023 Ambulatory Visit Instructions Your Diagnosis BPH with obstruction/lower urinary tract symptoms Elevated PSA Your Care Team Attending Physician - DANIELLA HURLEY, Rolly Bautista Primary Care Physician - NAHID JUNIOR DO [...] Following Appointments Follow Up with DANIELLA HURLEY, CASPER Russell When: Comments: 3 mos w/ UA Where: [facility] [address], [place] [address] [phone] Medications What How Much When Instructions Unchanged [...] these instructions at home: Medicines ? Take ipqg-vak-zfrnsid and prescription medicines only as told by [...] keep your urine pale yellow. ? Take yvxb-ces-xjopfrb or prescription medicines. ? Eat foods that [...] signs of (more content not included)... Normal [facility] Patient Educationon 07-09-19 Patient Education Urology Transurethral [...] these instructions at home: Medicines ? Take lgqk-ofn-xqoiuaa and prescription medicines only as told by [...] keep your urine pale yellow. ? Take vyoe-zir-iwbpxea or prescription medicines. ? Eat foods that [...] provider. Document Revised: 01/24/2022 Document Reviewed: 01/24/2022 [employer] Patient Education ? 2022 [employer] Benign Prostatic Hyperpla (more content not included)... 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 Pt was seen in [place] for infection after procedure was terminated. Pt took Cefdinir for 4 days for infection. Pt states he was admitted to [facility] because of an infection on 10/21/2021. Pt stayed one night at [facility] and then was sent to [facility] since we did not have a Urologist [employer]. Pt states that he was having problems voiding at first but was eventually able to pass his urine on his own and did not need a cath. [place] took pt off Terazosin and put him on Flomax. Pt was then scheduled for TURP. Abnormal EKG. Surgery was then cancelled, awaiting cardiac clearance. Pt cleared by [facility] 02/17/22. [1] Has tried Tamsulosin & [...] [facility] [address], [place] [address] [phone] Additional Instructions: 3 mos w/ UA Patient Education Transurethral Resection of the Prostate, Care After Benign Prostatic Hyperplasia I, Neema Acuna, personally scribed for Dr. Azul on 07/09/2023 10:51:57. . Documentation recorded by the scribyisel, Neema Acuna, accurately reflects the services(s) I [...] (03/20/2023), Cystos (more content not included)... Normal [facility] Comment on above: Result Comment: Elec tronically Signed By: Rolly AZUL MD\.br\Date and Time Signed: 07/09/23 10:53 EST\.br\Electronically Co-Signed By: Neema Acuna\.br\Date and Time Co-Signed: 07/09/23 10:52 EST Pathology Noteon 06-28-2023 Pathology Note [id number]#1 .00TIFF Normal [facility] Pathology Noteon 06-26-2023 Pathology Note [id number]#1 .00TIFF [facility] Operative Reporton Operative Report [id number]#1 .00TIFF [facility] Heart and Vascular Office/Cl inic Noteon [...] with voice recognition artificial intelligence software, specifically [employer] and or [employer]. Substitutions may have occurred with voice recognition and artificial intelligence software.. Documentation services were performed after patient or guardian consented to allow [employer] to record this visit. JAZ implementation specialist and provider reviewed before signing. JAZ: Young Abimael. Follow-up No qualifying data available Problem List/Past [...] BNT-162b2 v (more content not included)... Normal [facility] Comment on above: Result Comment: Elec tronically Signed By: Elis HURLEY, Brennan Moreno\.br\Date and Time Signed: 06/05/23 11:55 EST\.br\Electronically Co-Signed [...] AM EST With: Where: [facility] [address] [place] [id number] \.br\ Medications\.br\ What How Much When Instructions\.br\ [...] for choosing us for your care.\.br\ \.br\ [facility] Consent for Treatmenton 05-14 Consent for Treatment [id number] .00TIFF Normal [facility] Formson 05-29-2023 Forms cardiac risk clearance, copy given to patient. [id number]#1 .00TIFF Normal [facility] Physician Orderon 05-29-2023 Physician Order [id number]#1 .00TIFF Normal [facility] ECG 12-Leadon 05-11-2023 ECG 12-Lead [id number]#1 .00TIFF [facility] Lab Reportson 05-10-2023 Lab Reports [id number]#1 .00TIFF [facility] Consent for Procedure/Surger yon 03-21-2023 Consent for Procedure/Surgery [id number] .00TIFF [facility] Consent for Procedure/Surger yon 03-20-2023 Consent for Procedure/Surgery [id number] .00TIFF [facility] Consent for Treatmenton Consent for Treatment [id number] .00TIFF [facility] IntraOperative Documentson 05-20-2022 IntraOperative Documents [id number]#1 .00TIFF [facility] IntraOperative Documents [id number] .00TIFF [facility] Main OR Intraoperative Recor don 03-20-2023 Main OR Intraoperative Record IntraOp Document Type FTURO Summary Primary Physician: DANIELLA HURLEY, Rolly Bautista Finalized Date/Time: 03/20/23 14:41:00 Pt. Name: DAWN ROCK Michele Lr/Sex: 1960 Male Med Rec #: [id number] Physician: Rolly AZUL MD Financial #: [id number] Pt. Type: O Room/Bed: / Admit/Disch: 03/20/23 12:40:30 - Institution: Case Times FTURO Entry 1 Patient Times In Room 03/20/23 14:25:00 Out Room 03/20/23 14:38:00 Procedure Times Start 03/20/23 14:30:00 Stop 03/20/23 14:33:00 Anesthesia Times Last Modified By: Danni Gallagher RN 03/20/23 14:40:49 Case Attendance FTURO Entry 1 Entry 2 Entry 3 Case Attendee Rolly AZUL MD [employer], Danni Gallagher RN, Danni Banuelos Role Performed Surgeon - Primary Scrub - Primary School Community Relations Coordinator - Primary Time In 03/20/23 14:25:00 03/20/23 [...] Position Verified Availability Equipment, Medication Time Out DANIELLA HURLEY, Rolly Bautista, Verified (If Participants Danni Maldonado CST Applicable) [...] By: Danni Gallagher RN 03/20/23 14:41 Normal [facility] OR Preoperative Recordo n 03-20-2023 Main OR Preoperative Record Holding Area Document Type FTURO Summary Primary Physician: Rolly AZUL MD Finalized Date/Time: 03/20/23 14:07:31 Pt. Name: DAWN ROCK /Sex: 1960 Male Med Rec #: [id number] Physician: Rolly AZUL MD Financial #: [id number] Pt. Type: O Room/Bed: / Admit/Disch: 03/20/23 [...] Complaints of Pain: No Skin Integrity Intact, Pauline, Warm, & Dry Vitals - EU Blood Pressure 171/80 Pulse 65 bpm Respirations 20 br/min SPO2 96 % RN Reviewed Yes Last Modified By: Danni Gallagher RN 03/20/23 14:07:30 General Comments: Temp 36.7 Finalized By: Danni Gallagher RN Document Signatures Signed By: Ailin Luna LPN 03/20/23 13:49 Ailin Luna LPN 03/20/23 13:49 Danni Gallagher RN 03/20/23 14:07 Normal [facility] Operative Reporton Operative Report Patient: DAWN ROCK Age: 63 [...] think about it at this time.. Normal [facility] Comment on above: Result Comment: Elec tronically Signed By: Rolly AZUL MD\.br\Date and Time Signed: 03/20/23 14:40 EST Outpatient Surgery Discharge Instructionon 03-20-2023 Outpatient Surgery Discharge Instruction [id number] .00TIFF Normal [facility] Ambulatory Visit Summaryon 1 Ambulatory Visit Summary [...] Test Where: [facility] [address] [place] [address]- Allergies No Known Medication Allergies Problems Ongoing [...] prostate's pres (more content not included)... Normal [facility] Patient Educationon 02-27-20 23 Patient Education Urology [...] Follow these instructions at home: ? Take kfsf-bxm-rpjepuv and prescription medicines only as told by [...] the medicine (more content not included)... 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 Pt was then scheduled for Urolift. Urolift attempted 10/20/21. However procedure was terminated due to intolerance from pt. 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 Abnormal EKG. Surgery was then cancelled, awaiting cardiac clearance. Pt cleared by [facility] 02/17/22. Here today for follow up. Last PSA 08/28/22- 2.85 Getting up 3-5x/night. [id number] in the morning with coffee intake. [id number] the rest of the day. Weak stream. [...] with lower urinary tract symptoms) S/p Cysto 05/09/22 Pt was then scheduled for Urolift. Urolift attempted 10/20/21. However procedure was terminated due to intolerance from pt. 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 Pt was seen in [place] for infection after procedure was terminated. Pt took Cefdinir for 4 days for infection. Pt states he was admitted to [facility] because of an infection on 10/21/2021. Pt stayed one night at [facility] and then was sent to [facility] since we did not have a Urologist [employer]. Pt states that he was having problems voiding at first but was eventually able to pass his urine on his own and did not need a cath. [place] took pt off Terazosin and put him on Flomax. Pt was then scheduled for TURP. Abnormal EKG. Surgery was then cancelled, awaiting cardiac clearance. Pt cleared by [facility] 02/17/22. No UA given today. Getting up 3-5x/night, [id number] in the morning with coffee intake, [id number] the rest of the day. Weak stream. [...] [facility] [address], [place] [address]- Additional Instructions: Sched Cysto and Bladder Function Test Patient Education Benign Prostatic Hyperplasia I, Sheryl Temple , personally scribed for Dr. Azul on 02/26/2023 14: (more content not included)... Normal [facility] Comment on above: Result Comment: Elec tronically Signed By: Marina Gross\.br\Date and Time Signed: 02/26/23 14:18 EDT CBC AUTO DIFFon 08-28-2022 BASO # 0.0 103/ul Normal 0.0-0.1 [facility] Comment on above: Performed By: #### C BC #### [facility] [address] [place] [address] [address] Yamini Gomze Basophils/100 WBC (Bld) 0.5 % Normal 0.2-2.0 [facility] Comment on above: Performed By: #### C BC #### [facility] [address] [place] [address] [address] Yamini Gomez EO # 0.1 103/ul Normal 0.0-0.7 [facility] Comment on above: Performed By: #### C BC #### [facility] [address] [place] [address] [address] Yamini Gomez Eosinophils/100 WBC (Bld) 2.1 % Normal 0.9-7.0 [facility] Comment on above: Performed By: #### C BC #### [facility] [address] [address] [address] Yamini Gomez Erythrocyte distribution width (RBC) [Ratio] 12.3 % Normal 11.0-15.0 [facility] Comment on above: Performed By: #### C BC #### [facility] [address] [address] [address] Yamini Gomez Hematocrit (Bld) [Volume fraction] 44.7 % Normal 42.0-54.0 [facility] Comment on above: Performed By: #### C BC #### [facility] [address] [place] [address] Dr. Yamini Gomez Hemoglobin (Bld) [Mass/Vol] 15.9 g/dL Normal 14.0-18.0 [facility] Comment on above: Performed By: #### C BC #### [facility] [address] [place] [address] Dr. Yamini Gomez IG # 0.01 10e3/ul Normal 0.00-0.03 [facility] Comment on above: Performed By: #### C BC #### [facility] [address] [place] [address] Dr. Yamini Gomez IG % 0.3 % Normal 0.0-0.5 [facility] Comment on above: Performed By: #### C BC #### [facility] [address] [place] [address] Dr. Yamini Gomez LYMPH # 1.5 103/ul Normal 1.2-3.8 [facility] Comment on above: Performed By: #### C BC #### [facility] [address] [place] [address] Dr. Yamini Gomez Lymphocytes/100 WBC (Bld) 38.5 % Normal 20.5-60.0 [facility] Comment on above: Performed By: #### C BC #### [facility] [address] [place] [address] Dr. Yamini Gomez MANUAL DIFF REQ NO Normal [facility] Comment on above: Performed By: #### C BC #### [facility] [address] [place] [address] Dr. Yamini Gomez MCH (RBC) [Entitic mass] 30.5 pg Normal 25.9-34.0 [facility] Comment on above: Performed By: #### C BC #### [facility] [address] [address] [address] Yamini Gomez MCHC (RBC) [Mass/Vol] 35.6 g/dL Critically high 29.9-35.2 [facility] Comment on above: Performed By: #### C BC #### [facility] [address] [address] [address] Yamini Gomez MCV (RBC) [Entitic vol] 85.8 fL Normal 80.0-94.0 [facility] Comment on above: Performed By: #### C BC #### [facility] [address] [address] [address] Yamini Gomez MONO # 0.4 103/ul Normal 0.3-0.8 [facility] Comment on above: Performed By: #### C BC #### [facility] [address] [place] [address] Dr. Yamini Gomez Monocytes/100 WBC (Bld) 9.8 % Normal 1.7-12.0 [facility] Comment on above: Performed By: #### C BC #### [facility] [address] [place] [address] Dr. Yamini Gomez NEUT # 1.9 103/ul Normal 1.4-6.5 [facility] Comment on above: Performed By: #### C BC #### [facility] [address] [place] [address] Dr. Yamini Gomez Neutrophils/100 WBC (Bld) 48.8 % Normal 43.0-75.0 [facility] Comment on above: Performed By: #### C BC #### [facility] [address] [place] [address] Dr. Yamini Gomez Platelet mean volume (Bld) [Entitic vol] 9.0 fL Critically low 9.5-13.5 [facility] Comment on above: Performed By: #### C BC #### [facility] [address] [place] [address] Dr. Yamini oGmez PLT 168 103/ul Normal 150-450 [facility] Comment on above: Performed By: #### C BC #### [facility] [address] [place] [address] Dr. Yamini Gomez RBC 5.21 106/ul Normal 4.70-6.10 [facility] Comment on above: Performed By: #### C BC #### [facility] [address] [place] [address] Dr. Yamini Gomez WBC 3.8 103/ul Critically low 4.0-11.0 [facility] Comment on above: Performed By: #### C BC #### [facility] [address] [place] [address] Dr. Yamini Gomez PROF 14(COMP METB)on 023 Albumin [Mass/Vol] 4.0 g/dL Normal 3.4-5.0 [facility] Comment on above: Performed By: #### T 4, TSH, CMP #### [facility] [address] [place] [address] Dr. Yamini Gomez Albumin/Globulin [Mass ratio] 1.0 {ratio} Normal [facility] Comment on above: Performed By: #### T 4, TSH, CMP #### [facility] [address] [place] [address] Dr. Yamini Gomez ALP [Catalytic activity/Vol] 69 U/L Normal 46-116 [facility] Comment on above: Performed By: #### T 4, TSH, CMP #### [facility] [address] [place] [address] Dr. Yamini Gomez ALT [Catalytic activity/Vol] 57 U/L Normal 16-63 [facility] Comment on above: Performed By: #### T 4, TSH, CMP #### [facility] [address] [place] [address] Dr. Yamini Gomez Anion gap [Moles/Vol] 10.0 mmol/L Normal [facility] Comment on above: Performed By: #### T 4, TSH, CMP #### [facility] [address] [place] [address] Dr. Yamini Gomez AST [Catalytic activity/Vol] 26 U/L Normal 15-37 [facility] Comment on above: Performed By: #### T 4, TSH, CMP #### [facility] [address] [place] [address] Dr. Yamini Gomez Bilirubin [Mass/Vol] 1.0 mg/dL Normal 0.2-1.0 [facility] Comment on above: Performed By: #### T 4, TSH, CMP #### [facility] Laboratory [address] [place] [address] Dr. Yamini Gomez Calcium [Mass/Vol] 9.4 mg/dL Normal 8.5-10.1 [facility] Comment on above: Performed By: #### T 4, TSH, CMP #### [facility] [address] [place] [address] Dr. Yamini Gomez Chloride [Moles/Vol] 106 mmol/L Normal 98-107 [facility] Comment on above: Performed By: #### T 4, TSH, CMP #### [facility] [address] [place] [address] Dr. Yamini Gomez CO2 [Moles/Vol] 28.5 mmol/L Normal 21.0-32.0 [facility] Comment on above: Performed By: #### T 4, TSH, CMP #### [facility] [address] [place] [address] Dr. Yamini Gomez Creatinine [Mass/Vol] 1.06 mg/dL Normal 0.70-1.30 [facility] Comment on above: Performed By: #### T 4, TSH, CMP #### [facility] [address] [place] [address] Dr. Yamini Gomez EGFR-AF EGYPTIAN >60 Normal >=60 [facility] Comment on above: Performed By: #### T 4, TSH, CMP #### [facility] [address] [place] [address] Dr. Yamini Gomez EGFR-NON AF EGYPTIAN >60 Normal >=60 [facility] Comment on above: Performed By: #### T 4, TSH, CMP #### [facility] [address] [place] [address] Dr. Yamini Gomez Globulin (S) [Mass/Vol] 4.0 g/dL Normal [facility] Comment on above: Performed By: #### T 4, TSH, CMP #### [facility] [address] [place] [address] Dr. Yamini Gomez Glucose [Mass/Vol] 119 mg/dL Critically high 74-106 [facility] Comment on above: Performed By: #### T 4, TSH, CMP #### [facility] [address] [place] [address] Dr. Yamini Gomez Potassium [Moles/Vol] 4.5 mmol/L Normal 3.5-5.1 [facility] Comment on above: Performed By: #### T 4, TSH, CMP #### [facility] [address] [place] [address] Dr. Yamini Gomez Protein [Mass/Vol] 8.0 g/dL Normal 6.4-8.2 [facility] Comment on above: Performed By: #### T 4, TSH, CMP #### [facility] [address] [place] [address] Dr. Yamini Gomez Sodium [Moles/Vol] 140 mmol/L Normal 136-145 [facility] Comment on above: Performed By: #### T 4, TSH, CMP #### [facility] [address] [place] [address] Dr. Yamini Gomez Urea nitrogen [Mass/Vol] 14.0 mg/dL Normal 7.0-18.0 [facility] Comment on above: Performed By: #### T 4, TSH, CMP #### [facility] [address] [place] [address] Dr. Yamini Gomez Urea nitrogen/Creatinine [Mass ratio] 13.2 mg/mg Normal [facility] Comment on above: Performed By: #### T 4, TSH, CMP #### [facility] [address] [place] [address] Dr. Yamini Gomez T4on 08-28-2022 T4 [Mass/Vol] 7.60 ug/dL Normal 4.50-12.10 [facility] Comment on above: Performed By: #### T 4, TSH, CMP #### [facility] [address] [place] [address] Dr. Yamini Gomez TSHon 08-28-2022 TSH 4.413 uIU/mL Critically high 0.358-3.740 [facility] Comment on above: Performed By: #### T 4, TSH, CMP #### [facility] [address] [address] [address] Yamini Gomez PROF CHEM 8 (BAS METB)on Anion gap [Moles/Vol] 10.5 mmol/L Normal [facility] Comment on above: Performed By: #### C MP #### [facility] [address] [place] [address] Dr. Yamini Gomez Calcium [Mass/Vol] 9.4 mg/dL Normal 8.5-10.1 [facility] Comment on above: Performed By: #### C MP #### [facility] [address] [place] [address] Dr. Yamini Gomez Chloride [Moles/Vol] 104 mmol/L Normal 98-107 [facility] Comment on above: Performed By: #### C MP #### [facility] [address] [place] [address] Dr. Yamini Gomez CO2 [Moles/Vol] 28.4 mmol/L Normal 21.0-32.0 [facility] Comment on above: Performed By: #### C MP #### [facility] [address] [place] [address] Dr. Yamini Gomez Creatinine [Mass/Vol] 1.03 mg/dL Normal 0.70-1.30 [facility] Comment on above: Performed By: #### C MP #### [facility] [address] [place] [address] Dr. Yamini Gomez EGFR-AF EGYPTIAN >60 Normal >=60 [facility] Comment on above: Performed By: #### C MP #### [facility] [address] [place] [address] Dr. Yamini Gomez EGFR-NON AF EGYPTIAN >60 Normal >=60 [facility] Comment on above: Performed By: #### C MP #### [facility] [address] [place] [address] Dr. Yamini Gomez Glucose [Mass/Vol] 112 mg/dL Critically high 74-106 [facility] Comment on above: Performed By: #### C MP #### [facility] [address] [address] [address] Yamini Gomez Potassium [Moles/Vol] 3.9 mmol/L Normal 3.5-5.1 [facility] Comment on above: Performed By: #### C MP #### [facility] [address] [address] [address] Yamini Gomez Sodium [Moles/Vol] 139 mmol/L Normal 136-145 [facility] Comment on above: Performed By: #### C MP #### [facility] [address] [address] [address] Yamini Gomez Urea nitrogen [Mass/Vol] 17.0 mg/dL Normal 7.0-18.0 [facility] Comment on above: Performed By: #### C MP #### [facility] [address] [place] [address] Dr. Yamini Gomez Urea nitrogen/Creatinine [Mass ratio] 16.5 mg/mg Normal [facility] Comment on above: Performed By: #### C MP #### [facility] [address] [place] [address] Dr. Yamini Gomez CHEMISTRYOrdered By: SYSTEM SYSTEM on 11-24-2021 Anion gap [Moles/Vol] 12 mmol/L Normal 6 - 16 mEq/L [facility]isol Calcium [Mass/Vol] 9.4 mg/dL Normal 8.9 - 11.1 mg/dL [facility]isol Chloride [Moles/Vol] 105 mmol/L Normal 101 - 111 mmol/ L [facility]isol CO2 [Moles/Vol] 25 mmol/L Normal 21 - 31 mmol/L [facility] Creatinine [Mass/Vol] 1.0 mg/dL Normal 0.5 - 1.3 mg/dL [facility] Remisol GFR/1.73 sq M.predicted among blacks MDRD (S/P/Bld) [Vol rate/Area] mL/min/1.73 m2 Normal >=59mL/min/1.73 m2 [facility] Chem S GFR/1.73 sq M.predicted among non-blacks MDRD (S/P/Bld) [Vol rate/Area] mL/min/1.73 m2 Normal >=59mL/min/1.73 m2 [facility] Chem S Glucose [Mass/Vol] 101 mg/dL Normal [...] 2.3 E9/L Normal 2.0 - 7.5 E9/L [facility] HemeAutoSS HEMATOLOGYOrdered By: Aileen Jerez on 11-24-2021 [...] (Urine sed) [#/Area] 0-2 /HPF Normal 0-2/HPF [facility]A Auto SS Glucose Test strip (U) [Mass/Vol] Negative (11/24/21 2:50 PM) Normal Negative [facility] UA Auto SS Hemoglobin Ql (U) Negative (11/24/21 2:50 PM) Normal Negative [facility] UA Auto SS Ketones (U) [Mass/Vol] Negative (11/24/21 2:50 PM) Normal Negative [facility] UA Auto SS [place].plasma/[place] um.RBC (Bld) [Mass ratio] 0-3 /HPF Normal 0-3/HPF [facility] UA Auto SS Nitrite Ql (U) Negative (11/24/21 2:50 PM) Normal Negative [facility] UA Auto SS pH (U) 6.0 *NA* (11/24/21 2:50 PM) Invalid Interpretation Code 5.0 - 9.0 [facility] UA Auto SS Protein (U) [Mass/Vol] Negative (11/24/21 2:50 PM) Normal Negative [facility] Auto SS Specific gravity (U) [Rel density] 1.020 *NA* (11/24/21 2:50 PM) Invalid Interpretation Code 1.005 - 1.030 [facility]A Auto SS UA Spec Desc Clean Catch (11/24/21 2:50 PM) Normal [facility] UA Auto SS Urobilinogen Qn (U) [id number] {Erendira'U}/dL Normal 0.0 - 1.0 EU/dL [facility] Auto SS WBC Auto Ql (U) Negative (11/24/21 2:50 PM) Normal Negative [facility]A Auto SS WBC LM.HPF (Urine sed) [#/Area] 0-5 /HPF Normal 0-5/HPF [facility] UA Auto SS CULTURE URINEon 10-24-2021 CULTURE [...] Trimethoprim/Sulfamet hoxazole <=20 S F Normal [facility] Comment on above: Performed By: #### C MP #### [facility] [address] [place] [address] Dr. aYmini Gomez CBC AUTO DIFFon 10-22-2021 BASO # 0.0 103/ul Normal 0.0-0.1 [facility] Comment on above: Performed By: #### C BC #### [facility] [address] [place] [address] Dr. Yamini Gomez Basophils/100 WBC (Bld) 0.1 % Critically low 0.2-2.0 [facility] Comment on above: Performed By: #### C BC #### [facility] [address] [place] [address] Dr. Yamini Gomez EO # 0.0 103/ul Normal 0.0-0.7 [facility] Comment on above: Performed By: #### C BC #### [facility] [address] [place] [address] Dr. Yamini Gomez Eosinophils/100 WBC (Bld) 0.0 % Critically low 0.9-7.0 [facility] Comment on above: Performed By: #### C BC #### [facility] [address] [place] [address] Dr. Yamini Gomez Erythrocyte distribution width (RBC) [Ratio] 12.3 % Normal 11.0-15.0 [facility] Comment on above: Performed By: #### C BC #### [facility] [address] [place] [address] Dr. Yamini Gomez Hematocrit (Bld) [Volume fraction] 43.7 % Normal 42.0-54.0 [facility] Comment on above: Performed By: #### C BC #### [facility] [address] [place] [address] Dr. Yamini Gomez Hemoglobin (Bld) [Mass/Vol] 14.8 g/dL Normal 14.0-18.0 [facility] Comment on above: Performed By: #### C BC #### [facility] [address] [place] [address] Dr. Yamini Gomez IG # 0.06 10e3/ul Critically high 0.00-0.03 [facility] Comment on above: Performed By: #### C BC #### [facility] [address] [place] [address] Dr. Yamini Gomez IG % 0.4 % Normal 0.0-0.5 [facility] Comment on above: Performed By: #### C BC #### [facility] [address] [place] [address] Dr. Yamini Gomez LYMPH # 0.9 103/ul Critically low 1.2-3.8 [facility] Comment on above: Performed By: #### C BC #### [facility] [address] [place] [address] Dr. Yamini Gomez Lymphocytes/100 WBC (Bld) 5.7 % Critically low 20.5-60.0 [facility] Comment on above: Performed By: #### C BC #### [facility] [address] [place] [address] Dr. Yamini Gomez MANUAL DIFF REQ NO Normal [facility] Comment on above: Performed By: #### C BC #### [facility] [address] [place] [address] Dr. Yamini Gomez MCH (RBC) [Entitic mass] 29.8 pg Normal 25.9-34.0 [facility] Comment on above: Performed By: #### C BC #### [facility] [address] [place] [address] Dr. Yamini Gomez MCHC (RBC) [Mass/Vol] 33.9 g/dL Normal 29.9-35.2 [facility] Comment on above: Performed By: #### C BC #### [facility] [address] [place] [address] Dr. Yamini Gomez MCV (RBC) [Entitic vol] 88.1 fL Normal 80.0-94.0 [facility] Comment on above: Performed By: #### C BC #### [facility] [address] [place] [address] Dr. Yamini Gomez MONO # 1.1 103/ul Critically high 0.3-0.8 [facility] Comment on above: Performed By: #### C BC #### [facility] [address] [address] [address] Yamini Gomez Monocytes/100 WBC (Bld) 6.9 % Normal 1.7-12.0 [facility] Comment on above: Performed By: #### C BC #### [facility] [address] [place] [address] Dr. Yamini Gomez NEUT # 13.8 103/ul Critically high 1.4-6.5 [facility] Comment on above: Performed By: #### C BC #### [facility] [address] [place] [address] Dr. Yamini Gomez Neutrophils/100 WBC (Bld) 86.9 % Critically high 43.0-75.0 [facility] Comment on above: Performed By: #### C BC #### [facility] [address] [place] [address] Dr. Yamini Gomez Platelet mean volume (Bld) [Entitic vol] 9.3 fL Critically low 9.5-13.5 [facility] Comment on above: Performed By: #### C BC #### [facility] [address] [place] [address] Dr. Yamini Goemz PLT 150 103/ul Normal 150-450 [facility] Comment on above: Performed By: #### C BC #### [facility] [address] [place] [address] Dr. Yamini Gomez RBC 4.96 106/ul Normal 4.70-6.10 [facility] Comment on above: Performed By: #### C BC #### [facility] [address] [place] [address] Dr. Yamini Gomez WBC 15.9 103/ul Critically high 4.0-11.0 [facility] Comment on above: Performed By: #### C BC #### [facility] [id number] Yamini Gomez CT ABD/PELV W CONon [...] Normal [facility] Covid-19 PCR (CVDTB)on 10-12 SARS-CoV-2 (COVID-19) [...] for this test is supported by the Resource Protection Specialist of Health and Human Service's declaration that [...] longer be used). Performed By: #### C VDTBH #### [facility] [address] [place] [address] Dr. Yamini Gomez LACTATE/LACTIC ACIDon 2021 Lactate [Moles/Vol] 1.4 mmol/L Normal 0.4-1.9 [facility] Comment on above: Performed By: #### L ACT #### [facility] [address] [place] [address] Dr. Yamini Gomez PROF CHEM 8 (BAS METB)on Anion gap [Moles/Vol] 13.0 mmol/L Normal [facility] Comment on above: Performed By: #### B MP #### [facility] [address] [place] [address] Dr. Yamini Gomez Calcium [Mass/Vol] 8.6 mg/dL Normal 8.5-10.1 [facility] Comment on above: Performed By: #### B MP #### [facility] [address] [place] [address] Dr. Yamini Gomez Chloride [Moles/Vol] 105 mmol/L Normal 98-107 [facility] Comment on above: Performed By: #### B MP #### [facility] [address] [address] [address] Yamini Gomez CO2 [Moles/Vol] 23.7 mmol/L Normal 21.0-32.0 [facility] Comment on above: Performed By: #### B MP #### [facility] [address] [address] [address] Yamini Gomez Creatinine [Mass/Vol] 1.09 mg/dL Normal 0.70-1.30 [facility] Comment on above: Performed By: #### B MP #### [facility] [address] [address] [address] Yamini Gomez EGFR-AF EGYPTIAN >60 Normal >=60 [facility] Comment on above: Performed By: #### B MP #### [facility] [address] [place] [address] Dr. Yamini Gomez EGFR-NON AF EGYPTIAN >60 Normal >=60 [facility] Comment on above: Performed By: #### B MP #### [facility] [address] [address] [address] Yamini Gomez Glucose [Mass/Vol] 140 mg/dL Critically high 74-106 [facility] Comment on above: Performed By: #### B MP #### [facility] [address] [address] [address] Yamini Gomez Potassium [Moles/Vol] 3.7 mmol/L Normal 3.5-5.1 [facility] Comment on above: Performed By: #### B MP #### [facility] [address] [address] [address] Yamini Gomez Sodium [Moles/Vol] 138 mmol/L Normal 136-145 [facility] Comment on above: Performed By: #### B MP #### [facility] [address] [address] [address] Yamini Gomez Urea nitrogen [Mass/Vol] 12.0 mg/dL Normal 7.0-18.0 [facility] Comment on above: Performed By: #### B MP #### [facility] [address] [address] [address] Yamini Gomez Urea nitrogen/Creatinine [Mass ratio] 11.0 mg/mg Normal [facility] Comment on above: Performed By: #### B MP #### [facility] [address] [place] [address] Dr. Yamini Gomez CBC AUTO DIFFon 10-21-2021 BASO # 0.0 103/ul Normal 0.0-0.1 [facility] Comment on above: Performed By: #### C MP #### [facility] [address] [place] [address] Dr. Yamini Gomez Basophils/100 WBC (Bld) 0.2 % Normal 0.2-2.0 [facility] Comment on above: Performed By: #### C MP #### [facility] [address] [place] [address] Dr. Yamini Gomez EO # 0.0 103/ul Normal 0.0-0.7 [facility] Comment on above: Performed By: #### C MP #### [facility] [address] [place] [address] Dr. Yamini Gomez Eosinophils/100 WBC (Bld) 0.3 % Critically low 0.9-7.0 [facility] Comment on above: Performed By: #### C MP #### [facility] [address] [place] [address] Dr. Yamini Gomez Erythrocyte distribution width (RBC) [Ratio] 12.0 % Normal 11.0-15.0 [facility] Comment on above: Performed By: #### C MP #### [facility] [address] [place] [address] Dr. Yamini Gomez Hematocrit (Bld) [Volume fraction] 46.3 % Normal 42.0-54.0 [facility] Comment on above: Performed By: #### C MP #### [facility] [address] [place] [address] Dr. Yamini Gomez Hemoglobin (Bld) [Mass/Vol] 16.0 g/dL Normal 14.0-18.0 [facility] Comment on above: Performed By: #### C MP #### [facility] [address] [address] [address] Yamini Gomez IG # 0.21 10e3/ul Critically high 0.00-0.03 [facility] Comment on above: Performed By: #### C MP #### [facility] [address] [address] [address] Yamini Gomez IG % 2.0 % Critically high 0.0-0.5 [facility] Comment on above: Performed By: #### C MP #### [facility] [address] [place] [address] Dr. Yamini Gomez LYMPH # 0.7 103/ul Critically low 1.2-3.8 [facility] Comment on above: Performed By: #### C MP #### [facility] [address] [place] [address] Dr. Yamini Gomez Lymphocytes/100 WBC (Bld) 6.7 % Critically low 20.5-60.0 [facility] Comment on above: Performed By: #### C MP #### [facility] [address] [place] [address] Dr. Yamini Gomez MANUAL DIFF REQ NO Normal [facility] Comment on above: Performed By: #### C MP #### [facility] [address] [place] [address] Dr. Yamini Gomez MCH (RBC) [Entitic mass] 30.1 pg Normal 25.9-34.0 [facility] Comment on above: Performed By: #### C MP #### [facility] [address] [place] [address] Dr. Yamini Gomez MCHC (RBC) [Mass/Vol] 34.6 g/dL Normal 29.9-35.2 [facility] Comment on above: Performed By: #### C MP #### [facility] [address] [place] [address] Dr. Yamini Gomez MCV (RBC) [Entitic vol] 87.0 fL Normal 80.0-94.0 [facility] Comment on above: Performed By: #### C MP #### [facility] [address] [place], [place] [id number] Dr. Yamini Gomez MONO # 0.2 103/ul Critically low 0.3-0.8 [facility] Comment on above: Performed By: #### C MP #### [facility] [address] [place] [address] Dr. Yamini Gomez Monocytes/100 WBC (Bld) 1.7 % Normal 1.7-12.0 [facility] Comment on above: Performed By: #### C MP #### [facility] [address] [place] [address] Dr. Yamini Gomez NEUT # 9.5 103/ul Critically high 1.4-6.5 [facility] Comment on above: Performed By: #### C MP #### [facility] [address] [place] [address] Dr. Yamini Gomez Neutrophils/100 WBC (Bld) 89.1 % Critically high 43.0-75.0 [facility] Comment on above: Performed By: #### C MP #### [facility] [address] [place] [address] Dr. Yamini Gomez Platelet mean volume (Bld) [Entitic vol] 9.3 fL Critically low 9.5-13.5 [facility] Comment on above: Performed By: #### C MP #### [facility] [address] [place] [address] Dr. Yamini Gomez PLT 149 103/ul Critically low 150-450 [facility] Comment on above: Performed By: #### C MP #### [facility] [address] [place] [address] Dr. Yamini Gomez RBC 5.32 106/ul Normal 4.70-6.10 [facility] Comment on above: Performed By: #### C MP #### [facility] [address] [place] [address] Dr. aYmini Gomez WBC 10.6 103/ul Normal 4.0-11.0 [facility] Comment on above: Performed By: #### C MP #### [facility] [address] [place] [address] Dr. Yamini Gomez CULTURE BLOODon 10-21-2021 Microscopic examination of blood, culture Culture Observations: No growth at 5 days. Normal [facility] Comment on above: Performed By: #### C MP #### [facility] [address] [place] [address] Dr. Yamini Gomez Microscopic examination of blood, culture Culture Observations: No growth at 5 days. Normal [facility] Comment on above: Performed By: #### C MP #### [facility] [address] [place] [address] Dr. Yamini Gomez ER URINE PROFILEon 2 Bilirubin Ql (U) Negative Normal NEGATIVE [facility] Comment on above: Performed By: #### U MICRO, ERUR #### [facility] [address] [place] [address] Dr. Yamini Gomez Clarity (U) CLEAR Normal CLEAR [facility] Comment on above: Performed By: #### U MICRO, ERUR #### [facility] [address] [place] [address] Dr. Yamini Gomez Color (U) LT. YELLOW Normal YELLOW [facility] Comment on above: Performed By: #### U MICRO, ERUR #### [facility] [address] [place] [address] Dr. Yamini RESENDIZ A micrscopic examination will be performed if indicated. Normal [facility] Comment on above: Performed By: #### U MICRO, ERUR #### [facility] Laboratory [address] [place] [address] Dr. Yamini Gomez Glucose Ql (U) Negative Normal NEGATIVE [facility] Comment on above: Performed By: #### U MICRO, ERUR #### [facility] [address] [place] [address] Dr. Yamini Gomez Hemoglobin Ql (U) MODERATE Abnormal NEGATIVE [facility] Comment on above: Performed By: #### U MICRO, ERUR #### [facility] [address] [place] [address] Dr. Yamini Gomez Ketones Ql (U) Negative Normal NEGATIVE [facility] Comment on above: Performed By: #### U MICRO, ERUR #### [facility] [address] [place] [address] Dr. Yamini Gomez LEUKOCYTES MODERATE Abnormal NEGATIVE [facility] Comment on above: Performed By: #### U MICRO, ERUR #### [facility] [address] [place] [address] Dr. Yamini Gomez Nitrite Ql (U) Negative Normal NEGATIVE [facility] Comment on above: Performed By: #### U MICRO, ERUR #### [facility] [address] [place] [address] Dr. Yamini Gomez pH (U) 7.0 [pH] Normal 5-9 [facility] Comment on above: Performed By: #### U MICRO, ERUR #### [facility] [address] [place] [address] Dr. Yamini Gomez SPEC GRAVITY 1.010 Normal 1.005-<=1.025 [facility] Comment on above: Performed By: #### U MICRO, ERUR #### [facility] [address] [place] [address] Dr. Yamnii Gomez UA PROTEIN Negative Normal NEGATIVE/ TRACE [facility] Comment on above: Performed By: #### U MICRO, ERUR #### [facility] [address] [place] [address] Dr. Yamini Gomez UR MICRO IND INDICATED Normal [facility] Comment on above: Performed By: #### U MICRO, ERUR #### [facility] [address] [place] [address] Dr. Yamini Gomez Urobilinogen Qn (U) 0.2 {Erendira'U}/dL Normal 0.2 - 1. 0 [facility] Comment on above: Performed By: #### U MICRO, ERUR #### [facility] [address] [place] [address] Dr. Yamini Gomez LACTATE/LACTIC ACIDon 2021 Lactate [Moles/Vol] 2.9 mmol/L Critically high 0.4-1.9 [facility] Comment on above: Performed By: #### C MP #### [facility] [address] [place] [address] Dr. Yamini Gomez PROF 14(COMP METB)on 022 Albumin [Mass/Vol] 4.1 g/dL Normal 3.4-5.0 [facility] Comment on above: Performed By: #### C MP #### [facility] [address] [place] [address] Dr. Yamini Gomez Albumin/Globulin [Mass ratio] 1.1 {ratio} Normal [facility] Comment on above: Performed By: #### C MP #### [facility] [address] [place] [address] Dr. Yamini Gomez ALP [Catalytic activity/Vol] 77 U/L Normal 46-116 [facility] Comment on above: Performed By: #### C MP #### [facility] [address] [place] [address] Dr. Yamini Gomez ALT [Catalytic activity/Vol] 54 U/L Normal 16-63 [facility] Comment on above: Performed By: #### C MP #### [facility] [address] [place] [address] Dr. Yamini Gomez Anion gap [Moles/Vol] 16.5 mmol/L Normal [facility] Comment on above: Performed By: #### C MP #### [facility] [address] [place] [address] Dr. Yamini Gomez AST [Catalytic activity/Vol] 28 U/L Normal 15-37 [facility] Comment on above: Performed By: #### C MP #### [facility] [address] [place] [address] Dr. Yamini Gomez Bilirubin [Mass/Vol] 1.2 mg/dL Critically high 0.2-1.0 [facility] Comment on above: Performed By: #### C MP #### [facility] [address] [place] [address] Dr. Yamini Gomez Calcium [Mass/Vol] 9.0 mg/dL Normal 8.5-10.1 [facility] Comment on above: Performed By: #### C MP #### [facility] [address] [place] [address] Dr. Yamini Gomez Chloride [Moles/Vol] 101 mmol/L Normal 98-107 [facility] Comment on above: Performed By: #### C MP #### [facility] [address] [address] [address] Yamini Gomez CO2 [Moles/Vol] 21.5 mmol/L Normal 21.0-32.0 [facility] Comment on above: Performed By: #### C MP #### [facility] [address] [address] [address] Yamini Gomez Creatinine [Mass/Vol] 1.31 mg/dL Critically high 0.70-1.30 [facility] Comment on above: Performed By: #### C MP #### [facility] [address] [address] [address] Yamini Gomez EGFR-AF EGYPTIAN >60 Normal >=60 [facility] Comment on above: Performed By: #### C MP #### [facility] [address] [place] [address] Dr. Yamini Gomez EGFR-NON AF EGYPTIAN 55 mL/min/1.73m2 Critically low >=60 [facility] Comment on above: Performed By: #### C MP #### [facility] [address] [address] [address] Yamini Gomez Globulin (S) [Mass/Vol] 3.7 g/dL Normal [facility] Comment on above: Performed By: #### C MP #### [facility] [address] [address] [address] Yamini Gomez Glucose [Mass/Vol] 161 mg/dL Critically high 74-106 [facility] Comment on above: Performed By: #### C MP #### [facility] [address] [place] [address] Dr. Yamini Gomez Potassium [Moles/Vol] 4.0 mmol/L Normal 3.5-5.1 [facility] Comment on above: Performed By: #### C MP #### [facility] [address] [place] [address] Dr. Yamini Gomez Protein [Mass/Vol] 7.8 g/dL Normal 6.4-8.2 [facility] Comment on above: Performed By: #### C MP #### [facility] [address] [address] [address] Yamini Gomez Sodium [Moles/Vol] 135 mmol/L Critically low 136-145 [facility] Comment on above: Performed By: #### C MP #### [facility] [address] [address] [address] Yamini Gomez Urea nitrogen [Mass/Vol] 14.0 mg/dL Normal 7.0-18.0 [facility] Comment on above: Performed By: #### C MP #### [facility] [address] [address] [address] Yamini Gomez Urea nitrogen/Creatinine [Mass ratio] 10.7 mg/mg Normal [facility] Comment on above: Performed By: #### C MP #### [facility] [address] [place] [address] Dr. Yamini Gomez URINE MICROSCOPIC ONLYon BACTERIA TRACE Abnormal NONE SEEN [facility] Comment on above: Performed By: #### C MP #### [facility] [address] [place] [address] Dr. Yamini Gomez Bacteria identified Cx Nom (U) INDICATED Normal [facility] Comment on above: Performed By: #### C MP #### [facility] [address] [place] [address] Dr. Yamini Gomez CAST NONE SEEN Normal NONE SEEN [facility] Comment on above: Performed By: #### C MP #### [facility] [address] [place] [address] Dr. Yamini Gomez Crystals LM Nom (Urine sed) NONE SEEN Normal NONE SEEN [facility] Comment on above: Performed By: #### C MP #### [facility] [address] [place] [address] Dr. Yamini Gomez Epithelial cells LM Ql (Urine sed) NONE SEEN Normal NONE SEEN /RARE [facility] Comment on above: Performed By: #### C MP #### [facility] [address] [place] [address] Dr. Yamini Gomez MUCOUS NONE SEEN Normal NONE SEEN [facility] Comment on above: Performed By: #### C MP #### [facility] [address] [place], [place] [address] Dr. Yamini Gomez RBC 0-2 Normal 0-2 [facility] Comment on above: Performed By: #### C MP #### [facility] [address] [place], [place] [address] Dr. Yamini Gomez WBC 50-75 Abnormal NONE SEEN [facility] Comment on above: Performed By: #### C MP #### [facility] [address] [place], [place] [address] Dr. Yamini Gomez Vital Signs Date Time Vital Sign Value Performing Clinician Faci lity 11-13-2023 09:46-0400 Diastolic blood pressure 98 mm[Hg] Norbert AGUDELO [facility] [place] 11-13-2023 09:46-0400 Heart rate 60 /min Norbert HERRL [facility] 11-13-2023 09:46-0400 Respiratory rate 16 /min Norbert NILL [facility] 11-13-2023 09:46-0400 Systolic blood pressure 163 mm[Hg] Norbert NILL [facility] 11-12-2023 09:47-0400 Blood Pressure Location Rolly AZUL [facility] 11-12-2023 09:47-0400 Body temperature 98.6 [degF] Rolly AZUL [facility] 11-12-2023 09:47-0400 Diastolic blood pressure 87 mm[Hg] Rolly AZUL [facility] 11-12-2023 09:47-0400 Heart rate 79 /min Rolly AZUL [facility] 11-12-2023 09:47-0400 Respiratory rate 16 /min Rolly AZUL [facility] 11-12-2023 09:47-0400 Systolic blood pressure 138 mm[Hg] Rolly AZUL [facility] 05-29-2023 15:08-0500 Blood Pressure Location Brennan Gillis [facility] 05-29-2023 15:08-0500 Diastolic blood pressure 94 mm[Hg] Brennan Christofferson [facility] 05-29-2023 15:08-0500 Heart rate 65 /min Brennan Pottererson [facility] 05-29-2023 15:08-0500 SaO2% (BldA) [Mass fraction] 96 % Brennan Gaonaofferson [facility] 05-29-2023 15:08-0500 Systolic blood pressure 162 mm[Hg] Brennan Christofferson [facility] 05-29-2023 15:00-0500 Diastolic blood pressure 88 mm[Hg] Brennan Christofferson [facility] 05-29-2023 15:00-0500 Mean blood pressure 102 mm[Hg] Brennan Christofferson [facility] 05-29-2023 15:00-0500 Systolic blood pressure 130 mm[Hg] Brennan Christofferson [facility] 02-26-2023 13:07-0400 Blood Pressure Location Rolly AZUL [facility] 02-26-2023 13:07-0400 Diastolic blood pressure 88 mm[Hg] Rolly AZUL [facility] 02-26-2023 13:07-0400 Heart rate 89 /min Rolly AZUL [facility] 02-26-2023 13:07-0400 Respiratory rate 16 /min Rolly AZUL [facility] 02-26-2023 13:07-0400 Systolic blood pressure 133 mm[Hg] Rolly AZUL [facility] 02-17-2022 09:34-0400 Blood Pressure Location Shirleyalex WESLEY [facility] 02-17-2022 09:34-0400 Diastolic blood pressure 76 mm[Hg] Shirley WESLEY [facility] 02-17-2022 09:34-0400 Heart rate 53 /min Shirleyalex WESLEY [facility] 02-17-2022 09:34-0400 Respiratory rate 18 /min Shirleyalex WESLEY [facility] 02-17-2022 09:34-0400 SaO2% (BldA) [Mass fraction] 100 % Shirleyalxe WESLEY [facility] 02-17-2022 09:34-0400 Systolic blood pressure 140 mm[Hg] Shirley MARYJANE [facility] 12-28-2021 13:50-0400 Diastolic blood pressure 85 mm[Hg] Brennan Gillis [facility] 12-28-2021 13:50-0400 Mean blood pressure 105 mm[Hg] Brennan Gillis [facility] 12-28-2021 13:50-0400 Systolic blood pressure 146 mm[Hg] Brennan Gillis [facility] 12-28-2021 13:31-0400 Blood Pressure Location Brennan Gillis [facility] 12-28-2021 13:31-0400 Diastolic blood pressure 88 mm[Hg] Brennan Gillis [facility] 12-28-2021 13:31-0400 Heart rate 60 /min Brennan Gillis [facility] 12-28-2021 13:31-0400 SaO2% (BldA) [Mass fraction] 98 % Brennan Gillis [facility] 12-28-2021 13:31-0400 Systolic blood pressure 152 mm[Hg] Brennan Gillis [facility] 11-24-2021 14:52-0400 Diastolic blood pressure 89 mm[Hg] Lauro Eubanks Jr. [facility] 11-24-2021 14:52-0400 Heart rate 54 /min Lauro Eubanks Jr. [facility] 11-24-2021 14:52-0400 Mean blood pressure 109 mm[Hg] Lauro Eubanks Jr. [facility] 11-24-2021 14:52-0400 Systolic blood pressure 150 mm[Hg] Lauro Eubanks Jr. [facility] 11-24-2021 14:51-0400 Diastolic blood pressure 76 mm[Hg] Laurokirti Eubanks Jr. [facility] 11-24-2021 14:51-0400 Heart rate 55 /min Lauro Eubanks Jr. [facility] 11-24-2021 14:51-0400 Mean blood pressure 97 mm[Hg] Lauro Eubanks Jr. [facility] 11-24-2021 14:51-0400 Systolic blood pressure 140 mm[Hg] Lauro Eubanks . [facility] 11-24-2021 14:29-0400 Blood Pressure Location Lauro Eubanks Jr. [facility] 11-24-2021 14:29-0400 Body temperature 98.24 [degF] Lauro Eubanks Jr. [facility] 11-24-2021 14:29-0400 Diastolic blood pressure 85 mm[Hg] Lauro Eubanks Jr. [facility] 11-24-2021 14:29-0400 Heart rate 65 /min Lauro Eubanks Jr. [facility] 11-24-2021 14:29-0400 Mean blood pressure 111 mm[Hg] Lauro Eubanks Jr. [facility] 11-24-2021 14:29-0400 Systolic blood pressure 162 mm[Hg] Lauro Eubanks Jr. [facility] 11-24-2021 14:28-0400 Blood Pressure Location Lauro Eubanks Jr. [facility] 11-24-2021 14:28-0400 BP/Pulse Patient Position Lauro Eubanks Jr. [facility] 11-24-2021 14:28-0400 Respiratory rate 18 /min Lauro Eubanks Jr. [facility] 11-24-2021 14:28-0400 SaO2% (BldA) [Mass fraction] 97 % Lauro Eubanks Jr. [facility] 11-15-2021 10:26-0400 Diastolic blood pressure 81 mm[Hg] Lauro Eubanks Jr. [facility] 11-15-2021 10:26-0400 Mean blood pressure 94 mm[Hg] Lauro Eubanks Jr. [facility] 11-15-2021 10:26-0400 Systolic blood pressure 119 mm[Hg] Lauro Eubanks Jr. [facility] 11-15-2021 10:14-0400 Blood Pressure Location Lauro Eubanks Jr. [facility] 11-15-2021 10:14-0400 Diastolic blood pressure 90 mm[Hg] Lauro Eubanks Jr. [facility] 11-15-2021 10:14-0400 Heart rate 59 /min Lauro Eubanks Jr. [facility] 11-15-2021 10:14-0400 Systolic blood pressure 147 mm[Hg] Lauro Eubanks Jr. [facility] 09-19-2021 12:59-0400 Blood Pressure Location Lauro Eubanks Jr. [facility] 09-19-2021 12:59-0400 Diastolic blood pressure 100 mm[Hg] Lauro Eubanks Jr. [facility] 09-19-2021 12:59-0400 Heart rate 64 /min Lauro Eubanks Jr. [facility] 09-19-2021 12:59-0400 Systolic blood pressure 151 mm[Hg] Lauro Eubanks Jr. [facility] 08-30-2021 09:19-0400 Blood Pressure Location Lauro Eubanks Jr. [facility] 08-30-2021 09:19-0400 Diastolic blood pressure 86 mm[Hg] Lauro Eubanks Jr. [facility] 08-30-2021 09:19-0400 Heart rate 55 /min Lauro Eubanks Jr. [facility] 08-30-2021 09:19-0400 Respiratory rate 16 /min Lauro Eubanks Jr. [facility] 08-30-2021 09:19-0400 Systolic blood pressure 144 mm[Hg] Lauro Eubanks Jr. [facility] Encounters Encounter Date Encounter Type Care Provider Facility Start: 11-03-2024 ambulatory Cesar Calles Facility :[facility] Start: 05-26-2024 ambulatory Rolly Whalen ty:[facility] Start: 02-04-2024 ambulatory Cesar Calles Facility :[facility] Start: 12-03-2023 End: 12-03-2023 Lab Drop off Cesar Calles [facility] Start: 12-03-2023 End: 12-03-2023 ambulatory Cesar Calles Facility:[facility] Start: 11-13-2023 End: 11-13-2023 ambulatory Norbert Bautista CARMENZAL Facility:[facility] Start: 11-13-2023 End: 11-13-2023 Patient encounter procedure Norbert Bautista NILL [facility] [place] Start: 11-12-2023 End: 11-12-2023 ambulatory Rolly R AZUL Facility:[facility] Start: 11-12-2023 End: 11-12-2023 Patient encounter procedure [facility] R AZUL [facility] Start: 11-08-2023 ambulatory Rollyalfonso AZUL Facility :[facility] Start: 11-05-2023 ambulatory Rolly AZUL Facility : [facility] Start: 11-05-2023 End: 11-05-2023 ambulatory Cesar Calles Facility:[facility] Start: 10-15-2023 End: 10-15-2023 ambulatory Cesar Calles [facility] Start: 10-15-2023 End: 10-15-2023 Patient encounter procedure Cesar Calles [facility] Start: 10-02-2023 End: 10-02-2023 ambulatory Cesar Calles Facility:[facility] Start: 09-24-2023 ambulatory Rolly AZUL Facility :[facility] Start: 07-09-2023 End: 07-09-2023 ambulatory Rolly R AZUL Facility:[facility] Start: 06-25-2023 End: 06-25-2023 ambulatory Rolly R AZUL Facility:[facility] Start: 06-25-2023 End: 06-25-2023 Patient encounter procedure Rolly R AZUL [facility] Start: 06-21-2023 End: 06-21-2023 ambulatory Rolly R AZUL Facility:[id number] Start: 05-29-2023 End: 05-29-2023 ambulatory XXXX NONE Facility:[facility] Start: 05-29-2023 End: 05-29-2023 Patient encounter procedure Brennan Gillis [facility] Start: 05-28-2023 ambulatory Rolly AZUL Facili ty:[facility] Start: 03-20-2023 End: 03-20-2023 ambulatory Rolly AZUL Facility[facility] Start: 03-20-2023 End: 03-20-2023 Patient encounter procedure Rolly Bautista DANIELLA [facility] Start: 02-26-2023 End: 02-26-2023 ambulatory Rolly AZUL Facility:[facility] Start: 02-26-2023 End: 02-26-2023 Patient encounter procedure Rolly Bautista AZUL [facility] Start: 08-31-2022 Encounter for genera l [...] End: 02-17-2022 Patient encounter procedure Shirley WESLEY [facility] Start: 02-17-2022 End: 02-17-2022 Preprocedural examination done Shirley WESLEY [facility] Start: 02-08-2022 End: 02-08-2022 Patient encounter procedure Brennan Gillis [facility] Start: 01-18-2022 End: 01-18-2022 Patient encounter procedure Brennan Gillis [facility] Start: 12-28-2021 End: 12-28-2021 Patient encounter procedure Brennan Gillis [facility] Start: 11-24-2021 ambulatory Facility:[id number] Start: 11-24-2021 End: 11-24-2021 Patient encounter procedure Lauro Eubanks Jr. [facility] Start: 11-17-2021 End: 12-09-2021 Pre-admission assessment Lauro Eubanks Jr. [facility] Start: 11-15-2021 End: 11-15-2021 Patient encounter procedure Lauro Eubanks Jr. [facility] Start: 10-22-2021 End: 10-22-2021 Evaluation and management of inpatient DR NAHID JUNIOR Facility: Start: 09-19-2021 End: 09-19-2021 Patient encounter procedure Lauro Eubanks Jr. [facility] Start: 08-30-2021 End: 08-30-2021 Patient encounter procedure Lauro Eubanks Jr. [facility] Procedures Date Procedure Procedure Detail Performing Clinician Start: 06-21-2023 Cystourethroscopy wi th dilation of urethral stricture Cesar Calles Start: 06-21-2023 Transurethral prostatectomy Cesar Calles Start: 03-20-2023 Transurethral cystoscopy Cesar Calles Start: 08-28-[address] MERA JUNIOR Comment on above: Performed By: #### C MP #### [facility] [address] [address] [address] Yamini Gomez Start: 09-19-2021 Cystoscopy Lauro price Jr. Start: 02-19-2019 Transrectal biopsy o f prostate using ultrasound guidance Lauro Eubanks Jr. Colonoscopy Cesar Calles Umbilical hernia (disorder) Lauro Eubanks Jr. Immunizations Immunization Date Immunization Notes Care Provider [facility] 02-26-2023 zoster vaccine recombinant Cesar Calles [facility] 02-13-2023 influenza virus vaccine, unspecified formulation Rolly AZUL [facility] 12-18-2022 zoster vaccine recombinant Rolly AZUL [facility] 03-08-2022 influenza virus vaccine, unspecified formulation Rolly AZUL [facility] 03-08-2022 SARS-CoV-2 mRNA (tozinameran 5y-11y) vaccine Rolly AZUL [facility] 03-04-2021 influenza virus vaccine, unspecified formulation Rolly AZUL [facility] 03-04-2021 SARS-CoV-2 (COVID-19 ) mRNA BNT-162b2 vax Rolly AZUL [facility] Comment on above: Result Comment: 2022: [id number] 02-11-2021 SARS-CoV-2 (COVID-19 ) mRNA BNT-162b2 vax Lauro Eubanks Jr. [facility] 07-16-2020 SARS-CoV-2 (COVID-19 ) mRNA BNT-162b2 vax Rolly AZUL [facility] 06-25-2020 SARS-CoV-2 (COVID-19 ) mRNA BNT-162b2 vax Rolly AZUL [facility] 06-14-2020 SARS-CoV-2 (COVID-19 ) mRNA BNT-162b2 vax Lauro Eubanks Jr. [facility] 06-14-2020 SARS-CoV-2 (COVID-19 ) mRNA-1273 vaccine Lauro Eubanks Jr. [facility] 05-14-2020 SARS-CoV-2 (COVID-19 ) mRNA BNT-162b2 kenrickx Lauro Eubanks Jr. [facility] 02-15-2020 influenza virus vaccine, unspecified formulation Rolly AZUL [facility] 01-13-2020 influenza virus vaccine, unspecified formulation Lauro Eubanks Jr. [facility] 03-12-2019 influenza virus vaccine, unspecified formulation Rolly AZUL [facility] 02-06-2018 influenza virus vaccine, unspecified formulation Rolly AZUL [facility] 03-30-2017 influenza virus vaccine, unspecified formulation Rolly AZUL [facility] 03-12-2015 influenza virus vaccine, unspecified formulation Rolly AZUL [facility] 12-29-2011 tetanus toxoid, redu briseyda diphtheria toxoid, and acellular pertussis vaccine, adsorbed Rollyalfonso AZUL [facility] 07-08-2000 Hep A, unspecified formulation Rolly AZUL [facility] 10-25-1999 Hep A, unspecified formulation Rolly AZUL [facility] Payers Date Payer Category Payer Medicare [id number] 2022 Medicare [id number] 2022 Unknown [id number] 1959 Unknown [id number] 1959 Unknown [id number] 1958 Unknown [id number] 2.16. 840.1.438634.3.579.2.356 1958 Unknown [id number] 2.16.84 0.1.697009.3.579.2.593 1958 Unknown [id number] 2.16.84 0.1.259592.3.579.2.593 1958 Unknown [id number] 2.16.84 0.1.849354.3.579.2.593 1958 Unknown [id number] 2.16.8 40.1.241188.3.579.2.727 1958 Unknown [id number] 2.16.8 40.1.764464.3.579.2.727 1958 Unknown [id number] 2.16.8 40.1.831835.3.579.2.727 1958 Unknown [id number] 2.16.8 40.1.214297.3.579.2.727 1958 Unknown [id number] 2.16.8 40.1.016096.3.579.2.727 1958 Unknown [id number] 2.16.8 40.1.329278.3.579.2.727 1958 Unknown [id number] 2.16.8 40.1.999339.3.579.2.727 1958 Unknown [id number] 2.16.8 40.1.592983.3.579.2.727 1958 Unknown [id number] 2.16.8 40.1.736070.3.579.2.727 1958 Unknown [id number] 2.16.8 40.1.393521.3.579.2.727 1958 Unknown [id number] 2.16.8 40.1.384396.3.579.2.727 1958 Unknown [id number] 2.16.8 40.1.508478.3.579.2.727 1958 Unknown [id number] 2.16.8 40.1.997617.3.579.2.727 1958 Unknown [id number] 2.16.8 40.1.717079.3.579.2.727 1958 Unknown [id number] 2.16.8 40.1.571587.3.579.2.727 1958 Unknown [id number] 2.16.8 40.1.899889.3.579.2.727 1958 Unknown [id number] 2.16.8 40.1.422944.3.579.2.727 Private Health Insurance [id number] Social History Date Type Detail Facility Start: 08-30-2021 End: 11-13-2023 Tobacco smoking status Never smoked tobacco (finding) [facility] Sex Assigned At Male [facility] Tobacco smoking status Never [facility] Functional Status Date Assessment Result Facility 11-13-2023 Functional Status N/A [facility] [place] 11-12-2023 Functional Status N/A [facility] 05-29-2023 Functional Status No [facility] 03-20-2023 Functional Status N/A [facility] 02-26-2023 Functional Status N/A [facility] 02-17-2022 Functional Status N/A [facility] 12-28-2021 Functional Status No [facility] 11-24-2021 Functional Status No [facility] 11-15-2021 Functional Status N/A [facility] Clinical Notes 08-30-2021 to 12-03-2023 RadiologyLaboratoryLaboratoryLaboratoryLaboratory Note Date & Type Note Facility 12-03-2023 Note Nurse Consultation N ote Reason for Visit Here for lab draw and BP check BP before lab draw 144/92 checked again after lab draw 146/92. Put on BP medication taking daily and tolerating Assessment/Plan Medicare annual wellness visit, initial (Z00.00: Encounter for general adult medical examination without abnormal findings) Medications dutasteride 0.5 mg Cap, 0.5 mg= 1 cap(s), Oral, Daily, 11 refills losartan 100 mg Tab, 100 mg= 1 tab(s), Oral, Daily Allergies No Known Allergies No Known Medication Allergies Immunizations Vaccine Date Status Comments zoster vaccine, [...] virus vaccine, inactivated 02/15/2020 Recorded influenza virus vaccine, inactivated 01/2020 Recorded influenza virus vaccine, inactivated 03/12/2019 Recorded influenza virus vaccine, inactivated 02/06/2018 Recorded influenza virus vaccine, inactivated 03/30/2017 Recorded influenza virus vaccine, inactivated 03/12/2015 Recorded diphtheria/pertussis, acel/tetanus adult 12/29/2011 Recorded Hep A, unspecified formulation 07/08/2000 Recorded Hep A, unspecified formulation 10/25/1999 Recorded [facility] 11-13-2023 Note General Surgery Offi ce/Clinic Note Chief Complaint consultation for left groin mass HPI Staff 63 year old male presents on consultation from Dr. Calles for soft tissue mass left groin. Reports noting mass approximately 3-4 years ago. Reports he developed an infection approximately two years ago after an unsuccessful UroLift. At this time, he noted mass increased in size and then stabilized. Denies pain or discomfort. US completed 10/[address] completed 10/31 with nonspecific mass vs lymph node. History of Present Illness 63 yo male with h/o htn, BPH, referred for left groin subcutaneous mass; noted small mass 4 years ago, gradually enlarged;no pain or skin changes; recent US with 4.5 x 1.2 cm heterogeneous mass in subcutaneous tissue, and smaller adjacent mass thought to be lipoma; pelvic ct confirmed subcutaneous soft tissue mass, possible lymph node. no injury to area, no skin changes; no h/o other similar lesions; no asa or NSAID use; no tobacco use. Review of Systems PHQ Score Initial Depression Screen Score: 0 SCORE ROS - Provider Constitutional: no fever, no sweats, no weight loss. Eyes: yes glasses, no blurred vision, no visual loss. ENMT: no dentures, no hoarseness, no swallowing difficulties, no hearing loss, no ear infection(s), no nose bleeds. Cardiovascular: normal blood pressure, no chest pain, regular heartbeat, no heart murmur. Respiratory: no shortness of breath, no cough, no asthma, no wheezing. Gastrointestinal: no nausea, no vomiting, no diarrhea, no constipation, no blood in stool, no change in bowel habits, no abdominal pain, no hepatitis. Genitourinary: no kidney stones, no urine infection, no dysuria. Musculoskeletal: no pain, no weakness. Skin: no changing moles, no rash, yes skin lumps. Neurologic: no seizures, no epilepsy, no headache. Psychiatric: no emotional or psychiatric problem. Heme/Lymph: no bleeding problems, no anemia, no blood clots, no transfusions. Allergy/Immunologic: no swollen lymph nodes/glands, no IV drug abuse. Other: Additional ROS info: Except as noted in the above Review of Systems and in the History of Present Illness, all other systems have been reviewed and are negative or noncontributory. Physical Exam Vitals & Measurements HR: 60(Peripheral) RR: 16 BP: 163/98 HT: 67 in HT: 170 cm WT: 98.8 kg WT: 217.36 lb BMI: 34.19 HEENT: normal conjunctiva, sclera clear, no scleral icterus, EOM intact, PERRLA, oral mucosa moist without lesions. Neck: trachea midline, no mass, symmetric, no thyromegaly or nodules, no adenopathy Respiratory: lungs CTA, respirations non labored. Cardiovascular: regular rate and rhythm, no murmur, no pedal edema or varicosities. Gastrointestinal: soft, non distended, no tenderness, no masses, no palpable hernias, diastasis recti no, no hepatosplenomegaly; normal bs Lymphatic: no cervical adenopathy, no supraclavicular adenopathy, no inguinal adenopathy. Musculoskeletal: normal gait, digits and nails without infection, nodes, cyanosis, clubbing. Skin: no rashes, no lesions, no ulcers, left groin crease/upper medial thigh with 4.5 cm irregular, mobile subcutaneous mass, nontender , no skin changes; inferior and lateral smaller subcutaneous mass, 3 cm. Psychiatric/Neuro: oriented to time, place, person, judgement normal, affect appropriate for age, insight intact, no focal deficits. Tests: , x-rays reviewed, review of old records completed , Discussed surgical options, risks, and possible complications with patient. Assessment/Plan 1. Subcutaneous mass of left lower extremity (R22.42: Localized swelling, mass and lump, left lower limb) plan excisional biopsy under anesthesia for definitive diagnosis and treatment; informed consent obtained. Ancef 2 gms IV prior to OR Follow-up No qualifying data available Problem List/Past Medical History Ongoing BMI 34.0-34.9,adult BPH with obstruction/lower urinary tract symptoms Elevated PSA High grade prostatic intraepithelial neoplasia HTN (hypertension) Incomplete bladder emptying LAD (lymphadenopathy), inguinal Nocturia Obesity due to excess calories Seasonal allergies Subcutaneous mass of left lower extremity Urinary urgency Urine frequency Weak urinary stream Historical No qualifying data Procedure/Surgical History Cystourethroscopy with dilation of urethral stricture (06/21/2023), TURP - Transurethral resection of prostate (06/21/2023), Cystoscopy (03/20/2023), Cystoscopy (09/19/2021), Transrectal biopsy of prostate using ultrasound (US) guidance (02/19/2019), Colonoscopy, Umbilical hernia. Medications dutasteride 0.5 mg Cap, 0.5 mg= 1 cap(s), Oral, Daily, 11 refills losartan 100 mg Tab, 100 mg= 1 tab(s), Oral, Daily Allergies No Known Allergies No Known Medication Allergies Social History Alcohol - Low Risk, 11/05/2023 Current, 1-2 times per month, 1 drinks/episode average. 2.00 drinks/episode maximum. Alcohol use interferes with work o (more content not included)... [facility] Comment on above: Result Comment: Elec tronically Signed By: Norbert AGUDELO MD\Date and Time Signed: 11/13/23 10:51 EDT 11-12-2023 Hospital Discharge instructions Patient Education 11/12/2023 10:41:57 Benign Prostatic Hyperplasia Benign Prostatic Hyperplasia Benign [...] urethra. Follow these instructions at home: Take pdms-ybk-axnknwe and prescription medicines only as told by [...] provider. Document Revised: 11/16/2021 Document Reviewed: 11/16/2021 [employer] Patient Education 2022 [employer]. Follow Up Care 07/09/2023 10:54:13 With:DANIELLA HURLEY, Rolly Bautista, URL Address: [facility] [address] [place] [phone] When: Unknown [facility] 11-12-2023 Note Patient Education Urology Benign Prostatic Hyperplasia Benign [...] Follow these instructions at home: ? Take wqry-gfj-gqkaeuu and prescription medicines only as told by [...] better with treatment. ? You develop side effec (more content not included)... [facility] 03-20-2023 Hospital Discharge instructions Patient Education 03/20/2023 [...] including vitamins, herbs, eye drops, creams, and ttzo-fgn-npujthy medicines. Any problems you or family members [...] provider tells you to take them. Taking tmxz-cte-hanymlb medicines, vitamins, herbs, and supplements. Surgery safety [...] provider. Document Revised: 01/24/2022 Document Reviewed: 01/24/2022 [employer] Patient Education 2022 [employer]. 03/20/2023 14:37:26 EU - Cystoscopy Discharge Instructions [...] AZUL Address: [facility] [address] [place] [address]- Business (1) When: Unknown Comments:Office will call to schedule follow up [facility] 03-20-2023 Note Cystoscopy ? Voiding after the [...] including vitamins, herbs, eye drops, creams, and ltbe-jhx-xalagqc medicines. ? Any problems you or family [...] tells you to take them. ? Taking nswi-xtw-ppprojp medicines, vitamins, herbs, and supplements. Surgery safety [...] asleep (general anesthetic) (more content not included)... [facility] 03-20-2023 Note [id number] [facility] 02-26-2023 Hospital Discharge instructions Patient Education 02/26/2023 [...] urethra. Follow these instructions at home: Take kpyr-vcm-kayebfw and prescription medicines only as told by [...] provider. Document Revised: 11/16/2021 Document Reviewed: 11/16/2021 [employer] Patient Education 2022 [employer]. Follow Up Care 12/18/2022 10:51:11 With:DANIELLA HURLEY, Rolly Bautista, LINDENL Address: [facility] [address] , [place] [address]- When: Unknown Comments:Sched Cysto and Bladder Function Test [facility] 02-16-2022 Hospital Discharge instructions Follow Up Care 02/16/2022 11:04:35 With:Elis HURLEY, Brennan Moreno Address: [address] [place] [address]- When: only if needed [facility] 11-15-2021 Hospital Discharge instructions Patient Education 11/15/2021 [...] including vitamins, herbs, eye drops, creams, and ubtn-ryf-jvsbwet medicines. Any problems you or family members [...] provider tells you to take them. Taking qrhj-gyk-udtxkig medicines, vitamins, herbs, and supplements. Eating and [...] 04/30/2006 Document Revised: 08/20/2019 Document Reviewed: 01/29/2019 [employer] Patient Education 2019 [employer] Follow Up Care 10/20/2021 08:45:04 With:Raimundo Ortiz MD, Lauro Madison URO Address: [facility] [address] , [place] [phone] When: Unknown [facility] 09-19-2021 Hospital Discharge instructions Patient Education [...] urethra. Follow these instructions at home: Take ladj-lqw-dauonba and prescription medicines only as told by [...] 04/30/2006 Document Revised: 03/25/2019 Document Reviewed: 06/04/2017 [employer] Patient Education 2020 [employer] Follow Up Care 08/30/2021 15:35:27 With:Raimundo Ortiz MD, Lauro Madison, URO Address: [facility] [address] , [place] [address]- When: Unknown Comments:will follow up after a urolift [facility] 08-30-2021 Hospital Discharge instructions Patient Education 08/30/2021 [...] including vitamins, herbs, eye drops, creams, and kvrq-xho-catqkow medicines. Any problems you or family members [...] provider tells you to take them. Taking vqry-kev-inbpbdz medicines, vitamins, herbs, and supplements. Eating and [...] 04/30/2006 Document Revised: 08/20/2019 Document Reviewed: 01/29/2019 [employer] Patient Education 2020 [employer]. Follow Up Care 07/27/2020 10:36:44 With:Raimundo Ortiz MD, Lauro Madison, URO Address: [facility] [address] , [place] [address]- [phone] When: Unknown [facility] Evaluation + Plan note Future Appointments Appointment Date:09/19/2021 01:15:00 PM Scheduled Provider:Lauro Eubanks Jr., MD Location:[facility] Appointment Type:URO Procedure 15 min [facility] Evaluation + Plan note Future Appointments Appointment Date:12/08/2021 09:00:00 AM Scheduled Provider: Location:[facility] Appointment Type:Surgery FT [facility] Evaluation + Plan note Future Appointments Appointment Date:12/15/2021 01:30:00 PM Scheduled Provider:Brennan Gillis MD [facility] Type:Cardiology New Patient (FT) [facility] Evaluation + Plan note Future Appointments Appointment Date:02/08/2022 08:00:00 AM Scheduled Provider: [facility] Appoint[facility] Type:NM Myocard Spect Multi Rest/Stress-Res Appointment Date:02/08/2022 09:00:00 AM Scheduled Provider: [facility] Appointment Type:NM Myocard Spect Multi Rest/Stress - R Appointment Date:02/08/2022 09:30:00 AM Scheduled Provider: [facility] Appointment Type:NM Myocard Spect Multi Rest/Stress-Str Appointment Date:02/08/2022 10:30:00 AM Scheduled Provider: [facility] Appointment Type:NM Myocar Spect Multi Rest/Stress - St Future Scheduled TestsNM Myocardial Spect Rest/Stress 1 Day 02/08/22 [facility] Evaluation + Plan note Future Scheduled TestsBasic Metabolic Panel 03/03/22 [facility] Evaluation + Plan note Future Appointments Appointment Date:03/13/2023 01:15:00 PM Scheduled Provider: Location:[facility] Appointment Type:Urology CALL PAT FT Appointment Date:03/20/2023 01:00:00 PM Scheduled Provider: Location:[facility] Appointment Type:Urology FT Appointment Date:03/20/2023 02:15:00 PM Scheduled Provider: Location:[facility] Appointment Type:Urology FT Future Scheduled TestsBasic Metabolic Panel 03/03/22 [facility] Evaluation + Plan note Future Appointments Appointment Date:05/28/2023 09:00:00 AM Scheduled Provider: Location:[facility] Appointment Type:URO Nurse Visit Appointment Date:06/11/2023 09:15:00 AM Scheduled Provider:Rolly AZUL MD [facility]O Office Visit [facility] Evaluation + Plan note Future Appointments Appointment Date:06/25/2023 09:00:00 AM Scheduled Provider: Location:[facility] [place] Appointment Type:URO Nurse Visit Appointment Date:07/09/2023 09:30:00 AM Scheduled Provider:Rolly AZUL MD [facility] Type:URO Office Visit [facility] Evaluation + Plan note Future Appointments Appointment Date:07/09/2023 09:30:00 AM Scheduled Provider:Rolly AZUL MD [facility] Type:URO Office Visit [facility] Evaluation + Plan note Future Appointments Appointment Date:11/05/2023 09:30:00 AM Scheduled Provider: Location:[facility] Appointment Type:FM Medicare Wellness Welcome Appointment Date:11/05/2023 10:30:00 AM Scheduled Provider:eCsar Calles MD [facility] Appointment Date:11/12/2023 09:45:00 AM Scheduled Provider:Rolly AZUL MD [facility] Type:URO Office Visit [facility] Evaluation + Plan note Future Appointments Appointment Date:11/13/2023 10:00:00 AM Scheduled Provider:Norbert AGUDELO MD Location:[facility] Appointment Type: Gio Moise Appointment Date:12/03/2023 08:20:00 AM Scheduled Provider: [facility]:FM Nurse Visit Appointment Date:02/04/2024 10:15:00 AM Scheduled Provider:Cesar Calles MD [facility]:FM Open Appointment Date:05/26/2024 09:45:00 AM Scheduled Provider:Rolly AZUL MD Location:[facility] Appointment Type:URO Office Visit Appointment Date:11/03/2024 09:30:00 AM Scheduled Provider: Location:[facility] Appointment Type: Medicare Wellness Initial Future Scheduled TestsPSA Screen, Total 624/24HCV Antibody RFX to Quant PCR 11/05/23Comprehensive Metabolic Panel 24Lipid Panel 11/05/23 [facility] Evaluation + Plan note Future Appointments Appointment Date:12/03/2023 08:20:00 AM Scheduled Provider: Location:[facility] Appointment Type: Nurse Visit Appointment Date:02/04/2024 10:15:00 AM Scheduled Provider:Cesar Calles MD Location:[facility] Appointment Type: Open Appointment Date:05/26/2024 09:45:00 AM Scheduled Provider:Rolly AZUL MD Location:[facility] Appointment Type:URO Office Visit Appointment Date:11/03/2024 09:30:00 AM Scheduled Provider: Location:[facility] Appointment Type: Medicare Wellness Initial Future Scheduled TestsPSA Screen, Total 624HCV Antibody RFX to Quant PCR 11/05/23Comprehensive Metabolic Panel 11/05/23Lipid Panel 11/05/23 [facility] General Surgery [place] Evaluation + Plan note Future Appointments Appointment Date:02/04/2024 10:15:00 AM Scheduled Provider:Cesar Calles MD Location:[facility] Appointment Type: Open Appointment Date:05/26/2024 09:45:00 AM Scheduled Provider:Rolly AZUL MD Location:[facility] Appointment Type:URO Office Visit Appointment Date:11/03/2024 09:30:00 AM Scheduled Provider: Location:[facility] Appointment Type: Medicare Wellness Initial Diagnostic Tests PendingHCV Antibody RFX to Quant PCR 12/03/23 [facility] Hospital course Narrative No data available for this section [facility] Hospital Discharge instructions No data available for this section [facility] Progress note No data available for this section [facility] Summary Purpose Family History No Family [...] sect ion and content) Personnel Name: Vernon TURK Nahid Tyra Address: [address] [place] [address] Personnel Name: Vernon Nahid Tyra Address: [address] [place] [address] Personnel Name: Vernon TURK Nahid Tyra Address: [address] [place] [address] Personnel Name: Vernon TURK Nahid Tyra Address: [address] [place] [address] Personnel Name: Vernon TURK Nahid Tyra Address: [address] [place] [address] Personnel Name: Vernon TURK Nahid Tyra Address: [address] [place] [id number] Personnel Name: Vernon TURK Nahid Tyra Address: Address: [address] [place] [address] Personnel Name: Vernon TURK Nahid Tyra Address: Address: [address] [place] [address] Personnel Name: Vernon DO Nahid Tyra Address: Address: [address] [place] [address] Personnel Name: Vernon DO Nahid Tyra Address: Address: [address] [place] [address] Personnel Name: NAHID JUNIOR DO Address: Address: [facility] [place] [address]- Personnel Name: Cesar Calles MD Address: Address: [address] [place] [address] Personnel Name: Cesar Calles MD Address: Address: [address] [place] [address] Personnel Name: Cesar Calles MD Address: Address: [address] [place] [address]- Personnel Name: Cesar Calles MD Address: Address: [facility] [place] [address]- (unrecognized sect ion and content) No Status Records FoundNo Status Records FoundNo Status Records Found INFORMATION SOURCE (unrecogn ized section and content) DATE CREATED AUTHOR 02/22/2022 [facility] DATE CREATED AUTHOR AUTHOR'S ORGANIZ ATION [facility]20[facility] DATE CREATED AUTHOR AUTHOR'S ORGANIZ ATION 12/05/2023 [facility] FOR RECORDS PERTAINING TO PATIENTS WHO [...] BE BASED ON THE PRIMARY CLINICAL RECORDS. [facility]. provides no warranty or guarantee of the accuracy or completeness of information in this document.
== END 2023-12-05 08:58 | disposition home or self-care (01) ==
LOC: PST 08:58
PROVIDERS: PCP Family Medicine; Visit Provider Surgery
DX: Z01.810 Encounter for preprocedural cardiovascular examination (principal); Z01.812 Encounter for preprocedural laboratory examination; R19.09 Other intra-abdominal and pelvic swelling, mass and lump
CPT/HCPCS: 80048; 93005

== ENCOUNTER 2023-12-19 09:58 | Day surgery (SDC) | payer MEDICARE, SELFPAY ==
[2023-12-05 09:06] VITALS: BP 162/98; PULSE 54; TEMP 36; O2SAT 98; BMI 34.0
--- NOTE | 2023-12-19 | OP_ITS ---
OPERATION DATE: 12/19/2023 PREOPERATIVE DIAGNOSIS: Subcutaneous mass left groin. POSTOPERATIVE DIAGNOSIS: Subcutaneous mass left groin. PROCEDURE: Excisional biopsy subcutaneous mass left groin. SURGEON: Norbert Larson M.D. ANESTHESIA: Monitored anesthesia care as well as local with 0.5% Marcaine plain. ESTIMATED BLOOD LOSS: Less than 3 mL. INDICATIONS AND CONSENT: Patient is a 63-year-old male with a long history of a subcutaneous mass of the left groin crease that has increased in size. Workup was equivocal with a 4 x 3 cm soft tissue mass in the subcutaneous tissues. Could not definitively be called a lipoma or lymph node. Indications, risks, benefits, alternatives of proceeding with excisional biopsy were explained extensively to the patient, including the risks of bleeding, infection, scarring, pain, seroma, need for further surgery or anesthetic complications. All of his questions were answered. Informed consent was obtained. PROCEDURE: Patient brought to the operating room, placed in the supine position. Monitored anesthesia care was provided. He was prepped and draped in the usual sterile fashion. The area overlying the nodule was anesthetized with 0.5% Marcaine plain. Incision was made over the long axis of the lesion, parallel to the left groin crease, carried down through subcutaneous tissue using sharp dissection as well as electrocautery. There was noted to be some scarring around this area, as well as some fluid, and it appeared to be a scarred up lipoma, but not a lymph node. It was irregularly shaped. It was carefully freed up. Small vessels were controlled with medium clips and it was sent off to Pathology. It did measure approximately 4 x 2 cm. The wound was irrigated. Hemostasis was achieved. The subcutaneous tissue was re- approximated with interrupted 3-0 Monocryl suture. Skin was closed with a running 4-0 subcuticular Monocryl suture and skin glue. Sterile pressure dressing was applied. Sponge and needle counts were correct x2 per nursing personnel. Patient tolerated procedure well, was sent to recovery room in good condition. CC: Dr. Stevan GIORDANO
--- OUTSIDE RECORDS SUMMARY | 2023-12-19 10:09 | XMS_ITS | CCD ---
Author Organization [facility] CliniSyor Care Team Providers Care Narcotics Investigator Name Role Phone Nahid Junior Primary Care Physician VERNON, DR DEJESUS Primary Care Unavailable MICHELLEESPERANZA ., HIRAL PALACIOS Consulting Unavailabl e FAWBRITNI, NG H Admitting Unavailable FAWBRITNI NG Godfrey Attending Unavailable JT TAYLOR Consulting Unavailable FAWBRITNI NG H Consulting Unavailable VERNON, DR DEJESUS Admitting Unavailable DERBY LINE, DR DEJESUS Attending Unavailable DERBY LINE, DR DEJESUS Primary Care Unavailable VERNON, DR DEJESUS Consulting Unavailable [facility], DR JANE Admitting Unavailable [facility], DR JANE Attending Unavailable DERBY LINE, DR DEJESUS Primary Care Unavailable [facility], DR JANE Consulting Unavailable Nahid Junior Primary Care Physician [phone] NAHID JUNIOR Primary Care Physician Cesar Calles Primary Care Physician Cesar Calles Attending Unavailable Cesar Calles Admitting Unavailable AZULRolly Attending Unavailable AZUL, Rolly R Attending Unavailable AZUL, Rolly R Admitting Unavailable AZUL, Rolly R Attending Unavailable AZUL, Rolly R Referring Unavailable AZUL, Rolly R Attending Unavailable AZUL, Rolly R Attending Unavailable AZUL, Rolly R Attending Unavailable NONE, XXXX Referring Unavailable Brennan Gillis Attending Unavaila ble Cesar Calles Attending Unavailable Cesar Calles Attending Unavailable Cesar Calles Referring Unavailable Cesar Calles Admitting Unavailable Cesar Calles Attending Unavailable Cesar Calles Admitting Unavailable AZULRolly Attending Unavailable Cesar Calles Attending Unavailable Cesar Calles Attending Unavailable Cesar Calles Attending Unavailable Cesar Calles Attending Unavailable Rolly ZAUL Attending Unavailable NILL, Norbert R Attending Unavailable Cesar Calles Referring Unavailable Allergies Allergy Classification Reported Allergen(s) Allergy Type Date of Onset Reaction(s) Facility (1 source) No Known Medication Allergies; Translations: [No Known Medication Allergies] Propensity to adverse reactions (disorder) [facility] Repository Medications Current Medications Medication Drug [...] Daily, # 30 cap(s), Refills(s) 11, Pharmacy: [facility]/pharmacy #[id number], 170, cm, 02/26/23 13:09:00 EDT, Height/Length Dosing, 97.7, kg, 02/26/23 13:09:00 EDT, Weight Dosing Start Date: 02/26/23 Status: Ordered losartan potassium 100 mg oral tablet (5 sources) Angiotensin 2 Receptor Maryann Start: 11-05-2023 take 1 tablet by mouth once daily losartan 100 mg Tab 100 mg = 1 tab(s), Oral, Daily, # 90 tab(s), Refills(s) 0, Pharmacy: [facility]/pharmacy #[id number], 170, cm, 11/05/23 10:34:00 EDT, Height/Length Dosing, 100, kg, 11/05/23 10:34:00 EDT, Weight Dosing Start Date: 11/05/23 Status: Ordered Start: 10-02-2023 take 1 tablet by linda th once daily losartan 50 mg Tab 50 mg = 1 tab(s), Oral, Daily, # 90 tab(s), Refills(s) 0, Pharmacy: [facility]/pharmacy #[id number], 170, cm, 10/02/23 8:33:00 EDT, Height/Length Dosing, 101, kg, 10/02/23 8:33:00 EDT, Weight Dosing Start Date: 10/02/23 Status: Ordered Start: 02-17-2022 take 1 tablet by linda th once daily losartan 25 mg Tab 25 mg = 1 tab(s), Oral, Daily, # 30 tab(s), Refills(s) 5, Pharmacy: [facility]/pharmacy #[id number], 170, cm, 02/17/22 9:35:00 EDT, [...] bedtime), # 30 cap(s), Refills(s) 1, [id number], cm, 08/30/21 9:37:00 EDT, Height/Length [...] day(s), # 2 cap(s), Refills(s) 0, Pharmacy: [facility]/pharmacy #[id number], 170, cm, 02/26/23 13:09:00 EDT, [...] procedure, # 2 tab(s), Refills(s) 0, Pharmacy: [facility]/pharmacy #[id number], 170, cm, 08/30/21 9:37:00 EDT, [...] Name Value Interpretation Reference Range Facil ity .Interpretation:on HCV Ab IA Ql Comment Invalid Interpretation Code [facility] Comment on above: Result Comment: Not infected with HCV unless early or acute infection is suspected (which may be delayed in an immunocompromised individual), or other evidence exists to indicate HCV infection. Performed at: [facility] [address] [id number] PhD Eugenio Ramirez Performed By: #### 2 [id number] #### [facility] [address] [place] [address] HCV Antibody RFX to [facility] [place] 12-05-2023 HCV IgG IA Ql Non-Reactive Invalid Interpretation Code Non Reactive [facility] Comment on above: Result Comment: Perf ormed at: [facility] [address] [id number] PhD Eugenio Ramirez Performed By: #### 2 [id number] #### [facility] [address] [place] [address] CHEMISTRYOrdered By: SYSTEM SYSTEM on 12-03-2023 Albumin [...] used for this result was chemiluminescence using [employer]'s Access Hybritech PSA reagent. Protein [Mass/Vol] 7.3 g/dL Normal 6.0 - 7.8 gm/dL R emisol Chem Sodium [Moles/Vol] 138 mmol/L Normal 135 - 145 mmol/L Remisol Chem Triglyceride [Mass/Vol] 160 mg/dL High <=149mg/dL Remisol Chem Urea nitrogen [Mass/Vol] 16 mg/dL Normal 5 - 21 mg/dL Remisol Chem Urea nitrogen/Creatinine [Mass ratio] 16 mg/mg Normal 10 - 20 Remisol Chem CMPon 12-03-2023 Albumin/Globulin (S) [Mass conc ratio] 1.4 Normal 1.1-2.2 [facility] Comment on above: Performed By: #### 2 [id number] #### [facility] [address] [place] [address] ALP [Catalytic activity/Vol] 60 Int._Unit/L Normal 21-98 [facility] Comment on above: Performed By: #### 2 [id number] #### [facility] [address] [place] [address] ALT No additional P-5'-P [Catalytic activity/Vol] 36 Int._Unit/L Normal 6-46 [facility] Comment on above: Performed By: #### 2 [id number] #### [facility] [address] [place] [address] AST [Catalytic activity/Vol] 24 Int._Unit/L Normal 5-43 [facility] Comment on above: Performed By: #### 2 [id number] #### [facility] [address] [place] [address] Creatinine [Mass/Vol] 1.0 mg/dL Normal 0.5-1.3 [facility] Comment on above: Performed By: #### 2 [id number] #### [facility] [address] [place] [address] Globulin (S) [Mass/Vol] 3.0 g/dL Normal 1.4-4.0 [facility] Comment on above: Performed By: #### 2 [id number] #### [facility] [address] [place] [address] Glucose [Mass/Vol] 126 mg/dL Normal 55-199 [facility] Comment on above: Performed By: #### 2 [id number] #### [facility] [address] [place] [address] Protein [Mass/Vol] 7.3 g/dL Normal 6.0-7.8 [facility] Comment on above: Performed By: #### 2 [id number] #### [facility] [address] [place] [address] Urea nitrogen [Mass/Vol] 16 mg/dL Normal 5-21 [facility] Comment on above: Performed By: #### 2 [id number] #### [facility] [address] [place] [address] Urea nitrogen/Creatinine [Mass ratio] 16 No Units Normal 10-20 [facility] Comment on above: Performed By: #### 2 [id number] #### [facility] [address] [place] [address] Albumin [Mass/Vol] 4.3 g/dL Normal 3.3-5.0 [facility] Comment on above: Performed By: #### 2 [id number] #### [facility] [address] [place] [address] Anion gap [Moles/Vol] 10 mmol/L Normal 6-16 [facility] Comment on above: Performed By: #### 2 [id number] #### [facility] [address] [place] [address] Bilirubin [Mass/Vol] 1.1 mg/dL Normal 0.0-1.1 [facility] Comment on above: Performed By: #### 2 [id number] #### [facility] [address] [place] [address] Calcium [Mass/Vol] 9.8 mg/dL Normal 8.9-11.1 [facility] Comment on above: Performed By: #### 2 [id number] #### [facility] [address] [place] [address] Chloride [Moles/Vol] 106 mmol/L Normal 101-111 [facility] Comment on above: Performed By: #### 2 158145 #### [facility] [address] [place] [address] CO2 [Moles/Vol] 26 mmol/L Normal 21-31 [facility] Comment on above: Performed By: #### 2 [id number] #### [facility] [address] [place] [address] Potassium [Moles/Vol] 4.2 mmol/L Normal 3.5-5.3 [facility] Comment on above: Performed By: #### 2 [id number] #### [facility] [address] [place] [address] Sodium [Moles/Vol] 138 mmol/L Normal 135-145 [facility] Comment on above: Performed By: #### 2 105851 #### [facility] [address] [place] [address] Lipid Panelon 12-03-2023 Cholesterol [Mass/Vol] 228 mg/dL High 120-200 [facility] Comment on above: Performed By: #### 2 488410 #### [facility] [address] [place] [address] Cholesterol in HDL [Mass/Vol] 34 mg/dL Invalid Interpretation Code [facility] Comment on above: Result Comment: '>= 60 LOW RISK' '<= 40 HIGH RISK' Performed By: #### 2 [id number] #### [facility] [address] [place] [address] Cholesterol in LDL [Mass/Vol] 163 mg/dL High <=129 [facility] Comment on above: Performed By: #### 2 [id number] #### [facility] [address] [place] [address] Cholesterol in VLDL [Mass/Vol] 32 mg/dL Normal 7-40 [facility] Comment on above: Performed By: #### 2 349393 #### [facility] [address] [place] [address] Triglyceride [Mass/Vol] 160 mg/dL High <=149 [facility] Comment on above: Performed By: #### 2 696013 #### [facility] [address] [place] [address] PSA Screen, Totalon 12-03-19 24 Prostate specific Ag [Mass/Vol] 1.1 ng/mL Normal 0.1-3.5 [facility] Comment on above: Result Comment: The concentration of PSA determined by different manufacturers can vary due to differences in assay methods and reagent specificity. Values obtained from different assay methods cannot be used interchangeably. The methodology used for this result was chemiluminescence using [employer]'s Access Hybritech PSA reagent. Performed By: #### 1 [id number] #### [facility] [address] [place] [address] eGFRon 12-03-2023 eGFR 83 mL/min/1.73 m2 Normal >=59 [facility] Comment on above: Order Comment: Order added by Discern Expert. Performed By: #### 1 [id number] #### [facility] [address] [place] [address] Family Medicine Office/Clini c Noteon 12-02-2023 Family [...] Comments : Wears corrective lenses, goes to [facility] for eye exams. 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 Normal [facility] Comment on above: Result Comment: Elec tronically Signed By: Cesar Calles MD\.br\Date and Time Signed: 12/02/23 13:17 EDT\.br\Electronically Co-Signed By: Jeana Houser LPN\.br\Date and Time Co-Signed: 11/05/23 10:53 EDT Ambulatory Visit Summaryon 0 11-13-2023 Ambulatory Visit Summary Ambulatory Visit Summary ERASMODAWN LOZADA Michele :1960 Visit Date:11/13/2023 Ambulatory Visit Instructions Your [...] Appointments Sunday 8:20 AM EDT With: Where: [facility] [place] Invalid Interpretation Code [address] [place] [address]- \.br\ Sunday 9:45 AM EST \.br\ With: DANIELLA HURLEY, Rolly Bautista\.br\ Where: [facility] Urology Office/Clinic Noteon 11-12-2023 Urology Office/Clinic Note Urology Office/Clinic Note Chief Complaint BPH and elevated PSA HPI Staff Pt is here for 4 month F/U with UA/ CT pelvis w con @ [facility] 10/14/23 Previous DX; BPH, Elevated PSA Current PSA- 08/28/22 2.85 Pt was scheduled for Urolift. Urolift attempted 10/20/21. However procedure was terminated due to intolerance from pt. Pt then got an infection, sent to [facility] Has tried Tamsulosin & Terazosin in the [...] Pt then got an infection, sent to [facility] (No inventory control assistant Urologist in [place]) CT 10/21/21 showed no hydronephrosis, enlarged prostate gland. Pt was seen in [place] for infection after procedure was terminated. Pt took Cefdinir for 4 days for infection. Pt states he was admitted to [facility] because of an infection on 10/21/2021. Pt stayed one night at [facility] and then was sent to [facility] since we did not have a Urologist inventory control assistant. Pt states that he was having problems voiding at first but was eventually able to pass his urine on his own and did not need a cath. [place] took pt off Terazosin and put him on Flomax. Pt was then scheduled for TURP. Abnormal EKG. Surgery was then cancelled, awaiting cardiac clearance. Pt cleared by [facility] Cardiac 02/17/22. [1] Tried Tamsulosin & Terazosin [...] lymph nodes) US Extremity Non-Vascular Left 10/15/23 [facility] - Heterogenous ovoid structure measuring 3.8 x [...] for this. Follow-up With When Contact Information Rolly AZUL MD, URL [facility] [address], [place] [address]- [phone] Additional Instructions: 6 mos (PCP checks PSA) Patient Education Benign Prostatic Hyperplasia Neema Batista, personally scribed for Dr. Azul on 11/12/2023 10:42:24. . Documentation recorded by the Neema beauchamp, accurately reflects the services(s) I performed and decisions made by me. Authenticated by Dr. Azul on 11/12/2023 10:48:41. Problem List/Past Me (more content not included)... Normal [facility] Comment on above: Result Comment: Elec tronically Signed By: Rolly AZUL MD\.br\Date and Time Signed: 11/12/23 10:48 EDT\.br\Electronically Co-Signed By: Neema Acuna\antonio\Date and Time Co-Signed: 11/12/23 10:44 EDT Ambulatory [...] Rolly AZUL MD Where: [facility] Invalid Interpretation Code [address] [place] [address]- \.br\ Sunday 10:15 AM EDT \.br\ With: Cesar Calles MD\.br\ Where: [facility] Patient Educationon 11-05-19 Patient Education Infectious Disease [...] Reviewed: 03/17/2021 Elsevier Patient Education ? 2022 [employer] Nutrition Healthy Eating Following a healthy eating pattern may help you to achieve and maintain a healthy body weight, reduce the risk of chronic diseas (more content not included)... Normal [facility] RAD - CT Reporton 11-05-2023 RAD - CT Report [id number]#1. 00TIFF Normal [facility] Screenson 11-05-2023 Screens [id number]#1. 00TIFF [facility] Lab Reportson 11-01-2023 Lab Reports [id number]#1. 00TIFF [facility] US Extremity Non-Vascular Li mited Lefton 10-18-2023 [...] Reynolds DO Transcribed by: JOSSELINE Technologist: SABINO [facility] Consent for Treatmenton Consent for Treatment [id number]#1 .00TIFF [facility] Transfer Inon 10-11-2023 Transfer In [id number]#1. 00TIFF [facility] Ambulatory Visit Summaryon 0 10-02-2023 Ambulatory [...] Appointments Sunday 9:30 AM EDT With: Where: [facility] [place] Invalid Interpretation Code [address] [place] [address]- \.br\ Sunday 9:45 AM EDT \.br\ With: DANIELLA HURLEY, Rolly Bautista\.br\ Where: [facility] Office/Clini c Noteon 10-02-2023 Family Medicine Office/Clinic Note Chief Complaint establish care HPI Staff Dawn is a 63 year old male presenting to establish care Establish Care: History: BPH, Any previous diagnosis: BPH History of seeing any specialist: Dr. Azul When was your last doctors visit: Last [place]pt[place] Last provider: [place] Any recent labs: last August [facility] Health Maintenance UTD: Colonoscopy: yes, most [...] Bp has been elevated - Retired from [employer]. Review of Systems PHQ Score Initial Depression [...] Daily, # 90 tab(s), Refills(s) 0, Pharmacy: [facility]/pharmacy #[id number], 170, cm, 10/02/23 8:33:00 EDT, [...] virus vac (more content not included)... Normal [facility] Comment on above: Result Comment: Elec tronically Signed By: Stevan HURLEY, Cesar Ellis\.br\Date and Time Signed: 10/02/23 09:13 EDT Formson 10-02-2023 Forms [id number]# 1.00TIFF [facility] Patient Educationon 10-02-19 24 Patient Education [...] numbers. This can be done either in [place] or metric measurements. Note that charts and online BMI calculators are available to help you find your BMI quickly and easily without having to do these calculations yourself. To calculate your BMI in [place] measurements: 1. Measure your weight in [...] for Disease Control and Prevention: www.cdc.gov ? [place] Heart Association: www.heart.org ? National Heart, Lung, and Blood [place]: www.nhlbi.nih.gov Summary ? Body mass index (BMI) is a number that is calculated from a person's weight and height. ? BMI may help estimate how much of a person's weight is composed of fat. BMI can help identify those who may be at higher risk for certain medical problems. ? BMI can be measured using [place] measurements or metric measurements. ? BMI charts are used to identify whether you are underweight, normal weight, overweight, or obese. This information is not intended to replace advice given to you by your health care provider. Make sure you discuss any questions you have with your health care provider. Document Revised: 01/21/2020 Document Reviewed: 11/28/2019 [employer] Patient Education ? 2022 [employer]. [facility] Auth for Release of Medical Recordson 09-24-2023 Auth for Release of Medical Records [id number]#1. 00TIFF [facility] Ambulatory Visit Summaryon 0 07-09-2023 Ambulatory [...] [facility] [address] [place] [phone] Medications What How Much When Instructions Unchanged [...] these instructions at home: Medicines ? Take sjpx-cdl-bbrdtbr and prescription medicines only as told by [...] keep your urine pale yellow. ? Take oqqt-ccb-cokiyya or prescription medicines. ? Eat foods that [...] signs of (more content not included)... Normal [facility] Patient Educationon 07-09-19 Patient Education Urology [...] these instructions at home: Medicines ? Take ybxh-cuw-ijsagbm and prescription medicines only as told by [...] keep your urine pale yellow. ? Take oqjz-hfh-kgpleuq or prescription medicines. ? Eat foods that [...] provider. Document Revised: 01/24/2022 Document Reviewed: 01/24/2022 [employer] Patient Education ? 2022 [employer]. Benign Prostatic Hyperpla (more content not included)... Normal [facility] Urology Office/Clinic Noteon 07-09-2023 Urology Office/Clinic [...] Pt then got an infection, sent to [facility] (No inventory control assistant Urologist in [place]) CT 10/21/21 showed no hydronephrosis, enlarged prostate gland. Pt was seen in [place] for infection after procedure was terminated. Pt took Cefdinir for 4 days for infection. Pt states he was admitted to [facility] because of an infection on 10/21/2021. Pt stayed one night at [facility] and then was sent to [facility] since we did not have a Urologist inventory control assistant. Pt states that he was having problems voiding at first but was eventually able to pass his urine on his own and did not need a cath. [place] took pt off Terazosin and put him on Flomax. Pt was then scheduled for TURP. Abnormal EKG. Surgery was then cancelled, awaiting cardiac clearance. Pt cleared by [facility] Cardiac 02/17/22. [1] Has tried Tamsulosin & [...] [facility] [address], [place] [phone] Additional Instructions: 3 mos w/ UA Patient Education Transurethral Resection of the Prostate, Care After Benign Prostatic Hyperplasia INeema, personally scribed for Dr. Azul on 07/09/2023 10:51:57. . Documentation recorded by the scribeNeema, accurately reflects the services(s) I performed and [...] (03/20/2023), Cystos (more content not included)... Normal [facility] Comment on above: Result Comment: Elec tronically Signed By: Rolly AZUL MD\.br\Date and Time Signed: 07/09/23 10:53 EST\.br\Electronically Co-Signed By: Neema Acuna\.br\Date and Time Co-Signed: 07/09/23 10:52 EST Pathology Noteon 06-28-2023 Pathology Note [id number] .00TIFF Normal [facility] Pathology Noteon 06-26-2023 Pathology Note [id number]#1 .00TIFF Normal [facility] Operative Reporton Operative Report [id number]#1 .00TIFF Normal [facility] Heart and Vascular Office/Cl inic Noteon [...] with voice recognition artificial intelligence software, specifically [employer], [employer] and or [employer]a. Substitutions may have occurred with voice recognition and artificial intelligence software.. Documentation services were performed after patient or guardian consented to allow [employer] to record this visit. JAZ welfare specialist and provider reviewed before signing. JAZ: [...] BNT-162b2 v (more content not included)... Normal [facility] Comment on above: Result Comment: Elec tronically Signed By: Elis HURLEY, Brennan Moreno\.br\Date and Time Signed: 06/05/23 11:55 EST\.br\Electronically Co-Signed By: Young Varghese\.br\Date and Time Co-Signed: 05/30/23 10:34 EST Ambulatory Visit Summaryon 0 05-29-2023 Ambulatory Visit Summary DAWN ROCK :1960 Visit Date:05/29/2023 Ambulatory Visit Instructions Your Care Team Attending Physician - Elis HURLEY, Brennan Moreno Primary Care Physician - Nahid Junior DO Referring Physician - NONE, XXXX This Is Your Medications List dutasteride (dutasteride 0.5 mg Cap) Procedures Performed Cystoscopy (09/19/2021), Transrectal biopsy of prostate using ultrasound (US) guidance (02/19/2019), Umbilical hernia. What to do next Scheduled Follow-Up Appointments Sunday 9:00 AM EST With: Where: [facility] [address] [place] [address]- \.br\ Medications\.br\ What How Much When Instructions\.br\ [...] for choosing us for your care.\.br\ \.br\ [facility] Consent for Treatmenton 05-14 Consent for Treatment [id number] .00TIFF Normal [facility] Formson 05-29-2023 Forms cardiac risk clearance, copy given to patient. [id number]#1 .00TIFF [facility] Physician Orderon 05-29-2023 Physician Order [id number]#1 .00TIFF Normal [facility] ECG 12-Leadon 05-11-2023 ECG 12-Lead [id number]#1 .00TIFF Normal [facility] Lab Reportson 05-10-2023 Lab Reports [id number]#1 .00TIFF Normal [facility] Consent for Procedure/Surger yon 03-21-2023 Consent for Procedure/Surgery [id number] .00TIFF Normal [facility] Consent for Procedure/Surger yon 03-20-2023 Consent for Procedure/Surgery [id number] .00TIFF [facility] Consent for Treatmenton Consent for Treatment [id number]#1 .00TIFF [facility] [facility] IntraOperative Documentson 1 05-20-2022 IntraOperative Documents [id number] .[id number] [facility] IntraOperative Documents [id number] .00TIFF [facility] Main OR Intraoperative Recor don 03-20-2023 Main OR Intraoperative Record IntraOp Document Type FTURO Summary Primary Physician: Rolly AZUL MD Finalized Date/Time: 03/20/23 14:41:00 Pt. Name: DAWN ROCK/Sex: 1960 Male Med Rec #: [id number] Physician: Rolly AZUL MD Financial #: [id number] Pt. Type: O Room/Bed: / Admit/Disch: 03/20/23 12:40:30 - Institution: Case Times FTURO Entry 1 Patient Times In Room 03/20/23 14:25:00 Out Room 03/20/23 14:38:00 Procedure Times Start 03/20/23 14:30:00 Stop 03/20/23 14:33:00 Anesthesia Times Last Modified By: Danni Gallagher RN 03/20/23 14:40:49 Case Attendance FTURO Entry 1 Entry 2 Entry 3 Case Attendee DANIELLA HURLEY, Rolly Maldonado TIRE BAGGER, Danni Gallagher RN, Danni Banuelos Role Performed Surgeon - Primary Scrub - Primary Fiber Optic Central Office Installer - Primary Time In 03/20/23 14:25:00 03/20/23 14:25:00 03/20/23 14:25:00 Time Out 03/20/23 14:38:00 03/20/23 14:38:00 03/20/23 14:38:00 Procedure CYSTOSCOPY LOCAL(.) CYSTOSCOPY LOCAL(.) CYSTOSCOPY LOCAL(.) Comments Last Modified By: Danni Gallagher RN, RN, Danni Rodriguez RN 03/20/23 14:40:50 03/20/23 14:40:50 03/20/23 14:40:50 Surgical Procedures FTURO Entry 1 Procedure Description Procedure CYSTOSCOPY LOCAL Modifiers . Surgeon Description CYSTOSCOPY LOCAL Primary Procedure Yes Primary Surgeon DANIELLA HURLEY, Rolly Bautista Start 03/20/23 14:30:00 Stop 03/20/23 14:33:00 Anesthesia [...] By: Danni Gallagher RN 03/20/23 14:41 Normal [facility] Main OR Preoperative Recordo n 03-20-2023 Main OR Preoperative Record Holding Area Document Type FTURO Summary Primary Physician: Rolly AZUL MD Finalized Date/Time: 03/20/23 14:07:31 Pt. Name: DAWN ROCK/Sex: 1960 Male Med Rec #: [id number] Physician: Rolly AZUL MD Financial #: [id number] Pt. Type: O Room/Bed: / Admit/Disch: 03/20/23 [...] Complaints of Pain: No Skin Integrity Intact, [place], Warm, & Dry Vitals - EU Blood Pressure 171/80 Pulse 65 bpm Respirations 20 br/min SPO2 96 % RN Reviewed Yes Last Modified By: Danni Gallagher RN 03/20/23 14:07:30 General Comments: Temp 36.7 Finalized By: Danni Gallagher RN Document Signatures Signed By: Ailin Luna LPN 03/20/23 13:49 Ailin Luna LPN 03/20/23 13:49 Danni Gallagher RN 03/20/23 14:07 Normal [facility] Operative Reporton 3 Operative Report Patient: [...] to think about it at this time.. [facility] Comment on above: Result Comment: Elec tronically Signed By: Rolly AZUL MD\.br\Date and Time Signed: 03/20/23 14:40 EST Outpatient Surgery Discharge Instructionon 03-20-2023 Outpatient Surgery Discharge Instruction [id number] .00TIFF [facility] Ambulatory Visit Summaryon 1 Ambulatory Visit [...] [facility] [address] [place] [address]- Allergies No Known Medication Allergies Problems Ongoing [...] prostate's pres (more content not included)... Normal [facility] Patient Educationon 02-27-20 23 Patient Education [...] Follow these instructions at home: ? Take qxbe-jgv-tatcvet and prescription medicines only as told by [...] the medicine (more content not included)... Normal [facility] Urology Office/Clinic Noteon 02-26-2023 Urology Office/Clinic Note Chief Complaint Follow up HPI Staff Former DLS pt. 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 Pt was then scheduled for Urolift. Urolift attempted 10/20/21. However procedure was terminated due to intolerance from pt. Pt then got an infection, sent to [facility] (No inventory control assistant Urologist in [place]) Pt was then scheduled for TURP. Abnormal EKG. Surgery was then cancelled, awaiting cardiac clearance. Pt cleared by [facility] Cardiac 02/17/22. Here today for follow up. Last PSA 08/28/22- 2.85 Getting up 3-5x/night. [id number] in the morning with coffee intake. [id number] the rest of the day. Weak stream. [...] Pt then got an infection, sent to [facility] (No inventory control assistant Urologist in [place]) CT 10/21/21 showed no hydronephrosis, enlarged prostate gland. Pt was seen in [place] for infection after procedure was terminated. Pt took Cefdinir for 4 days for infection. Pt states he was admitted to [facility] because of an infection on 10/21/2021. Pt stayed one night at [facility] and then was sent to [facility] since we did not have a Urologist inventory control assistant. Pt states that he was having problems voiding at first but was eventually able to pass his urine on his own and did not need a cath. [facility] took pt off Terazosin and put him on Flomax. Pt was then scheduled for TURP. Abnormal EKG. Surgery was then cancelled, awaiting cardiac clearance. Pt cleared by [facility] Cardiac 02/17/22. No UA given today. Getting up 3-5x/night, [id number] in the morning with coffee intake, [id number] the rest of the day. Weak stream. [...] URL [facility] [address], [place] [address]- Additional Instructions: Sched Cysto and Bladder Function Test Patient Education Benign Prostatic Hyperplasia I, Sheryl Temple , personally scribed for Dr. Azul on 02/26/2023 14: (more content not included)... Normal [facility] Comment on above: Result Comment: Elec tronically Signed By: Marina Gross\antonio\Date and Time Signed: 02/26/23 14:18 EDT CBC AUTO DIFFon 08-28-2022 BASO # 0.0 103/ul Normal 0.0-0.1 [facility] Comment on above: Performed By: #### C BC #### [facility] [address] [place] [address] Dr. Yamini Gomez Basophils/100 WBC (Bld) 0.5 % Normal 0.2-2.0 [facility] Comment on above: Performed By: #### C BC #### [facility] [address] [address] [address] Yamini Gomez EO # 0.1 103/ul Normal 0.0-0.7 [facility] Comment on above: Performed By: #### C BC #### [facility] [address] [address] [address] Yamini Gomez Eosinophils/100 WBC (Bld) 2.1 % Normal 0.9-7.0 [facility] Comment on above: Performed By: #### C BC #### [facility] [address] [address] [address] Yamini Gomez Erythrocyte distribution width (RBC) [Ratio] 12.3 % Normal 11.0-15.0 [facility] Comment on above: Performed By: #### C BC #### [facility] [address] [place] [address] Dr. Yamini Gomez Hematocrit (Bld) [Volume fraction] 44.7 % Normal 42.0-54.0 [facility] Comment on above: Performed By: #### C BC #### [facility] [address] [address] [address] Yamini Gomez Hemoglobin (Bld) [Mass/Vol] 15.9 g/dL Normal 14.0-18.0 [facility] Comment on above: Performed By: #### C BC #### [facility] [address] [place] [address] Dr. Yamini Gomez IG # 0.01 10e3/ul Normal 0.00-0.03 [facility] Comment on above: Performed By: #### C BC #### [facility] [address] [place] [address] Dr. Yamini Gomez IG % 0.3 % Normal 0.0-0.5 [facility] Comment on above: Performed By: #### C BC #### [facility] [address] [place] [address] Dr. Yamini Gomez LYMPH # 1.5 103/ul Normal 1.2-3.8 [facility] Comment on above: Performed By: #### C BC #### [facility] [address] [place] [address] Dr. Yamini Gomez Lymphocytes/100 WBC (Bld) 38.5 % Normal 20.5-60.0 [facility] Comment on above: Performed By: #### C BC #### [facility] [address] [place] [address] Dr. Yamini Gomez MANUAL DIFF REQ NO Normal [facility] Comment on above: Performed By: #### C BC #### [facility] [address] [place] [address] Dr. Yamini Gomez MCH (RBC) [Entitic mass] 30.5 pg Normal 25.9-34.0 [facility] Comment on above: Performed By: #### C BC #### [facility] [address] [place] [address] Dr. Yamini Gomez MCHC (RBC) [Mass/Vol] 35.6 g/dL Critically high 29.9-35.2 [facility] Comment on above: Performed By: #### C BC #### [facility] [address] [place] [address] Dr. Yamini Gomez MCV (RBC) [Entitic vol] 85.8 fL Normal 80.0-94.0 [facility] Comment on above: Performed By: #### C BC #### [facility] [address] [place] [address] Dr. Yamini Gomez MONO # 0.4 103/ul Normal 0.3-0.8 [facility] Comment on above: Performed By: #### C BC #### [facility] [address] [place] [address] Dr. Yamini Goemz Monocytes/100 WBC (Bld) 9.8 % Normal 1.7-12.0 [facility] Comment on above: Performed By: #### C BC #### [facility] [address] [place] [address] Dr. Yamini Gomez NEUT # 1.9 103/ul Normal 1.4-6.5 [facility] Comment on above: Performed By: #### C BC #### [facility] [address] [place] [address] Dr. Yamini Gomez Neutrophils/100 WBC (Bld) 48.8 % Normal 43.0-75.0 [facility] Comment on above: Performed By: #### C BC #### [facility] [address] [place] [address] Dr. Yamini Gomez Platelet mean volume (Bld) [Entitic vol] 9.0 fL Critically low 9.5-13.5 [facility] Comment on above: Performed By: #### C BC #### [facility] [address] [place] [address] Dr. Ymaini Gomez PLT 168 103/ul Normal 150-450 [facility] Comment on above: Performed By: #### C BC #### [facility] [address] [place] [address] Dr. Yamini Gomez RBC 5.21 106/ul Normal 4.70-6.10 [facility] Comment on above: Performed By: #### C BC #### [facility] [address] [place] [address] Dr. Yamini Gomez WBC 3.8 103/ul Critically low 4.0-11.0 [facility] Comment on above: Performed By: #### C BC #### [facility] [address] [address] [address] Yamini Gomez PROF 14(COMP METB)on 023 Albumin [Mass/Vol] 4.0 g/dL Normal 3.4-5.0 [facility] Comment on above: Performed By: #### T 4, TSH, CMP #### [facility] [address] [address] [address] Yamini Gomez Albumin/Globulin [Mass ratio] 1.0 {ratio} Normal [facility] Comment on above: Performed By: #### T 4, TSH, CMP #### [facility] [address] [address] [address] Yamini Gomez ALP [Catalytic activity/Vol] 69 U/L Normal 46-116 [facility] Comment on above: Performed By: #### T 4, TSH, CMP #### [facility] [address] [place] [address] Dr. Yamini Gomez ALT [Catalytic activity/Vol] 57 U/L Normal 16-63 [facility] Comment on above: Performed By: #### T 4, TSH, CMP #### [facility] [address] [place] [address] Dr. Yamini Gomez Anion gap [Moles/Vol] 10.0 mmol/L Normal [facility] Comment on above: Performed By: #### T 4, TSH, CMP #### [facility] [address] [address] [address] Yamini Gomez AST [Catalytic activity/Vol] 26 U/L Normal 15-37 [facility] Comment on above: Performed By: #### T 4, TSH, CMP #### [facility] [address] [address] [address] Yamini Gomez Bilirubin [Mass/Vol] 1.0 mg/dL Normal 0.2-1.0 [facility] Comment on above: Performed By: #### T 4, TSH, CMP #### [facility] [address] [address] [address] Yamini Gomez Calcium [Mass/Vol] 9.4 mg/dL Normal 8.5-10.1 [facility] Comment on above: Performed By: #### T 4, TSH, CMP #### [facility] [address] [address] [address] Yamini Gomez Chloride [Moles/Vol] 106 mmol/L Normal 98-107 [facility] Comment on above: Performed By: #### T 4, TSH, CMP #### [facility] [address] [address] [address] Yamini Gomez CO2 [Moles/Vol] 28.5 mmol/L Normal 21.0-32.0 [facility] Comment on above: Performed By: #### T 4, TSH, CMP #### [facility] [address] [address] [address] Yaimni Gomez Creatinine [Mass/Vol] 1.06 mg/dL Normal 0.70-1.30 [facility] Comment on above: Performed By: #### T 4, TSH, CMP #### [facility] [address] [address] [address] Yamini Gomez EGFR-AF LATVIAN >60 Normal >=60 [facility] Comment on above: Performed By: #### T 4, TSH, CMP #### [facility] [address] [address] [address] Yamini Gomez EGFR-NON AF LATVIAN >60 Normal >=60 [facility] Comment on above: Performed By: #### T 4, TSH, CMP #### [facility] [address] [address] [address] Yamini Gomez Globulin (S) [Mass/Vol] 4.0 g/dL Normal [facility] Comment on above: Performed By: #### T 4, TSH, CMP #### [facility] [address] [address] [address] Yamini Gomez Glucose [Mass/Vol] 119 mg/dL Critically high 74-106 [facility] Comment on above: Performed By: #### T 4, TSH, CMP #### [facility] [address] [place] [address] Dr. Yamini Gomez Potassium [Moles/Vol] 4.5 mmol/L Normal 3.5-5.1 [facility] Comment on above: Performed By: #### T 4, TSH, CMP #### [facility] [address] [place] [address] Dr. Yamini Gomez Protein [Mass/Vol] 8.0 g/dL Normal 6.4-8.2 [facility] Comment on above: Performed By: #### T 4, TSH, CMP #### [facility] [address] [place] [address] Dr. Yamini Gomez Sodium [Moles/Vol] 140 mmol/L Normal 136-145 [facility] Comment on above: Performed By: #### T 4, TSH, CMP #### [facility] [address] [place] [address] Dr. Yamini Gomez Urea nitrogen [Mass/Vol] 14.0 mg/dL Normal 7.0-18.0 [facility] Comment on above: Performed By: #### T 4, TSH, CMP #### [facility] [address] [place] [address] Dr. Yamini Gomez Urea nitrogen/Creatinine [Mass ratio] 13.2 mg/mg Normal [facility] Comment on above: Performed By: #### T 4, TSH, CMP #### [facility] [address] [place] [address] Dr. Yamini Gomez T4on 08-28-2022 T4 [Mass/Vol] 7.60 ug/dL Normal 4.50-12.10 [facility] Comment on above: Performed By: #### T 4, TSH, CMP #### [facility] [address] [place] [address] Dr. Yamini Gomez TSHon 08-28-2022 TSH 4.413 uIU/mL Critically high 0.358-3.740 [facility] Comment on above: Performed By: #### T 4, TSH, CMP #### [facility] [address] [place] [address] Dr. Yamini Gomez PROF CHEM 8 (BAS METB)on Anion gap [Moles/Vol] 10.5 mmol/L Normal [facility] Comment on above: Performed By: #### C MP #### [facility] [address] [address] [address] Yamini Gomez Calcium [Mass/Vol] 9.4 mg/dL Normal 8.5-10.1 [facility] Comment on above: Performed By: #### C MP #### [facility] [address] [address] [address] Yamini Gomez Chloride [Moles/Vol] 104 mmol/L Normal 98-107 [facility] Comment on above: Performed By: #### C MP #### [facility] [address] [address] [address] Yamini Gomez CO2 [Moles/Vol] 28.4 mmol/L Normal 21.0-32.0 [facility] Comment on above: Performed By: #### C MP #### [facility] [address] [place] [address] Dr. Yamini Gomez Creatinine [Mass/Vol] 1.03 mg/dL Normal 0.70-1.30 [facility] Comment on above: Performed By: #### C MP #### [facility] [address] [address] [address] Yamini Gomez EGFR-AF LATVIAN >60 Normal >=60 [facility] Comment on above: Performed By: #### C MP #### [facility] [address] [place] [address] Dr. Yamini Gomez EGFR-NON AF LATVIAN >60 Normal >=60 [facility] Comment on above: Performed By: #### C MP #### [facility] [address] [address] [address] Yamini Gomez Glucose [Mass/Vol] 112 mg/dL Critically high 74-106 [facility] Comment on above: Performed By: #### C MP #### [facility] [address] [address] [address] Yamini Gomez Potassium [Moles/Vol] 3.9 mmol/L Normal 3.5-5.1 [facility] Comment on above: Performed By: #### C MP #### [facility] [address] [address] [address] Yamini Gomez Sodium [Moles/Vol] 139 mmol/L Normal 136-145 [facility] Comment on above: Performed By: #### C MP #### [facility] [address] [address] [address] Yamini Gomez Urea nitrogen [Mass/Vol] 17.0 mg/dL Normal 7.0-18.0 [facility] Comment on above: Performed By: #### C MP #### [facility] [address] [address] [address] Yamini Gomez Urea nitrogen/Creatinine [Mass ratio] 16.5 mg/mg Normal [facility] Comment on above: Performed By: #### C MP #### [facility] [address] [address] [address] Yamini Gomez CHEMISTRYOrdered By: SYSTEM SYSTEM on 11-24-2021 Anion gap [Moles/Vol] 12 mmol/L Normal 6 - 16 mEq/L [facility] Remisol Calcium [Mass/Vol] 9.4 mg/dL Normal 8.9 - 11.1 mg/dL [facility] Remisol Chloride [Moles/Vol] 105 mmol/L Normal 101 - 111 mmol/ L [facility] Remisol CO2 [Moles/Vol] 25 mmol/L Normal 21 - 31 mmol/L [facility] Remisol Creatinine [Mass/Vol] 1.0 mg/dL Normal 0.5 - 1.3 mg/dL [facility] Remisol GFR/1.73 sq M.predicted among blacks MDRD (S/P/Bld) [Vol rate/Area] mL/min/1.73 m2 Normal >=59mL/min/1.73 m2 [facility] Chem S GFR/1.73 sq M.predicted among non-blacks MDRD (S/P/Bld) [Vol rate/Area] mL/min/1.73 m2 Normal >=59mL/min/1.73 m2 [facility] Chem S Glucose [Mass/Vol] 101 mg/dL Normal 55 - 199 mg/dL [facility] Remisol Potassium [Moles/Vol] 4.0 mmol/L Normal 3.5 - 5.3 mmol/L [facility] Remisol Sodium [Moles/Vol] 138 mmol/L Normal 135 - 145 mmol/L [facility] Remisol Urea nitrogen [Mass/Vol] 20 mg/dL Normal 5 - 21 mg/dL [facility] Remisol Urea nitrogen/Creatinine [Mass ratio] 20 mg/mg [...] 156.0 E9/L Normal 150.0 - 500.0 E9/L [facility] HemeAutoSS RBC (Bld) [#/Vol] 5.0 E12/L Normal [...] PM) Normal Negative [facility] UA Auto SS [place].plasma/Lithi um.RBC (Bld) [Mass ratio] 0-3 /HPF Normal [...] Desc Clean Catch (11/24/21 2:50 PM) Normal [facility] UA Auto SS Urobilinogen Qn (U) [id number] {Erendira'U}/dL Normal 0.0 - 1.0 EU/dL [facility] UA Auto SS WBC Auto Ql (U) Negative (11/24/21 2:50 PM) Normal Negative [facility] UA Auto SS WBC LM.HPF (Urine sed) [#/Area] 0-5 /HPF Normal 0-5/HPF [facility] UA Auto SS CULTURE URINEon 10-24-2021 CULTURE [...] hoxazole <=20 S F Normal [facility] Comment on above: Performed By: #### C MP #### [facility] [address] [place] [address] Dr. Yamini Gomez CBC AUTO DIFFon 10-22-2021 BASO # 0.0 103/ul Normal 0.0-0.1 [facility] Comment on above: Performed By: #### C BC #### [facility] [address] [place] [address] Dr. Yamini Gomez Basophils/100 WBC (Bld) 0.1 % Critically low 0.2-2.0 [facility] Comment on above: Performed By: #### C BC #### [facility] [address] [place] [address] Dr. Yamini Gomez EO # 0.0 103/ul Normal 0.0-0.7 [facility] Comment on above: Performed By: #### C BC #### [facility] [address] [place] [address] Dr. Yamini Gomez Eosinophils/100 WBC (Bld) 0.0 % Critically low 0.9-7.0 [facility] Comment on above: Performed By: #### C BC #### [facility] [address] [place] [address] Dr. Yamini Gomez Erythrocyte distribution width (RBC) [Ratio] 12.3 % Normal 11.0-15.0 [facility] Comment on above: Performed By: #### C BC #### [facility] [address] [place] [address] Dr. Yamini Gomez Hematocrit (Bld) [Volume fraction] 43.7 % Normal 42.0-54.0 [facility] Comment on above: Performed By: #### C BC #### [facility] [address] [place] [address] Dr. Yamini Gomez Hemoglobin (Bld) [Mass/Vol] 14.8 g/dL Normal 14.0-18.0 [facility] Comment on above: Performed By: #### C BC #### [facility] [address] [place] [address] Dr. Yamini Gomez IG # 0.06 10e3/ul Critically high 0.00-0.03 [facility] Comment on above: Performed By: #### C BC #### [facility] [address] [place] [address] Dr. Yamini Gomez IG % 0.4 % Normal 0.0-0.5 [facility] Comment on above: Performed By: #### C BC #### [facility] [address] [place] [address] Dr. Yamini Gomez LYMPH # 0.9 103/ul Critically low 1.2-3.8 [facility] Comment on above: Performed By: #### C BC #### [facility] [address] [place] [address] Dr. Yamini Gomez Lymphocytes/100 WBC (Bld) 5.7 % Critically low 20.5-60.0 [facility] Comment on above: Performed By: #### C BC #### [facility] [address] [place] [address] Dr. Yamini Gomez MANUAL DIFF REQ NO Normal [facility] Comment on above: Performed By: #### C BC #### [facility] [address] [place] [address] Dr. Yamini Gomez MCH (RBC) [Entitic mass] 29.8 pg Normal 25.9-34.0 [facility] Comment on above: Performed By: #### C BC #### [facility] [address] [place] [address] Dr. Yamini Gomez MCHC (RBC) [Mass/Vol] 33.9 g/dL Normal 29.9-35.2 [facility] Comment on above: Performed By: #### C BC #### [facility] [address] [place] [address] Dr. Yamini Gomez MCV (RBC) [Entitic vol] 88.1 fL Normal 80.0-94.0 [facility] Comment on above: Performed By: #### C BC #### [facility] [address] [place] [address] Dr. Yamini Gomez MONO # 1.1 103/ul Critically high 0.3-0.8 [facility] Comment on above: Performed By: #### C BC #### [facility] [address] [place] [address] Dr. Yamini Gomez Monocytes/100 WBC (Bld) 6.9 % Normal 1.7-12.0 [facility] Comment on above: Performed By: #### C BC #### [facility] [address] [place] [address] Dr. Yamini Gomez NEUT # 13.8 103/ul Critically high 1.4-6.5 [facility] Comment on above: Performed By: #### C BC #### [facility] [address] [place] [address] Dr. Yamini Gomez Neutrophils/100 WBC (Bld) 86.9 % Critically high 43.0-75.0 [facility] Comment on above: Performed By: #### C BC #### [facility] [address] [place] [address] Dr. Yamini Gomez Platelet mean volume (Bld) [Entitic vol] 9.3 fL Critically low 9.5-13.5 [facility] Comment on above: Performed By: #### C BC #### [facility] [address] [place] [address] Dr. Yamini Gomez PLT 150 103/ul Normal 150-450 [facility] Comment on above: Performed By: #### C BC #### [facility] [address] [place] [address] Dr. Yamini Gomez RBC 4.96 106/ul Normal 4.70-6.10 [facility] Comment on above: Performed By: #### C BC #### [facility] [address] [place] [address] Dr. Yamini Gomez WBC 15.9 103/ul Critically high 4.0-11.0 [facility] Comment on above: Performed By: #### C BC #### [facility] [address] [place] [address] ABD/PELV W CONon 10-23-[address] ABD/PELV W CON EXAM: CT ABD/PELV [...] acute renal pathology. Electronically authenticated by: JT TYALOR Date: 2021-10-21 22:05 Normal [facility] Covid-19 PCR (CVDTB)on 10-12 SARS-CoV-2 (COVID-19) RNA DAVID+probe Ql (Unsp spec) Not detected Normal NOT DETECTED [facility] Comment on above: Result Comment: When [...] for this test is supported by the [employer] of [employer] and Human Service's declaration that [...] used). Performed By: #### C VDTB #### [facility] [address] [place] [address] Dr. Yamini Gomez LACTATE/LACTIC ACIDon 2021 Lactate [Moles/Vol] 1.4 mmol/L Normal 0.4-1.9 [facility] Comment on above: Performed By: #### L ACT #### [facility] [address] [place] [address] Dr. Yamini Gomez PROF CHEM 8 (BAS METB)on Anion gap [Moles/Vol] 13.0 mmol/L Normal [facility] Comment on above: Performed By: #### B MP #### [facility] [address] [place] [address] Dr. Yamini Gomez Calcium [Mass/Vol] 8.6 mg/dL Normal 8.5-10.1 [facility] Comment on above: Performed By: #### B MP #### [facility] [address] [place] [address] Dr. Yamini Gomez Chloride [Moles/Vol] 105 mmol/L Normal 98-107 [facility] Comment on above: Performed By: #### B MP #### [facility] [address] [place] [address] Dr. Yamini Gomez CO2 [Moles/Vol] 23.7 mmol/L Normal 21.0-32.0 [facility] Comment on above: Performed By: #### B MP #### [facility] [address] [place] [address] Dr. Yamini Gomez Creatinine [Mass/Vol] 1.09 mg/dL Normal 0.70-1.30 [facility] Comment on above: Performed By: #### B MP #### [facility] [address] [place] [address] Dr. Yamini Gomez EGFR-AF LATVIAN >60 Normal >=60 [facility] Comment on above: Performed By: #### B MP #### [facility] [address] [place] [address] Dr. Yamini Gomez EGFR-NON AF LATVIAN >60 Normal >=60 [facility] Comment on above: Performed By: #### B MP #### [facility] [address] [place] [address] Dr. Yamini Gomez Glucose [Mass/Vol] 140 mg/dL Critically high 74-106 [facility] Comment on above: Performed By: #### B MP #### [facility] [address] [place] [address] Dr. Yaimni Gomez Potassium [Moles/Vol] 3.7 mmol/L Normal 3.5-5.1 [facility] Comment on above: Performed By: #### B MP #### [facility] [address] [place] [address] Dr. Yamini Gomez Sodium [Moles/Vol] 138 mmol/L Normal 136-145 [facility] Comment on above: Performed By: #### B MP #### [facility] [address] [place] [address] Dr. Yamini Gomez Urea nitrogen [Mass/Vol] 12.0 mg/dL Normal 7.0-18.0 [facility] Comment on above: Performed By: #### B MP #### [facility] [address] [place] [address] Dr. Yamini Gomez Urea nitrogen/Creatinine [Mass ratio] 11.0 mg/mg Normal [facility] Comment on above: Performed By: #### B MP #### [facility] [address] [place] [address] Dr. Yamini Gomez CBC AUTO DIFFon 10-21-2021 BASO # 0.0 103/ul Normal 0.0-0.1 [facility] Comment on above: Performed By: #### C MP #### [facility] [address] [address] [address] Yamini Gomez Basophils/100 WBC (Bld) 0.2 % Normal 0.2-2.0 [facility] Comment on above: Performed By: #### C MP #### [facility] [address] [place] [address] Dr. Yamini Gomez EO # 0.0 103/ul Normal 0.0-0.7 [facility] Comment on above: Performed By: #### C MP #### [facility] [address] [place] [address] Dr. Yamini Gomez Eosinophils/100 WBC (Bld) 0.3 % Critically low 0.9-7.0 [facility] Comment on above: Performed By: #### C MP #### [facility] [address] [place] [address] Dr. Yamini Gomez Erythrocyte distribution width (RBC) [Ratio] 12.0 % Normal 11.0-15.0 [facility] Comment on above: Performed By: #### C MP #### [facility] [address] [place] [address] Dr. Yamini Gomez Hematocrit (Bld) [Volume fraction] 46.3 % Normal 42.0-54.0 [facility] Comment on above: Performed By: #### C MP #### [facility] [address] [place] [address] Dr. Yamini Gomez Hemoglobin (Bld) [Mass/Vol] 16.0 g/dL Normal 14.0-18.0 [facility] Comment on above: Performed By: #### C MP #### [facility] [address] [place] [address] Dr. Yamini Gomez IG # 0.21 10e3/ul Critically high 0.00-0.03 [facility] Comment on above: Performed By: #### C MP #### [facility] [address] [place] [address] Dr. Yamini Gomez IG % 2.0 % Critically high 0.0-0.5 [facility] Comment on above: Performed By: #### C MP #### [facility] [address] [address] [address] Yamini Gomez LYMPH # 0.7 103/ul Critically low 1.2-3.8 [facility] Comment on above: Performed By: #### C MP #### [facility] [address] [place] [address] Dr. Yamini Gomez Lymphocytes/100 WBC (Bld) 6.7 % Critically low 20.5-60.0 [facility] Comment on above: Performed By: #### C MP #### [facility] [address] [place] [address] Dr. Yamini Gomez MANUAL DIFF REQ NO Normal [facility] Comment on above: Performed By: #### C MP #### [facility] [address] [place] [address] Dr. Yamini Gomez MCH (RBC) [Entitic mass] 30.1 pg Normal 25.9-34.0 [facility] Comment on above: Performed By: #### C MP #### [facility] [address] [place] [address] Dr. Yamini Gomez MCHC (RBC) [Mass/Vol] 34.6 g/dL Normal 29.9-35.2 [facility] Comment on above: Performed By: #### C MP #### [facility] [address] [place] [address] Dr. Yamini Gomez MCV (RBC) [Entitic vol] 87.0 fL Normal 80.0-94.0 [facility] Comment on above: Performed By: #### C MP #### [facility] [address] [place] [address] Dr. Yamini Gomez MONO # 0.2 103/ul Critically low 0.3-0.8 [facility] Comment on above: Performed By: #### C MP #### [facility] [address] [place] [address] Dr. Yamini Gomez Monocytes/100 WBC (Bld) 1.7 % Normal 1.7-12.0 [facility] Comment on above: Performed By: #### C MP #### [facility] [address] [place] [address] Dr. Yamini Gomez NEUT # 9.5 103/ul Critically high 1.4-6.5 [facility] Comment on above: Performed By: #### C MP #### [facility] [address] [place] [address] Dr. Yamini Gomez Neutrophils/100 WBC (Bld) 89.1 % Critically high 43.0-75.0 [facility] Comment on above: Performed By: #### C MP #### [facility] [address] [place] [address] Dr. Yamini Gomez Platelet mean volume (Bld) [Entitic vol] 9.3 fL Critically low 9.5-13.5 [facility] Comment on above: Performed By: #### C MP #### [facility] [address] [place] [address] Dr. Yamini Gomez PLT 149 103/ul Critically low 150-450 [facility] Comment on above: Performed By: #### C MP #### [facility] [address] [place] [address] Dr. Yamini Gomez RBC 5.32 106/ul Normal 4.70-6.10 [facility] Comment on above: Performed By: #### C MP #### [facility] [address] [place] [address] Dr. Yamini Gomez WBC 10.6 103/ul Normal 4.0-11.0 [facility] Comment on above: Performed By: #### C MP #### [facility] [address] [place] [address] Dr. Yamini Gomez CULTURE BLOODon 10-21-2021 Microscopic examination of blood, culture Culture Observations: No growth at 5 days. Normal [facility] Comment on above: Performed By: #### C MP #### [facility] [address] [place] [address] Dr. Yamini Gomez Microscopic examination of blood, culture Culture Observations: No growth at 5 days. Normal [facility] Comment on above: Performed By: #### C MP #### [facility] [address] [place] [address] Dr. Yamini Gomez ER URINE PROFILEon 2 Bilirubin Ql (U) Negative Normal NEGATIVE [facility] Comment on above: Performed By: #### U MICRO, ERUR #### [facility] [address] [place] [address] Dr. Yamini Gomez Clarity (U) CLEAR Normal CLEAR [facility] Comment on above: Performed By: #### U MICRO, ERUR #### [facility] [address] [place] [address] Dr. Yamini Gomez Color (U) LT. YELLOW Normal YELLOW [facility] Comment on above: Performed By: #### U MICRO, ERUR #### [facility] [address] [place] [address] Dr. Yamini AGUILLOND A micrscopic examination will be performed if indicated. Normal [facility] Comment on above: Performed By: #### U MICRO, ERUR #### [facility] [address] [place] [address] Dr. Yamini Gomez Glucose Ql (U) Negative Normal NEGATIVE [facility] Comment on above: Performed By: #### U MICRO, ERUR #### [facility] [address] [place] [address] Dr. Yamini Gomez Hemoglobin Ql (U) MODERATE Abnormal NEGATIVE [facility] Comment on above: Performed By: #### U MICRO, ERUR #### [facility] [address] [place] [address] Dr. Yamini Gomez Ketones Ql (U) Negative Normal NEGATIVE [facility] Comment on above: Performed By: #### U MICRO, ERUR #### [facility] [address] [place] [address] Dr. Yamini Gomez LEUKOCYTES MODERATE Abnormal NEGATIVE [facility] Comment on above: Performed By: #### U MICRO, ERUR #### [facility] [address] [place] [address] Dr. Yamini Gomez Nitrite Ql (U) Negative Normal NEGATIVE [facility] Comment on above: Performed By: #### U MICRO, ERUR #### [facility] [address] [place] [address] Dr. Yamini Gomez pH (U) 7.0 [pH] Normal 5-9 [facility] Comment on above: Performed By: #### U MICRO, ERUR #### [facility] [address] [place] [address] Dr. Yamini Gomez SPEC GRAVITY 1.010 Normal 1.005-<=1.025 [facility] Comment on above: Performed By: #### U MICRO, ERUR #### [facility] [address] [place] [address] Dr. Yamini Gomez UA PROTEIN Negative Normal NEGATIVE/ TRACE [facility] Comment on above: Performed By: #### U MICRO, ERUR #### [facility] [address] [place] [address] Dr. Yamini Gomez UR MICRO IND INDICATED Normal [facility] Comment on above: Performed By: #### U MICRO, ERUR #### [facility] [address] [place] [address] Dr. Yamini Gomez Urobilinogen Qn (U) 0.2 {Erendira'U}/dL Normal 0.2 - 1. 0 [facility] Comment on above: Performed By: #### U MICRO, ERUR #### [facility] [address] [place] [address] Dr. Yamini Gomez LACTATE/LACTIC ACIDon 2021 Lactate [Moles/Vol] 2.9 mmol/L Critically high 0.4-1.9 [facility] Comment on above: Performed By: #### C MP #### [facility] [address] [place] [address] Dr. Yamini Gomez PROF 14(COMP METB)on 022 Albumin [Mass/Vol] 4.1 g/dL Normal 3.4-5.0 [facility] Comment on above: Performed By: #### C MP #### [facility] [address] [place] [address] Dr. Yamini Gomez Albumin/Globulin [Mass ratio] 1.1 {ratio} Normal [facility] Comment on above: Performed By: #### C MP #### [facility] [address] [place] [address] Dr. Yamini Gomez ALP [Catalytic activity/Vol] 77 U/L Normal 46-116 [facility] Comment on above: Performed By: #### C MP #### [facility] [address] [place] [address] Dr. Yamini Gomez ALT [Catalytic activity/Vol] 54 U/L Normal 16-63 [facility] Comment on above: Performed By: #### C MP #### [facility] [address] [place] [address] Dr. Yamini Gomez Anion gap [Moles/Vol] 16.5 mmol/L Normal [facility] Comment on above: Performed By: #### C MP #### [facility] [address] [place] [address] Dr. Yamini Gomez AST [Catalytic activity/Vol] 28 U/L Normal 15-37 [facility] Comment on above: Performed By: #### C MP #### [facility] [address] [place] [address] Dr. Yamini Gomez Bilirubin [Mass/Vol] 1.2 mg/dL Critically high 0.2-1.0 [facility] Comment on above: Performed By: #### C MP #### [facility] [address] [place] [address] Dr. Yamini Gomez Calcium [Mass/Vol] 9.0 mg/dL Normal 8.5-10.1 [facility] Comment on above: Performed By: #### C MP #### [facility] [address] [place] [address] Dr. Yamini Gomez Chloride [Moles/Vol] 101 mmol/L Normal 98-107 [facility] Comment on above: Performed By: #### C MP #### [facility] [address] [place] [address] Dr. Yamini Gomez CO2 [Moles/Vol] 21.5 mmol/L Normal 21.0-32.0 [facility] Comment on above: Performed By: #### C MP #### [facility] [address] [place] [address] Dr. Yamini Gomez Creatinine [Mass/Vol] 1.31 mg/dL Critically high 0.70-1.30 [facility] Comment on above: Performed By: #### C MP #### [facility] [address] [address] [address] Yamini Gomez EGFR-AF LATVIAN >60 Normal >=60 [facility] Comment on above: Performed By: #### C MP #### [facility] [address] [address] [address] Yamini Gomez EGFR-NON AF LATVIAN 55 mL/min/1.73m2 Critically low >=60 [facility] Comment on above: Performed By: #### C MP #### [facility] [address] [address] [address] Yamini Gomez Globulin (S) [Mass/Vol] 3.7 g/dL Normal [facility] Comment on above: Performed By: #### C MP #### [facility] [address] [address] [address] Yamini Gomez Glucose [Mass/Vol] 161 mg/dL Critically high 74-106 T [facility] Comment on above: Performed By: #### C MP #### [facility] [address] [address] [address] Yamini Gomez Potassium [Moles/Vol] 4.0 mmol/L Normal 3.5-5.1 [facility] Comment on above: Performed By: #### C MP #### [facility] [address] [address] [address] Yamini Gomez Protein [Mass/Vol] 7.8 g/dL Normal 6.4-8.2 [facility] Comment on above: Performed By: #### C MP #### [facility] [address] [address] [address] Yamini Gomez Sodium [Moles/Vol] 135 mmol/L Critically low 136-145 Th [facility] Comment on above: Performed By: #### C MP #### [facility] [address] [address] [address] Yamini Gomez Urea nitrogen [Mass/Vol] 14.0 mg/dL Normal 7.0-18.0 [facility] Comment on above: Performed By: #### C MP #### [facility] [address] [place] [address] Dr. Yamini Gomez Urea nitrogen/Creatinine [Mass ratio] 10.7 mg/mg Normal [facility] Comment on above: Performed By: #### C MP #### [facility] [address] [place] [address] Dr. Yamini Gomez URINE MICROSCOPIC ONLYon BACTERIA TRACE Abnormal NONE SEEN [facility] Comment on above: Performed By: #### C MP #### [facility] [address] [place] [address] Dr. Yamini Gomez Bacteria identified Cx Nom (U) INDICATED Normal [facility] Comment on above: Performed By: #### C MP #### [facility] [address] [place] [address] Dr. Yamini Gomez CAST NONE SEEN Normal NONE SEEN [facility] Comment on above: Performed By: #### C MP #### [facility] [address] [place] [address] Dr. Yamini Gomez Crystals LM Nom (Urine sed) NONE SEEN Normal NONE SEEN [facility] Comment on above: Performed By: #### C MP #### [facility] [address] [place] [address] Dr. Yamini Gomez Epithelial cells LM Ql (Urine sed) NONE SEEN Normal NONE SEEN /RARE [facility] Comment on above: Performed By: #### C MP #### [facility] [address] [place] [address] Dr. Yamini Gomez MUCOUS NONE SEEN Normal NONE SEEN [facility] Comment on above: Performed By: #### C MP #### [facility] [address] [place] [address] Dr. Yamini Gomez RBC 0-2 Normal 0-2 [facility] Comment on above: Performed By: #### C MP #### [facility] [address] [place] [address] Dr. Yamini Gomez WBC 50-75 Abnormal NONE SEEN [facility] Comment on above: Performed By: #### C MP #### [facility] [address] [place] [address] Dr. Yamini Gomez Vital Signs Date Time Vital Sign Value Performing Clinician Cassidy nelson 11-13-2023 09:46-0400 Diastolic blood pressure 98 mm[Hg] Norbert NILL [facility] [place] 11-13-2023 09:46-0400 Heart rate 60 /min Norbert NILL [facility] [place] 11-13-2023 09:46-0400 Respiratory rate 16 /min Norbert NILL [facility] 11-13-2023 09:46-0400 Systolic blood pressure 163 mm[Hg] Norbert NILL [facility] 11-12-2023 09:47-0400 Blood Pressure Location Rolly AZUL [facility] 11-12-2023 09:47-0400 Body temperature 98.6 [degF] Rolly AZUL [facility] 11-12-2023 09:47-0400 Diastolic blood pressure 87 mm[Hg] Rolly AZUL [facility] 11-12-2023 09:47-0400 Heart rate 79 /min Rolly AZUL [facility] 11-12-2023 09:47-0400 Respiratory rate 16 /min Rolly AZUL [facility] 11-12-2023 09:47-0400 Systolic blood pressure 138 mm[Hg] Rolly AZUL [facility] 05-29-2023 15:08-0500 Blood Pressure Location [facility] 05-29-2023 15:08-0500 Diastolic blood pressure 94 mm[Hg] [facility] 05-29-2023 15:08-0500 Heart rate 65 /min [facility] 05-29-2023 15:08-0500 SaO2% (BldA) [Mass fraction] 96 % [facility] 05-29-2023 15:08-0500 Systolic blood pressure 162 mm[Hg] [facility] 05-29-2023 15:00-0500 Diastolic blood pressure 88 mm[Hg] [facility] 05-29-2023 15:00-0500 Mean blood pressure 102 mm[Hg] [facility] 05-29-2023 15:00-0500 Systolic blood pressure 130 mm[Hg] [facility] 02-26-2023 13:07-0400 Blood Pressure Location Rolly AZUL [facility] 02-26-2023 13:07-0400 Diastolic blood pressure 88 mm[Hg] Rolly AZUL [facility] 02-26-2023 13:07-0400 Heart rate 89 /min Rolly AZUL [facility] 02-26-2023 13:07-0400 Respiratory rate 16 /min Rolly AZUL [facility] 02-26-2023 13:07-0400 Systolic blood pressure 133 mm[Hg] Rolly AZUL [facility] 02-17-2022 09:34-0400 Blood Pressure Location [facility] 02-17-2022 09:34-0400 Diastolic blood pressure 76 mm[Hg] [facility] 02-17-2022 09:34-0400 Heart rate 53 /min [facility] 02-17-2022 09:34-0400 Respiratory rate 18 /min Shirley [facility] 02-17-2022 09:34-0400 SaO2% (BldA) [Mass fraction] 100 % Shirley [facility] 02-17-2022 09:34-0400 Systolic blood pressure 140 mm[Hg] Shirley [facility] 12-28-2021 13:50-0400 Diastolic blood pressure 85 mm[Hg] Brennan [facility]onagladis [facility] 12-28-2021 13:50-0400 Mean blood pressure 105 mm[Hg] Brennan [facility]off[facility] 12-28-2021 13:50-0400 Systolic blood pressure 146 mm[Hg] Brennan [facility] 12-28-2021 13:31-0400 Blood Pressure Location Brennan Pottererson [facility] 12-28-2021 13:31-0400 Diastolic blood pressure 88 mm[Hg] Brennan [facility] 12-28-2021 13:31-0400 Heart rate 60 /min Brennan [facility]rer[facility] 12-28-2021 13:31-0400 SaO2% (BldA) [Mass fraction] 98 % Brennan Gaonamonicacarlos [facility] 12-28-2021 13:31-0400 Systolic blood pressure 152 mm[Hg] Brennan Gaonamonicacarols [facility] 11-24-2021 14:52-0400 Diastolic blood pressure 89 mm[Hg] Lauro Eubanks Jr. [facility] 11-24-2021 14:52-0400 Heart rate 54 /min Lauro Eubanks Jr. [facility] 11-24-2021 14:52-0400 Mean blood pressure 109 mm[Hg] Lauro Eubanks Jr. [facility] 11-24-2021 14:52-0400 Systolic blood pressure 150 mm[Hg] Lauro Eubanks Jr. [facility] 11-24-2021 14:51-0400 Diastolic blood pressure 76 mm[Hg] Lauro Eubanks Jr. [facility] 11-24-2021 14:51-0400 Heart rate 55 /min Lauro Eubanks Jr. [facility] 11-24-2021 14:51-0400 Mean blood pressure 97 mm[Hg] Lauro Eubanks Jr. [facility] 11-24-2021 14:51-0400 Systolic blood pressure 140 mm[Hg] Lauro Eubanks Jr. [facility] 11-24-2021 14:29-0400 Blood Pressure Location Lauro Eubanks Jr. [facility] 11-24-2021 14:29-0400 Body temperature 98.24 [degF] Lauro [facility]ubanks Jr. [facility] 11-24-2021 14:29-0400 Diastolic blood pressure 85 mm[Hg] Lauro [facility]ubanks Jr. [facility] 11-24-2021 14:29-0400 Heart rate 65 /min Lauro Eubanks Jr. [facility] 11-24-2021 14:29-0400 Mean blood pressure 111 mm[Hg] Lauro Eubanks Jr. [facility] 11-24-2021 14:29-0400 Systolic blood pressure 162 mm[Hg] Lauro Eubanks Jr. [facility] 11-24-2021 14:28-0400 Blood Pressure Location Lauro Eubanks Jr. [facility] 11-24-2021 14:28-0400 BP/Pulse Patient Position Lauro Eubanks Jr. [facility] 11-24-2021 14:28-0400 Respiratory rate 18 /min Lauro Eubanks Jr. [facility] 11-24-2021 14:28-0400 SaO2% (BldA) [Mass fraction] 97 % Lauro Eubanks Jr. [facility] 11-15-2021 10:26-0400 Diastolic blood pressure 81 mm[Hg] Lauro Eubanks Jr. [facility] 11-15-2021 10:26-0400 Mean blood pressure 94 mm[Hg] Lauro Eubanks Jr. [facility] 11-15-2021 10:26-0400 Systolic blood pressure 119 mm[Hg] Lauro Eubanks Jr. [facility] 11-15-2021 10:14-0400 Blood Pressure Location Lauro Eubanks Jr. [facility] 11-15-2021 10:14-0400 Diastolic blood pressure 90 mm[Hg] Lauro Eubanks Jr. [facility] 11-15-2021 10:14-0400 Heart rate 59 /min Lauro Eubanks Jr. [facility] 11-15-2021 10:14-0400 Systolic blood pressure 147 mm[Hg] Lauro Eubanks Jr. [facility] 09-19-2021 12:59-0400 Blood Pressure Location Lauro Eubanks Jr. [facility] 09-19-2021 12:59-0400 Diastolic blood pressure 100 mm[Hg] Lauro Eubanks Jr. [facility] 09-19-2021 12:59-0400 Heart rate 64 /min Lauro Eubanks Jr. [facility] 09-19-2021 12:59-0400 Systolic blood pressure 151 mm[Hg] Lauro Eubanks Jr. [facility] 08-30-2021 09:19-0400 Blood Pressure Location Lauro Eubanks Jr. [facility] 08-30-2021 09:19-0400 Diastolic blood pressure 86 mm[Hg] Lauro Eubanks Jr. [facility] 08-30-2021 09:19-0400 Heart rate 55 /min Lauro Eubanks Jr. [facility] 08-30-2021 09:19-0400 Respiratory rate 16 /min Lauro Eubanks Jr. [facility] 08-30-2021 09:19-0400 Systolic blood pressure 144 mm[Hg] Lauro Eubanks Jr. [facility] Encounters Encounter Date Encounter Type Care Provider Facility Start: 11-03-2024 ambulatory Cesar Calles Facility :[facility] Start: 05-26-2024 [facility] [place] Start: 02-04-2024 ambulatory Cesar Calles Facility :[facility] Start: 12-03-2023 End: 12-03-2023 Lab Drop off Cesar Calles [facility] Start: 12-03-2023 End: 12-03-2023 ambulatory Cesar Calles Facility:[facility] Start: 11-13-2023 End: 11-13-2023 ambulatory Norbert AGUDELO Facility:[facility] Start: 11-13-2023 End: 11-13-2023 Patient encounter procedure Norbert AGUDELO [facility] [place] Start: 11-12-2023 End: 11-12-2023 ambulatory Rolly AZUL Facility: [place] Start: 11-12-2023 End: 11-12-2023 Patient encounter procedure Rolly AZUL [facility] [place] Start: 11-08-2023 ambulatory Rolly AZUL Facility : [place] Start: 11-05-2023 ambulatory Rolly AZUL Facility : [place] Start: 11-05-2023 End: 11-05-2023 ambulatory Cesar Calles Facility:[facility] [place] Start: 10-15-2023 End: 10-15-2023 ambulatory Cesar Calles Facility:[facility] Start: 10-15-2023 End: 10-15-2023 Patient encounter procedure Cesar Calles [facility] Start: 10-02-2023 End: 10-02-2023 ambulatory Cesar Calles Facility:[facility] [place] Start: 09-24-2023 ambulatory Rolly AZUL Facility :[facility] [place] Start: 07-09-2023 End: 07-09-2023 ambulatory Rolly AZUL Facility:[facility] [place] Start: 06-25-2023 End: 06-25-2023 ambulatory Rollyalfonso AZUL Facility:[facility] [place] Start: 06-25-2023 End: 06-25-2023 Patient encounter procedure Rollyalfonso AZUL [facility] [place] Start: 06-21-2023 End: 06-21-2023 ambulatory Rollyalfonso AZUL Facility:[id number] Start: 05-29-2023 End: 05-29-2023 ambulatory XXXX NONE Facility:[facility] Start: 05-29-2023 End: 05-29-2023 Patient encounter procedure Brennan Gillis [facility] Start: 05-28-2023 ambulatory Rolly AZUL Facili ty:[facility] [place] Start: 03-20-2023 End: 03-20-2023 ambulatory Rollyalfonso AZUL Facility:[facility] Start: 03-20-2023 End: 03-20-2023 Patient encounter procedure Rolly AZUL [facility] Start: 02-26-2023 End: 02-26-2023 ambulatory Rollyalfonso AZUL Facility:[facility] Start: 02-26-2023 End: 02-26-2023 Patient encounter procedure Rolly AZUL [facility] Start: 08-31-2022 Encounter for genera l adult medical examination without abnormal findings DR NAHID JUNIOR [facility] Start: 08-28-2022 End: 08-29-[address] NAHID JUNIOR Facility:[facility] Start: 08-28-2022 End: 08-29-2022 Encounter for general adult medical examination without abnormal findings DR NAHID JUNIOR Facility:[facility] Start: 03-08-2022 End: 03-09-[address] DOCTOR HENDRICKS Facility:[facility] Start: 02-17-2022 End: 02-17-2022 Patient encounter procedure Shirley [facility] Start: 02-17-2022 End: 02-17-2022 Preprocedural examination done Shirleyalex [facility] Start: 02-08-2022 End: 02-08-2022 Patient encounter procedure Brennan Gillis [facility] Start: 01-18-2022 End: 01-18-2022 Patient encounter procedure Brennan Gillis [facility] Start: 12-28-2021 End: 12-28-2021 Patient encounter procedure Brennan Gillis [facility] Start: 11-24-2021 ambulatory Facility:[id number] Start: 11-24-2021 End: 11-24-2021 Patient encounter procedure Lauro Eubanks Jr. [facility] Start: 11-17-2021 End: 12-09-2021 Pre-admission assessment Lauro Eubanks Jr. [facility] Start: 11-15-2021 End: 11-15-2021 Patient encounter procedure Lauro Eubanks Jr. [facility] Start: 10-22-2021 End: 10-22-2021 Evaluation and management of inpatient DR NAHID JUNIOR Facility: Start: 09-19-2021 End: 09-19-2021 Patient encounter procedure Lauro Eubanks Jr. [facility] Start: 08-30-2021 End: 08-30-2021 Patient encounter procedure Lauro Eubanks Jr. [facility] Procedures Date Procedure Procedure Detail Performing Clinician Start: 06-21-2023 Cystourethroscopy [facility] dilation of urethral stricture Cesar Calles Start: 06-21-2023 Transurethral prostatectomy Cesar Calles Start: 03-20-2023 Transurethral cystoscopy Cesar Calles Start: 08-28-[address] MERA JUNIOR Comment on above: Performed By: #### C MP #### [facility] [address] [place] [address] Dr. Yamini Gomez Start: 09-19-2021 Cystoscopy Lauro price Jr. Start: 02-19-2019 Transrectal biopsy o f prostate using ultrasound guidance Lauro Eubanks Jr. Colonoscopy Cesar Calles Umbilical hernia (disorder) Lauro Eubanks Jr. Immunizations Immunization Date Immunization Notes Care Provider [facility] 02-26-2023 zoster vaccine recombinant Cesar Calles [facility] 02-13-2023 influenza virus vaccine, unspecified formulation Rolly AZUL [facility] 12-18-2022 zoster vaccine recombinant Rolly AZUL [facility] 03-08-2022 influenza virus vaccine, unspecified formulation Rolly AZUL [facility] 03-08-2022 SARS-CoV-2 mRNA (tozinameran 5y-11y) vaccine Rolly AZUL [facility] 03-04-2021 influenza virus vaccine, unspecified formulation Rolly AZUL [facility] 03-04-2021 SARS-CoV-2 (COVID-19 ) mRNA BNT-162b2 vax Rolly AZUL [facility] Comment on above: Result Comment: 2022: [id number] 02-11-2021 SARS-CoV-2 (COVID-19 ) mRNA BNT-162b2 vax Lauro Eubanks Jr. [facility] 07-16-2020 SARS-CoV-2 (COVID-19 ) mRNA BNT-162b2 vax Rolly AZUL [facility] 06-25-2020 SARS-CoV-2 (COVID-19 ) mRNA BNT-162b2 vax Rolly AZUL [facility] 06-14-2020 SARS-CoV-2 (COVID-19 ) mRNA BNT-162b2 vax Lauro Eubanks Jr. [facility] 06-14-2020 SARS-CoV-2 (COVID-19 ) mRNA-1273 vaccine Lauro Eubanks Jr. [facility] 05-14-2020 SARS-CoV-2 (COVID-19 ) mRNA BNT-162c6 vax Lauro Eubanks Jr. [facility] 02-15-2020 influenza virus vaccine, unspecified formulation Rolly AZUL [facility] 01-13-2020 influenza virus vaccine, unspecified formulation Lauro Eubanks Jr. [facility] 03-12-2019 influenza virus vaccine, unspecified formulation Rolly AZUL [facility] 02-06-2018 influenza virus vaccine, unspecified formulation Rolly AZUL [facility] 03-30-2017 influenza virus vaccine, unspecified formulation Rolly AZUL [facility] 03-12-2015 influenza virus vaccine, unspecified formulation Rolly AZUL [facility] 12-29-2011 tetanus toxoid, redu briseyda diphtheria toxoid, and acellular pertussis vaccine, adsorbed Rolly AZUL [facility] 07-08-2000 Hep A, unspecified formulation Rolly AZUL [facility] 10-25-1999 Hep A, unspecified formulation Rolly AZUL [facility] Payers Date Payer Category Payer Medicare [id number] 2022 Medicare [id number] 2022 Unknown [id number] 1959 Unknown [id number] 1959 Unknown [id number] 1958 Unknown [id number] 2.16. [id number] 1958 Unknown [id number] 2.16.84 0.1.634322.3.579.2.593 1958 Unknown [id number] 2.16.84 0.1.104262.3.579.2.593 1958 Unknown [id number] 2.16.84 0.1.256087.3.579.2.593 1958 Unknown [id number] 2.16.8 40.1.823112.3.579.2.727 1958 Unknown [id number] 2.16.8 40.1.011007.3.579.2.727 1958 Unknown [id number] 2.16.8 40.1.024693.3.579.2.727 1958 Unknown [id number] 2.16.8 40.1.850441.3.579.2.727 1958 Unknown [id number] 2.16.8 40.1.811693.3.579.2.727 1958 Unknown [id number] 2.16.8 40.1.553441.3.579.2.727 1958 Unknown [id number] 2.16.8 40.1.023880.3.579.2.727 1958 Unknown [id number] 2.16.8 40.1.775056.3.579.2.727 1958 Unknown [id number] 2.16.8 40.1.139217.3.579.2.727 1958 Unknown [id number] 2.16.8 40.1.112944.3.579.2.727 1958 Unknown [id number] 2.16.8 40.1.109656.3.579.2.727 1958 Unknown [id number] 2.16.8 40.1.025015.3.579.2.727 1958 Unknown [id number] 2.16.8 40.1.601244.3.579.2.727 1958 Unknown [id number] 2.16.8 40.1.639016.3.579.2.727 1958 Unknown [id number] 2.16.8 40.1.833014.3.579.2.727 1958 Unknown [id number] 2.16.8 40.1.175430.3.579.2.727 1958 Unknown [id number] 2.16.8 40.1.023101.3.579.2.727 Private Health Insurance [id number] Social History Date Type Detail Facility Start: 08-30-2021 End: 11-13-2023 Tobacco smoking status Never smoked tobacco (finding) [facility] Sex Assigned At Male [facility] Tobacco smoking status Never [facility] Functional Status Date Assessment Result Facility 11-13-2023 Functional Status N/A [facility] [place] 11-12-2023 Functional Status N/A [facility] 05-29-2023 Functional Status No [facility] 03-20-2023 Functional Status N/A [facility] 02-26-2023 Functional Status N/A [facility] 02-17-2022 Functional Status N/A [facility] 12-28-2021 Functional Status No [facility] 11-24-2021 Functional Status No [facility] 11-15-2021 Functional Status N/A [facility] Clinical Notes 08-30-2021 to 12-03-2023 RadiologyLaboratoryLaboratoryLaboratoryLaboratory Note [...] Recorded Hep A, unspecified formulation 10/25/1999 Recorded [facility] 11-13-2023 Note General Surgery Offi ce/Clinic Note [...] with work o (more content not included)... [facility] Comment on above: Result Comment: Elec tronically Signed By: JAMMIE HURLEY, Norbert Asif\Date and Time Signed: 11/13/23 10:51 EDT 11-12-2023 [...] urethra. Follow these instructions at home: Take taii-hdm-lltwngl and prescription medicines only as told by [...] provider. Document Revised: 11/16/2021 Document Reviewed: 11/16/2021 [employer] Patient Education 2022 [employer]. Follow Up Care 07/09/2023 10:54:13 With:DANIELLA HURLEY, Rolly Bautista, URL Address: [facility] [address] [place] [address] [phone] When: Unknown [facility] [place] 11-12-2023 Note Patient Education Urology Benign Prostatic [...] Follow these instructions at home: ? Take tlat-nov-zjgvyhx and prescription medicines only as told by [...] develop side effec (more content not included)... [facility] 03-20-2023 Hospital Discharge instructions Patient Education 03/20/2023 [...] including vitamins, herbs, eye drops, creams, and fkhl-zyp-bvutmfg medicines. Any problems you or family members [...] provider tells you to take them. Taking usfs-kcr-mjrlzrr medicines, vitamins, herbs, and supplements. Surgery safety [...] provider. Document Revised: 01/24/2022 Document Reviewed: 01/24/2022 [employer] Patient Education 2022 [employer]. 03/20/2023 14:37:26 [facility] - Cystoscopy Discharge Instructions [...] AZUL Address: [facility] [address] [place] [address]- Business (1) When: Unknown Comments:Office will call to schedule follow up [facility] 03-20-2023 Note Cystoscopy ? Voiding after [...] including vitamins, herbs, eye drops, creams, and kdgj-nab-ofwnrrc medicines. ? Any problems you or family [...] tells you to take them. ? Taking pwbf-aia-cowxavm medicines, vitamins, herbs, and supplements. Surgery safety [...] asleep (general anesthetic) (more content not included)... [facility] 03-20-2023 Note [id number] [facility] 02-26-2023 Hospital Discharge instructions Patient Education [...] urethra. Follow these instructions at home: Take wdpw-klt-jlsklax and prescription medicines only as told by [...] provider. Document Revised: 11/16/2021 Document Reviewed: 11/16/2021 [employer] Patient Education 2022 [employer]. Follow Up Care 12/18/2022 10:51:11 With:DANIELLA HURLEY, Rolly Bautista, URL Address: [facility] [address] [place] [address]- When: Unknown Comments:Sched Cysto and Bladder Function Test [facility] 02-16-2022 Hospital Discharge instructions Follow Up Care 02/16/2022 11:04:35 With:Elis HURLEY, Brennan Moreno Address: [address] [place] [id number]- When: only if needed [facility] 11-15-2021 Hospital Discharge instructions Patient Education [...] including vitamins, herbs, eye drops, creams, and atyh-xgt-afyqije medicines. Any problems you or family members [...] provider tells you to take them. Taking hsbb-jsn-usysjyj medicines, vitamins, herbs, and supplements. Eating and [...] 04/30/2006 Document Revised: 08/20/2019 Document Reviewed: 01/29/2019 [employer] Patient Education 2019 luma-id Follow Up Care 10/20/2021 08:45:04 With:Raimundo Ortiz MD, Lauro Madison URO Address: [facility] [address], [place] [address]- [phone] When: Unknown [facility] 09-19-2021 Hospital Discharge instructions Patient Education [...] urethra. Follow these instructions at home: Take ennz-jwf-kgyzoqd and prescription medicines only as told by [...] 04/30/2006 Document Revised: 03/25/2019 Document Reviewed: 06/04/2017 [employer] Patient Education 2019 [employer]. Follow Up Care 08/30/2021 15:35:27 With:Raimundo Ortiz MD, Lauro Madison, URO Address: [facility] [address], [place] [address]- When: Unknown Comments:will follow up after a urolift [facility] [place] 08-30-2021 Hospital Discharge instructions Patient Education [...] including vitamins, herbs, eye drops, creams, and qwtw-cif-mbmsdmx medicines. Any problems you or family members [...] provider tells you to take them. Taking rrin-rdn-zcuicif medicines, vitamins, herbs, and supplements. Eating and [...] 04/30/2006 Document Revised: 08/20/2019 Document Reviewed: 01/29/2019 [employer] Patient Education 2020 [employer]. Follow Up Care 07/27/2020 10:36:44 With:Lauro Eubanks Jr., MD, URO Address: [facility] [address] [place] [address]- [phone] When: Unknown [facility] Evaluation + Plan note Future Appointments Appointment Date:09/19/2021 01:15:00 PM Scheduled Provider:Lauro Eubanks Jr., MD [facility] Appointment Type:URO Procedure 15 min [facility] Evaluation + Plan note Future Appointments Appointment Date:12/08/2021 09:00:00 AM Scheduled Provider: Location:[facility] Services Appointment Type:Surgery FT [facility] Evaluation + Plan note Future Appointments Appointment Date:12/15/2021 01:30:00 PM Scheduled Provider:[facility]ren[facility] Gillis [facility] Type:Cardiology New Patient (FT) [facility] Evaluation + Plan note Future Appointments Appointment Date:02/08/2022 08:00:00 AM Scheduled Provider: [facility] Type:NM Myocard Spect Multi Rest/Stress-Res Appointment Date:02/08/2022 09:00:00 AM Scheduled Provider: [facility] App[facility] Type:NM Myocard Spect Multi Rest/Stress - R Appointment Date:02/08/2022 09:30:00 AM Scheduled Provider: [facility] App[facility] Type:NM Myocard Spect Multi Rest/Stress-Str Appointment Date:02/08/2022 10:30:00 AM Scheduled Provider: [facility] App[facility] Type:NM Myocar Spect Multi Rest/Stress - St Future Scheduled TestsNM Myocardial Spect Rest/Stress 1 Day 02/08/22 [facility] Evaluation + Plan note Future Scheduled TestsBasic Metabolic Panel 03/03/22 [facility] Evaluation + Plan note Future Appointments Appointment Date:03/13/2023 01:15:00 PM Scheduled Provider: Location:[facility] Surgical Services Appointment Type:Urology CALL PAT FT Appointment Date:03/20/2023 01:00:00 PM Scheduled Provider: Location:[facility] Appointment Type:Urology FT Appointment Date:03/20/2023 02:15:00 PM Scheduled Provider: Location:[facility] Appointment Type:Urology FT Future Scheduled TestsBasic Metabolic Panel 03/03/22 [facility] Evaluation + Plan note Future Appointments Appointment Date:05/28/2023 09:00:00 AM Scheduled Provider: Location:[facility] Appointment Type:URO Nurse Visit Appointment Date:06/11/2023 09:15:00 AM Scheduled Provider[facility] Evaluation + Plan note Future Appointments Appointment Date:06/25/2023 09:00:00 AM Scheduled Provider: Location[facility] Appointment Type:URO Nurse Visit Appointment Date:07/09/2023 09:30:00 AM Scheduled Provider:[facility] Type:[facility]O Office Visit [facility] Evaluation + Plan note Future Appointments Appointment Date:07/09/2023 09:30:00 AM Scheduled Provider:Rolly AZUL MD [facility] Type:URO Office Visit [facility] [facility] Evaluation + Plan note Future Appointments Appointment Date:11/05/2023 09:30:00 AM Scheduled Provider: Location:[facility] Appointment Type: Medicare Wellness Welcome Appointment Date:11/05/2023 10:30:00 AM Scheduled Provider:Cesar Calles MD Location[facility] Appointment Type: Open Appointment Date:11/12/2023 09:45:00 AM Scheduled Provider:Rolly AZUL MD [facility] Appointment Type:URO Office Visit [facility] Evaluation + Plan note Future Appointments Appointment Date:11/13/2023 10:00:00 AM Scheduled Provider:Norbert AGUDELO MD Location:[facility] [place] Appointment Type: Gio [place] Appointment Date:12/03/2023 08:20:00 AM Scheduled Provider: Location:[facility] Appointment Type:FM Nurse Visit Appointment Date:02/04/2024 10:15:00 AM Scheduled Provider:Cesar Calles MD Location:[facility] Appointment Type: Open Appointment Date:05/26/2024 09:45:00 AM Scheduled Provider:Rolly AZUL MD [facility] Appointment Type:URO Office Visit Appointment Date:11/03/2024 09:30:00 AM Scheduled Provider: Location:[facility] Appointment Type: Medicare Wellness Initial Future Scheduled TestsPSA Screen, Total 11/05/23CV Antibody RFX to Quant PCR 11/05/23Comprehensive Metabolic Panel 11/05/23Lipid Panel 11/05/23 [facility] Evaluation + Plan note Future Appointments Appointment Date:12/03/2023 08:20:00 AM Scheduled Provider: Location:[facility] Appointment Type: Nurse Visit Appointment Date:02/04/2024 10:15:00 AM Scheduled Provider:Cesar Calles MD Location:[facility] Appointment Type: Open Appointment Date:05/26/2024 09:45:00 AM Scheduled Provider:Rolly AZUL MD Location:[facility] Appointment Type:URO Office Visit Appointment Date:11/03/2024 09:30:00 AM Scheduled Provider: Location:[facility] Appointment Type: Medicare Wellness Initial Future Scheduled TestsPSA Screen, Total 11/05/23CV Antibody RFX to Quant PCR 11/05/23Comprehensive Metabolic Panel 11/05/23Lipid Panel 11/05/23 [facility] [place] Evaluation + Plan note Future Appointments Appointment Date:02/04/2024 10:15:00 AM Scheduled Provider:Cesar Calles MD Location:[facility] Appointment Type: Open Appointment Date:05/26/2024 09:45:00 AM Scheduled Provider:Rolly AZUL MD Location:[facility] Appointment Type:URO Office Visit Appointment Date:11/03/2024 09:30:00 AM Scheduled Provider: Location:[facility] Appointment Type:FM Medicare Wellness Initial Diagnostic Tests PendingHCV Antibody RFX to Quant PCR 12/03/23 [facility] Hospital course Narrative No data available for this section [facility] Hospital Discharge instructions No data available for this section [facility] Progress note No data available for this section [facility] Summary Purpose Family History No Family [...] for this section No Family History Records FoundNo Family History Records FoundNo Family History Records FoundNo Family History Records FoundNo Family History Records FoundNo Family History Records FoundNo Family History Records Found Advance Directives No Advanced Directives Records FoundNo Advanced Directives Records FoundNo Advanced Directives Records FoundNo Advanced Directives Records FoundNo Advanced Directives Records FoundNo Advanced Directives Records FoundNo Advanced Directives Records FoundNo Advanced Directives Records FoundNo Advanced Directives Records Found Additional Source Comments Care Team (unrecognized sect ion and content) Personnel Name: Nahid Junior DO Address: [address] [place] [address] Personnel Name: Nahid Junior DO P Address: [address] [place] [address] Personnel Name: Nahid Junior DO Address: [address] [place] [id number] Personnel Name: Nahid Junior DO Address: [address] [place] [address] Personnel Name: Nahid Junior DO Address: [address] [place] [address] Personnel Name: Nahid Junior DO Address: [address] [place] [id number] Personnel Name: Nahid Junior DO Address: Address: [address] [place] [id number] Personnel Name: Nahid Junior DO Address: Address: [address] [place] [id number] Personnel Name: Nahid Junior DO Address: Address: [address] [place] [id number] Personnel Name: Nahid Junior DO Address: Address: [address] [place] [id number] Personnel Name: NAHID JUNIOR DO Address: Address: [address] [place] [id number] Personnel Name: Cesar Calles MD Address: Address: [facility] [address] Personnel Name: Cesar Calles MD Address: Address: [facility] [address] Personnel Name: Cesar Calles MD Address: Address: [facility] [address] Personnel Name: Cesar Calles MD Address: Address: [facility] [place] [address]- (unrecognized sect ion and content) No Status Records FoundNo Status Records FoundNo Status Records FoundNo Status Records FoundNo Status Records FoundNo Status Records FoundNo Status Records FoundNo Status Records FoundNo Status Records Found INFORMATION SOURCE (unrecogn ized section and content) DATE CREATED AUTHOR 02/22/2022 [facility] DATE CREATED AUTHOR AUTHOR'S ORGANIZ ATION 09/07/2022 [facility] DATE CREATED AUTHOR AUTHOR'S ORGANIZ ATION 12/06/2023 [facility] DATE CREATED AUTHOR AUTHOR'S ORGANIZ ATION 12/07/2023 [facility] DATE CREATED AUTHOR AUTHOR'S ORGANIZ ATION 12/12/2023 [facility] FOR RECORDS PERTAINING TO PATIENTS WHO ARE [...] BE BASED ON THE PRIMARY CLINICAL RECORDS. [employer] provides no warranty or guarantee of the accuracy or completeness of information in this document.
[2023-12-19 10:13] VITALS: BP 147/88; PULSE 72; TEMP 36.1; O2SAT 97; BMI 34.0
[2023-12-19] MEDS: LACTATED RINGER'S SOLUTION 1,000 ML 50 ML IV (10:21)
[2023-12-19] MEDS: CEFAZOLIN SODIUM/DEXTROSE,ISO 2 GM/50 ML PIGGYBACK IV (11:50)
[2023-12-19] MEDS: BUPIVACAINE HCL 0.5% PF 50 MG/10 ML VIAL INJ (12:11)
[2023-12-19 12:39] VITALS: BP 92/60; PULSE 92; TEMP 36.4; O2SAT 92
[2023-12-19 12:54] VITALS: BP 100/73; PULSE 63; O2SAT 95
[2023-12-19 13:09] VITALS: BP 104/66; PULSE 58; TEMP 36.3; O2SAT 97
== END 2023-12-19 13:15 | disposition home or self-care (01) ==
PROVIDERS: PCP Family Medicine; Visit Provider Surgery
PROC: (CPT 820; principal; 2023-12-19 10:50)
DX: D17.39 Benign lipomatous neoplasm of skin and subcutaneous tissue of other sites (principal); I10 Essential (primary) hypertension; N40.0 Benign prostatic hyperplasia without lower urinary tract symptoms; K21.9 Gastro-esophageal reflux disease without esophagitis
CPT/HCPCS: 21931; 88307; 88341; 88342; J0665; J0690; J1885; J2250; J2405; J2704; J3010